=== PATIENT | female | born 1970 | race Caucasian/White ===

== ENCOUNTER 2018-08-18 16:16 | Inpatient (IN) | payer MEDICAID ==
--- NOTE | 2018-08-18 17:10 | ED PDOC ---
HPI: SOB/CHF/COPD Time Seen by Provider: 08/18/18 16:29 Chief Complaint (Nursing): Shortness Of Breath Chief Complaint (Provider): Shortness Of Breath History Per: Patient Additional Complaint(s): Jonathon Vogt is a 48 year old female with a past medical history of anemia and benign breast mass, who presents to the emergency department complaining of shortness of breath, associated with intermittent dry cough, chest pain, and bilateral leg swelling. Patient has been recently diagnosed with stage 4 ovarian cancer and reports that she has been having acute shortness of breath since diagnosis but it was worse today. She [place] [facility] [place] and recently had 2.5 L of fluids removed from her abdomen, which was followed up an infection of the abdomen wall for which she takes antibiotics. Patient states her leg swelling improved since started diuretics. PMD: Yuki Jon Past Medical History Reviewed: Historical Data, Nursing Documentation, Vital Signs Vital Signs: Last Vital Signs Temp 97.7 F 08/18/18 16:21 Pulse 120 H 08/18/18 16:21 Resp 18 08/18/18 16:21 BP 110/63 08/18/18 16:21 Pulse Ox 99 08/18/18 16:21 - Medical History PMH: Anemia Other PMH: breast and pelvic mass - Surgical History Other surgeries: Biopsy of breast and pelvic mass - Family History Family History: States: Unknown Family Hx - Social History Current smoker - smoking cessation education provided: No Alcohol: None - Home Medications Home Medications: Ambulatory Orders Medication Instructions Recorded Acetaminophen [Tylenol 325mg tab] 325 mg PO PRN PRN 08/19/18 Acetaminophen/Codeine 1 tab PO Q4 PRN 08/19/18 [Tylenol/Codeine 300 MG/30 MG] Cephalexin [cephalexin] 250 mg PO Q6H 08/19/18 LORazepam [Ativan] 0.5 mg PO HS 08/19/18 RX: Pantoprazole Sodium [Protonix] 40 mg PO DAILY 08/19/18 Spironolactone [Aldactone] 50 mg PO BID 08/19/18 - Allergies Allergies/Adverse Reactions: Allergies Allergy/AdvReac Type Severity Reaction Status Date / Time No Known Allergies Allergy Verified 08/18/18 16:19 Review of Systems ROS Statement: Except As Marked, All Systems Reviewed And Found Negative (and as per HPI) Cardiovascular: Positive for: Chest Pain Respiratory: Positive for: Cough (dry), Shortness of Breath Musculoskeletal: Positive for: Other (bilateral leg swelling) Physical Exam - Reviewed Nursing Documentation Reviewed: Yes Vital Signs Reviewed: Yes - Physical Exam Appears: Positive for: Uncomfortable (cachectic and tired appearing) Head Exam: Positive for: ATRAUMATIC, NORMOCEPHALIC Skin: Positive for: Pallor Eye Exam: Positive for: EOMI, PERRL, Other (sunken orbit) ENT: Positive for: Pharynx Is (clear), Other (dry mucous membranes) Neck: Positive for: Painless ROM, Supple Cardiovascular/Chest: Positive for: Tachycardia. Negative for: Murmur Respiratory: Positive for: Respiratory Distress (actute respiratory distress), Other (poor air movement). Negative for: Rales, Rhonchi, Wheezing Gastrointestinal/Abdominal: Positive for: Tenderness, Distended, Other (erythema of abdomen wall extending from umbilicus to bilater lower quadrant; induration of abdomen wall and diffuse tenderness) Back: Positive for: Normal Inspection. Negative for: Decreased ROM Extremity: Positive for: Other (poor muscle bulk; 2+ bilateral pitting edema) Lymphatic: Negative for: Adenopathy Neurologic/Psych: Positive for: Alert. Negative for: Motor/Sensory Deficits - Laboratory Results Result Diagrams: 08/19/18 04:25 08/19/18 04:25 - ECG ECG Rhythm: Positive for: Normal QRS, Normal ST Segment, Sinus Tachycardia O2 Sat by Pulse Oximetry: 99 (RA) Pulse Ox Interpretation: Normal - Radiology X-Ray Interpretation: Other (effusion RIGHT side, poor quality) - Critical Care Total Time (In Min): 30 Documented Critical Care: Time excludes all time spent performint seperately billable procedures Medical Decision Making Medical Decision Making: Initial Time: 16:46 Initial Impression: Shortness of breath differential diagnosis includes but not limited to fluid overload, PE, pneumonia, anemia, dehydration, electrolyte abnormality, pleural effusion Initial Plan: --Urinalysis --disk grinder --Saline lock --Blood culture --Urine culture --Chest x-ray --PTT --PT --CBC with differential --EKG --CMP --Lipase --Magnesium --Phosphorous --B-type Natriuretic peptide --Troponin I --VBG --Type and screen Labs demonstrate: leukocytosis, thrombocytosis, deranged electrolytes, elevated lactic acid RAHUL Lobo for ICU admission RAHUL [facility] RAHUL Arreaga Pulmonology RAHUL Lechuga ID [facility] with patient from [place] [facility]. Pt expresses dissatisfaction with her care there and prefers other Oncologist. ARHUL Sanchez for consult. ------- Scribe Attestation: Documented by Ascencion Zheng, acting as a scribe for Juli Robledo MD. Provider Scribe Attestation: All medical record entries made by the Scribe were at my direction and persona lly dictated by me. I have reviewed the chart and agree that the record accurately reflects my personal performance of the history, physical exam, medical decision making, and the department course for this patient. I have also personally directed, reviewed, and agree with the discharge instructions and disposition. Disposition - Clinical Impression Clinical Impression: Pleural effusion, Metastatic cancer, Sepsis, Fluid overload Counseled Patient/Family Regarding: Studies Performed, Diagnosis - Disposition Disposition Time: 18:30 Condition: CRITICAL - Pt Status Changed To: Hospital Disposition Of: Inpatient - Admit Certification Admit to Inpatient:: After my assessment, the patient will require hospitalization for at least two midnights. This is because of the severity of symptoms shown, intensity of services needed, and/or the medical risk in this pa tient being treated as an outpatient. - POA Present On Arrival: Surgical Site Infection (biopsy wound cellulitis)
[2018-08-18 17:30] LABS: LYMPH # 0.8 K/uL (1.0-4.3); LYMPH % 3.5 % (20.0-40.0); MEAN CELL VOLUME 76.6 fl (81.0-99.0); MEAN CORPUSCULAR HEMOGLOBIN 24.1 pg (27.0-31.0); MEAN CORPUSCULAR HGB CONC 31.4 g/dL (33.0-37.0); MEAN PLATELET VOLUME 6.6 fl (7.2-11.7); MONO # 0.5 K/uL (0.0-0.8); MONO % 2.1 % (0.0-10.0); NEUT # 22.4 K/uL (1.8-7.0); NEUT % 94.4 % (50.0-75.0); PLATELET COUNT 596 K/uL (130-400); RBC 4.99 Mil/uL (3.80-5.20); RED CELL DISTRIBUTION WIDTH 18.7 % (11.5-14.5); WHITE BLOOD COUNT 23.7 K/uL (4.8-10.8)
[2018-08-18] MEDS ORDERED: Sodium Chloride 0.9% 1,000 ML IV STA ×2 (17:31→20:54)
[2018-08-18 17:40] LABS: INR 1.3; PROTHROMBIN TIME 14.9 Seconds (9.8-13.1)
[2018-08-18 17:42] LABS: PARTIAL THROMBOPLASTIN TIME 24.2 Seconds (25.6-37.1)
[2018-08-18 17:49] LABS: VENOUS BLOOD GAS BASE EXCESS -2.8 mmol/L (0.0-2.0); VENOUS BLOOD GAS PCO2 44 mmHg (40-60); VENOUS BLOOD GAS PO2 17 mm/Hg (30-55); VENOUS BLOOD PH 7.33 (7.32-7.43)
[2018-08-18 17:55] LABS: ALB/GLOB RATIO 0.9 (1.0-2.1); ALBUMIN 3.7 g/dL (3.5-5.0)
[2018-08-18] MEDS ORDERED: Piperacillin/Tazobact 3.375 GM in Sodium Chloride 0.9% 100 ML IV STA (18:02)
[2018-08-18] MEDS ORDERED: Vancomycin 1 g Inj ONE (18:19)
[2018-08-18 20:15] LABS: BANDS 2 % (0-2); LYMPHOCYTE 7 % (20-50); MONOCYTE 6 % (0-10); NEUTROPHIL 85 % (42-75); TOTAL CELLS COUNTED 100
[2018-08-18 20:16] LABS: ANISOCYTOSIS SLIGHT; HYPOCHROMIC SLIGHT; MICROCYTOSIS SLIGHT; PLATELET ESTIMATE INCREASED (NORMAL); POIKILOCYTOSIS SLIGHT; POLYCHROMIC SLIGHT
[2018-08-18] MEDS ORDERED: Piperacillin/Tazobact 3.375 gm Inj IVPB ONE (21:21)
--- NOTE | 2018-08-18 22:27 | CP.CCUPN ---
CCU Subjective - Physician Review Subjective (Free Text): 48F admitted via ER for progressive abdominal distention, progressive SOB, and increasing leg edema and weakness. SPO2 in 90s with best observed at 97% on RA. Initial ER eval showed lactate 3.2, no associated shock or hypotension, WBC 05296 and CXR showing diffuse metastatic lesions over L lung and complete opacification of R lung. She admits to mild chest discomfort. No fevers or chills, +non-productive cough, + constipation, + N/V over the past 4 weeks since d/c [place] [facility], decreased PO intake, + intermittent vaginal bleeding. PMH significant for anemia, benign breast lesion, and recently dxed metastatic ovarian CA, with spread to lung and peritoneum, deemed poor candidate for surgery and planned to start Chemotx. Has been treated and f/u [place] [facility] [place]acentesis and pelvis bx of mass lesion, resulted in abdominal wall cellulitis, and has been on abx therapy. Last paracentesis was few weeks ago and 2.5 L removed. Allergies: NKDA Home Meds: Oxycontin prn Other vitals and I/O's reviewed. Normotensive, tachycardic 120 in sinus, RR 18 and afebrile. ROS: As above. No other pertinent negs or positives on 10+ system review. PMSFH: All other Nursing and physician documentation reviewed to date; no new pertinent info noted relevant to current medical problems. EXAM- HEENT: no icterus, no gaze preference, Pupils 3 mm and reactive NECK: No JVD visible, supple, carotids equal upstroke bilat/no bruit CHEST: absent BS on R, basilar crackles L, no wheezes audible HEART: regular, distant, tachy S1S2, no rubs ABD: softly and +tender over entire lower abdomen, no guarding, liver nonpalpable, no spleen tip, BS hypoactive. Lower abd wall erythema noted. EXT: +2-3 LE edema, no calf tenderness or palpable cords, distal pulses intact and symmetrical. NEURO: moves all extremities spontaneously. She is A Ox 3. SKIN: no rashes, warm and dry LABS: WBC= 23.7 HGB= 12.0 PLTs= 596K VBG 7.33/44/17, Lactate = 3.2 Na= 122 K= 5.8 CL=90 HCO3= 16 BUN/Cr= 31/1.6 BS= 132 Lipase= 956 CXR: (my interp) as above- whiteout of R lung, left LL streak atelectasis, multiple nodules Left lung. IMPRESSION / MAJOR PROBLEMS NOW: 1. Acute Resp Insuff: 2 massive R effusion, vs R lung atelectatic collapse. r/o occult underlying pneumonia, doubt acute PTE due to progressive nature and obvious effusion causing relative hypoxemia. 2. Abdominal Wall Cellulitis with Severe Sepsis, no shock state, r/o Bacteremia 3. Hyponatremia with Hypovolemia / Azotemia / Dehydration / Hyperkalemia 4. Metastatic Ovarian CA PLAN: 1. Supplemental O2, but does not need assisted breathing support at this time. Need ABG. 2. CT Chest / ABD Pelvis: If significant effusion and not pneumonitis / lobar atelectasis, would undergo thoracentesis. 3. Check urine lytes/osmo, serum osmo. Also, r/o SiADH. Could cautiously hydrate with NSS to raise serum Na to at least 128-130 over 24 hours. 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 Seizure precautions / Neurochecks. Check TSH. 4. Watch K levels, Kayexalate if tolerated PO. Check EKG. 5. Repeat serial Lactates till normalized. 6. Empiric Zosyn / Vanco started in ER, dose adjustments prn for decreased GFR. 7. No Advance Directives, full Code status.
[2018-08-19] MEDS: Meropenem 500 MG in Sodium Chloride 0.9% 100 ML IVPB SCH ×4 (01:40→16:35)
[2018-08-19] MEDS: Sodium Chloride 0.9% 1,000 ML IV SCH ×3 (01:41→20:49)
[2018-08-19 02:05] LABS: SQUAMOUS EPITHIAL 6 /hpf (0-5); URINE BACTERIA OCC (<OCC); URINE BILIRUBIN NEGATIVE (NEGATIVE); URINE BLOOD LARGE (NEGATIVE); URINE CLARITY TURBID (Clear); URINE COLOR AMBER (YELLOW); URINE GLUCOSE (UA) NEG (Normal); URINE LEUKOCYTE ESTERASE SMALL Leu/uL (Negative); URINE PROTEIN 100 mg/dL (NEGATIVE); URINE URIC ACID CRYSTALS MANY /hpf (<OCC); URINE UROBILINOGEN 0.2-1.0 mg/dL (0.2-1.0)
[2018-08-19 05:38] LABS: BASO # 0.1 K/uL (0.0-0.2); BASO % 0.4 % (0.0-2.0); HEMOGLOBIN 10.1 g/dL (12.0-16.0); LYMPH # 1.1 K/uL (1.0-4.3); LYMPH % 5.3 % (20.0-40.0); MEAN CELL VOLUME 77.3 fl (81.0-99.0); MEAN CORPUSCULAR HEMOGLOBIN 24.1 pg (27.0-31.0); MEAN CORPUSCULAR HGB CONC 31.1 g/dL (33.0-37.0); MEAN PLATELET VOLUME 7.3 fl (7.2-11.7); MONO # 0.8 K/uL (0.0-0.8); MONO % 4.1 % (0.0-10.0); NEUT # 17.8 K/uL (1.8-7.0); NEUT % 90.2 % (50.0-75.0); PLATELET COUNT 523 K/uL (130-400); RED CELL DISTRIBUTION WIDTH 18.4 % (11.5-14.5); WHITE BLOOD COUNT 19.8 K/uL (4.8-10.8)
[2018-08-19 05:46] LABS: VENOUS BLOOD GAS BASE EXCESS -4.6 mmol/L (0.0-2.0); VENOUS BLOOD GAS PCO2 46 mmHg (40-60); VENOUS BLOOD GAS PO2 39 mm/Hg (30-55); VENOUS BLOOD PH 7.29 (7.32-7.43)
[2018-08-19 05:49] LABS: INR 1.4; PROTHROMBIN TIME 15.5 Seconds (9.8-13.1)
[2018-08-19 05:51] LABS: PARTIAL THROMBOPLASTIN TIME 27.9 Seconds (25.6-37.1)
[2018-08-19 06:06] LABS: ALB/GLOB RATIO 0.9 (1.0-2.1); ALBUMIN 2.9 g/dL (3.5-5.0); CALCIUM 8.5 mg/dL (8.4-10.2)
[2018-08-19 08:45] LABS: HDL CHOLESTEROL 38 MG/DL (30-70)
[2018-08-19 08:56] LABS: LDL CHOLESTEROL 90 mg/dL (0-129)
--- NOTE | 2018-08-19 09:44 | RAD ---
Date of service: 08/18/2018 HISTORY: sob COMPARISON: 08/22/2014 FINDINGS: LUNGS: No definite infiltrate. Rounded opacity at left lung base, laterally. Several additional rounded opacities seen elsewhere in the left lung suspicious for metastasis. Right lung obscured by pleural effusion PLEURA: Large right pleural effusion obscures the right hemithorax. No definite left pleural effusion. No pneumothorax CARDIOVASCULAR: No aortic atherosclerotic calcification present. Normal cardiac size. No pulmonary vascular congestion. OSSEOUS STRUCTURES: No significant abnormalities. VISUALIZED UPPER ABDOMEN: Normal. OTHER FINDINGS: None. IMPRESSION: Multiple left lung masses suspicious for metastatic disease. Complete opacification of right kalen thorax likely due to pleural effusion.
--- NOTE | 2018-08-19 09:55 | CP.CCUPN ---
<Bipin Wagner - Last Filed: 08/19/18 13:08> CCU Subjective - Physician Review Subjective (Free Text): 08/19/18 13:08 Pt seen and examined at bedside this am. Pt reports generalized discomfort including SOB, and abdominal tenderness. Afebrile and tolerated PO diet this AM. CCU Objective - Vital Signs / Intake & Output Vital Signs (Last 4 hours): Vital Signs Temp Pulse Resp BP Pulse Ox 08/19/18 09:06 99 08/19/18 08:00 97.7 F 118 H 18 128/78 98 08/19/18 06:00 116 H 25 H 113/75 98 Intake and Output (Last 8hrs): Intake & Output 08/18/18 08/19/18 08/19/18 22:59 06:59 14:59 Intake Total 100 100 Output Total 40 Balance 60 100 Weight 145 lb Intake: Intake, Piggyback 100 100 Output: Urine 40 Urine, Voided 40 - Physical Exam Pupils: Positive for: PERRL Mouth: Positive for: Moist Mucous Membranes Respiratory/Chest: Positive for: Decreased Breath Sounds, Rhonchi, Tachypneic Cardiovascular: Positive for: Normal S1, S2, Tachycardic Abdomen: Positive for: Tenderness, Distention Skin: Positive for: Warm Psychiatric: Positive for: Alert, Oriented x 3 - Medications Active Medications: Active Medications Generic Name Dose Route Start Last Admin Trade Name Freq PRN Reason Stop Dose Admin Vancomycin HCl 1 gm/ Sodium 250 mls @ 166.667 mls/hr 08/18/18 20:15 08/19/18 01:01 Chloride IVPB Not Given Q24H TERA Protocol Meropenem 500 mg/ Sodium 100 mls @ 100 mls/hr 08/18/18 20:15 08/19/18 08:48 Chloride IVPB 100 mls/hr Q8 TERA Administration Protocol Sodium Chloride 1,000 mls @ 63 mls/hr 08/18/18 20:54 Sodium Chloride 0.9% IV 08/19/18 12:46 .[id number] STA Sodium Chloride 1,000 mls @ 75 mls/hr 08/19/18 01:30 08/19/18 01:41 Sodium Chloride 0.9% IV 08/20/18 01:24 75 mls/hr .[id number] TERA Administration - Patient Studies Lab Studies: Lab Studies 08/19/18 08/19/18 08/19/18 Range/Units 08:20 05:39 04:25 WBC (4.8-10.8) K/uL RBC (3.80-5.20) Mil/uL Hgb (12.0-16.0) g/dL Hct (34.0-47.0) % MCV (81.0-99.0) fl MCH (27.0-31.0) pg MCHC (33.0-37.0) g/dL RDW (11.5-14.5) % Plt Count (130-400) K/uL MPV (7.2-11.7) fl Neut % (Auto) (50.0-75.0) % Lymph % (Auto) (20.0-40.0) % [place] % (Auto) (0.0-10.0) % Eos % (Auto) (0.0-4.0) % Baso % (Auto) (0.0-2.0) % Neut # (Auto) (1.8-7.0) K/uL Lymph # (Auto) (1.0-4.3) K/uL [place] # (Auto) (0.0-0.8) K/uL Eos # (Auto) (0.0-0.7) K/uL Baso # (Auto) (0.0-0.2) K/uL Neutrophils % (Manual) (42-75) % Band Neutrophils % (0-2) % Lymphocytes % (Manual) (20-50) % Monocytes % (Manual) (0-10) % Platelet Estimate (NORMAL) Polychromasia Hypochromasia (manual) Poikilocytosis (manual Anisocytosis (manual) Microcytosis (manual) PT 15.5 H (9.8-13.1) Seconds INR 1.4 APTT 27.9 (25.6-37.1) Seconds pO2 39 (30-55) mm/Hg VBG pH 7.29 L (7.32-7.43) VBG pCO2 46 (40-60) mmHg VBG HCO3 20.5 mmol/L VBG Total CO2 23.5 (22-28) mmol/L VBG O2 Sat (Calc) 70.6 H (40-65) % VBG Base Excess -4.6 L (0.0-2.0) mmol/L VBG Potassium 5.3 H (3.6-5.2) mmol/L Sodium 119.0 L* (132-148) mmol/L Chloride 89.0 L (98-107) mmol/L Glucose 116 H (65-105) mg/dL Lactate 1.8 (0.7-2.1) mmol/L FiO2 28.0 % Crit Value Called To irma Larkin rn Crit Value Called By Jackelyn Crit Value Read Back Y Blood Gas Notified Time 546 Potassium (3.6-5.0) MMOL/L Carbon Dioxide (22-30) mmol/L Anion Gap (10-20) BUN (7-17) mg/dl Creatinine (0.7-1.2) mg/dl Est GFR ( Amer) Est GFR (Non-Af Amer) Random Glucose (65-105) mg/dL Serum Osmolality (272-300) mosm/kg Lactic Acid (0.7-2.1) MMOL/L Calcium (8.4-10.2) mg/dL Phosphorus (2.5-4.5) mg/dl Magnesium (1.6-2.3) MG/DL Total Bilirubin (0.2-1.3) mg/dl AST (14-36) U/L ALT (9-52) U/L Alkaline Phosphatase (38-126) U/L Troponin I NT-Pro-B Natriuret Pep (0-450) pg/ml Total Protein (6.3-8.2) G/DL Albumin (3.5-5.0) g/dL Globulin (2.2-3.9) gm/dL Albumin/Globulin Ratio (1.0-2.1) Triglycerides 176 H (0-149) mg/DL Cholesterol 147 (0-199) mg/dL LDL Cholesterol Direct 90 (0-129) mg/dL HDL Cholesterol 38 (30-70) MG/DL Lipase (23-300) U/L Venous Blood Potassium 5.3 H (3.6-5.2) mmol/L Urine Color (YELLOW) Urine Clarity (Clear) Urine pH (5.0-8.0) Ur Specific [place] (1.003-1.030) Urine Protein (NEGATIVE) mg/dL Urine Glucose (UA) (Normal) mg/dL Urine Ketones (NEGATIVE) mg/dL Urine Blood (NEGATIVE) Urine Nitrate (NEGATIVE) Urine Bilirubin (NEGATIVE) Urine Urobilinogen (0.2-1.0) mg/dL Ur Leukocyte Esterase (Negative) Ignacio/uL Urine RBC (Auto) (0-3) /hpf Urine Microscopic WBC (0-5) /hpf Ur Squamous Epith Cells (0-5) /hpf Uric Acid Crystals (<OCC) /hpf Urine Bacteria (<OCC) Hyaline Casts (0-2) /hpf Urine Osmolality (300-1000) mosm/kg Ur Random Sodium meq/L Ur Random Potassium mmol/L Blood Type Blood Type Confirm Antibody Screen BBK History Checked 08/19/18 08/19/18 08/19/18 Range/Units 04:25 04:25 04:25 WBC (4.8-10.8) K/uL RBC (3.80-5.20) Mil/uL Hgb (12.0-16.0) g/dL Hct (34.0-47.0) % MCV (81.0-99.0) fl MCH (27.0-31.0) pg MCHC (33.0-37.0) g/dL RDW (11.5-14.5) % Plt Count (130-400) K/uL MPV (7.2-11.7) fl Neut % (Auto) (50.0-75.0) % Lymph % (Auto) (20.0-40.0) % [place] % (Auto) (0.0-10.0) % Eos % (Auto) (0.0-4.0) % Baso % (Auto) (0.0-2.0) % Neut # (Auto) (1.8-7.0) K/uL Lymph # (Auto) (1.0-4.3) K/uL [place] # (Auto) (0.0-0.8) K/uL Eos # (Auto) (0.0-0.7) K/uL Baso # (Auto) (0.0-0.2) K/uL Neutrophils % (Manual) (42-75) % Band Neutrophils % (0-2) % Lymphocytes % (Manual) (20-50) % Monocytes % (Manual) (0-10) % Platelet Estimate (NORMAL) Polychromasia Hypochromasia (manual) Poikilocytosis (manual Anisocytosis (manual) Microcytosis (manual) PT (9.8-13.1) Seconds INR APTT (25.6-37.1) Seconds pO2 (30-55) mm/Hg VBG pH (7.32-7.43) VBG pCO2 (40-60) mmHg VBG HCO3 mmol/L VBG Total CO2 (22-28) mmol/L VBG O2 Sat (Calc) (40-65) % VBG Base Excess (0.0-2.0) mmol/L VBG Potassium (3.6-5.2) mmol/L Sodium 125 L (132-148) mmol/L Chloride 92 L (98-107) mmol/L Glucose (65-105) mg/dL Lactate (0.7-2.1) mmol/L FiO2 % Crit Value Called To Crit Value Called By Crit Value Read Back Blood Gas Notified Time Potassium 5.4 H (3.6-5.0) MMOL/L Carbon Dioxide 22 (22-30) mmol/L Anion Gap 16 (10-20) BUN 33 H (7-17) mg/dl Creatinine 1.8 H (0.7-1.2) mg/dl Est GFR ( Amer) 36 Est GFR (Non-Af Amer) 30 Random Glucose 117 H (65-105) mg/dL Serum Osmolality 276 (272-300) mosm/kg Lactic Acid 1.4 (0.7-2.1) MMOL/L Calcium 8.5 (8.4-10.2) mg/dL Phosphorus (2.5-4.5) mg/dl Magnesium (1.6-2.3) MG/DL Total Bilirubin 0.7 (0.2-1.3) mg/dl AST 74 H D (14-36) U/L ALT 33 (9-52) U/L Alkaline Phosphatase 137 H D (38-126) U/L Troponin I NT-Pro-B Natriuret Pep (0-450) pg/ml Total Protein 6.2 L (6.3-8.2) G/DL Albumin 2.9 L D (3.5-5.0) g/dL Globulin 3.3 (2.2-3.9) gm/dL Albumin/Globulin Ratio 0.9 L (1.0-2.1) Triglycerides (0-149) mg/DL Cholesterol (0-199) mg/dL LDL Cholesterol Direct (0-129) mg/dL HDL Cholesterol (30-70) MG/DL Lipase (23-300) U/L Venous Blood Potassium (3.6-5.2) mmol/L Urine Color (YELLOW) Urine Clarity (Clear) Urine pH (5.0-8.0) Ur Specific [place] (1.003-1.030) Urine Protein (NEGATIVE) mg/dL Urine Glucose (UA) (Normal) mg/dL Urine Ketones (NEGATIVE) mg/dL Urine Blood (NEGATIVE) Urine Nitrate (NEGATIVE) Urine Bilirubin (NEGATIVE) Urine Urobilinogen (0.2-1.0) mg/dL Ur Leukocyte Esterase (Negative) Ignacio/uL Urine RBC (Auto) (0-3) /hpf Urine Microscopic WBC (0-5) /hpf Ur Squamous Epith Cells (0-5) /hpf Uric Acid Crystals (<OCC) /hpf Urine Bacteria (<OCC) Hyaline Casts (0-2) /hpf Urine Osmolality (300-1000) mosm/kg Ur Random Sodium meq/L Ur Random Potassium mmol/L Blood Type Blood Type Confirm Antibody Screen BBK History Checked 08/19/18 08/19/18 08/19/18 Range/Units 04:25 01:15 01:15 WBC 19.8 H (4.8-10.8) K/uL RBC 4.20 (3.80-5.20) Mil/uL Hgb 10.1 L (12.0-16.0) g/dL Hct 32.5 L (34.0-47.0) % MCV 77.3 L (81.0-99.0) fl MCH 24.1 L (27.0-31.0) pg MCHC 31.1 L (33.0-37.0) g/dL RDW 18.4 H (11.5-14.5) % Plt Count 523 H (130-400) K/uL MPV 7.3 (7.2-11.7) fl Neut % (Auto) 90.2 H (50.0-75.0) % Lymph % (Auto) 5.3 L (20.0-40.0) % [place] % (Auto) 4.1 (0.0-10.0) % Eos % (Auto) 0.0 (0.0-4.0) % Baso % (Auto) 0.4 (0.0-2.0) % Neut # (Auto) 17.8 H (1.8-7.0) K/uL Lymph # (Auto) 1.1 (1.0-4.3) K/uL [place] # (Auto) 0.8 (0.0-0.8) K/uL Eos # (Auto) 0.0 (0.0-0.7) K/uL Baso # (Auto) 0.1 (0.0-0.2) K/uL Neutrophils % (Manual) (42-75) % Band Neutrophils % (0-2) % Lymphocytes % (Manual) (20-50) % Monocytes % (Manual) (0-10) % Platelet Estimate (NORMAL) Polychromasia Hypochromasia (manual) Poikilocytosis (manual Anisocytosis (manual) Microcytosis (manual) PT (9.8-13.1) Seconds INR APTT (25.6-37.1) Seconds pO2 (30-55) mm/Hg VBG pH (7.32-7.43) VBG pCO2 (40-60) mmHg VBG HCO3 mmol/L VBG Total CO2 (22-28) mmol/L VBG O2 Sat (Calc) (40-65) % VBG Base Excess (0.0-2.0) mmol/L VBG Potassium (3.6-5.2) mmol/L Sodium (132-148) mmol/L Chloride (98-107) mmol/L Glucose (65-105) mg/dL Lactate (0.7-2.1) mmol/L FiO2 % Crit Value Called To Crit Value Called By Crit Value Read Back Blood Gas Notified Time Potassium (3.6-5.0) MMOL/L Carbon Dioxide (22-30) mmol/L Anion Gap (10-20) BUN (7-17) mg/dl Creatinine (0.7-1.2) mg/dl Est GFR ( Amer) Est GFR (Non-Af Amer) Random Glucose (65-105) mg/dL Serum Osmolality (272-300) mosm/kg Lactic Acid (0.7-2.1) MMOL/L Calcium (8.4-10.2) mg/dL Phosphorus (2.5-4.5) mg/dl Magnesium (1.6-2.3) MG/DL Total Bilirubin (0.2-1.3) mg/dl AST (14-36) U/L ALT (9-52) U/L Alkaline Phosphatase (38-126) U/L Troponin I NT-Pro-B Natriuret Pep (0-450) pg/ml Total Protein (6.3-8.2) G/DL Albumin (3.5-5.0) g/dL Globulin (2.2-3.9) gm/dL Albumin/Globulin Ratio (1.0-2.1) Triglycerides (0-149) mg/DL Cholesterol (0-199) mg/dL LDL Cholesterol Direct (0-129) mg/dL HDL Cholesterol (30-70) MG/DL Lipase (23-300) U/L Venous Blood Potassium (3.6-5.2) mmol/L Urine Color [place] (YELLOW) Urine Clarity Turbid (Clear) Urine pH 5.0 (5.0-8.0) Ur Specific [place] 1.024 (1.003-1.030) Urine Protein 100 (NEGATIVE) mg/dL Urine Glucose (UA) Neg (Normal) mg/dL Urine Ketones Negative (NEGATIVE) mg/dL Urine Blood Large (NEGATIVE) Urine Nitrate Negative (NEGATIVE) Urine Bilirubin Negative (NEGATIVE) Urine Urobilinogen 0.2-1.0 (0.2-1.0) mg/dL Ur Leukocyte Esterase Small (Negative) Ignacio/uL Urine RBC (Auto) 371 H (0-3) /hpf Urine Microscopic WBC 67 H (0-5) /hpf Ur Squamous Epith Cells 6 H (0-5) /hpf Uric Acid Crystals Many H (<OCC) /hpf Urine Bacteria Occ H (<OCC) Hyaline Casts 11-20 H (0-2) /hpf Urine Osmolality (300-1000) mosm/kg Ur Random Sodium 16 meq/L Ur Random Potassium 57.9 mmol/L Blood Type Blood Type Confirm Antibody Screen BBK History Checked 08/19/18 08/18/18 08/18/18 Range/Units 01:15 22:10 22:10 WBC (4.8-10.8) K/uL RBC (3.80-5.20) Mil/uL Hgb (12.0-16.0) g/dL Hct (34.0-47.0) % MCV (81.0-99.0) fl MCH (27.0-31.0) pg MCHC (33.0-37.0) g/dL RDW (11.5-14.5) % Plt Count (130-400) K/uL MPV (7.2-11.7) fl Neut % (Auto) (50.0-75.0) % Lymph % (Auto) (20.0-40.0) % [place] % (Auto) (0.0-10.0) % Eos % (Auto) (0.0-4.0) % Baso % (Auto) (0.0-2.0) % Neut # (Auto) (1.8-7.0) K/uL Lymph # (Auto) (1.0-4.3) K/uL [place] # (Auto) (0.0-0.8) K/uL Eos # (Auto) (0.0-0.7) K/uL Baso # (Auto) (0.0-0.2) K/uL Neutrophils % (Manual) (42-75) % Band Neutrophils % (0-2) % Lymphocytes % (Manual) (20-50) % Monocytes % (Manual) (0-10) % Platelet Estimate (NORMAL) Polychromasia Hypochromasia (manual) Poikilocytosis (manual Anisocytosis (manual) Microcytosis (manual) PT (9.8-13.1) Seconds INR APTT (25.6-37.1) Seconds pO2 (30-55) mm/Hg VBG pH (7.32-7.43) VBG pCO2 (40-60) mmHg VBG HCO3 mmol/L VBG Total CO2 (22-28) mmol/L VBG O2 Sat (Calc) (40-65) % VBG Base Excess (0.0-2.0) mmol/L VBG Potassium (3.6-5.2) mmol/L Sodium (132-148) mmol/L Chloride (98-107) mmol/L Glucose (65-105) mg/dL Lactate (0.7-2.1) mmol/L FiO2 % Crit Value Called To Crit Value Called By Crit Value Read Back Blood Gas Notified Time Potassium (3.6-5.0) MMOL/L Carbon Dioxide (22-30) mmol/L Anion Gap (10-20) BUN (7-17) mg/dl Creatinine (0.7-1.2) mg/dl Est GFR ( Amer) Est GFR (Non-Af Amer) Random Glucose (65-105) mg/dL Serum Osmolality (272-300) mosm/kg Lactic Acid (0.7-2.1) MMOL/L Calcium (8.4-10.2) mg/dL Phosphorus (2.5-4.5) mg/dl Magnesium (1.6-2.3) MG/DL Total Bilirubin (0.2-1.3) mg/dl AST (14-36) U/L ALT (9-52) U/L Alkaline Phosphatase (38-126) U/L Troponin I 0.0140 NT-Pro-B Natriuret Pep (0-450) pg/ml Total Protein (6.3-8.2) G/DL Albumin (3.5-5.0) g/dL Globulin (2.2-3.9) gm/dL Albumin/Globulin Ratio (1.0-2.1) Triglycerides (0-149) mg/DL Cholesterol (0-199) mg/dL LDL Cholesterol Direct (0-129) mg/dL HDL Cholesterol (30-70) MG/DL Lipase (23-300) U/L Venous Blood Potassium (3.6-5.2) mmol/L Urine Color (YELLOW) Urine Clarity (Clear) Urine pH (5.0-8.0) Ur Specific [place] (1.003-1.030) Urine Protein (NEGATIVE) mg/dL Urine Glucose (UA) (Normal) mg/dL Urine Ketones (NEGATIVE) mg/dL Urine Blood (NEGATIVE) Urine Nitrate (NEGATIVE) Urine Bilirubin (NEGATIVE) Urine Urobilinogen (0.2-1.0) mg/dL Ur Leukocyte Esterase (Negative) Ignacio/uL Urine RBC (Auto) (0-3) /hpf Urine Microscopic WBC (0-5) /hpf Ur Squamous Epith Cells (0-5) /hpf Uric Acid Crystals (<OCC) /hpf Urine Bacteria (<OCC) Hyaline Casts (0-2) /hpf Urine Osmolality 470 (300-1000) mosm/kg Ur Random Sodium meq/L Ur Random Potassium mmol/L Blood Type Blood Type Confirm B POSITIVE Antibody Screen BBK History Checked 08/18/18 08/18/18 08/18/18 Range/Units 17:34 17:18 17:18 WBC (4.8-10.8) K/uL RBC (3.80-5.20) Mil/uL Hgb (12.0-16.0) g/dL Hct (34.0-47.0) % MCV (81.0-99.0) fl MCH (27.0-31.0) pg MCHC (33.0-37.0) g/dL RDW (11.5-14.5) % Plt Count (130-400) K/uL MPV (7.2-11.7) fl Neut % (Auto) (50.0-75.0) % Lymph % (Auto) (20.0-40.0) % [place] % (Auto) (0.0-10.0) % Eos % (Auto) (0.0-4.0) % Baso % (Auto) (0.0-2.0) % Neut # (Auto) (1.8-7.0) K/uL Lymph # (Auto) (1.0-4.3) K/uL [place] # (Auto) (0.0-0.8) K/uL Eos # (Auto) (0.0-0.7) K/uL Baso # (Auto) (0.0-0.2) K/uL Neutrophils % (Manual) (42-75) % Band Neutrophils % (0-2) % Lymphocytes % (Manual) (20-50) % Monocytes % (Manual) (0-10) % Platelet Estimate (NORMAL) Polychromasia Hypochromasia (manual) Poikilocytosis (manual Anisocytosis (manual) Microcytosis (manual) PT 14.9 H (9.8-13.1) Seconds INR 1.3 APTT 24.2 L (25.6-37.1) Seconds pO2 (30-55) mm/Hg VBG pH (7.32-7.43) VBG pCO2 (40-60) mmHg VBG HCO3 mmol/L VBG Total CO2 (22-28) mmol/L VBG O2 Sat (Calc) (40-65) % VBG Base Excess (0.0-2.0) mmol/L VBG Potassium (3.6-5.2) mmol/L Sodium 122 L (132-148) mmol/L Chloride 90 L (98-107) mmol/L Glucose (65-105) mg/dL Lactate (0.7-2.1) mmol/L FiO2 % Crit Value Called To Crit Value Called By Crit Value Read Back Blood Gas Notified Time Potassium 5.8 H (3.6-5.0) MMOL/L Carbon Dioxide 16 L (22-30) mmol/L Anion Gap 22 H (10-20) BUN 31 H (7-17) mg/dl Creatinine 1.6 H (0.7-1.2) mg/dl Est GFR ( Amer) 42 Est GFR (Non-Af Amer) 34 Random Glucose 132 H (65-105) mg/dL Serum Osmolality (272-300) mosm/kg Lactic Acid (0.7-2.1) MMOL/L Calcium 9.0 (8.4-10.2) mg/dL Phosphorus 5.6 H (2.5-4.5) mg/dl Magnesium 2.3 (1.6-2.3) MG/DL Total Bilirubin 1.2 (0.2-1.3) mg/dl AST 109 H (14-36) U/L ALT 28 (9-52) U/L Alkaline Phosphatase 176 H (38-126) U/L Troponin I Cancelled NT-Pro-B Natriuret Pep 2270 H (0-450) pg/ml Total Protein 7.8 (6.3-8.2) G/DL Albumin 3.7 (3.5-5.0) g/dL Globulin 4.1 H (2.2-3.9) gm/dL Albumin/Globulin Ratio 0.9 L (1.0-2.1) Triglycerides (0-149) mg/DL Cholesterol (0-199) mg/dL LDL Cholesterol Direct (0-129) mg/dL HDL Cholesterol (30-70) MG/DL Lipase 956 H (23-300) U/L Venous Blood Potassium (3.6-5.2) mmol/L Urine Color (YELLOW) Urine Clarity (Clear) Urine pH (5.0-8.0) Ur Specific [place] (1.003-1.030) Urine Protein (NEGATIVE) mg/dL Urine Glucose (UA) (Normal) mg/dL Urine Ketones (NEGATIVE) mg/dL Urine Blood (NEGATIVE) Urine Nitrate (NEGATIVE) Urine Bilirubin (NEGATIVE) Urine Urobilinogen (0.2-1.0) mg/dL Ur Leukocyte Esterase (Negative) Ignacio/uL Urine RBC (Auto) (0-3) /hpf Urine Microscopic WBC (0-5) /hpf Ur Squamous Epith Cells (0-5) /hpf Uric Acid Crystals (<OCC) /hpf Urine Bacteria (<OCC) Hyaline Casts (0-2) /hpf Urine Osmolality (300-1000) mosm/kg Ur Random Sodium meq/L Ur Random Potassium mmol/L Blood Type B POSITIVE Blood Type Confirm Antibody Screen Negative BBK History Checked No verified bt 08/18/18 08/18/18 Range/Units 17:18 17:00 WBC 23.7 H (4.8-10.8) K/uL RBC 4.99 (3.80-5.20) Mil/uL Hgb 12.0 (12.0-16.0) g/dL Hct 38.2 (34.0-47.0) % MCV 76.6 L (81.0-99.0) fl MCH 24.1 L (27.0-31.0) pg MCHC 31.4 L (33.0-37.0) g/dL RDW 18.7 H (11.5-14.5) % Plt Count 596 H (130-400) K/uL MPV 6.6 L (7.2-11.7) fl Neut % (Auto) 94.4 H (50.0-75.0) % Lymph % (Auto) 3.5 L (20.0-40.0) % [place] % (Auto) 2.1 (0.0-10.0) % Eos % (Auto) 0.0 (0.0-4.0) % Baso % (Auto) 0.0 (0.0-2.0) % Neut # (Auto) 22.4 H (1.8-7.0) K/uL Lymph # (Auto) 0.8 L (1.0-4.3) K/uL [place] # (Auto) 0.5 (0.0-0.8) K/uL Eos # (Auto) 0.0 (0.0-0.7) K/uL Baso # (Auto) 0.0 (0.0-0.2) K/uL Neutrophils % (Manual) 85 H (42-75) % Band Neutrophils % 2 (0-2) % Lymphocytes % (Manual) 7 L (20-50) % Monocytes % (Manual) 6 (0-10) % Platelet Estimate Increased H (NORMAL) Polychromasia Slight Hypochromasia (manual) Slight Poikilocytosis (manual Slight Anisocytosis (manual) Slight Microcytosis (manual) Slight PT (9.8-13.1) Seconds INR APTT (25.6-37.1) Seconds pO2 17 L (30-55) mm/Hg VBG pH 7.33 (7.32-7.43) VBG pCO2 44 (40-60) mmHg VBG HCO3 20.7 mmol/L VBG Total CO2 24.6 (22-28) mmol/L VBG O2 Sat (Calc) 24.4 L (40-65) % VBG Base Excess -2.8 L (0.0-2.0) mmol/L VBG Potassium 5.5 H (3.6-5.2) mmol/L Sodium 121.0 L (132-148) mmol/L Chloride 87.0 L (98-107) mmol/L Glucose 134 H (65-105) mg/dL Lactate 3.2 H (0.7-2.1) mmol/L FiO2 21.0 % Crit Value Called To Crit Value Called By Crit Value Read Back Blood Gas Notified Time Potassium (3.6-5.0) MMOL/L Carbon Dioxide (22-30) mmol/L Anion Gap (10-20) BUN (7-17) mg/dl Creatinine (0.7-1.2) mg/dl Est GFR ( Amer) Est GFR (Non-Af Amer) Random Glucose (65-105) mg/dL Serum Osmolality (272-300) mosm/kg Lactic Acid (0.7-2.1) MMOL/L Calcium (8.4-10.2) mg/dL Phosphorus (2.5-4.5) mg/dl Magnesium (1.6-2.3) MG/DL Total Bilirubin (0.2-1.3) mg/dl AST (14-36) U/L ALT (9-52) U/L Alkaline Phosphatase (38-126) U/L Troponin I NT-Pro-B Natriuret Pep (0-450) pg/ml Total Protein (6.3-8.2) G/DL Albumin (3.5-5.0) g/dL Globulin (2.2-3.9) gm/dL Albumin/Globulin Ratio (1.0-2.1) Triglycerides (0-149) mg/DL Cholesterol (0-199) mg/dL LDL Cholesterol Direct (0-129) mg/dL HDL Cholesterol (30-70) MG/DL Lipase (23-300) U/L Venous Blood Potassium 5.5 H (3.6-5.2) mmol/L Urine Color (YELLOW) Urine Clarity (Clear) Urine pH (5.0-8.0) Ur Specific [place] (1.003-1.030) Urine Protein (NEGATIVE) mg/dL Urine Glucose (UA) (Normal) mg/dL Urine Ketones (NEGATIVE) mg/dL Urine Blood (NEGATIVE) Urine Nitrate (NEGATIVE) Urine Bilirubin (NEGATIVE) Urine Urobilinogen (0.2-1.0) mg/dL Ur Leukocyte Esterase (Negative) Ignacio/uL Urine RBC (Auto) (0-3) /hpf Urine Microscopic WBC (0-5) /hpf Ur Squamous Epith Cells (0-5) /hpf Uric Acid Crystals (<OCC) /hpf Urine Bacteria (<OCC) Hyaline Casts (0-2) /hpf Urine Osmolality (300-1000) mosm/kg Ur Random Sodium meq/L Ur Random Potassium mmol/L Blood Type Blood Type Confirm Antibody Screen BBK History Checked Laboratory Results - last 24 hr 08/18/18 08/18/18 08/18/18 17:00 17:18 17:18 WBC 23.7 H RBC 4.99 Hgb 12.0 Hct 38.2 MCV 76.6 L MCH 24.1 L MCHC 31.4 L RDW 18.7 H Plt Count 596 H MPV 6.6 L Neut % (Auto) 94.4 H Lymph % (Auto) 3.5 L [place] % (Auto) 2.1 Eos % (Auto) 0.0 Baso % (Auto) 0.0 Neut # (Auto) 22.4 H Lymph # (Auto) 0.8 L [place] # (Auto) 0.5 Eos # (Auto) 0.0 Baso # (Auto) 0.0 Neutrophils % (Manual) 85 H Band Neutrophils % 2 Lymphocytes % (Manual) 7 L Monocytes % (Manual) 6 Platelet Estimate Increased H Polychromasia Slight Hypochromasia (manual) Slight Poikilocytosis (manual Slight Anisocytosis (manual) Slight Microcytosis (manual) Slight PT INR APTT pO2 17 L VBG pH 7.33 VBG pCO2 44 VBG HCO3 20.7 VBG Total CO2 24.6 VBG O2 Sat (Calc) 24.4 L VBG Base Excess -2.8 L VBG Potassium 5.5 H Sodium 121.0 L 122 L Chloride 87.0 L 90 L Glucose 134 H Lactate 3.2 H FiO2 21.0 Crit Value Called To Crit Value Called By Crit Value Read Back Blood Gas Notified Time Potassium 5.8 H Carbon Dioxide 16 L Anion Gap 22 H BUN 31 H Creatinine 1.6 H Est GFR ( Amer) 42 Est GFR (Non-Af Amer) 34 Random Glucose 132 H Serum Osmolality Lactic Acid Calcium 9.0 Phosphorus 5.6 H Magnesium 2.3 Total Bilirubin 1.2 AST 109 H ALT 28 Alkaline Phosphatase 176 H Troponin I Cancelled NT-Pro-B Natriuret Pep 2270 H Total Protein 7.8 Albumin 3.7 Globulin 4.1 H Albumin/Globulin Ratio 0.9 L Triglycerides Cholesterol LDL Cholesterol Direct HDL Cholesterol Lipase 956 H Venous Blood Potassium 5.5 H Urine Color Urine Clarity Urine pH Ur Specific [place] Urine Protein Urine Glucose (UA) Urine Ketones Urine Blood Urine Nitrate Urine Bilirubin Urine Urobilinogen Ur Leukocyte Esterase Urine RBC (Auto) Urine Microscopic WBC Ur Squamous Epith Cells Uric Acid Crystals Urine Bacteria Hyaline Casts Urine Osmolality Ur Random Sodium Ur Random Potassium Blood Type Blood Type Confirm Antibody Screen BBK History Checked 08/18/18 08/18/18 08/18/18 17:18 17:34 22:10 WBC RBC Hgb Hct MCV MCH MCHC RDW Plt Count MPV Neut % (Auto) Lymph % (Auto) [place] % (Auto) Eos % (Auto) Baso % (Auto) Neut # (Auto) Lymph # (Auto) [place] # (Auto) Eos # (Auto) Baso # (Auto) Neutrophils % (Manual) Band Neutrophils % Lymphocytes % (Manual) Monocytes % (Manual) Platelet Estimate Polychromasia Hypochromasia (manual) Poikilocytosis (manual Anisocytosis (manual) Microcytosis (manual) PT 14.9 H INR 1.3 APTT 24.2 L pO2 VBG pH VBG pCO2 VBG HCO3 VBG Total CO2 VBG O2 Sat (Calc) VBG Base Excess VBG Potassium Sodium Chloride Glucose Lactate FiO2 Crit Value Called To Crit Value Called By Crit Value Read Back Blood Gas Notified Time Potassium Carbon Dioxide Anion Gap BUN Creatinine Est GFR ( Amer) Est GFR (Non-Af Amer) Random Glucose Serum Osmolality Lactic Acid Calcium Phosphorus Magnesium Total Bilirubin AST ALT Alkaline Phosphatase Troponin I 0.0140 NT-Pro-B Natriuret Pep Total Protein Albumin Globulin Albumin/Globulin Ratio Triglycerides Cholesterol LDL Cholesterol Direct HDL Cholesterol Lipase Venous Blood Potassium Urine Color Urine Clarity Urine pH Ur Specific [place] Urine Protein Urine Glucose (UA) Urine Ketones Urine Blood Urine Nitrate Urine Bilirubin Urine Urobilinogen Ur Leukocyte Esterase Urine RBC (Auto) Urine Microscopic WBC Ur Squamous Epith Cells Uric Acid Crystals Urine Bacteria Hyaline Casts Urine Osmolality Ur Random Sodium Ur Random Potassium Blood Type B POSITIVE Blood Type Confirm Antibody Screen Negative BBK History Checked No verified bt 08/18/18 08/19/18 08/19/18 22:10 01:15 01:15 WBC RBC Hgb Hct MCV MCH MCHC RDW Plt Count MPV Neut % (Auto) Lymph % (Auto) [place] % (Auto) Eos % (Auto) Baso % (Auto) Neut # (Auto) Lymph # (Auto) [place] # (Auto) Eos # (Auto) Baso # (Auto) Neutrophils % (Manual) Band Neutrophils % Lymphocytes % (Manual) Monocytes % (Manual) Platelet Estimate Polychromasia Hypochromasia (manual) Poikilocytosis (manual Anisocytosis (manual) Microcytosis (manual) PT INR APTT pO2 VBG pH VBG pCO2 VBG HCO3 VBG Total CO2 VBG O2 Sat (Calc) VBG Base Excess VBG Potassium Sodium Chloride Glucose Lactate FiO2 Crit Value Called To Crit Value Called By Crit Value Read Back Blood Gas Notified Time Potassium Carbon Dioxide Anion Gap BUN Creatinine Est GFR ( Amer) Est GFR (Non-Af Amer) Random Glucose Serum Osmolality Lactic Acid Calcium Phosphorus Magnesium Total Bilirubin AST ALT Alkaline Phosphatase Troponin I NT-Pro-B Natriuret Pep Total Protein Albumin Globulin Albumin/Globulin Ratio Triglycerides Cholesterol LDL Cholesterol Direct HDL Cholesterol Lipase Venous Blood Potassium Urine Color Urine Clarity Urine pH Ur Specific [place] Urine Protein Urine Glucose (UA) Urine Ketones Urine Blood Urine Nitrate Urine Bilirubin Urine Urobilinogen Ur Leukocyte Esterase Urine RBC (Auto) Urine Microscopic WBC Ur Squamous Epith Cells Uric Acid Crystals Urine Bacteria Hyaline Casts Urine Osmolality 470 Ur Random Sodium 16 Ur Random Potassium 57.9 Blood Type Blood Type Confirm B POSITIVE Antibody Screen BBK History Checked 08/19/18 08/19/18 08/19/18 01:15 04:25 04:25 WBC 19.8 H RBC 4.20 Hgb 10.1 L Hct 32.5 L MCV 77.3 L MCH 24.1 L MCHC 31.1 L RDW 18.4 H Plt Count 523 H MPV 7.3 Neut % (Auto) 90.2 H Lymph % (Auto) 5.3 L [place] % (Auto) 4.1 Eos % (Auto) 0.0 Baso % (Auto) 0.4 Neut # (Auto) 17.8 H Lymph # (Auto) 1.1 [place] # (Auto) 0.8 Eos # (Auto) 0.0 Baso # (Auto) 0.1 Neutrophils % (Manual) Band Neutrophils % Lymphocytes % (Manual) Monocytes % (Manual) Platelet Estimate Polychromasia Hypochromasia (manual) Poikilocytosis (manual Anisocytosis (manual) Microcytosis (manual) PT INR APTT pO2 VBG pH VBG pCO2 VBG HCO3 VBG Total CO2 VBG O2 Sat (Calc) VBG Base Excess VBG Potassium Sodium 125 L Chloride 92 L Glucose Lactate FiO2 Crit Value Called To Crit Value Called By Crit Value Read Back Blood Gas Notified Time Potassium 5.4 H Carbon Dioxide 22 Anion Gap 16 BUN 33 H Creatinine 1.8 H Est GFR ( Amer) 36 Est GFR (Non-Af Amer) 30 Random Glucose 117 H Serum Osmolality Lactic Acid Calcium 8.5 Phosphorus Magnesium Total Bilirubin 0.7 AST 74 H D ALT 33 Alkaline Phosphatase 137 H D Troponin I NT-Pro-B Natriuret Pep Total Protein 6.2 L Albumin 2.9 L D Globulin 3.3 Albumin/Globulin Ratio 0.9 L Triglycerides Cholesterol LDL Cholesterol Direct HDL Cholesterol Lipase Venous Blood Potassium Urine Color Shannan Urine Clarity Turbid Urine pH 5.0 Ur Specific [place] 1.024 Urine Protein 100 Urine Glucose (UA) Neg Urine Ketones Negative Urine Blood Large Urine Nitrate Negative Urine Bilirubin Negative Urine Urobilinogen 0.2-1.0 Ur Leukocyte Esterase Small Urine RBC (Auto) 371 H Urine Microscopic WBC 67 H Ur Squamous Epith Cells 6 H Uric Acid Crystals Many H Urine Bacteria Occ H Hyaline Casts 11-20 H Urine Osmolality Ur Random Sodium Ur Random Potassium Blood Type Blood Type Confirm Antibody Screen BBK History Checked 08/19/18 08/19/18 08/19/18 04:25 04:25 04:25 WBC RBC Hgb Hct MCV MCH MCHC RDW Plt Count MPV Neut % (Auto) Lymph % (Auto) [place] % (Auto) Eos % (Auto) Baso % (Auto) Neut # (Auto) Lymph # (Auto) [place] # (Auto) Eos # (Auto) Baso # (Auto) Neutrophils % (Manual) Band Neutrophils % Lymphocytes % (Manual) Monocytes % (Manual) Platelet Estimate Polychromasia Hypochromasia (manual) Poikilocytosis (manual Anisocytosis (manual) Microcytosis (manual) PT 15.5 H INR 1.4 APTT 27.9 pO2 VBG pH VBG pCO2 VBG HCO3 VBG Total CO2 VBG O2 Sat (Calc) VBG Base Excess VBG Potassium Sodium Chloride Glucose Lactate FiO2 Crit Value Called To Crit Value Called By Crit Value Read Back Blood Gas Notified Time Potassium Carbon Dioxide Anion Gap BUN Creatinine Est GFR ( Amer) Est GFR (Non-Af Amer) Random Glucose Serum Osmolality 276 Lactic Acid 1.4 Calcium Phosphorus Magnesium Total Bilirubin AST ALT Alkaline Phosphatase Troponin I NT-Pro-B Natriuret Pep Total Protein Albumin Globulin Albumin/Globulin Ratio Triglycerides Cholesterol LDL Cholesterol Direct HDL Cholesterol Lipase Venous Blood Potassium Urine Color Urine Clarity Urine pH Ur Specific [place] Urine Protein Urine Glucose (UA) Urine Ketones Urine Blood Urine Nitrate Urine Bilirubin Urine Urobilinogen Ur Leukocyte Esterase Urine RBC (Auto) Urine Microscopic WBC Ur Squamous Epith Cells Uric Acid Crystals Urine Bacteria Hyaline Casts Urine Osmolality Ur Random Sodium Ur Random Potassium Blood Type Blood Type Confirm Antibody Screen BBK History Checked 08/19/18 08/19/18 05:39 08:20 WBC RBC Hgb Hct MCV MCH MCHC RDW Plt Count MPV Neut % (Auto) Lymph % (Auto) [place] % (Auto) Eos % (Auto) Baso % (Auto) Neut # (Auto) Lymph # (Auto) [place] # (Auto) Eos # (Auto) Baso # (Auto) Neutrophils % (Manual) Band Neutrophils % Lymphocytes % (Manual) Monocytes % (Manual) Platelet Estimate Polychromasia Hypochromasia (manual) Poikilocytosis (manual Anisocytosis (manual) Microcytosis (manual) PT INR APTT pO2 39 VBG pH 7.29 L VBG pCO2 46 VBG HCO3 20.5 VBG Total CO2 23.5 VBG O2 Sat (Calc) 70.6 H VBG Base Excess -4.6 L VBG Potassium 5.3 H Sodium 119.0 L* Chloride 89.0 L Glucose 116 H Lactate 1.8 FiO2 28.0 Crit Value Called To irma Larkin rn Crit Value Called By Jackelyn Crit Value Read Back Y Blood Gas Notified Time 546 Potassium Carbon Dioxide Anion Gap BUN Creatinine Est GFR ( Amer) Est GFR (Non-Af Amer) Random Glucose Serum Osmolality Lactic Acid Calcium Phosphorus Magnesium Total Bilirubin AST ALT Alkaline Phosphatase Troponin I NT-Pro-B Natriuret Pep Total Protein Albumin Globulin Albumin/Globulin Ratio Triglycerides 176 H Cholesterol 147 LDL Cholesterol Direct 90 HDL Cholesterol 38 Lipase Venous Blood Potassium 5.3 H Urine Color Urine Clarity Urine pH Ur Specific [place] Urine Protein Urine Glucose (UA) Urine Ketones Urine Blood Urine Nitrate Urine Bilirubin Urine Urobilinogen Ur Leukocyte Esterase Urine RBC (Auto) Urine Microscopic WBC Ur Squamous Epith Cells Uric Acid Crystals Urine Bacteria Hyaline Casts Urine Osmolality Ur Random Sodium Ur Random Potassium Blood Type Blood Type Confirm Antibody Screen BBK History Checked EKG/Cardiology Studies: Cardiology / EKG Studies 08/19/18 09:00 EKG [ELECTROCARDIOGRAM] DAILY Comment: Mode Of Transportation: Reason For Exam: Hyperkalemia Review of Systems - Cardiovascular Cardiovascular: absent: Chest Pain - Respiratory Respiratory: As Per HPI - Gastrointestinal Gastrointestinal: As Per HPI - Psychiatric Psychiatric: Anxiety Critical Care Progress Note - Nutrition Nutrition: Nutrition Category Date Time Status Regular Diet [DIET] Diets 08/19/18 Breakfast Active Assessment/Plan - Assessment and Plan (Free Text) Assessment: 48 yo F with pmhx of stage 4 ovarian cancer, anemia and benign breast mass admitted for progressive abdominal distension, progressive SOB, increasing lower extremity edema, and hyponatremia. Plan: Abdominal wall cellulitis with severe sepsis: -Serum lactate: 3.2 -f/u lactate 1.4 -ID: Dr. Lechuga: meropenem, vancomycin; s/p zosyn -BCX: pending -UCX: pending Pleural effusion -R sided; -Supplemental O2 -Pulm: Dr. Arreaga on board -IR: Dr. Larkin: bedside thoracentesis -ID: Dr. Lechuga: meropenem, vancomycin; s/p zosyn -Pleural fluid culture: pending -BCX: pending -UCX: pending Peritoneal fluid -IR: Dr. Larkin Hyper natremia -Na: 128 -2/2 hypovolemia not SIADH -Correction with IVF: NS -pending serum and urine osmolality Hyperkalemia: -K: 5.4 -IVF -Continue to monitor; may initiate kayexelate -f/u CMP Metabolic acidosis: -correcting FREDY -IVF -f/u bun/cr Metastatic Ovarian Cancer -Stage IV -Dr. 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 Dominguezr: start remeron 7.5 qHS DVT/GI prophylaxis. -SCDs -IV protonix PT/OT -Eval and treat Code Status: Full code [place] [facility] [place] Pt currently refuses to sign release. Case dw Dr. Yamil Wagner MD PGY2 <Grey Lobo - Last Filed: 08/19/18 15:34> CCU Subjective - Physician Review Subjective (Free Text): Attestation: Patient seen and examined at the bedside with Resident Dr. Manny Wagner; and I agree with his outline of plans and management documented above and below, reflecting my review of all applicable clinical data, and participation in the care of the patient throughout the day in ICU; today, August 19, 2018.
--- NOTE | 2018-08-19 11:34 | CARD ---
APPROVED REPORT Date of service: 08/18/2018 EKG Measurement Heart [id number] <Conclusion> Sinus tachycardia Otherwise normal ECG
--- NOTE | 2018-08-19 11:53 | US ---
Date of service: 08/18/2018 PROCEDURE: Bilateral lower extremity venous duplex Doppler. HISTORY: leg swelling COMPARISON: None available. TECHNIQUE: Bilateral common femoral, superficial femoral, popliteal and posterior tibial veins were evaluated. Flow was assessed with color Doppler, compressibility, assessment of phasic flow and augmentation response. FINDINGS: COMMON FEMORAL VEIN: Right CFV: Unremarkable. Left CFV: Unremarkable. SUPERFICIAL FEMORAL VEIN: Right SFV: Unremarkable. Left SFV: Unremarkable. POPLITEAL VEIN: Right Popliteal: Unremarkable. Left Popliteal: Unremarkable. POSTERIOR TIBIAL VEIN: Right PTV: Unremarkable. Left PTV: Unremarkable. OTHER FINDINGS: None. IMPRESSION: No evidence of deep venous thrombosis. Concordant findings (preliminary report) provided by [facility].
[2018-08-19 11:56] LABS: ANISOCYTOSIS SLIGHT; HYPERSEGMENTATION PRESENT; HYPOCHROMIC SLIGHT; LYMPHOCYTE 6 % (20-50); MICROCYTOSIS SLIGHT; MONOCYTE 6 % (0-10); NEUTROPHIL 88 % (42-75); PLATELET ESTIMATE INCREASED (NORMAL); TOTAL CELLS COUNTED 100
[2018-08-19] MEDS ORDERED: Lidocaine 1% Inj (20ml) ONE (12:05)
--- NOTE | 2018-08-19 12:05 | CP.PCM.CON ---
History of Present Illness - History of Present Illness History of Present Illness: pt is 48 ys old female without previous psychiatric hospitalization or treatment. pt has a past medical history of anemia and benign breast mass, presented to the emergency department complaining of shortness of breath, associated with intermittent dry cough, chest pain, and bilateral leg swelling. Patient has been recently diagnosed with stage 4 ovarian cancer and reports that she has been having acute shortness of breath since diagnosis, admitted to ICU for evaluation and management pt on evaluation presenting with anxious mood and affect, reported feeling very sad and worried about her current physical condition,, reported decreased sleep with early insomnia, decreased appetite since the [place] [facility] [place], pt also distressed for lack of social support with all her family in [place] pt denied any current suicidal ideation, denied perceptual disturbances and non elicited Past Patient History - Past Medical History & Family History Past Medical History?: Yes - Past Social History Alcohol: None - CARDIAC Hx Cardiac Disorders: No - PULMONARY Hx Respiratory Disorders: No - NEUROLOGICAL Hx Neurological Disorder: No - HEENT Hx HEENT Problems: Yes - RENAL Hx Chronic Kidney Disease: No - ENDOCRINE/METABOLIC Hx Endocrine Disorders: No - HEMATOLOGICAL/ONCOLOGICAL Hx Anemia: Yes - INTEGUMENTARY Hx Dermatological Problems: No - MUSCULOSKELETAL/RHEUMATOLOGICAL Hx Musculoskeletal Disorders: Yes (unsteady gait) - GASTROINTESTINAL Hx Gastrointestinal Disorders: No - GENITOURINARY/GYNECOLOGICAL Hx Genitourinary Disorders: Yes - PSYCHIATRIC Hx Psychophysiologic Disorder: Yes (anxiety) - SURGICAL HISTORY Hx Surgeries: Yes Hx Breast Biopsy: Yes - ANESTHESIA Hx Anesthesia: Yes Hx Anesthesia Reactions: No Meds Allergies/Adverse Reactions: Allergies Allergy/AdvReac Type Severity Reaction Status Date / Time No Known Allergies Allergy Verified 08/18/18 16:19 - Medications Medications: Current Medications Hydromorphone HCl (Dilaudid) 1 mg IVP Q6 PRN PRN Reason: Agitation Last Admin: 08/19/18 11:33 Dose: 1 mg Vancomycin HCl 1 gm/ Sodium (Chloride) 250 mls @ 166.667 mls/hr IVPB Q24H TERA; Protocol Last Admin: 08/19/18 01:01 Dose: Not Given Meropenem 500 mg/ Sodium (Chloride) 100 mls @ 100 mls/hr IVPB Q8 TERA; Protocol Last Admin: 08/19/18 08:48 Dose: 100 mls/hr Sodium Chloride (Sodium Chloride 0.9%) 1,000 mls @ 63 mls/hr IV .[id number] STA Stop: 08/19/18 12:46 Sodium Chloride (Sodium Chloride 0.9%) 1,000 mls @ 75 mls/hr IV .[id number] TERA Stop: 08/20/18 01:24 Last Admin: 08/19/18 01:41 Dose: 75 mls/hr Ketorolac Tromethamine (Toradol) 15 mg IVP Q6 PRN PRN Reason: Pain, moderate (4-7) Physical Exam - Psychiatric Exam Additional comments: pt seen in bed, anxious mood and affect, speech underproductive, thought form coherent, denied any current suicidal or homicidal idetion, denied perceptual disturbances, non elicited, alert awake oriented to person and place Results - Vital Signs Recent Vital Signs: Last Vital Signs Temp 97.7 F 08/19/18 08:00 Pulse 120 H 08/19/18 10:00 Resp 29 H 08/19/18 10:00 BP 142/95 H 08/19/18 10:00 Pulse Ox 95 08/19/18 10:00 - Labs Result Diagrams: 08/19/18 04:25 08/19/18 04:25 Labs: Laboratory Results - last 24 hr 08/18/18 08/18/18 08/18/18 17:00 17:18 17:18 WBC 23.7 H RBC 4.99 Hgb 12.0 Hct 38.2 MCV 76.6 L MCH 24.1 L MCHC 31.4 L RDW 18.7 H Plt Count 596 H MPV 6.6 L Neut % (Auto) 94.4 H Lymph % (Auto) 3.5 L Russell % (Auto) 2.1 Eos % (Auto) 0.0 Baso % (Auto) 0.0 Neut # (Auto) 22.4 H Lymph # (Auto) 0.8 L Russell # (Auto) 0.5 Eos # (Auto) 0.0 Baso # (Auto) 0.0 Neutrophils % (Manual) 85 H Band Neutrophils % 2 Lymphocytes % (Manual) 7 L Monocytes % (Manual) 6 Hypersegmented Polys Platelet Estimate Increased H Polychromasia Slight Hypochromasia (manual) Slight Poikilocytosis (manual Slight Anisocytosis (manual) Slight Microcytosis (manual) Slight PT INR APTT pO2 17 L VBG pH 7.33 VBG pCO2 44 VBG HCO3 20.7 VBG Total CO2 24.6 VBG O2 Sat (Calc) 24.4 L VBG Base Excess -2.8 L VBG Potassium 5.5 H Sodium 121.0 L 122 L Chloride 87.0 L 90 L Glucose 134 H Lactate 3.2 H FiO2 21.0 Crit Value Called To Crit Value Called By Crit Value Read Back Blood Gas Notified Time Potassium 5.8 H Carbon Dioxide 16 L Anion Gap 22 H BUN 31 H Creatinine 1.6 H Est GFR ( Amer) 42 Est GFR (Non-Af Amer) 34 Random Glucose 132 H Serum Osmolality Lactic Acid Calcium 9.0 Phosphorus 5.6 H Magnesium 2.3 Total Bilirubin 1.2 AST 109 H ALT 28 Alkaline Phosphatase 176 H Troponin I Cancelled NT-Pro-B Natriuret Pep 2270 H Total Protein 7.8 Albumin 3.7 Globulin 4.1 H Albumin/Globulin Ratio 0.9 L Triglycerides Cholesterol LDL Cholesterol Direct HDL Cholesterol Lipase 956 H Venous Blood Potassium 5.5 H Urine Color Urine Clarity Urine pH Ur Specific [place] Urine Protein Urine Glucose (UA) Urine Ketones Urine Blood Urine Nitrate Urine Bilirubin Urine Urobilinogen Ur Leukocyte Esterase Urine RBC (Auto) Urine Microscopic WBC Ur Squamous Epith Cells Uric Acid Crystals Urine Bacteria Hyaline Casts Urine Osmolality Ur Random Sodium Ur Random Potassium Blood Type Blood Type Confirm Antibody Screen BBK History Checked 08/18/18 08/18/18 08/18/18 17:18 17:34 22:10 WBC RBC Hgb Hct MCV MCH MCHC RDW Plt Count MPV Neut % (Auto) Lymph % (Auto) [place] % (Auto) Eos % (Auto) Baso % (Auto) Neut # (Auto) Lymph # (Auto) [place] # (Auto) Eos # (Auto) Baso # (Auto) Neutrophils % (Manual) Band Neutrophils % Lymphocytes % (Manual) Monocytes % (Manual) Hypersegmented Polys Platelet Estimate Polychromasia Hypochromasia (manual) Poikilocytosis (manual Anisocytosis (manual) Microcytosis (manual) PT 14.9 H INR 1.3 APTT 24.2 L pO2 VBG pH VBG pCO2 VBG HCO3 VBG Total CO2 VBG O2 Sat (Calc) VBG Base Excess VBG Potassium Sodium Chloride Glucose Lactate FiO2 Crit Value Called To Crit Value Called By Crit Value Read Back Blood Gas Notified Time Potassium Carbon Dioxide Anion Gap BUN Creatinine Est GFR ( Amer) Est GFR (Non-Af Amer) Random Glucose Serum Osmolality Lactic Acid Calcium Phosphorus Magnesium Total Bilirubin AST ALT Alkaline Phosphatase Troponin I 0.0140 NT-Pro-B Natriuret Pep Total Protein Albumin Globulin Albumin/Globulin Ratio Triglycerides Cholesterol LDL Cholesterol Direct HDL Cholesterol Lipase Venous Blood Potassium Urine Color Urine Clarity Urine pH Ur Specific [place] Urine Protein Urine Glucose (UA) Urine Ketones Urine Blood Urine Nitrate Urine Bilirubin Urine Urobilinogen Ur Leukocyte Esterase Urine RBC (Auto) Urine Microscopic WBC Ur Squamous Epith Cells Uric Acid Crystals Urine Bacteria Hyaline Casts Urine Osmolality Ur Random Sodium Ur Random Potassium Blood Type B POSITIVE Blood Type Confirm Antibody Screen Negative BBK History Checked No verified bt 08/18/18 08/19/18 08/19/18 22:10 01:15 01:15 WBC RBC Hgb Hct MCV MCH MCHC RDW Plt Count MPV Neut % (Auto) Lymph % (Auto) [place] % (Auto) Eos % (Auto) Baso % (Auto) Neut # (Auto) Lymph # (Auto) [place] # (Auto) Eos # (Auto) Baso # (Auto) Neutrophils % (Manual) Band Neutrophils % Lymphocytes % (Manual) Monocytes % (Manual) Hypersegmented Polys Platelet Estimate Polychromasia Hypochromasia (manual) Poikilocytosis (manual Anisocytosis (manual) Microcytosis (manual) PT INR APTT pO2 VBG pH VBG pCO2 VBG HCO3 VBG Total CO2 VBG O2 Sat (Calc) VBG Base Excess VBG Potassium Sodium Chloride Glucose Lactate FiO2 Crit Value Called To Crit Value Called By Crit Value Read Back Blood Gas Notified Time Potassium Carbon Dioxide Anion Gap BUN Creatinine Est GFR ( Amer) Est GFR (Non-Af Amer) Random Glucose Serum Osmolality Lactic Acid Calcium Phosphorus Magnesium Total Bilirubin AST ALT Alkaline Phosphatase Troponin I NT-Pro-B Natriuret Pep Total Protein Albumin Globulin Albumin/Globulin Ratio Triglycerides Cholesterol LDL Cholesterol Direct HDL Cholesterol Lipase Venous Blood Potassium Urine Color Urine Clarity Urine pH Ur Specific [place] Urine Protein Urine Glucose (UA) Urine Ketones Urine Blood Urine Nitrate Urine Bilirubin Urine Urobilinogen Ur Leukocyte Esterase Urine RBC (Auto) Urine Microscopic WBC Ur Squamous Epith Cells Uric Acid Crystals Urine Bacteria Hyaline Casts Urine Osmolality 470 Ur Random Sodium 16 Ur Random Potassium 57.9 Blood Type Blood Type Confirm B POSITIVE Antibody Screen BBK History Checked 08/19/18 08/19/18 08/19/18 01:15 04:25 04:25 WBC 19.8 H RBC 4.20 Hgb 10.1 L Hct 32.5 L MCV 77.3 L MCH 24.1 L MCHC 31.1 L RDW 18.4 H Plt Count 523 H MPV 7.3 Neut % (Auto) 90.2 H Lymph % (Auto) 5.3 L Russell % (Auto) 4.1 Eos % (Auto) 0.0 Baso % (Auto) 0.4 Neut # (Auto) 17.8 H Lymph # (Auto) 1.1 Russell # (Auto) 0.8 Eos # (Auto) 0.0 Baso # (Auto) 0.1 Neutrophils % (Manual) 88 H Band Neutrophils % Lymphocytes % (Manual) 6 L Monocytes % (Manual) 6 Hypersegmented Polys Present Platelet Estimate Increased H Polychromasia Hypochromasia (manual) Slight Poikilocytosis (manual Anisocytosis (manual) Slight Microcytosis (manual) Slight PT INR APTT pO2 VBG pH VBG pCO2 VBG HCO3 VBG Total CO2 VBG O2 Sat (Calc) VBG Base Excess VBG Potassium Sodium 125 L Chloride 92 L Glucose Lactate FiO2 Crit Value Called To Crit Value Called By Crit Value Read Back Blood Gas Notified Time Potassium 5.4 H Carbon Dioxide 22 Anion Gap 16 BUN 33 H Creatinine 1.8 H Est GFR ( Amer) 36 Est GFR (Non-Af Amer) 30 Random Glucose 117 H Serum Osmolality Lactic Acid Calcium 8.5 Phosphorus Magnesium Total Bilirubin 0.7 AST 74 H D ALT 33 Alkaline Phosphatase 137 H D Troponin I NT-Pro-B Natriuret Pep Total Protein 6.2 L Albumin 2.9 L D Globulin 3.3 Albumin/Globulin Ratio 0.9 L Triglycerides Cholesterol LDL Cholesterol Direct HDL Cholesterol Lipase Venous Blood Potassium Urine Color Shannan Urine Clarity Turbid Urine pH 5.0 Ur Specific [place] 1.024 Urine Protein 100 Urine Glucose (UA) Neg Urine Ketones Negative Urine Blood Large Urine Nitrate Negative Urine Bilirubin Negative Urine Urobilinogen 0.2-1.0 Ur Leukocyte Esterase Small Urine RBC (Auto) 371 H Urine Microscopic WBC 67 H Ur Squamous Epith Cells 6 H Uric Acid Crystals Many H Urine Bacteria Occ H Hyaline Casts 11-20 H Urine Osmolality Ur Random Sodium Ur Random Potassium Blood Type Blood Type Confirm Antibody Screen BBK History Checked 08/19/18 08/19/18 08/19/18 04:25 04:25 04:25 WBC RBC Hgb Hct MCV MCH MCHC RDW Plt Count MPV Neut % (Auto) Lymph % (Auto) [place] % (Auto) Eos % (Auto) Baso % (Auto) Neut # (Auto) Lymph # (Auto) Russell # (Auto) Eos # (Auto) Baso # (Auto) Neutrophils % (Manual) Band Neutrophils % Lymphocytes % (Manual) Monocytes % (Manual) Hypersegmented Polys Platelet Estimate Polychromasia Hypochromasia (manual) Poikilocytosis (manual Anisocytosis (manual) Microcytosis (manual) PT 15.5 H INR 1.4 APTT 27.9 pO2 VBG pH VBG pCO2 VBG HCO3 VBG Total CO2 VBG O2 Sat (Calc) VBG Base Excess VBG Potassium Sodium Chloride Glucose Lactate FiO2 Crit Value Called To Crit Value Called By Crit Value Read Back Blood Gas Notified Time Potassium Carbon Dioxide Anion Gap BUN Creatinine Est GFR ( Amer) Est GFR (Non-Af Amer) Random Glucose Serum Osmolality 276 Lactic Acid 1.4 Calcium Phosphorus Magnesium Total Bilirubin AST ALT Alkaline Phosphatase Troponin I NT-Pro-B Natriuret Pep Total Protein Albumin Globulin Albumin/Globulin Ratio Triglycerides Cholesterol LDL Cholesterol Direct HDL Cholesterol Lipase Venous Blood Potassium Urine Color Urine Clarity Urine pH Ur Specific [place] Urine Protein Urine Glucose (UA) Urine Ketones Urine Blood Urine Nitrate Urine Bilirubin Urine Urobilinogen Ur Leukocyte Esterase Urine RBC (Auto) Urine Microscopic WBC Ur Squamous Epith Cells Uric Acid Crystals Urine Bacteria Hyaline Casts Urine Osmolality Ur Random Sodium Ur Random Potassium Blood Type Blood Type Confirm Antibody Screen BBK History Checked 08/19/18 08/19/18 05:39 08:20 WBC RBC Hgb Hct MCV MCH MCHC RDW Plt Count MPV Neut % (Auto) Lymph % (Auto) [place] % (Auto) Eos % (Auto) Baso % (Auto) Neut # (Auto) Lymph # (Auto) Russell # (Auto) Eos # (Auto) Baso # (Auto) Neutrophils % (Manual) Band Neutrophils % Lymphocytes % (Manual) Monocytes % (Manual) Hypersegmented Polys Platelet Estimate Polychromasia Hypochromasia (manual) Poikilocytosis (manual Anisocytosis (manual) Microcytosis (manual) PT INR APTT pO2 39 VBG pH 7.29 L VBG pCO2 46 VBG HCO3 20.5 VBG Total CO2 23.5 VBG O2 Sat (Calc) 70.6 H VBG Base Excess -4.6 L VBG Potassium 5.3 H Sodium 119.0 L* Chloride 89.0 L Glucose 116 H Lactate 1.8 FiO2 28.0 Crit Value Called To irma Larkin rn Crit Value Called By Jackelyn Crit Value Read Back Y Blood Gas Notified Time 546 Potassium Carbon Dioxide Anion Gap BUN Creatinine Est GFR ( Amer) Est GFR (Non-Af Amer) Random Glucose Serum Osmolality Lactic Acid Calcium Phosphorus Magnesium Total Bilirubin AST ALT Alkaline Phosphatase Troponin I NT-Pro-B Natriuret Pep Total Protein Albumin Globulin Albumin/Globulin Ratio Triglycerides 176 H Cholesterol 147 LDL Cholesterol Direct 90 HDL Cholesterol 38 Lipase Venous Blood Potassium 5.3 H Urine Color Urine Clarity Urine pH Ur Specific [place] Urine Protein Urine Glucose (UA) Urine Ketones Urine Blood Urine Nitrate Urine Bilirubin Urine Urobilinogen Ur Leukocyte Esterase Urine RBC (Auto) Urine Microscopic WBC Ur Squamous Epith Cells Uric Acid Crystals Urine Bacteria Hyaline Casts Urine Osmolality Ur Random Sodium Ur Random Potassium Blood Type Blood Type Confirm Antibody Screen BBK History Checked Assessment & Plan - Assessment and Plan (Free Text) Assessment: 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
--- NOTE | 2018-08-19 13:53 | PCM.SURG1 ---
Surgeon's Initial Post Op Note - Surgeon's Notes Surgeon: Trae Imaging Nurse: None Type of Anesthesia: Local Pre-Operative Diagnosis: Ovarian ca with large right pleural effusion Operative Findings: Large right pleural effusion Post-Operative Diagnosis: Ovarian ca with large right pleural effusion Operation Performed: Right chest tube placement Specimen/Specimens Removed: Approx 60cc of clear pale yellow fluid aspirated. Estimated Blood Loss: EBL {In ML}: 1 Date of Surgery/Procedure: 08/19/18 Time of Surgery/Procedure: 13:40
--- NOTE | 2018-08-19 14:06 | CP.PCM.HP ---
<Timo Rosas - Last Filed: 08/19/18 13:58> History of Present Illness - History of Present Illness History of Present Illness: 48 y/o F with a PMHx of stage 4 ovarian cancer, anemia and benign breast mass admitted for progressive abdominal distension, progressive SOB, increasing lower extremity edema, and hyponatremia. Pt was seen and examined by bedside with DR Jerry by bedside. Pt reports feeling weak. Pt has started she wants to be told what it is going to be done on her before any procedure. Pt afebrile overnight. PMD: Yuki Jon Present on Admission - Present on Admission Any Indicators Present on Admission: No Review of Systems - Constitutional Constitutional: absent: Chills, Fever - EENT Eyes: absent: Change in Vision Nose/Mouth/Throat: absent: Epistaxis, Nasal Congestion, Dry Mouth, Neck Pain, Neck Mass - Cardiovascular Cardiovascular: absent: Chest Pain, Dyspnea, Lightheadedness, Palpitations - Respiratory Respiratory: Cough, Dyspnea. absent: Hemoptysis - Gastrointestinal Gastrointestinal: Abdominal Pain, Bloating. absent: Dysphagia - Genitourinary Genitourinary: absent: Dysuria, Hematuria, Nocturia - Musculoskeletal Musculoskeletal: Muscle Weakness Past Patient History - Past Medical History & Family History Past Medical History?: Yes - Past Social History Alcohol: None - CARDIAC Hx Cardiac Disorders: No - PULMONARY Hx Respiratory Disorders: No - NEUROLOGICAL Hx Neurological Disorder: No - HEENT Hx HEENT Problems: Yes - RENAL Hx Chronic Kidney Disease: No - ENDOCRINE/METABOLIC Hx Endocrine Disorders: No - HEMATOLOGICAL/ONCOLOGICAL Hx Anemia: Yes - INTEGUMENTARY Hx Dermatological Problems: No - MUSCULOSKELETAL/RHEUMATOLOGICAL Hx Musculoskeletal Disorders: Yes (unsteady gait) - GASTROINTESTINAL Hx Gastrointestinal Disorders: No - GENITOURINARY/GYNECOLOGICAL Hx Genitourinary Disorders: Yes - PSYCHIATRIC Hx Psychophysiologic Disorder: Yes (anxiety) - SURGICAL HISTORY Hx Surgeries: Yes Hx Breast Biopsy: Yes - ANESTHESIA Hx Anesthesia: Yes Hx Anesthesia Reactions: No Meds Allergies/Adverse Reactions: Allergies Allergy/AdvReac Type Severity Reaction Status Date / Time No Known Allergies Allergy Verified 08/18/18 16:19 Physical Exam - Constitutional Appears: No Acute Distress - Head Exam Head Exam: ATRAUMATIC, NORMAL INSPECTION - Eye Exam Eye Exam: EOMI - ENT Exam ENT Exam: Mucous Membranes Dry - Neck Exam Neck exam: Positive for: Full Rom - Respiratory Exam Respiratory Exam: Decreased Breath Sounds, NORMAL BREATHING PATTERN - Cardiovascular Exam Cardiovascular Exam: +S1, +S2 - GI/Abdominal Exam GI & Abdominal Exam: Distended, Firm, Soft, Tenderness - Extremities Exam Extremities exam: Positive for: pedal edema (mild). Negative for: calf tenderness, tenderness - Neurological Exam Neurological exam: Alert - Psychiatric Exam Psychiatric exam: Anxious Results - Vital Signs Recent Vital Signs: Last Vital Signs Temp 98.9 F 08/19/18 12:00 Pulse 121 H 08/19/18 12:00 Resp 34 H 08/19/18 12:00 BP 115/79 08/19/18 12:00 Pulse Ox 95 08/19/18 12:00 - Labs Result Diagrams: 08/19/18 04:25 08/19/18 04:25 Labs: Laboratory Results - last 24 hr 08/18/18 08/18/18 08/18/18 17:00 17:18 17:18 WBC 23.7 H RBC 4.99 Hgb 12.0 Hct 38.2 MCV 76.6 L MCH 24.1 L MCHC 31.4 L RDW 18.7 H Plt Count 596 H MPV 6.6 L Neut % (Auto) 94.4 H Lymph % (Auto) 3.5 L [place] % (Auto) 2.1 Eos % (Auto) 0.0 Baso % (Auto) 0.0 Neut # (Auto) 22.4 H Lymph # (Auto) 0.8 L [place] # (Auto) 0.5 Eos # (Auto) 0.0 Baso # (Auto) 0.0 Neutrophils % (Manual) 85 H Band Neutrophils % 2 Lymphocytes % (Manual) 7 L Monocytes % (Manual) 6 Hypersegmented Polys Platelet Estimate Increased H Polychromasia Slight Hypochromasia (manual) Slight Poikilocytosis (manual Slight Anisocytosis (manual) Slight Microcytosis (manual) Slight PT INR APTT pO2 17 L VBG pH 7.33 VBG pCO2 44 VBG HCO3 20.7 VBG Total CO2 24.6 VBG O2 Sat (Calc) 24.4 L VBG Base Excess -2.8 L VBG Potassium 5.5 H Sodium 121.0 L 122 L Chloride 87.0 L 90 L Glucose 134 H Lactate 3.2 H FiO2 21.0 Crit Value Called To Crit Value Called By Crit Value Read Back Blood Gas Notified Time Potassium 5.8 H Carbon Dioxide 16 L Anion Gap 22 H BUN 31 H Creatinine 1.6 H Est GFR ( Amer) 42 Est GFR (Non-Af Amer) 34 Random Glucose 132 H Serum Osmolality Lactic Acid Calcium 9.0 Phosphorus 5.6 H Magnesium 2.3 Total Bilirubin 1.2 AST 109 H ALT 28 Alkaline Phosphatase 176 H Troponin I Cancelled NT-Pro-B Natriuret Pep 2270 H Total Protein 7.8 Albumin 3.7 Globulin 4.1 H Albumin/Globulin Ratio 0.9 L Triglycerides Cholesterol LDL Cholesterol Direct HDL Cholesterol Lipase 956 H Venous Blood Potassium 5.5 H Urine Color Urine Clarity Urine pH Ur Specific [place] Urine Protein Urine Glucose (UA) Urine Ketones Urine Blood Urine Nitrate Urine Bilirubin Urine Urobilinogen Ur Leukocyte Esterase Urine RBC (Auto) Urine Microscopic WBC Ur Squamous Epith Cells Uric Acid Crystals Urine Bacteria Hyaline Casts Urine Osmolality Ur Random Sodium Ur Random Potassium Blood Type Blood Type Confirm Antibody Screen BBK History Checked 08/18/18 08/18/18 08/18/18 17:18 17:34 22:10 WBC RBC Hgb Hct MCV MCH MCHC RDW Plt Count MPV Neut % (Auto) Lymph % (Auto) [place] % (Auto) Eos % (Auto) Baso % (Auto) Neut # (Auto) Lymph # (Auto) [place] # (Auto) Eos # (Auto) Baso # (Auto) Neutrophils % (Manual) Band Neutrophils % Lymphocytes % (Manual) Monocytes % (Manual) Hypersegmented Polys Platelet Estimate Polychromasia Hypochromasia (manual) Poikilocytosis (manual Anisocytosis (manual) Microcytosis (manual) PT 14.9 H INR 1.3 APTT 24.2 L pO2 VBG pH VBG pCO2 VBG HCO3 VBG Total CO2 VBG O2 Sat (Calc) VBG Base Excess VBG Potassium Sodium Chloride Glucose Lactate FiO2 Crit Value Called To Crit Value Called By Crit Value Read Back Blood Gas Notified Time Potassium Carbon Dioxide Anion Gap BUN Creatinine Est GFR ( Amer) Est GFR (Non-Af Amer) Random Glucose Serum Osmolality Lactic Acid Calcium Phosphorus Magnesium Total Bilirubin AST ALT Alkaline Phosphatase Troponin I 0.0140 NT-Pro-B Natriuret Pep Total Protein Albumin Globulin Albumin/Globulin Ratio Triglycerides Cholesterol LDL Cholesterol Direct HDL Cholesterol Lipase Venous Blood Potassium Urine Color Urine Clarity Urine pH Ur Specific [place] Urine Protein Urine Glucose (UA) Urine Ketones Urine Blood Urine Nitrate Urine Bilirubin Urine Urobilinogen Ur Leukocyte Esterase Urine RBC (Auto) Urine Microscopic WBC Ur Squamous Epith Cells Uric Acid Crystals Urine Bacteria Hyaline Casts Urine Osmolality Ur Random Sodium Ur Random Potassium Blood Type B POSITIVE Blood Type Confirm Antibody Screen Negative BBK History Checked No verified bt 08/18/18 08/19/18 08/19/18 22:10 01:15 01:15 WBC RBC Hgb Hct MCV MCH MCHC RDW Plt Count MPV Neut % (Auto) Lymph % (Auto) [place] % (Auto) Eos % (Auto) Baso % (Auto) Neut # (Auto) Lymph # (Auto) [place] # (Auto) Eos # (Auto) Baso # (Auto) Neutrophils % (Manual) Band Neutrophils % Lymphocytes % (Manual) Monocytes % (Manual) Hypersegmented Polys Platelet Estimate Polychromasia Hypochromasia (manual) Poikilocytosis (manual Anisocytosis (manual) Microcytosis (manual) PT INR APTT pO2 VBG pH VBG pCO2 VBG HCO3 VBG Total CO2 VBG O2 Sat (Calc) VBG Base Excess VBG Potassium Sodium Chloride Glucose Lactate FiO2 Crit Value Called To Crit Value Called By Crit Value Read Back Blood Gas Notified Time Potassium Carbon Dioxide Anion Gap BUN Creatinine Est GFR ( Amer) Est GFR (Non-Af Amer) Random Glucose Serum Osmolality Lactic Acid Calcium Phosphorus Magnesium Total Bilirubin AST ALT Alkaline Phosphatase Troponin I NT-Pro-B Natriuret Pep Total Protein Albumin Globulin Albumin/Globulin Ratio Triglycerides Cholesterol LDL Cholesterol Direct HDL Cholesterol Lipase Venous Blood Potassium Urine Color Urine Clarity Urine pH Ur Specific [place] Urine Protein Urine Glucose (UA) Urine Ketones Urine Blood Urine Nitrate Urine Bilirubin Urine Urobilinogen Ur Leukocyte Esterase Urine RBC (Auto) Urine Microscopic WBC Ur Squamous Epith Cells Uric Acid Crystals Urine Bacteria Hyaline Casts Urine Osmolality 470 Ur Random Sodium 16 Ur Random Potassium 57.9 Blood Type Blood Type Confirm B POSITIVE Antibody Screen BBK History Checked 08/19/18 08/19/18 08/19/18 01:15 04:25 04:25 WBC 19.8 H RBC 4.20 Hgb 10.1 L Hct 32.5 L MCV 77.3 L MCH 24.1 L MCHC 31.1 L RDW 18.4 H Plt Count 523 H MPV 7.3 Neut % (Auto) 90.2 H Lymph % (Auto) 5.3 L [place] % (Auto) 4.1 Eos % (Auto) 0.0 Baso % (Auto) 0.4 Neut # (Auto) 17.8 H Lymph # (Auto) 1.1 [place] # (Auto) 0.8 Eos # (Auto) 0.0 Baso # (Auto) 0.1 Neutrophils % (Manual) 88 H Band Neutrophils % Lymphocytes % (Manual) 6 L Monocytes % (Manual) 6 Hypersegmented Polys Present Platelet Estimate Increased H Polychromasia Hypochromasia (manual) Slight Poikilocytosis (manual Anisocytosis (manual) Slight Microcytosis (manual) Slight PT INR APTT pO2 VBG pH VBG pCO2 VBG HCO3 VBG Total CO2 VBG O2 Sat (Calc) VBG Base Excess VBG Potassium Sodium 125 L Chloride 92 L Glucose Lactate FiO2 Crit Value Called To Crit Value Called By Crit Value Read Back Blood Gas Notified Time Potassium 5.4 H Carbon Dioxide 22 Anion Gap 16 BUN 33 H Creatinine 1.8 H Est GFR ( Amer) 36 Est GFR (Non-Af Amer) 30 Random Glucose 117 H Serum Osmolality Lactic Acid Calcium 8.5 Phosphorus Magnesium Total Bilirubin 0.7 AST 74 H D ALT 33 Alkaline Phosphatase 137 H D Troponin I NT-Pro-B Natriuret Pep Total Protein 6.2 L Albumin 2.9 L D Globulin 3.3 Albumin/Globulin Ratio 0.9 L Triglycerides Cholesterol LDL Cholesterol Direct HDL Cholesterol Lipase Venous Blood Potassium Urine Color Shannan Urine Clarity Turbid Urine pH 5.0 Ur Specific [place] 1.024 Urine Protein 100 Urine Glucose (UA) Neg Urine Ketones Negative Urine Blood Large Urine Nitrate Negative Urine Bilirubin Negative Urine Urobilinogen 0.2-1.0 Ur Leukocyte Esterase Small Urine RBC (Auto) 371 H Urine Microscopic WBC 67 H Ur Squamous Epith Cells 6 H Uric Acid Crystals Many H Urine Bacteria Occ H Hyaline Casts 11-20 H Urine Osmolality Ur Random Sodium Ur Random Potassium Blood Type Blood Type Confirm Antibody Screen BBK History Checked 08/19/18 08/19/18 08/19/18 04:25 04:25 04:25 WBC RBC Hgb Hct MCV MCH MCHC RDW Plt Count MPV Neut % (Auto) Lymph % (Auto) [place] % (Auto) Eos % (Auto) Baso % (Auto) Neut # (Auto) Lymph # (Auto) [place] # (Auto) Eos # (Auto) Baso # (Auto) Neutrophils % (Manual) Band Neutrophils % Lymphocytes % (Manual) Monocytes % (Manual) Hypersegmented Polys Platelet Estimate Polychromasia Hypochromasia (manual) Poikilocytosis (manual Anisocytosis (manual) Microcytosis (manual) PT 15.5 H INR 1.4 APTT 27.9 pO2 VBG pH VBG pCO2 VBG HCO3 VBG Total CO2 VBG O2 Sat (Calc) VBG Base Excess VBG Potassium Sodium Chloride Glucose Lactate FiO2 Crit Value Called To Crit Value Called By Crit Value Read Back Blood Gas Notified Time Potassium Carbon Dioxide Anion Gap BUN Creatinine Est GFR ( Amer) Est GFR (Non-Af Amer) Random Glucose Serum Osmolality 276 Lactic Acid 1.4 Calcium Phosphorus Magnesium Total Bilirubin AST ALT Alkaline Phosphatase Troponin I NT-Pro-B Natriuret Pep Total Protein Albumin Globulin Albumin/Globulin Ratio Triglycerides Cholesterol LDL Cholesterol Direct HDL Cholesterol Lipase Venous Blood Potassium Urine Color Urine Clarity Urine pH Ur Specific [place] Urine Protein Urine Glucose (UA) Urine Ketones Urine Blood Urine Nitrate Urine Bilirubin Urine Urobilinogen Ur Leukocyte Esterase Urine RBC (Auto) Urine Microscopic WBC Ur Squamous Epith Cells Uric Acid Crystals Urine Bacteria Hyaline Casts Urine Osmolality Ur Random Sodium Ur Random Potassium Blood Type Blood Type Confirm Antibody Screen BBK History Checked 08/19/18 08/19/18 05:39 08:20 WBC RBC Hgb Hct MCV MCH MCHC RDW Plt Count MPV Neut % (Auto) Lymph % (Auto) [place] % (Auto) Eos % (Auto) Baso % (Auto) Neut # (Auto) Lymph # (Auto) [place] # (Auto) Eos # (Auto) Baso # (Auto) Neutrophils % (Manual) Band Neutrophils % Lymphocytes % (Manual) Monocytes % (Manual) Hypersegmented Polys Platelet Estimate Polychromasia Hypochromasia (manual) Poikilocytosis (manual Anisocytosis (manual) Microcytosis (manual) PT INR APTT pO2 39 VBG pH 7.29 L VBG pCO2 46 VBG HCO3 20.5 VBG Total CO2 23.5 VBG O2 Sat (Calc) 70.6 H VBG Base Excess -4.6 L VBG Potassium 5.3 H Sodium 119.0 L* Chloride 89.0 L Glucose 116 H Lactate 1.8 FiO2 28.0 Crit Value Called To irma Larkin rn Crit Value Called By 302 Crit Value Read Back Y Blood Gas Notified Time 546 Potassium Carbon Dioxide Anion Gap BUN Creatinine Est GFR ( Amer) Est GFR (Non-Af Amer) Random Glucose Serum Osmolality Lactic Acid Calcium Phosphorus Magnesium Total Bilirubin AST ALT Alkaline Phosphatase Troponin I NT-Pro-B Natriuret Pep Total Protein Albumin Globulin Albumin/Globulin Ratio Triglycerides 176 H Cholesterol 147 LDL Cholesterol Direct 90 HDL Cholesterol 38 Lipase Venous Blood Potassium 5.3 H Urine Color Urine Clarity Urine pH Ur Specific [place] Urine Protein Urine Glucose (UA) Urine Ketones Urine Blood Urine Nitrate Urine Bilirubin Urine Urobilinogen Ur Leukocyte Esterase Urine RBC (Auto) Urine Microscopic WBC Ur Squamous Epith Cells Uric Acid Crystals Urine Bacteria Hyaline Casts Urine Osmolality Ur Random Sodium Ur Random Potassium Blood Type Blood Type Confirm Antibody Screen BBK History Checked Assessment & Plan - Assessment and Plan (Free Text) Assessment: 48 y/o F with a PMHx of ovarian cancer-stage IV, anemia and benign breast mass admitted for progressive abdominal ascitis, RLL pleural effusion, increasing lower extremity edema, and electrolyte imbalance. --As per complications from advanced stage ovarian cancer, anxious. PLAN: --Critical state --Paracentesis --Chest tube placement --Ascitis/pleural fluid studies --F/U Blood Cx and Urine Cx --ID on board, Dr Lechuga. --IR on board, Dr Larkin. --Pulmonology on board, Dr Arreaga. --Hematology/Oncology on board, Dr Sanchez. --Psychiatry on board, Dr Almeida --Continue management as per critical care team. Case discussed with Dr Jerry who agrees with the above DUNCAN Kelsey PGY-2 - Date & Time Date: 08/19/18 Time: 10:30 <George Jerry - Last Filed: 08/23/18 22:14> Results - Vital Signs Recent Vital Signs: Last Vital Signs Temp 98.0 F 08/23/18 16:00 Pulse 114 H 08/23/18 18:00 Resp 31 H 08/23/18 18:00 BP 106/79 08/23/18 18:00 Pulse Ox 99 08/23/18 18:00 - Labs Result Diagrams: 08/23/18 04:20 08/23/18 04:20 Labs: Laboratory Results - last 24 hr 08/23/18 08/23/18 08/23/18 04:20 04:20 04:20 WBC 15.0 H RBC 3.96 Hgb 9.6 L Hct 30.5 L MCV 77.2 L MCH 24.2 L MCHC 31.4 L RDW 18.4 H Plt Count 468 H MPV 7.2 Neut % (Auto) 82.9 H Lymph % (Auto) 9.9 L [place] % (Auto) 4.4 Eos % (Auto) 2.5 Baso % (Auto) 0.3 Neut # (Auto) 12.4 H Lymph # (Auto) 1.5 [place] # (Auto) 0.7 Eos # (Auto) 0.4 Baso # (Auto) 0.0 Sodium 128 L Potassium 4.8 Chloride 100 Carbon Dioxide 23 Anion Gap 10 BUN 24 H Creatinine 1.1 Est GFR ( Amer) > 60 Est GFR (Non-Af Amer) 53 Random Glucose 110 H Serum Osmolality 272 Calcium 8.0 L Phosphorus 3.1 Magnesium 1.8 Total Bilirubin 0.2 AST 72 H ALT 32 Alkaline Phosphatase 148 H Total Protein 4.7 L Albumin 2.0 L Globulin 2.7 Albumin/Globulin Ratio 0.8 L Assessment & Plan - Assessment and Plan (Free Text) Plan: I was present during evaluation and discussed with Dr Rosas re plans of care and tx. George Jerry M.D.
[2018-08-19 14:25] LABS: BODY FLUID TYPE PLEURAL
--- NOTE | 2018-08-19 14:27 | CT ---
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 TECHNIQUE: Radiation dose: Total exam DLP = 615.98 mGy-cm. This CT exam was performed using one or more of the following dose reduction techniques: Automated exposure control, adjustment of the mA and/or kV according to patient size, and/or use of iterative reconstruction technique. FINDINGS: CT CHEST WITHOUT CONTRAST: LUNGS: Innumerable pulmonary masses identified in the left lung varying from 5 mm to the largest mass in the lingula measuring 2.2 x 3 cm. MEDIASTINUM: Unremarkable. Normal caliber aorta and pulmonary arterial trunk. Normal size heart. LYMPH NODES: Unremarkable. PLEURA: Large right pleural effusion and complete collapse of the right lung, compressive atelectasis. Beyond the right mainstem bronchus the lobar and segmental bronchi are almost completely collapsed. The large right pleural effusion has resulted in shift of mediastinal structures to the contralateral side. Small left pleural effusion. BONES: Unremarkable. OTHER FINDINGS: None. CT ABDOMEN AND PELVIS: LIVER: Unremarkable. No gross lesion or ductal dilatation. GALLBLADDER AND BILE DUCTS: Distended gallbladder without focal abnormality. No gallstones are identified. PANCREAS: Unremarkable. No gross lesion or ductal dilatation. SPLEEN: Unremarkable. ADRENALS: Unremarkable. No mass. KIDNEYS AND URETERS: Unremarkable. No hydronephrosis. No solid mass. VASCULATURE: No aortic atherosclerotic calcification or mural plaque present. Unremarkable. No aortic aneurysm. BOWEL: Unremarkable. No obstruction. No gross mural thickening. APPENDIX: Normal appendix. PERITONEUM: Complex solid and cystic mass completely filling the pelvis and large portions of the abdomen with maximal orthogonal measurements of 17 x 25.5 cm. The mass is inseparable from pelvic reproductive structures. Large volume abdominal ascites presumed to be malignant ascites. No omental caking/disease inseparable from tumor mass and ascites. LYMPH NODES: Periaortic and pericaval lymphadenopathy identified. Smaller, more numerous lymph nodes identified in the lower abdomen, retroperitoneum and pelvis. No visible inguinal adenopathy. BLADDER: Unremarkable. REPRODUCTIVE: A normal uterus and adnexa are not visible related to the abdominal pelvic mass nor are normal adnexal structures visible. BONES: No acute fracture. OTHER FINDINGS: Moderate subcutaneous edema and anasarca. IMPRESSION: Massive tumor burden above and below the diaphragms described above. This likely represents primary ovarian neoplasm and metastatic disease as described. Concordant results (preliminary interpretation) provided by ALEX SHEA. Procedure Completed: 21:33. Preliminary Report: Dictated and Authenticated: 23:14. Final Interpretation: 14:23. August 19, 2018
[2018-08-19 14:33] LABS: GLUCOSE,BODY FLUID 119 mg/dL (NONE ESTABLISHED)
[2018-08-19 14:38] LABS: SQUAMOUS EPITHIAL 1 /hpf (0-5); URINE BACTERIA RARE (<OCC); URINE BILIRUBIN NEGATIVE (NEGATIVE); URINE BLOOD LARGE (NEGATIVE); URINE CALCIUM OXALATE CRYSTALS FEW /hpf (<OCC); URINE CLARITY CLOUDY (Clear); URINE COLOR YELLOW (YELLOW); URINE GLUCOSE (UA) 50 mg/dL (Normal); URINE LEUKOCYTE ESTERASE TRACE Leu/uL (Negative); URINE PROTEIN 100 mg/dL (NEGATIVE); URINE UROBILINOGEN 0.2-1.0 mg/dL (0.2-1.0)
[2018-08-19 14:40] LABS: TOTAL PROTEIN,BODY FLUID 3.8 g/dL (NONE ESTABLISHED)
[2018-08-19 15:27] LABS: BF GROSS APPEARANCE CLEAR (CLEAR)
[2018-08-19 15:38] LABS: BODY FLUID MONO/MACROPHAGE 10 % (0-0); BODY FLUID TOTAL COUNT 100 (0-0)
--- NOTE | 2018-08-19 16:41 | US ---
Ultrasound guided right-sided chest tube placement Procedure: After discussing relative risks and benefits of the procedure and obtaining informed consent, the patient was placed in upright sitting position, leaning slightly forward. Right posterior thorax prepped and draped. Suitable puncture site chosen by ultrasound. The region was generously anesthetized using one percent lidocaine. A small incision was made. Sequentially, an 18-gauge needle advanced into effusion. A stiff guide wire was then inserted through the needle into the effusion. The tract was dilated with serial fascial dilators. An 8 Italian all-purpose drainage catheter was then inserted and the locking loop formed within the pleural space. Approximately 60 cc of clear pale yellow fluid aspirated. Subsequently, the drainage catheter was connected to a pleural vac. The patient tolerated intervention well. The wound was cleansed and a dry Sterile dressing applied. The patient left special procedures department in satisfactory condition. Instructions were given for the patient to undergo low continuous suction through the right-sided chest tube. IMPRESSION: Ultrasound-guided right-sided chest tube placement as described above.
--- NOTE | 2018-08-19 17:06 | CP.PCM.CON ---
History of Present Illness - History of Present Illness History of Present Illness: This is a 48 yrs old female who was admitted to [facility] because of electrolyte balance,ascitis,shortness of breath from pleural effusion .She had been discharged from [facility] 2 weeks ago.She has had abnormal vaginal bleeding for the past 6 months and had several ultrasounds at [facility] but nothing was seen.Now she started having abdominal distension and pain and was admitted to the hospital . Now a mass showed in the pelvic area. There were some nodules in the lung and a massive ascitis and pleural effusion. The abdomen was tapped 1.7 liters of fluid removed but she got an infection from the tap with a cellulitis of the abdominal wall. 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 She was told that it was a Stage 4 DIRECTOR OF COUNSELING malignancy, and no surgery could be done. She was offered chemotherapy but she left,and did not call back. Now she is in [facility] and extremely short of breath.She did not even discuss the chemo because of the extent of the disease. She howevr said that she was very uncomfortable and would discuss the chemotherapy with me once she had a paracentesis and could breath better. [place], and she lives here by herself. past h/o benign breast mass Past Patient History - Past Medical History & Family History Past Medical History?: Yes - Past Social History Alcohol: None - CARDIAC Hx Cardiac Disorders: No - PULMONARY Hx Respiratory Disorders: No - NEUROLOGICAL Hx Neurological Disorder: No - HEENT Hx HEENT Problems: Yes - RENAL Hx Chronic Kidney Disease: No - ENDOCRINE/METABOLIC Hx Endocrine Disorders: No - HEMATOLOGICAL/ONCOLOGICAL Hx Anemia: Yes - INTEGUMENTARY Hx Dermatological Problems: No - MUSCULOSKELETAL/RHEUMATOLOGICAL Hx Musculoskeletal Disorders: Yes (unsteady gait) - GASTROINTESTINAL Hx Gastrointestinal Disorders: No - GENITOURINARY/GYNECOLOGICAL Hx Genitourinary Disorders: Yes - PSYCHIATRIC Hx Psychophysiologic Disorder: Yes (anxiety) - SURGICAL HISTORY Hx Surgeries: Yes Hx Breast Biopsy: Yes - ANESTHESIA Hx Anesthesia: Yes Hx Anesthesia Reactions: No Meds Allergies/Adverse Reactions: Allergies Allergy/AdvReac Type Severity Reaction Status Date / Time No Known Allergies Allergy Verified 08/18/18 16:19 - Medications Medications: Current Medications Alprazolam (Xanax) 0.25 mg PO Q12 PRN PRN Reason: Anxiety Stop: 08/26/18 12:37 Hydromorphone HCl (Dilaudid) 1 mg IVP Q6 PRN PRN Reason: Agitation Last Admin: 08/19/18 11:33 Dose: 1 mg Vancomycin HCl 1 gm/ Sodium (Chloride) 250 mls @ 166.667 mls/hr IVPB Q24H TERA; Protocol Last Admin: 08/19/18 01:01 Dose: Not Given Meropenem 500 mg/ Sodium (Chloride) 100 mls @ 100 mls/hr IVPB Q8 TERA; Protocol Last Admin: 08/19/18 16:35 Dose: 100 mls/hr Sodium Chloride (Sodium Chloride 0.9%) 1,000 mls @ 75 mls/hr IV .[id number] TERA Stop: 08/20/18 01:24 Last Admin: 08/19/18 16:36 Dose: 75 mls/hr Ketorolac Tromethamine (Toradol) 15 mg IVP Q6 PRN PRN Reason: Pain, moderate (4-7) Lorazepam (Ativan) 0.5 mg PO HS TERA Pantoprazole Sodium (Protonix Ec Tab) 40 mg PO DAILY [facility] Physical Exam - Additional Findings Additional findings: Physical exam; Pt awake but very short of breath Neck; supple, no adenopathy Chest; markedly diminised breath sounds bilaterally Results - Vital Signs Recent Vital Signs: Last Vital Signs Temp 97.1 F L 08/19/18 16:00 Pulse 107 H 08/19/18 16:00 Resp 16 08/19/18 16:00 BP 97/73 L 08/19/18 16:00 Pulse Ox 96 08/19/18 16:00 - Labs Result Diagrams: 08/19/18 04:25 08/19/18 04:25 Labs: Laboratory Results - last 24 hr 08/18/18 08/18/18 08/18/18 17:00 17:18 17:18 WBC 23.7 H RBC 4.99 Hgb 12.0 Hct 38.2 MCV 76.6 L MCH 24.1 L MCHC 31.4 L RDW 18.7 H Plt Count 596 H MPV 6.6 L Neut % (Auto) 94.4 H Lymph % (Auto) 3.5 L Evangeline % (Auto) 2.1 Eos % (Auto) 0.0 Baso % (Auto) 0.0 Neut # (Auto) 22.4 H Lymph # (Auto) 0.8 L Evangeline # (Auto) 0.5 Eos # (Auto) 0.0 Baso # (Auto) 0.0 Neutrophils % (Manual) 85 H Band Neutrophils % 2 Lymphocytes % (Manual) 7 L Monocytes % (Manual) 6 Hypersegmented Polys Platelet Estimate Increased H Polychromasia Slight Hypochromasia (manual) Slight Poikilocytosis (manual Slight Anisocytosis (manual) Slight Microcytosis (manual) Slight PT INR APTT pO2 17 L VBG pH 7.33 VBG pCO2 44 VBG HCO3 20.7 VBG Total CO2 24.6 VBG O2 Sat (Calc) 24.4 L VBG Base Excess -2.8 L VBG Potassium 5.5 H Sodium 121.0 L 122 L Chloride 87.0 L 90 L Glucose 134 H Lactate 3.2 H FiO2 21.0 Crit Value Called To Crit Value Called By Crit Value Read Back Blood Gas Notified Time Potassium 5.8 H Carbon Dioxide 16 L Anion Gap 22 H BUN 31 H Creatinine 1.6 H Est GFR ( Amer) 42 Est GFR (Non-Af Amer) 34 Random Glucose 132 H Serum Osmolality Lactic Acid Calcium 9.0 Phosphorus 5.6 H Magnesium 2.3 Total Bilirubin 1.2 AST 109 H ALT 28 Alkaline Phosphatase 176 H Troponin I Cancelled NT-Pro-B Natriuret Pep 2270 H Total Protein 7.8 Albumin 3.7 Globulin 4.1 H Albumin/Globulin Ratio 0.9 L Triglycerides Cholesterol LDL Cholesterol Direct HDL Cholesterol Lipase 956 H Venous Blood Potassium 5.5 H Urine Color Urine Clarity Urine pH Ur Specific Honor Urine Protein Urine Glucose (UA) Urine Ketones Urine Blood Urine Nitrate Urine Bilirubin Urine Urobilinogen Ur Leukocyte Esterase Urine RBC (Auto) Urine Microscopic WBC Ur Squamous Epith Cells Calcium Oxalate Crystal Uric Acid Crystals Urine Bacteria Hyaline Casts Urine Yeast (Budding) Urine Osmolality Ur Random Sodium Ur Random Potassium Fluid Source Fluid Appearance Fluid WBC Fluid RBC Fluid Tot Cell Count Fluid Neutrophils Fluid Lymphocytes Fld Monocyte/Macrophag Fluid Glucose Fluid Total Protein Fluid LDH Fluid Comment Blood Type Blood Type Confirm Antibody Screen BBK History Checked 08/18/18 08/18/18 08/18/18 17:18 17:34 22:10 WBC RBC Hgb Hct MCV MCH MCHC RDW Plt Count MPV Neut % (Auto) Lymph % (Auto) Evangeline % (Auto) Eos % (Auto) Baso % (Auto) Neut # (Auto) Lymph # (Auto) Evangeline # (Auto) Eos # (Auto) Baso # (Auto) Neutrophils % (Manual) Band Neutrophils % Lymphocytes % (Manual) Monocytes % (Manual) Hypersegmented Polys Platelet Estimate Polychromasia Hypochromasia (manual) Poikilocytosis (manual Anisocytosis (manual) Microcytosis (manual) PT 14.9 H INR 1.3 APTT 24.2 L pO2 VBG pH VBG pCO2 VBG HCO3 VBG Total CO2 VBG O2 Sat (Calc) VBG Base Excess VBG Potassium Sodium Chloride Glucose Lactate FiO2 Crit Value Called To Crit Value Called By Crit Value Read Back Blood Gas Notified Time Potassium Carbon Dioxide Anion Gap BUN Creatinine Est GFR ( Amer) Est GFR (Non-Af Amer) Random Glucose Serum Osmolality Lactic Acid Calcium Phosphorus Magnesium Total Bilirubin AST ALT Alkaline Phosphatase Troponin I 0.0140 NT-Pro-B Natriuret Pep Total Protein Albumin Globulin Albumin/Globulin Ratio Triglycerides Cholesterol LDL Cholesterol Direct HDL Cholesterol Lipase Venous Blood Potassium Urine Color Urine Clarity Urine pH Ur Specific Honor Urine Protein Urine Glucose (UA) Urine Ketones Urine Blood Urine Nitrate Urine Bilirubin Urine Urobilinogen Ur Leukocyte Esterase Urine RBC (Auto) Urine Microscopic WBC Ur Squamous Epith Cells Calcium Oxalate Crystal Uric Acid Crystals Urine Bacteria Hyaline Casts Urine Yeast (Budding) Urine Osmolality Ur Random Sodium Ur Random Potassium Fluid Source Fluid Appearance Fluid WBC Fluid RBC Fluid Tot Cell Count Fluid Neutrophils Fluid Lymphocytes Fld Monocyte/Macrophag Fluid Glucose Fluid Total Protein Fluid LDH Fluid Comment Blood Type B POSITIVE Blood Type Confirm Antibody Screen Negative BBK History Checked No verified bt 08/18/18 08/19/18 08/19/18 22:10 01:15 01:15 WBC RBC Hgb Hct MCV MCH MCHC RDW Plt Count MPV Neut % (Auto) Lymph % (Auto) Evangeline % (Auto) Eos % (Auto) Baso % (Auto) Neut # (Auto) Lymph # (Auto) Evangeline # (Auto) Eos # (Auto) Baso # (Auto) Neutrophils % (Manual) Band Neutrophils % Lymphocytes % (Manual) Monocytes % (Manual) Hypersegmented Polys Platelet Estimate Polychromasia Hypochromasia (manual) Poikilocytosis (manual Anisocytosis (manual) Microcytosis (manual) PT INR APTT pO2 VBG pH VBG pCO2 VBG HCO3 VBG Total CO2 VBG O2 Sat (Calc) VBG Base Excess VBG Potassium Sodium Chloride Glucose Lactate FiO2 Crit Value Called To Crit Value Called By Crit Value Read Back Blood Gas Notified Time Potassium Carbon Dioxide Anion Gap BUN Creatinine Est GFR ( Amer) Est GFR (Non-Af Amer) Random Glucose Serum Osmolality Lactic Acid Calcium Phosphorus Magnesium Total Bilirubin AST ALT Alkaline Phosphatase Troponin I NT-Pro-B Natriuret Pep Total Protein Albumin Globulin Albumin/Globulin Ratio Triglycerides Cholesterol LDL Cholesterol Direct HDL Cholesterol Lipase Venous Blood Potassium Urine Color Urine Clarity Urine pH Ur Specific Honor Urine Protein Urine Glucose (UA) Urine Ketones Urine Blood Urine Nitrate Urine Bilirubin Urine Urobilinogen Ur Leukocyte Esterase Urine RBC (Auto) Urine Microscopic WBC Ur Squamous Epith Cells Calcium Oxalate Crystal Uric Acid Crystals Urine Bacteria Hyaline Casts Urine Yeast (Budding) Urine Osmolality 470 Ur Random Sodium 16 Ur Random Potassium 57.9 Fluid Source Fluid Appearance Fluid WBC Fluid RBC Fluid Tot Cell Count Fluid Neutrophils Fluid Lymphocytes Fld Monocyte/Macrophag Fluid Glucose Fluid Total Protein Fluid LDH Fluid Comment Blood Type Blood Type Confirm B POSITIVE Antibody Screen BBK History Checked 08/19/18 08/19/18 08/19/18 01:15 04:25 04:25 WBC 19.8 H RBC 4.20 Hgb 10.1 L Hct 32.5 L MCV 77.3 L MCH 24.1 L MCHC 31.1 L RDW 18.4 H Plt Count 523 H MPV 7.3 Neut % (Auto) 90.2 H Lymph % (Auto) 5.3 L Evangeline % (Auto) 4.1 Eos % (Auto) 0.0 Baso % (Auto) 0.4 Neut # (Auto) 17.8 H Lymph # (Auto) 1.1 Evangeline # (Auto) 0.8 Eos # (Auto) 0.0 Baso # (Auto) 0.1 Neutrophils % (Manual) 88 H Band Neutrophils % Lymphocytes % (Manual) 6 L Monocytes % (Manual) 6 Hypersegmented Polys Present Platelet Estimate Increased H Polychromasia Hypochromasia (manual) Slight Poikilocytosis (manual Anisocytosis (manual) Slight Microcytosis (manual) Slight PT INR APTT pO2 VBG pH VBG pCO2 VBG HCO3 VBG Total CO2 VBG O2 Sat (Calc) VBG Base Excess VBG Potassium Sodium 125 L Chloride 92 L Glucose Lactate FiO2 Crit Value Called To Crit Value Called By Crit Value Read Back Blood Gas Notified Time Potassium 5.4 H Carbon Dioxide 22 Anion Gap 16 BUN 33 H Creatinine 1.8 H Est GFR ( Amer) 36 Est GFR (Non-Af Amer) 30 Random Glucose 117 H Serum Osmolality Lactic Acid Calcium 8.5 Phosphorus Magnesium Total Bilirubin 0.7 AST 74 H D ALT 33 Alkaline Phosphatase 137 H D Troponin I NT-Pro-B Natriuret Pep Total Protein 6.2 L Albumin 2.9 L D Globulin 3.3 Albumin/Globulin Ratio 0.9 L Triglycerides Cholesterol LDL Cholesterol Direct HDL Cholesterol Lipase Venous Blood Potassium Urine Color Shannan Urine Clarity Turbid Urine pH 5.0 Ur Specific Honor 1.024 Urine Protein 100 Urine Glucose (UA) Neg Urine Ketones Negative Urine Blood Large Urine Nitrate Negative Urine Bilirubin Negative Urine Urobilinogen 0.2-1.0 Ur Leukocyte Esterase Small Urine RBC (Auto) 371 H Urine Microscopic WBC 67 H Ur Squamous Epith Cells 6 H Calcium Oxalate Crystal Uric Acid Crystals Many H Urine Bacteria Occ H Hyaline Casts 11-20 H Urine Yeast (Budding) Urine Osmolality Ur Random Sodium Ur Random Potassium Fluid Source Fluid Appearance Fluid WBC Fluid RBC Fluid Tot Cell Count Fluid Neutrophils Fluid Lymphocytes Fld Monocyte/Macrophag Fluid Glucose Fluid Total Protein Fluid LDH Fluid Comment Blood Type Blood Type Confirm Antibody Screen BBK History Checked 08/19/18 08/19/18 08/19/18 04:25 04:25 04:25 WBC RBC Hgb Hct MCV MCH MCHC RDW Plt Count MPV Neut % (Auto) Lymph % (Auto) Evangeline % (Auto) Eos % (Auto) Baso % (Auto) Neut # (Auto) Lymph # (Auto) Evangeline # (Auto) Eos # (Auto) Baso # (Auto) Neutrophils % (Manual) Band Neutrophils % Lymphocytes % (Manual) Monocytes % (Manual) Hypersegmented Polys Platelet Estimate Polychromasia Hypochromasia (manual) Poikilocytosis (manual Anisocytosis (manual) Microcytosis (manual) PT 15.5 H INR 1.4 APTT 27.9 pO2 VBG pH VBG pCO2 VBG HCO3 VBG Total CO2 VBG O2 Sat (Calc) VBG Base Excess VBG Potassium Sodium Chloride Glucose Lactate FiO2 Crit Value Called To Crit Value Called By Crit Value Read Back Blood Gas Notified Time Potassium Carbon Dioxide Anion Gap BUN Creatinine Est GFR ( Amer) Est GFR (Non-Af Amer) Random Glucose Serum Osmolality 276 Lactic Acid 1.4 Calcium Phosphorus Magnesium Total Bilirubin AST ALT Alkaline Phosphatase Troponin I NT-Pro-B Natriuret Pep Total Protein Albumin Globulin Albumin/Globulin Ratio Triglycerides Cholesterol LDL Cholesterol Direct HDL Cholesterol Lipase Venous Blood Potassium Urine Color Urine Clarity Urine pH Ur Specific Honor Urine Protein Urine Glucose (UA) Urine Ketones Urine Blood Urine Nitrate Urine Bilirubin Urine Urobilinogen Ur Leukocyte Esterase Urine RBC (Auto) Urine Microscopic WBC Ur Squamous Epith Cells Calcium Oxalate Crystal Uric Acid Crystals Urine Bacteria Hyaline Casts Urine Yeast (Budding) Urine Osmolality Ur Random Sodium Ur Random Potassium Fluid Source Fluid Appearance Fluid WBC Fluid RBC Fluid Tot Cell Count Fluid Neutrophils Fluid Lymphocytes Fld Monocyte/Macrophag Fluid Glucose Fluid Total Protein Fluid LDH Fluid Comment Blood Type Blood Type Confirm Antibody Screen BBK History Checked 08/19/18 08/19/18 08/19/18 05:39 08:20 14:20 WBC RBC Hgb Hct MCV MCH MCHC RDW Plt Count MPV Neut % (Auto) Lymph % (Auto) Evangeline % (Auto) Eos % (Auto) Baso % (Auto) Neut # (Auto) Lymph # (Auto) Evangeline # (Auto) Eos # (Auto) Baso # (Auto) Neutrophils % (Manual) Band Neutrophils % Lymphocytes % (Manual) Monocytes % (Manual) Hypersegmented Polys Platelet Estimate Polychromasia Hypochromasia (manual) Poikilocytosis (manual Anisocytosis (manual) Microcytosis (manual) PT INR APTT pO2 39 VBG pH 7.29 L VBG pCO2 46 VBG HCO3 20.5 VBG Total CO2 23.5 VBG O2 Sat (Calc) 70.6 H VBG Base Excess -4.6 L VBG Potassium 5.3 H Sodium 119.0 L* Chloride 89.0 L Glucose 116 H Lactate 1.8 FiO2 28.0 Crit Value Called To irma Larkin rn Crit Value Called By 302 Crit Value Read Back Y Blood Gas Notified Time 546 Potassium Carbon Dioxide Anion Gap BUN Creatinine Est GFR ( Amer) Est GFR (Non-Af Amer) Random Glucose Serum Osmolality Lactic Acid Calcium Phosphorus Magnesium Total Bilirubin AST ALT Alkaline Phosphatase Troponin I NT-Pro-B Natriuret Pep Total Protein Albumin Globulin Albumin/Globulin Ratio Triglycerides 176 H Cholesterol 147 LDL Cholesterol Direct 90 HDL Cholesterol 38 Lipase Venous Blood Potassium 5.3 H Urine Color Urine Clarity Urine pH Ur Specific Honor Urine Protein Urine Glucose (UA) Urine Ketones Urine Blood Urine Nitrate Urine Bilirubin Urine Urobilinogen Ur Leukocyte Esterase Urine RBC (Auto) Urine Microscopic WBC Ur Squamous Epith Cells Calcium Oxalate Crystal Uric Acid Crystals Urine Bacteria Hyaline Casts Urine Yeast (Budding) Urine Osmolality Ur Random Sodium Ur Random Potassium Fluid Source Pleural Fluid Appearance Clear Fluid WBC 178.0 Fluid RBC 970.0 H Fluid Tot Cell Count 100 H Fluid Neutrophils 44.0 H Fluid Lymphocytes 46.0 H Fld Monocyte/Macrophag 10 H Fluid Glucose 119 Fluid Total Protein Fluid LDH Fluid Comment Yellow Blood Type Blood Type Confirm Antibody Screen BBK History Checked 08/19/18 08/19/18 14:20 14:20 WBC RBC Hgb Hct MCV MCH MCHC RDW Plt Count MPV Neut % (Auto) Lymph % (Auto) Evangeline % (Auto) Eos % (Auto) Baso % (Auto) Neut # (Auto) Lymph # (Auto) Evangeline # (Auto) Eos # (Auto) Baso # (Auto) Neutrophils % (Manual) Band Neutrophils % Lymphocytes % (Manual) Monocytes % (Manual) Hypersegmented Polys Platelet Estimate Polychromasia Hypochromasia (manual) Poikilocytosis (manual Anisocytosis (manual) Microcytosis (manual) PT INR APTT pO2 VBG pH VBG pCO2 VBG HCO3 VBG Total CO2 VBG O2 Sat (Calc) VBG Base Excess VBG Potassium Sodium Chloride Glucose Lactate FiO2 Crit Value Called To Crit Value Called By Crit Value Read Back Blood Gas Notified Time Potassium Carbon Dioxide Anion Gap BUN Creatinine Est GFR ( Amer) Est GFR (Non-Af Amer) Random Glucose Serum Osmolality Lactic Acid Calcium Phosphorus Magnesium Total Bilirubin AST ALT Alkaline Phosphatase Troponin I NT-Pro-B Natriuret Pep Total Protein Albumin Globulin Albumin/Globulin Ratio Triglycerides Cholesterol LDL Cholesterol Direct HDL Cholesterol Lipase Venous Blood Potassium Urine Color Yellow Urine Clarity Cloudy Urine pH 5.0 Ur Specific Honor 1.021 Urine Protein 100 Urine Glucose (UA) 50 Urine Ketones Trace Urine Blood Large Urine Nitrate Negative Urine Bilirubin Negative Urine Urobilinogen 0.2-1.0 Ur Leukocyte Esterase Trace Urine RBC (Auto) 170 H Urine Microscopic WBC 38 H Ur Squamous Epith Cells 1 Calcium Oxalate Crystal Few H Uric Acid Crystals Urine Bacteria Rare Hyaline Casts Urine Yeast (Budding) Few H Urine Osmolality Ur Random Sodium Ur Random Potassium Fluid Source Fluid Appearance Fluid WBC Fluid RBC Fluid Tot Cell Count Fluid Neutrophils Fluid Lymphocytes Fld Monocyte/Macrophag Fluid Glucose Fluid Total Protein 3.8 Fluid LDH 2832 Fluid Comment Blood Type Blood Type Confirm Antibody Screen BBK History Checked Assessment & Plan - Assessment and Plan (Free Text) 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 Plan: Plan; Will have a paracentesis today. If her breathing is better,will discuss the chemotherapy tomorrow. - Date & Time Date: 08/19/18 Time: 17:14
--- NOTE | 2018-08-19 17:56 | RAD ---
Date of service: 08/19/2018 HISTORY: s/p Thoracentesis, +pigtail catheter Relevant interventional procedure(s): August 19, 2018 pigtail catheter placed in the right pleural space. COMPARISON: August 18, 2018. FINDINGS: LUNGS: Improved aeration of the right lung. Multiple pulmonary masses identified primarily left lung. PLEURA: Decrease in right pleural effusion. Satisfactory position pigtail catheter in the right pleural space. CARDIOVASCULAR: No atherosclerotic calcification present Normal. OSSEOUS STRUCTURES: No significant abnormalities. VISUALIZED UPPER ABDOMEN: Normal. OTHER FINDINGS: None. IMPRESSION: Interval decrease in right pleural effusion following pigtail catheter placement. Improved aeration right lung. Otherwise no interval change.
--- NOTE | 2018-08-19 19:00 | CP.PCM.CON ---
History of Present Illness - History of Present Illness History of Present Illness: 48 year old female with a past medical history of anemia and benign breast mass, who presents to the emergency department complaining of shortness of breath, associated with intermittent dry cough, chest pain, and bilateral leg swelling. Patient has been recently diagnosed with stage 4 ovarian cancer and reports that she has been having acute shortness of breath since diagnosis but it was worse today. She follows up at [facility] for her cancer and recently had 2.5 L of fluids removed from her abdomen, which was followed up an infection of the abdomen wall for which she takes antibiotics. cultures sent empiric IV rx ordered Review of Systems - Review of Systems All systems: reviewed and no additional remarkable complaints except Past Patient History - Past Medical History & Family History Past Medical History?: Yes - Past Social History Alcohol: None - CARDIAC Hx Cardiac Disorders: No - PULMONARY Hx Respiratory Disorders: No - NEUROLOGICAL Hx Neurological Disorder: No - HEENT Hx HEENT Problems: Yes - RENAL Hx Chronic Kidney Disease: No - ENDOCRINE/METABOLIC Hx Endocrine Disorders: No - HEMATOLOGICAL/ONCOLOGICAL Hx Anemia: Yes - INTEGUMENTARY Hx Dermatological Problems: No - MUSCULOSKELETAL/RHEUMATOLOGICAL Hx Musculoskeletal Disorders: Yes (unsteady gait) - GASTROINTESTINAL Hx Gastrointestinal Disorders: No - GENITOURINARY/GYNECOLOGICAL Hx Genitourinary Disorders: Yes - PSYCHIATRIC Hx Psychophysiologic Disorder: Yes (anxiety) - SURGICAL HISTORY Hx Surgeries: Yes Hx Breast Biopsy: Yes - ANESTHESIA Hx Anesthesia: Yes Hx Anesthesia Reactions: No Meds Allergies/Adverse Reactions: Allergies Allergy/AdvReac Type Severity Reaction Status Date / Time No Known Allergies Allergy Verified 08/18/18 16:19 - Medications Medications: Current Medications Alprazolam (Xanax) 0.25 mg PO Q12 PRN PRN Reason: Anxiety Stop: 08/26/18 12:37 Hydromorphone HCl (Dilaudid) 1 mg IVP Q6 PRN PRN Reason: Agitation Last Admin: 08/19/18 18:29 Dose: 1 mg Vancomycin HCl 1 gm/ Sodium (Chloride) 250 mls @ 166.667 mls/hr IVPB Q24H [facility]; Protocol Last Admin: 08/19/18 01:01 Dose: Not Given Meropenem 500 mg/ Sodium (Chloride) 100 mls @ 100 mls/hr IVPB Q8 [facility]; Protocol Last Admin: 11/08/18 16:35 Dose: 100 mls/hr Sodium Chloride (Sodium Chloride 0.9%) 1,000 mls @ 75 mls/hr IV .[id number] [facility] Stop: 08/20/18 01:24 Last Admin: 08/19/18 16:36 Dose: 75 mls/hr Ketorolac Tromethamine (Toradol) 15 mg IVP Q6 PRN PRN Reason: Pain, moderate (4-7) Lorazepam (Ativan) 0.5 mg PO HS [facility] Pantoprazole Sodium (Protonix Ec Tab) 40 mg PO DAILY [facility] Physical Exam - Constitutional Appears: Cachectic, Chronically Ill - Head Exam Head Exam: NORMOCEPHALIC - Eye Exam Eye Exam: absent: Scleral icterus - ENT Exam ENT Exam: Mucous Membranes Dry - Neck Exam Neck exam: Negative for: Lymphadenopathy - Respiratory Exam Respiratory Exam: Decreased Breath Sounds - Cardiovascular Exam Cardiovascular Exam: REGULAR RHYTHM - GI/Abdominal Exam GI & Abdominal Exam: Diminished Bowel Sounds - Rectal Exam Rectal Exam: Deferred - Exam Exam: NORMAL INSPECTION - Extremities Exam Extremities exam: Positive for: pedal edema - Back Exam Back exam: absent: CVA tenderness (L), CVA tenderness (R) - Neurological Exam Neurological exam: Alert, CN II-XII Intact - Psychiatric Exam Psychiatric exam: Depressed - Skin Skin Exam: Dry Results - Vital Signs Recent Vital Signs: Last Vital Signs Temp 97.1 F L 08/19/18 16:00 Pulse 110 H 08/19/18 18:00 Resp 18 08/19/18 18:00 BP 125/89 08/19/18 18:00 Pulse Ox 94 L 08/19/18 18:00 - Labs Result Diagrams: 08/20/18 04:20 08/20/18 04:20 Labs: Laboratory Results - last 24 hr 08/18/18 08/18/18 08/18/18 17:18 17:18 17:34 WBC RBC Hgb Hct MCV MCH MCHC RDW Plt Count MPV Neut % (Auto) Lymph % (Auto) [place] % (Auto) Eos % (Auto) Baso % (Auto) Neut # (Auto) Lymph # (Auto) [place] # (Auto) Eos # (Auto) Baso # (Auto) Neutrophils % (Manual) 85 H Band Neutrophils % 2 Lymphocytes % (Manual) 7 L Monocytes % (Manual) 6 Hypersegmented Polys Platelet Estimate Increased H Polychromasia Slight Hypochromasia (manual) Slight Poikilocytosis (manual Slight Anisocytosis (manual) Slight Microcytosis (manual) Slight PT INR APTT pO2 VBG pH VBG pCO2 VBG HCO3 VBG Total CO2 VBG O2 Sat (Calc) VBG Base Excess VBG Potassium Glucose Lactate FiO2 Crit Value Called To Crit Value Called By Crit Value Read Back Blood Gas Notified Time Sodium Potassium Chloride Carbon Dioxide Anion Gap BUN Creatinine Est GFR ( Amer) Est GFR (Non-Af Amer) Random Glucose Serum Osmolality Lactic Acid Calcium Total Bilirubin AST ALT Alkaline Phosphatase Troponin I Cancelled Total Protein Albumin Globulin Albumin/Globulin Ratio Triglycerides Cholesterol LDL Cholesterol Direct HDL Cholesterol Venous Blood Potassium Urine Color Urine Clarity Urine pH Ur Specific [place] Urine Protein Urine Glucose (UA) Urine Ketones Urine Blood Urine Nitrate Urine Bilirubin Urine Urobilinogen Ur Leukocyte Esterase Urine RBC (Auto) Urine Microscopic WBC Ur Squamous Epith Cells Calcium Oxalate Crystal Uric Acid Crystals Urine Bacteria Hyaline Casts Urine Yeast (Budding) Urine Osmolality Ur Random Sodium Ur Random Potassium Urine HCG, Qual Fluid Source Fluid Appearance Fluid WBC Fluid RBC Fluid Tot Cell Count Fluid Neutrophils Fluid Lymphocytes Fld Monocyte/Macrophag Fluid Glucose Fluid Total Protein Fluid LDH Fluid Comment Blood Type B POSITIVE Blood Type Confirm Antibody Screen Negative BBK History Checked No verified bt 08/18/18 08/18/18 08/19/18 22:10 22:10 01:15 WBC RBC Hgb Hct MCV MCH MCHC RDW Plt Count MPV Neut % (Auto) Lymph % (Auto) [place] % (Auto) Eos % (Auto) Baso % (Auto) Neut # (Auto) Lymph # (Auto) [place] # (Auto) Eos # (Auto) Baso # (Auto) Neutrophils % (Manual) Band Neutrophils % Lymphocytes % (Manual) Monocytes % (Manual) Hypersegmented Polys Platelet Estimate Polychromasia Hypochromasia (manual) Poikilocytosis (manual Anisocytosis (manual) Microcytosis (manual) PT INR APTT pO2 VBG pH VBG pCO2 VBG HCO3 VBG Total CO2 VBG O2 Sat (Calc) VBG Base Excess VBG Potassium Glucose Lactate FiO2 Crit Value Called To Crit Value Called By Crit Value Read Back Blood Gas Notified Time Sodium Potassium Chloride Carbon Dioxide Anion Gap BUN Creatinine Est GFR ( Amer) Est GFR (Non-Af Amer) Random Glucose Serum Osmolality Lactic Acid Calcium Total Bilirubin AST ALT Alkaline Phosphatase Troponin I 0.0140 Total Protein Albumin Globulin Albumin/Globulin Ratio Triglycerides Cholesterol LDL Cholesterol Direct HDL Cholesterol Venous Blood Potassium Urine Color Urine Clarity Urine pH Ur Specific [place] Urine Protein Urine Glucose (UA) Urine Ketones Urine Blood Urine Nitrate Urine Bilirubin Urine Urobilinogen Ur Leukocyte Esterase Urine RBC (Auto) Urine Microscopic WBC Ur Squamous Epith Cells Calcium Oxalate Crystal Uric Acid Crystals Urine Bacteria Hyaline Casts Urine Yeast (Budding) Urine Osmolality 470 Ur Random Sodium Ur Random Potassium Urine HCG, Qual Fluid Source Fluid Appearance Fluid WBC Fluid RBC Fluid Tot Cell Count Fluid Neutrophils Fluid Lymphocytes Fld Monocyte/Macrophag Fluid Glucose Fluid Total Protein Fluid LDH Fluid Comment Blood Type Blood Type Confirm B POSITIVE Antibody Screen BBK History Checked 08/19/18 08/19/18 08/19/18 01:15 01:15 04:25 WBC 19.8 H RBC 4.20 Hgb 10.1 L Hct 32.5 L MCV 77.3 L MCH 24.1 L MCHC 31.1 L RDW 18.4 H Plt Count 523 H MPV 7.3 Neut % (Auto) 90.2 H Lymph % (Auto) 5.3 L [place] % (Auto) 4.1 Eos % (Auto) 0.0 Baso % (Auto) 0.4 Neut # (Auto) 17.8 H Lymph # (Auto) 1.1 [place] # (Auto) 0.8 Eos # (Auto) 0.0 Baso # (Auto) 0.1 Neutrophils % (Manual) 88 H Band Neutrophils % Lymphocytes % (Manual) 6 L Monocytes % (Manual) 6 Hypersegmented Polys Present Platelet Estimate Increased H Polychromasia Hypochromasia (manual) Slight Poikilocytosis (manual Anisocytosis (manual) Slight Microcytosis (manual) Slight PT INR APTT pO2 VBG pH VBG pCO2 VBG HCO3 VBG Total CO2 VBG O2 Sat (Calc) VBG Base Excess VBG Potassium Glucose Lactate FiO2 Crit Value Called To Crit Value Called By Crit Value Read Back Blood Gas Notified Time Sodium Potassium Chloride Carbon Dioxide Anion Gap BUN Creatinine Est GFR ( Amer) Est GFR (Non-Af Amer) Random Glucose Serum Osmolality Lactic Acid Calcium Total Bilirubin AST ALT Alkaline Phosphatase Troponin I Total Protein Albumin Globulin Albumin/Globulin Ratio Triglycerides Cholesterol LDL Cholesterol Direct HDL Cholesterol Venous Blood Potassium Urine Color [place] Urine Clarity Turbid Urine pH 5.0 Ur Specific [place] 1.024 Urine Protein 100 Urine Glucose (UA) Neg Urine Ketones Negative Urine Blood Large Urine Nitrate Negative Urine Bilirubin Negative Urine Urobilinogen 0.2-1.0 Ur Leukocyte Esterase Small Urine RBC (Auto) 371 H Urine Microscopic WBC 67 H Ur Squamous Epith Cells 6 H Calcium Oxalate Crystal Uric Acid Crystals Many H Urine Bacteria Occ H Hyaline Casts 11-20 H Urine Yeast (Budding) Urine Osmolality Ur Random Sodium 16 Ur Random Potassium 57.9 Urine HCG, Qual Fluid Source Fluid Appearance Fluid WBC Fluid RBC Fluid Tot Cell Count Fluid Neutrophils Fluid Lymphocytes Fld Monocyte/Macrophag Fluid Glucose Fluid Total Protein Fluid LDH Fluid Comment Blood Type Blood Type Confirm Antibody Screen BBK History Checked 08/19/18 08/19/18 08/19/18 04:25 04:25 04:25 WBC RBC Hgb Hct MCV MCH MCHC RDW Plt Count MPV Neut % (Auto) Lymph % (Auto) [place] % (Auto) Eos % (Auto) Baso % (Auto) Neut # (Auto) Lymph # (Auto) [place] # (Auto) Eos # (Auto) Baso # (Auto) Neutrophils % (Manual) Band Neutrophils % Lymphocytes % (Manual) Monocytes % (Manual) Hypersegmented Polys Platelet Estimate Polychromasia Hypochromasia (manual) Poikilocytosis (manual Anisocytosis (manual) Microcytosis (manual) PT INR APTT pO2 VBG pH VBG pCO2 VBG HCO3 VBG Total CO2 VBG O2 Sat (Calc) VBG Base Excess VBG Potassium Glucose Lactate FiO2 Crit Value Called To Crit Value Called By Crit Value Read Back Blood Gas Notified Time Sodium 125 L Potassium 5.4 H Chloride 92 L Carbon Dioxide 22 Anion Gap 16 BUN 33 H Creatinine 1.8 H Est GFR ( Amer) 36 Est GFR (Non-Af Amer) 30 Random Glucose 117 H Serum Osmolality 276 Lactic Acid 1.4 Calcium 8.5 Total Bilirubin 0.7 AST 74 H D ALT 33 Alkaline Phosphatase 137 H D Troponin I Total Protein 6.2 L Albumin 2.9 L D Globulin 3.3 Albumin/Globulin Ratio 0.9 L Triglycerides Cholesterol LDL Cholesterol Direct HDL Cholesterol Venous Blood Potassium Urine Color Urine Clarity Urine pH Ur Specific [place] Urine Protein Urine Glucose (UA) Urine Ketones Urine Blood Urine Nitrate Urine Bilirubin Urine Urobilinogen Ur Leukocyte Esterase Urine RBC (Auto) Urine Microscopic WBC Ur Squamous Epith Cells Calcium Oxalate Crystal Uric Acid Crystals Urine Bacteria Hyaline Casts Urine Yeast (Budding) Urine Osmolality Ur Random Sodium Ur Random Potassium Urine HCG, Qual Fluid Source Fluid Appearance Fluid WBC Fluid RBC Fluid Tot Cell Count Fluid Neutrophils Fluid Lymphocytes Fld Monocyte/Macrophag Fluid Glucose Fluid Total Protein Fluid LDH Fluid Comment Blood Type Blood Type Confirm Antibody Screen BBK History Checked 08/19/18 08/19/18 08/19/18 04:25 05:39 08:20 WBC RBC Hgb Hct MCV MCH MCHC RDW Plt Count MPV Neut % (Auto) Lymph % (Auto) [place] % (Auto) Eos % (Auto) Baso % (Auto) Neut # (Auto) Lymph # (Auto) [place] # (Auto) Eos # (Auto) Baso # (Auto) Neutrophils % (Manual) Band Neutrophils % Lymphocytes % (Manual) Monocytes % (Manual) Hypersegmented Polys Platelet Estimate Polychromasia Hypochromasia (manual) Poikilocytosis (manual Anisocytosis (manual) Microcytosis (manual) PT 15.5 H INR 1.4 APTT 27.9 pO2 39 VBG pH 7.29 L VBG pCO2 46 VBG HCO3 20.5 VBG Total CO2 23.5 VBG O2 Sat (Calc) 70.6 H VBG Base Excess -4.6 L VBG Potassium 5.3 H Glucose 116 H Lactate 1.8 FiO2 28.0 Crit Value Called To irma Larkin rn Crit Value Called By 302 Crit Value Read Back Y Blood Gas Notified Time 546 Sodium 119.0 L* Potassium Chloride 89.0 L Carbon Dioxide Anion Gap BUN Creatinine Est GFR ( Amer) Est GFR (Non-Af Amer) Random Glucose Serum Osmolality Lactic Acid Calcium Total Bilirubin AST ALT Alkaline Phosphatase Troponin I Total Protein Albumin Globulin Albumin/Globulin Ratio Triglycerides 176 H Cholesterol 147 LDL Cholesterol Direct 90 HDL Cholesterol 38 Venous Blood Potassium 5.3 H Urine Color Urine Clarity Urine pH Ur Specific [place] Urine Protein Urine Glucose (UA) Urine Ketones Urine Blood Urine Nitrate Urine Bilirubin Urine Urobilinogen Ur Leukocyte Esterase Urine RBC (Auto) Urine Microscopic WBC Ur Squamous Epith Cells Calcium Oxalate Crystal Uric Acid Crystals Urine Bacteria Hyaline Casts Urine Yeast (Budding) Urine Osmolality Ur Random Sodium Ur Random Potassium Urine HCG, Qual Fluid Source Fluid Appearance Fluid WBC Fluid RBC Fluid Tot Cell Count Fluid Neutrophils Fluid Lymphocytes Fld Monocyte/Macrophag Fluid Glucose Fluid Total Protein Fluid LDH Fluid Comment Blood Type Blood Type Confirm Antibody Screen BBK History Checked 08/19/18 08/19/18 08/19/18 14:20 14:20 14:20 WBC RBC Hgb Hct MCV MCH MCHC RDW Plt Count MPV Neut % (Auto) Lymph % (Auto) [place] % (Auto) Eos % (Auto) Baso % (Auto) Neut # (Auto) Lymph # (Auto) [place] # (Auto) Eos # (Auto) Baso # (Auto) Neutrophils % (Manual) Band Neutrophils % Lymphocytes % (Manual) Monocytes % (Manual) Hypersegmented Polys Platelet Estimate Polychromasia Hypochromasia (manual) Poikilocytosis (manual Anisocytosis (manual) Microcytosis (manual) PT INR APTT pO2 VBG pH VBG pCO2 VBG HCO3 VBG Total CO2 VBG O2 Sat (Calc) VBG Base Excess VBG Potassium Glucose Lactate FiO2 Crit Value Called To Crit Value Called By Crit Value Read Back Blood Gas Notified Time Sodium Potassium Chloride Carbon Dioxide Anion Gap BUN Creatinine Est GFR ( Amer) Est GFR (Non-Af Amer) Random Glucose Serum Osmolality Lactic Acid Calcium Total Bilirubin AST ALT Alkaline Phosphatase Troponin I Total Protein Albumin Globulin Albumin/Globulin Ratio Triglycerides Cholesterol LDL Cholesterol Direct HDL Cholesterol Venous Blood Potassium Urine Color Yellow Urine Clarity Cloudy Urine pH 5.0 Ur Specific [place] 1.021 Urine Protein 100 Urine Glucose (UA) 50 Urine Ketones Trace Urine Blood Large Urine Nitrate Negative Urine Bilirubin Negative Urine Urobilinogen 0.2-1.0 Ur Leukocyte Esterase Trace Urine RBC (Auto) 170 H Urine Microscopic WBC 38 H Ur Squamous Epith Cells 1 Calcium Oxalate Crystal Few H Uric Acid Crystals Urine Bacteria Rare Hyaline Casts Urine Yeast (Budding) Few H Urine Osmolality Ur Random Sodium Ur Random Potassium Urine HCG, Qual Fluid Source Pleural Fluid Appearance Clear Fluid WBC 178.0 Fluid RBC 970.0 H Fluid Tot Cell Count 100 H Fluid Neutrophils 44.0 H Fluid Lymphocytes 46.0 H Fld Monocyte/Macrophag 10 H Fluid Glucose 119 Fluid Total Protein 3.8 Fluid LDH 2832 Fluid Comment Yellow Blood Type Blood Type Confirm Antibody Screen BBK History Checked 08/19/18 14:20 WBC RBC Hgb Hct MCV MCH MCHC RDW Plt Count MPV Neut % (Auto) Lymph % (Auto) [place] % (Auto) Eos % (Auto) Baso % (Auto) Neut # (Auto) Lymph # (Auto) [place] # (Auto) Eos # (Auto) Baso # (Auto) Neutrophils % (Manual) Band Neutrophils % Lymphocytes % (Manual) Monocytes % (Manual) Hypersegmented Polys Platelet Estimate Polychromasia Hypochromasia (manual) Poikilocytosis (manual Anisocytosis (manual) Microcytosis (manual) PT INR APTT pO2 VBG pH VBG pCO2 VBG HCO3 VBG Total CO2 VBG O2 Sat (Calc) VBG Base Excess VBG Potassium Glucose Lactate FiO2 Crit Value Called To Crit Value Called By Crit Value Read Back Blood Gas Notified Time Sodium Potassium Chloride Carbon Dioxide Anion Gap BUN Creatinine Est GFR ( Amer) Est GFR (Non-Af Amer) Random Glucose Serum Osmolality Lactic Acid Calcium Total Bilirubin AST ALT Alkaline Phosphatase Troponin I Total Protein Albumin Globulin Albumin/Globulin Ratio Triglycerides Cholesterol LDL Cholesterol Direct HDL Cholesterol Venous Blood Potassium Urine Color Urine Clarity Urine pH Ur Specific [place] Urine Protein Urine Glucose (UA) Urine Ketones Urine Blood Urine Nitrate Urine Bilirubin Urine Urobilinogen Ur Leukocyte Esterase Urine RBC (Auto) Urine Microscopic WBC Ur Squamous Epith Cells Calcium Oxalate Crystal Uric Acid Crystals Urine Bacteria Hyaline Casts Urine Yeast (Budding) Urine Osmolality Ur Random Sodium Ur Random Potassium Urine HCG, Qual Negative Fluid Source Fluid Appearance Fluid WBC Fluid RBC Fluid Tot Cell Count Fluid Neutrophils Fluid Lymphocytes Fld Monocyte/Macrophag Fluid Glucose Fluid Total Protein Fluid LDH Fluid Comment Blood Type Blood Type Confirm Antibody Screen BBK History Checked Assessment & Plan (1) Fluid overload Status: Acute (2) Hyponatremia Status: Acute (3) Metastatic cancer Status: Acute (4) Pleural effusion Status: Acute (5) Sepsis Status: Acute - Assessment and Plan (Free Text) Assessment: septic work up pending IV rx in progress
--- NOTE | 2018-08-19 20:53 | CON ---
DATE: 08/19/2018 HISTORY OF PRESENT ILLNESS: Ms. Vogt is a 48-year-old female who was referred for pulmonary evaluation by Dr. Jerry. She was admitted with progressive abdominal distention, shortness of breath, exercise intolerance, leg edema, and hypoxemia for the past several days. She offers a mixed history and is somewhat resistant to therapeutic intervention. She indicates that she was recently at [facility] where she was diagnosed with ovarian cancer with metastasis and pleural effusion with abdominal ascites, had abdominal paracentesis a few weeks ago with drainage of about 2.5 L of fluid but it seems to have reaccumulated. She was told she was not a surgical candidate and from my understanding was offered chemotherapy but she is reluctant to have much done because she indicates that the abdominal wall can be infected post paracentesis. She also refuses to have family involved with her care and it is indicated that she does not want paracentesis for now, but will think about it. No other family history was obtained, no other medical history was obtained. PHYSICAL EXAMINATION: GENERAL: The patient is awake, alert, and oriented but very anxious. VITAL SIGNS: Remarkable for blood pressure of 128/78, with a pulse of 118, respiratory rate is 18 to 20 per minute, O2 saturation 98% on nasal cannula oxygen, but the patient keeps removing the oxygen and it would drop to 90%. SKIN: Shows poor turgor. HEENT: Mouth is dry. Eyes are sunken. LUNGS: Show poor aeration bilaterally. Complete dullness of the entire right lung field and fair left apical aeration, but dullness at left lower lung zones. HEART: Tachycardic. ABDOMEN: Distended with ascitic fluid. EXTREMITIES: Shows 2+ pitting pedal edema. CENTRAL NERVOUS SYSTEM: The patient is alert and oriented, but very anxious. No gross deficits appreciated. LABORATORY DATA: Remarkable for a chest x-ray that shows multiple left lung masses, suspicious for metastatic disease, complete opacification of the right hemithorax due to pleural effusion, left lower lobe area pleural effusion. PT 15.5, INR 1.4. Venous blood gas, pH 7.29, pCO2 of 46, pO2 of 39, lactate 3.2 down to 1.8. WBC 19.8, hemoglobin 10.1, platelet count 523,000. Sodium 125, potassium 5.4, BUN 33, creatinine 1.8, and glucose of 117. IMPRESSION: Respiratory failure secondary to massive pleural effusion due to metastatic ovarian cancer with a sympathetic effusion due to ascites, hyponatremia secondary to dilutional effect due to ascites, hypoxemia secondary to pleural effusion. PLAN: Abdominal paracentesis, which would in turn relieve pleural effusion and ascites, and probably improve respiration. The patient is somewhat resistant to having a procedure done right now but is willing to consider it if it is done by interventional radiologist. The case was discussed with candy spreader helper and also Dr. Sanchez, the oncologist. They will discuss some more with the patient and advise appropriate therapy. We will continue to follow with you. If the respiratory situation worsens, she may need endotracheal intubation and ventilation. If abdominal paracentesis is performed, then she may need to have PEG tube left in place for continuous drainage for at least the next 48 hours. The prognosis is extremely poor. Franklyn Arreaga MD
[2018-08-19] MEDS: Benzocaine/Menthol (Cepacol) Lozenge PO PRN (22:18)
[2018-08-20] MEDS: Benzocaine/Menthol (Cepacol) Lozenge PO PRN ×3 (00:38→19:08)
[2018-08-20] MEDS: Meropenem 500 MG in Sodium Chloride 0.9% 100 ML IVPB SCH ×3 (03:50→16:36)
[2018-08-20 05:25] LABS: HEMOGLOBIN 9.1 g/dL (12.0-16.0); MEAN CELL VOLUME 77.7 fl (81.0-99.0); MEAN CORPUSCULAR HEMOGLOBIN 23.9 pg (27.0-31.0); MEAN CORPUSCULAR HGB CONC 30.7 g/dL (33.0-37.0); RBC 3.83 Mil/uL (3.80-5.20); RED CELL DISTRIBUTION WIDTH 18.5 % (11.5-14.5); WHITE BLOOD COUNT 20.1 K/uL (4.8-10.8)
[2018-08-20 05:41] LABS: CALCIUM 8.1 mg/dL (8.4-10.2)
--- NOTE | 2018-08-20 08:24 | CP.CCUPN ---
<Bipin Wagner - Last Filed: 08/20/18 15:33> CCU Subjective - Physician Review Subjective (Free Text): 08/20/18 12:20 Pt seen and examined at bedside this AM. chest tube draining pleural fluid. No acute events overnight. Pt tolerating PO diet. Pt reports improvement in respiratory function. CCU Objective - Vital Signs / Intake & Output Vital Signs (Last 4 hours): Vital Signs Pulse Resp BP Pulse Ox 08/20/18 05:00 122 H 26 H 108/51 L 99 Intake and Output (Last 8hrs): Intake & Output 08/19/18 08/20/18 08/20/18 22:59 06:59 14:59 Intake Total 1100 1610 Output Total 2400 2100 Balance -1300 -490 Intake: IV 900 900 Intake, Piggyback 100 350 Oral 100 360 Output: Chest Tube Drainage 2100 2100 Right Posterior Chest 2100 2100 Urine 300 Urine, Voided 300 Other: # Voids Urine, Voided 4 - Physical Exam Pupils: Positive for: PERRL Mouth: Positive for: Moist Mucous Membranes Respiratory/Chest: Positive for: Decreased Breath Sounds, Rhonchi, Tachypneic Cardiovascular: Positive for: Normal S1, S2, Tachycardic Abdomen: Positive for: Tenderness, Distention Skin: Positive for: Warm Psychiatric: Positive for: Alert, Oriented x 3 - Medications Active Medications: Active Medications Generic Name Dose Route Start Last Admin Trade Name Freq PRN Reason Stop Dose Admin Alprazolam 0.25 mg 08/19/18 12:36 Xanax PO 08/26/18 12:37 Q12 PRN Anxiety Benzocaine/Menthol 1 tere 08/19/18 21:02 08/20/18 06:54 Cepacol Sore Throat PO 1 tere Q2 PRN Administration Sore Throat Hydromorphone HCl 1 mg 08/19/18 11:15 08/20/18 06:53 Dilaudid IVP 1 mg Q6 PRN Administration Agitation Vancomycin HCl 1 gm/ Sodium 250 mls @ 166.667 mls/hr 08/18/18 20:15 08/19/18 20:43 Chloride IVPB 166.667 mls/hr Q24H TERA Administration Protocol Meropenem 500 mg/ Sodium 100 mls @ 100 mls/hr 08/18/18 20:15 08/20/18 03:50 Chloride IVPB 100 mls/hr Q8 TERA Administration Protocol Ketorolac Tromethamine 15 mg 08/19/18 10:54 Toradol IVP Q6 PRN Pain, moderate (4-7) Lorazepam 0.5 mg 08/19/18 22:00 08/19/18 21:00 Ativan PO 0.5 mg HS TERA Administration Pantoprazole Sodium 40 mg 08/20/18 09:00 Protonix Ec Tab PO DAILY TERA - Patient Studies Lab Studies: Microbiology Studies 08/19/18 14:20 Gram Stain - Final Pleural Fluid 08/19/18 01:05 MRSA Culture (Admit) - Preliminary Naris 08/18/18 17:18 Blood Culture - Preliminary Blood-Venous NO GROWTH AFTER 24 HOURS Lab Studies 08/20/18 08/20/18 08/20/18 Range/Units 04:20 04:20 04:20 WBC 20.1 H (4.8-10.8) K/uL RBC 3.83 (3.80-5.20) Mil/uL Hgb 9.1 L (12.0-16.0) g/dL Hct 29.8 L (34.0-47.0) % MCV 77.7 L (81.0-99.0) fl MCH 23.9 L (27.0-31.0) pg MCHC 30.7 L (33.0-37.0) g/dL RDW 18.5 H (11.5-14.5) % Plt Count 494 H (130-400) K/uL Neutrophils % (Manual) (42-75) % Lymphocytes % (Manual) (20-50) % Monocytes % (Manual) (0-10) % Hypersegmented Polys Platelet Estimate (NORMAL) Hypochromasia (manual) Anisocytosis (manual) Microcytosis (manual) Sodium 126 L (132-148) mmol/l Potassium 5.3 H (3.6-5.0) MMOL/L Chloride 94 L (98-107) mmol/L Carbon Dioxide 25 (22-30) mmol/L Anion Gap 12 (10-20) BUN 34 H (7-17) mg/dl Creatinine 1.8 H (0.7-1.2) mg/dl Est GFR ( Amer) 36 Est GFR (Non-Af Amer) 30 Random Glucose 114 H (65-105) mg/dL Calcium 8.1 L (8.4-10.2) mg/dL Triglycerides (0-149) mg/DL Cholesterol (0-199) mg/dL LDL Cholesterol Direct (0-129) mg/dL HDL Cholesterol (30-70) MG/DL Urine Color (YELLOW) Urine Clarity (Clear) Urine pH (5.0-8.0) Ur Specific [place] (1.003-1.030) Urine Protein (NEGATIVE) mg/dL Urine Glucose (UA) (Normal) mg/dL Urine Ketones (NEGATIVE) mg/dL Urine Blood (NEGATIVE) Urine Nitrate (NEGATIVE) Urine Bilirubin (NEGATIVE) Urine Urobilinogen (0.2-1.0) mg/dL Ur Leukocyte Esterase (Negative) Ignacio/uL Urine RBC (Auto) (0-3) /hpf Urine Microscopic WBC (0-5) /hpf Ur Squamous Epith Cells (0-5) /hpf Calcium Oxalate Crystal (<OCC) /hpf Urine Bacteria (<OCC) Urine Yeast (Budding) (NEGATIVE) /hpf Urine HCG, Qual (NEGATIVE) Fluid Source Fluid Appearance (CLEAR) Fluid WBC (0.0-300.0) /mm3 Fluid RBC (0.0-0.0) /mm3 Fluid Tot Cell Count (0-0) Fluid Neutrophils (0-0) % Fluid Lymphocytes (0-0) % Fld Monocyte/Macrophag (0-0) % Fluid Glucose (NONE ESTABLISHED) mg/dL Fluid Total Protein (NONE ESTABLISHED) g/dL Fluid LDH (NONE ESTABLISHED) IU Fluid Comment Random Vancomycin 25.9 ug/mL 08/19/18 08/19/18 08/19/18 Range/Units 14:20 14:20 14:20 WBC (4.8-10.8) K/uL RBC (3.80-5.20) Mil/uL Hgb (12.0-16.0) g/dL Hct (34.0-47.0) % MCV (81.0-99.0) fl MCH (27.0-31.0) pg MCHC (33.0-37.0) g/dL RDW (11.5-14.5) % Plt Count (130-400) K/uL Neutrophils % (Manual) (42-75) % Lymphocytes % (Manual) (20-50) % Monocytes % (Manual) (0-10) % Hypersegmented Polys Platelet Estimate (NORMAL) Hypochromasia (manual) Anisocytosis (manual) Microcytosis (manual) Sodium (132-148) mmol/l Potassium (3.6-5.0) MMOL/L Chloride (98-107) mmol/L Carbon Dioxide (22-30) mmol/L Anion Gap (10-20) BUN (7-17) mg/dl Creatinine (0.7-1.2) mg/dl Est GFR ( Amer) Est GFR (Non-Af Amer) Random Glucose (65-105) mg/dL Calcium (8.4-10.2) mg/dL Triglycerides (0-149) mg/DL Cholesterol (0-199) mg/dL LDL Cholesterol Direct (0-129) mg/dL HDL Cholesterol (30-70) MG/DL Urine Color Yellow (YELLOW) Urine Clarity Cloudy (Clear) Urine pH 5.0 (5.0-8.0) Ur Specific [place] 1.021 (1.003-1.030) Urine Protein 100 (NEGATIVE) mg/dL Urine Glucose (UA) 50 (Normal) mg/dL Urine Ketones Trace (NEGATIVE) mg/dL Urine Blood Large (NEGATIVE) Urine Nitrate Negative (NEGATIVE) Urine Bilirubin Negative (NEGATIVE) Urine Urobilinogen 0.2-1.0 (0.2-1.0) mg/dL Ur Leukocyte Esterase Trace (Negative) Ignacio/uL Urine RBC (Auto) 170 H (0-3) /hpf Urine Microscopic WBC 38 H (0-5) /hpf Ur Squamous Epith Cells 1 (0-5) /hpf Calcium Oxalate Crystal Few H (<OCC) /hpf Urine Bacteria Rare (<OCC) Urine Yeast (Budding) Few H (NEGATIVE) /hpf Urine HCG, Qual Negative (NEGATIVE) Fluid Source Fluid Appearance (CLEAR) Fluid WBC (0.0-300.0) /mm3 Fluid RBC (0.0-0.0) /mm3 Fluid Tot Cell Count (0-0) Fluid Neutrophils (0-0) % Fluid Lymphocytes (0-0) % Fld Monocyte/Macrophag (0-0) % Fluid Glucose (NONE ESTABLISHED) mg/dL Fluid Total Protein 3.8 (NONE ESTABLISHED) g/dL Fluid LDH 2832 (NONE ESTABLISHED) IU Fluid Comment Random Vancomycin ug/mL 08/19/18 08/19/18 08/19/18 Range/Units 14:20 08:20 04:25 WBC (4.8-10.8) K/uL RBC (3.80-5.20) Mil/uL Hgb (12.0-16.0) g/dL Hct (34.0-47.0) % MCV (81.0-99.0) fl MCH (27.0-31.0) pg MCHC (33.0-37.0) g/dL RDW (11.5-14.5) % Plt Count (130-400) K/uL Neutrophils % (Manual) 88 H (42-75) % Lymphocytes % (Manual) 6 L (20-50) % Monocytes % (Manual) 6 (0-10) % Hypersegmented Polys Present Platelet Estimate Increased H (NORMAL) Hypochromasia (manual) Slight Anisocytosis (manual) Slight Microcytosis (manual) Slight Sodium (132-148) mmol/l Potassium (3.6-5.0) MMOL/L Chloride (98-107) mmol/L Carbon Dioxide (22-30) mmol/L Anion Gap (10-20) BUN (7-17) mg/dl Creatinine (0.7-1.2) mg/dl Est GFR ( Amer) Est GFR (Non-Af Amer) Random Glucose (65-105) mg/dL Calcium (8.4-10.2) mg/dL Triglycerides 176 H (0-149) mg/DL Cholesterol 147 (0-199) mg/dL LDL Cholesterol Direct 90 (0-129) mg/dL HDL Cholesterol 38 (30-70) MG/DL Urine Color (YELLOW) Urine Clarity (Clear) Urine pH (5.0-8.0) Ur Specific [place] (1.003-1.030) Urine Protein (NEGATIVE) mg/dL Urine Glucose (UA) (Normal) mg/dL Urine Ketones (NEGATIVE) mg/dL Urine Blood (NEGATIVE) Urine Nitrate (NEGATIVE) Urine Bilirubin (NEGATIVE) Urine Urobilinogen (0.2-1.0) mg/dL Ur Leukocyte Esterase (Negative) Ignacio/uL Urine RBC (Auto) (0-3) /hpf Urine Microscopic WBC (0-5) /hpf Ur Squamous Epith Cells (0-5) /hpf Calcium Oxalate Crystal (<OCC) /hpf Urine Bacteria (<OCC) Urine Yeast (Budding) (NEGATIVE) /hpf Urine HCG, Qual (NEGATIVE) Fluid Source Pleural Fluid Appearance Clear (CLEAR) Fluid WBC 178.0 (0.0-300.0) /mm3 Fluid RBC 970.0 H (0.0-0.0) /mm3 Fluid Tot Cell Count 100 H (0-0) Fluid Neutrophils 44.0 H (0-0) % Fluid Lymphocytes 46.0 H (0-0) % Fld Monocyte/Macrophag 10 H (0-0) % Fluid Glucose 119 (NONE ESTABLISHED) mg/dL Fluid Total Protein (NONE ESTABLISHED) g/dL Fluid LDH (NONE ESTABLISHED) IU Fluid Comment Yellow Random Vancomycin ug/mL Laboratory Results - last 24 hr 08/19/18 08/19/18 08/19/18 04:25 08:20 14:20 WBC RBC Hgb Hct MCV MCH MCHC RDW Plt Count Neutrophils % (Manual) 88 H Lymphocytes % (Manual) 6 L Monocytes % (Manual) 6 Hypersegmented Polys Present Platelet Estimate Increased H Hypochromasia (manual) Slight Anisocytosis (manual) Slight Microcytosis (manual) Slight Sodium Potassium Chloride Carbon Dioxide Anion Gap BUN Creatinine Est GFR ( Amer) Est GFR (Non-Af Amer) Random Glucose Calcium Triglycerides 176 H Cholesterol 147 LDL Cholesterol Direct 90 HDL Cholesterol 38 Urine Color Urine Clarity Urine pH Ur Specific [place] Urine Protein Urine Glucose (UA) Urine Ketones Urine Blood Urine Nitrate Urine Bilirubin Urine Urobilinogen Ur Leukocyte Esterase Urine RBC (Auto) Urine Microscopic WBC Ur Squamous Epith Cells Calcium Oxalate Crystal Urine Bacteria Urine Yeast (Budding) Urine HCG, Qual Fluid Source Pleural Fluid Appearance Clear Fluid WBC 178.0 Fluid RBC 970.0 H Fluid Tot Cell Count 100 H Fluid Neutrophils 44.0 H Fluid Lymphocytes 46.0 H Fld Monocyte/Macrophag 10 H Fluid Glucose 119 Fluid Total Protein Fluid LDH Fluid Comment Yellow Random Vancomycin 08/19/18 08/19/18 08/19/18 14:20 14:20 14:20 WBC RBC Hgb Hct MCV MCH MCHC RDW Plt Count Neutrophils % (Manual) Lymphocytes % (Manual) Monocytes % (Manual) Hypersegmented Polys Platelet Estimate Hypochromasia (manual) Anisocytosis (manual) Microcytosis (manual) Sodium Potassium Chloride Carbon Dioxide Anion Gap BUN Creatinine Est GFR ( Amer) Est GFR (Non-Af Amer) Random Glucose Calcium Triglycerides Cholesterol LDL Cholesterol Direct HDL Cholesterol Urine Color Yellow Urine Clarity Cloudy Urine pH 5.0 Ur Specific [place] 1.021 Urine Protein 100 Urine Glucose (UA) 50 Urine Ketones Trace Urine Blood Large Urine Nitrate Negative Urine Bilirubin Negative Urine Urobilinogen 0.2-1.0 Ur Leukocyte Esterase Trace Urine RBC (Auto) 170 H Urine Microscopic WBC 38 H Ur Squamous Epith Cells 1 Calcium Oxalate Crystal Few H Urine Bacteria Rare Urine Yeast (Budding) Few H Urine HCG, Qual Negative Fluid Source Fluid Appearance Fluid WBC Fluid RBC Fluid Tot Cell Count Fluid Neutrophils Fluid Lymphocytes Fld Monocyte/Macrophag Fluid Glucose Fluid Total Protein 3.8 Fluid LDH 2832 Fluid Comment Random Vancomycin 08/20/18 08/20/18 08/20/18 04:20 04:20 04:20 WBC 20.1 H RBC 3.83 Hgb 9.1 L Hct 29.8 L MCV 77.7 L MCH 23.9 L MCHC 30.7 L RDW 18.5 H Plt Count 494 H Neutrophils % (Manual) Lymphocytes % (Manual) Monocytes % (Manual) Hypersegmented Polys Platelet Estimate Hypochromasia (manual) Anisocytosis (manual) Microcytosis (manual) Sodium 126 L Potassium 5.3 H Chloride 94 L Carbon Dioxide 25 Anion Gap 12 BUN 34 H Creatinine 1.8 H Est GFR ( Amer) 36 Est GFR (Non-Af Amer) 30 Random Glucose 114 H Calcium 8.1 L Triglycerides Cholesterol LDL Cholesterol Direct HDL Cholesterol Urine Color Urine Clarity Urine pH Ur Specific [place] Urine Protein Urine Glucose (UA) Urine Ketones Urine Blood Urine Nitrate Urine Bilirubin Urine Urobilinogen Ur Leukocyte Esterase Urine RBC (Auto) Urine Microscopic WBC Ur Squamous Epith Cells Calcium Oxalate Crystal Urine Bacteria Urine Yeast (Budding) Urine HCG, Qual Fluid Source Fluid Appearance Fluid WBC Fluid RBC Fluid Tot Cell Count Fluid Neutrophils Fluid Lymphocytes Fld Monocyte/Macrophag Fluid Glucose Fluid Total Protein Fluid LDH Fluid Comment Random Vancomycin 25.9 EKG/Cardiology Studies: Cardiology / EKG Studies 08/19/18 09:00 EKG [ELECTROCARDIOGRAM] DAILY Comment: Mode Of Transportation: Reason For Exam: Hyperkalemia Critical Care Progress Note - Nutrition Nutrition: Nutrition Category Date Time Status Regular Diet [DIET] Diets 08/19/18 Breakfast Active Assessment/Plan - Assessment and Plan (Free Text) Assessment: 48 yo F with pmhx of stage 4 ovarian cancer, anemia and benign breast mass admitted for progressive abdominal distension, progressive SOB, increasing lower extremity edema, and hyponatremia. Plan: Abdominal wall cellulitis with severe sepsis: -Serum lactate: 3.2 > 1.4 -ID: Dr. Lechuga: meropenem, linezolid; s/p vancomycin and zosyn -BCX: no growth 24 hrs -UCX: negative Metastatic Ovarian Cancer -Stage IV -Dr. Sanchez on board: considering immunotherapy -Surgery: Dr. Valle Pleural effusion -R sided; -Supplemental O2 -Pulm: Dr. Arreaga -IR: Dr. Larkin: bedside thoracentesis -ID: Dr. Lechuga: meropenem, linezolid; s/p vancomycin and zosyn -Pleural fluid culture: no growth 24 hrs -BCX: no growth 24 hrs -UCX: negative Peritoneal fluid -IR: Dr. Larkin -US: abdomen ordered -Consider tap Hyponatremia -Na: 128 > 126 -2/2 hypovolemia not SIADH -serum and urine osmolality: 276/470 -Nephro: Dr. Resendez: 25% Albumin q 6 hrs; 25 mls for next 24 hrs; spot urine; fluid restriction 800-900; considering Samsca -f/u BUN/Cr Hyperkalemia: -K: 5.4 -IVF -Kayexalate; pt requested CA -Nephrology: Dr. 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 Almeida: recommend start remeron 7.5 qHS; however, can't due to contraindication with Linezolid started on 08/20/2018 DVT/GI prophylaxis. -SCDs -IV protonix PT/OT -Eval and treat Code Status: Full code Case dw Dr. Yamil Wagner MD PGY2 <Grey Lobo - Last Filed: 08/20/18 16:48> CCU Subjective - Physician Review Subjective (Free Text): Attestation: Patient seen and examined at the bedside with Resident Dr. Manny Wagner; and I agree with his outline of plans and management documented above and below, reflecting my review of all applicable clinical data, and participation in the care of the patient throughout the day in ICU; today, August 20, 2018. CCU Objective - Vital Signs / Intake & Output Vital Signs (Last 4 hours): Attestation: Patient seen and examined at the bedside with Resident Dr. Manny Wagner; and I agree with his outline of plans and management documented above and below, reflecting my review of all applicable clinical data, and participation in the care of the patient throughout the day in ICU; today, August 20, 2018. Intake and Output (Last 8hrs): Intake & Output 08/20/18 08/20/18 08/20/18 06:59 14:59 22:59 Intake Total 1610 Output Total 2100 Balance -490 Intake: IV 900 Intake, Piggyback 350 Oral 360 Output: Chest Tube Drainage 2100 Right Posterior Chest 2100 Other: # Voids Urine, Voided 4
[2018-08-20] MEDS: Pantoprazole 40 mg EC Tab PO SCH (08:43)
--- NOTE | 2018-08-20 09:51 | CP.PCM.PN ---
Subjective - Date & Time of Evaluation Date of Evaluation: 08/20/18 Time of Evaluation: 09:45 - Subjective Subjective: Since the patient had a abdominal paracentesis and has a catheter in place 4500 ml of fluid has been drained. Her Po2 is .95%, she is able to eat and sleep better. I spoke to her about chemotherapy.but she still feels it is too much for her but wants to get immunotherapy instead, According to her the tests to see if she is a candidate for immunotherapy were done at [facility] [place] she would like those result first. Objective - Vital Signs/Intake and Output Vital Signs (last 24 hours): Temp Pulse Resp BP Pulse Ox 98.7 F 122 H 26 H 108/51 L 99 08/19/18 23:55 08/20/18 05:00 08/20/18 05:00 08/20/18 05:00 08/20/18 05:00 Intake and Output: 08/20/18 08/20/18 06:59 18:59 Intake Total 1710 Output Total 2500 Balance -790 - Medications Medications: Current Medications Alprazolam (Xanax) 0.25 mg PO Q12 PRN PRN Reason: Anxiety Stop: 08/26/18 12:37 Benzocaine/Menthol (Cepacol Sore Throat) 1 tere PO Q2 PRN PRN Reason: Sore Throat Last Admin: 08/20/18 06:54 Dose: 1 tere Hydromorphone HCl (Dilaudid) 1 mg IVP Q6 PRN PRN Reason: Agitation Last Admin: 08/20/18 06:53 Dose: 1 mg Vancomycin HCl 1 gm/ Sodium (Chloride) 250 mls @ 166.667 mls/hr IVPB Q24H TERA; Protocol Last Admin: 08/19/18 20:43 Dose: 166.667 mls/hr Meropenem 500 mg/ Sodium (Chloride) 100 mls @ 100 mls/hr IVPB Q8 TERA; Protocol Last Admin: 08/20/18 08:43 Dose: 100 mls/hr Ketorolac Tromethamine (Toradol) 15 mg IVP Q6 PRN PRN Reason: Pain, moderate (4-7) Lorazepam (Ativan) 0.5 mg PO HS TERA Last Admin: 08/19/18 21:00 Dose: 0.5 mg Pantoprazole Sodium (Protonix Ec Tab) 40 mg PO DAILY TERA Last Admin: 08/20/18 08:43 Dose: 40 mg - Labs Labs: 08/20/18 04:20 08/20/18 04:20 PT 15.5 Seconds (9.8-13.1) H 08/19/18 04:25 INR 1.4 08/19/18 04:25 APTT 27.9 Seconds (25.6-37.1) 08/19/18 04:25
--- NOTE | 2018-08-20 11:16 | RAD ---
Date of service: 08/20/2018 HISTORY: re-evluation of pleural efffusions COMPARISON: 08/19/2018 FINDINGS: LUNGS: multiple rounded opacities in left kalen thorax are again noted suspicious for metastatic disease. Extensive ill-defined right-sided pulmonary opacity. New right pleural pigtail catheter with markedly decreased right pleural effusion. No pneumothorax appreciated. Possible small left pleural effusion. PLEURA: As above CARDIOVASCULAR: No aortic atherosclerotic calcification present. Normal cardiac size. No pulmonary vascular congestion. OSSEOUS STRUCTURES: No significant abnormalities. VISUALIZED UPPER ABDOMEN: Normal. OTHER FINDINGS: None. IMPRESSION: New right pleural pigtail catheter with markedly decreased right pleural effusion. Probable small left pleural effusion. No pneumothorax. Extensive right-sided pulmonary opacity. Multiple left-sided rounded opacities suspicious for metastasis.
--- NOTE | 2018-08-20 11:20 | CP.PCM.PN ---
Subjective - Date & Time of Evaluation Date of Evaluation: 08/20/18 Time of Evaluation: 11:20 - Subjective Subjective: more awake and alert today sob improved p[ost r thoracostomy chest tube placement Objective - Vital Signs/Intake and Output Vital Signs (last 24 hours): Temp Pulse Resp BP Pulse Ox 98.7 F 123 H 18 98/71 L 95 08/20/18 07:00 08/20/18 09:00 08/20/18 09:00 08/20/18 09:00 08/20/18 09:00 Intake and Output: 08/20/18 08/20/18 06:59 18:59 Intake Total 1710 Output Total 2500 Balance -790 - Medications Medications: Current Medications Alprazolam (Xanax) 0.25 mg PO Q12 PRN PRN Reason: Anxiety Stop: 08/26/18 12:37 Benzocaine/Menthol (Cepacol Sore Throat) 1 tere PO Q2 PRN PRN Reason: Sore Throat Last Admin: 08/20/18 06:54 Dose: 1 tere Hydromorphone HCl (Dilaudid) 1 mg IVP Q6 PRN PRN Reason: Agitation Last Admin: 08/20/18 06:53 Dose: 1 mg Vancomycin HCl 1 gm/ Sodium (Chloride) 250 mls @ 166.667 mls/hr IVPB Q24H TERA; Protocol Last Admin: 08/19/18 20:43 Dose: 166.667 mls/hr Meropenem 500 mg/ Sodium (Chloride) 100 mls @ 100 mls/hr IVPB Q8 TERA; Protocol Last Admin: 08/20/18 08:43 Dose: 100 mls/hr Ketorolac Tromethamine (Toradol) 15 mg IVP Q6 PRN PRN Reason: Pain, moderate (4-7) Lorazepam (Ativan) 0.5 mg PO HS TERA Last Admin: 08/19/18 21:00 Dose: 0.5 mg Pantoprazole Sodium (Protonix Ec Tab) 40 mg PO DAILY TERA Last Admin: 08/20/18 08:43 Dose: 40 mg - Labs Labs: 08/20/18 04:20 08/20/18 04:20 PT 15.5 Seconds (9.8-13.1) H 08/19/18 04:25 INR 1.4 08/19/18 04:25 APTT 27.9 Seconds (25.6-37.1) 08/19/18 04:25 - Constitutional Appears: Chronically Ill - Head Exam Head Exam: ATRAUMATIC, NORMAL INSPECTION, NORMOCEPHALIC - Eye Exam Eye Exam: EOMI, Normal appearance, PERRL Pupil Exam: NORMAL ACCOMODATION, PERRL - ENT Exam ENT Exam: Mucous Membranes Moist, Normal Exam - Neck Exam Neck Exam: Full ROM, Normal Inspection. absent: Lymphadenopathy - Respiratory Exam Respiratory Exam: Decreased Breath Sounds, Prolonged Expiratory Phase, Rales, NORMAL BREATHING PATTERN - Cardiovascular Exam Cardiovascular Exam: Tachycardia, REGULAR RHYTHM, +S1, +S2. absent: Murmur - GI/Abdominal Exam GI & Abdominal Exam: Soft, Normal Bowel Sounds. absent: Tenderness - Rectal Exam Rectal Exam: NORMAL INSPECTION - Extremities Exam Extremities Exam: Full ROM, Normal Capillary Refill, Normal Inspection. absent: Joint Swelling, Pedal Edema - Back Exam Back Exam: NORMAL INSPECTION - Neurological Exam Neurological Exam: Alert, Awake, CN II-XII Intact, Oriented x3 - Psychiatric Exam Psychiatric exam: Normal Affect, Normal Mood - Skin Skin Exam: Dry, Intact, Normal Color, Warm Assessment and Plan - Assessment and Plan (Free Text) Assessment: r pleural effusion improved with chest tube placement pulmonary mets ovarian cancer with mets Plan: continue current rx prognosis is extremely poor
[2018-08-20] MEDS ORDERED: Sod Polystyrene Sulf 15 gm/60 ml Susp PO ONE ×2 (11:58→15:29)
--- NOTE | 2018-08-20 12:33 | CP.PCM.CON ---
History of Present Illness - History of Present Illness History of Present Illness: This patient whole is 48 years of age female I was called to see her for consultation because of hyponatremia and abnormal kidney function. This patient apparently was diagnosed with ovarian cancer just recently no chemotherapy was given and apparently she was admitted with increasing and progressive swollen of the abdomen and lower extremity and patient requiring Pain medication in addition she is receiving antibiotics as noted in the medical record. Mando stated that she has been taken ibuprofen 800 mg for more than a year and s he just stopped it recently and she was in another hospital and she was taken some antibiotics among other medications she stated.. Patient also presented with severe large pleural effusion and require to have catheter. Past medical history Recently diagnosed with ovarian cancer no chemotherapy was given Social history not contributory Review of Systems - Constitutional Constitutional: absent: Chills - EENT Eyes: absent: Exophthalmos Nose/Mouth/Throat: absent: Nasal Discharge, Sore Throat - Breasts Breasts: As Per HPI - Cardiovascular Cardiovascular: Dyspnea, Edema. absent: Acrocyanosis, Chest Pain - Respiratory Respiratory: Dyspnea on Exertion. absent: Hemoptysis - Gastrointestinal Gastrointestinal: Abdominal Pain. absent: Coffee Ground Emesis Additional comments: Distention of the abdomen - Genitourinary Genitourinary: Nocturia - Menstruation Menstruation: As Per HPI - Neurological Neurological: Tingling. absent: Confusion - Psychiatric Psychiatric: As Per HPI - Endocrine Endocrine: Fatigue - Hematologic/Lymphatic Hematologic: absent: Easy Bleeding Past Patient History - Past Medical History & Family History Past Medical History?: Yes - Past Social History Alcohol: None - CARDIAC Hx Cardiac Disorders: No - PULMONARY Hx Respiratory Disorders: No - NEUROLOGICAL Hx Neurological Disorder: No - HEENT Hx HEENT Problems: Yes - RENAL Hx Chronic Kidney Disease: No - ENDOCRINE/METABOLIC Hx Endocrine Disorders: No - HEMATOLOGICAL/ONCOLOGICAL Hx Anemia: Yes - INTEGUMENTARY Hx Dermatological Problems: No - MUSCULOSKELETAL/RHEUMATOLOGICAL Hx Musculoskeletal Disorders: Yes (unsteady gait) - GASTROINTESTINAL Hx Gastrointestinal Disorders: No - GENITOURINARY/GYNECOLOGICAL Hx Genitourinary Disorders: Yes - PSYCHIATRIC Hx Psychophysiologic Disorder: Yes (anxiety) - SURGICAL HISTORY Hx Surgeries: Yes Hx Breast Biopsy: Yes - ANESTHESIA Hx Anesthesia: Yes Hx Anesthesia Reactions: No Meds Allergies/Adverse Reactions: Allergies Allergy/AdvReac Type Severity Reaction Status Date / Time No Known Allergies Allergy Verified 08/18/18 16:19 - Medications Medications: Current Medications Alprazolam (Xanax) 0.25 mg PO Q12 PRN PRN Reason: Anxiety Stop: 08/26/18 12:37 Benzocaine/Menthol (Cepacol Sore Throat) 1 tere PO Q2 PRN PRN Reason: Sore Throat Last Admin: 08/20/18 06:54 Dose: 1 tere Hydromorphone HCl (Dilaudid) 1 mg IVP Q6 PRN PRN Reason: Agitation Last Admin: 08/20/18 06:53 Dose: 1 mg Vancomycin HCl 1 gm/ Sodium (Chloride) 250 mls @ 166.667 mls/hr IVPB Q24H [facility]; Protocol Last Admin: 08/19/18 20:43 Dose: 166.667 mls/hr Meropenem 500 mg/ Sodium (Chloride) 100 mls @ 100 mls/hr IVPB Q8 [facility]; Protocol Last Admin: 08/20/18 08:43 Dose: 100 mls/hr Ketorolac Tromethamine (Toradol) 15 mg IVP Q6 PRN PRN Reason: Pain, moderate (4-7) Lorazepam (Ativan) 0.5 mg PO HS [facility] Last Admin: 08/19/18 21:00 Dose: 0.5 mg Pantoprazole Sodium (Protonix Ec Tab) 40 mg PO DAILY [facility] Last Admin: 08/20/18 08:43 Dose: 40 mg Physical Exam - Constitutional Appears: No Acute Distress, Older Than Stated Age, Cachectic, Chronically Ill - Eye Exam Eye Exam: Conjunctival injection - ENT Exam ENT Exam: Mucous Membranes Moist - Respiratory Exam Respiratory Exam: Rhonchi, NORMAL BREATHING PATTERN. absent: Chest Wall Tenderness - Cardiovascular Exam Cardiovascular Exam: absent: Gallop, JVD, Rubs - GI/Abdominal Exam GI & Abdominal Exam: Distended, Guarding, Normal Bowel Sounds Additional comments: massive ascites - Extremities Exam Extremities exam: Negative for: calf tenderness - Back Exam Back exam: absent: CVA tenderness (L), CVA tenderness (R) - Neurological Exam Neurological exam: Alert - Psychiatric Exam Psychiatric exam: Normal Affect Results - Vital Signs Recent Vital Signs: Last Vital Signs Temp 98.7 F 08/20/18 07:00 Pulse 123 H 08/20/18 09:00 Resp 18 08/20/18 09:00 BP 98/71 L 08/20/18 09:00 Pulse Ox 95 08/20/18 09:00 - Labs Result Diagrams: 08/20/18 04:20 08/20/18 04:20 Labs: Laboratory Results - last 24 hr 08/19/18 08/19/18 08/19/18 14:20 14:20 14:20 WBC RBC Hgb Hct MCV MCH MCHC RDW Plt Count Sodium Potassium Chloride Carbon Dioxide Anion Gap BUN Creatinine Est GFR ( Amer) Est GFR (Non-Af Amer) Random Glucose Calcium Urine Color Yellow Urine Clarity Cloudy Urine pH 5.0 Ur Specific [place] 1.021 Urine Protein 100 Urine Glucose (UA) 50 Urine Ketones Trace Urine Blood Large Urine Nitrate Negative Urine Bilirubin Negative Urine Urobilinogen 0.2-1.0 Ur Leukocyte Esterase Trace Urine RBC (Auto) 170 H Urine Microscopic WBC 38 H Ur Squamous Epith Cells 1 Calcium Oxalate Crystal Few H Urine Bacteria Rare Urine Yeast (Budding) Few H Urine HCG, Qual Fluid Source Pleural Fluid Appearance Clear Fluid WBC 178.0 Fluid RBC 970.0 H Fluid Tot Cell Count 100 H Fluid Neutrophils 44.0 H Fluid Lymphocytes 46.0 H Fld Monocyte/Macrophag 10 H Fluid Glucose 119 Fluid Total Protein 3.8 Fluid LDH 2832 Fluid Comment Yellow Random Vancomycin 08/19/18 08/20/18 08/20/18 14:20 04:20 04:20 WBC 20.1 H RBC 3.83 Hgb 9.1 L Hct 29.8 L MCV 77.7 L MCH 23.9 L MCHC 30.7 L RDW 18.5 H Plt Count 494 H Sodium Potassium Chloride Carbon Dioxide Anion Gap BUN Creatinine Est GFR ( Amer) Est GFR (Non-Af Amer) Random Glucose Calcium Urine Color Urine Clarity Urine pH Ur Specific [place] Urine Protein Urine Glucose (UA) Urine Ketones Urine Blood Urine Nitrate Urine Bilirubin Urine Urobilinogen Ur Leukocyte Esterase Urine RBC (Auto) Urine Microscopic WBC Ur Squamous Epith Cells Calcium Oxalate Crystal Urine Bacteria Urine Yeast (Budding) Urine HCG, Qual Negative Fluid Source Fluid Appearance Fluid WBC Fluid RBC Fluid Tot Cell Count Fluid Neutrophils Fluid Lymphocytes Fld Monocyte/Macrophag Fluid Glucose Fluid Total Protein Fluid LDH Fluid Comment Random Vancomycin 25.9 08/20/18 04:20 WBC RBC Hgb Hct MCV MCH MCHC RDW Plt Count Sodium 126 L Potassium 5.3 H Chloride 94 L Carbon Dioxide 25 Anion Gap 12 BUN 34 H Creatinine 1.8 H Est GFR ( Amer) 36 Est GFR (Non-Af Amer) 30 Random Glucose 114 H Calcium 8.1 L Urine Color Urine Clarity Urine pH Ur Specific [place] Urine Protein Urine Glucose (UA) Urine Ketones Urine Blood Urine Nitrate Urine Bilirubin Urine Urobilinogen Ur Leukocyte Esterase Urine RBC (Auto) Urine Microscopic WBC Ur Squamous Epith Cells Calcium Oxalate Crystal Urine Bacteria Urine Yeast (Budding) Urine HCG, Qual Fluid Source Fluid Appearance Fluid WBC Fluid RBC Fluid Tot Cell Count Fluid Neutrophils Fluid Lymphocytes Fld Monocyte/Macrophag Fluid Glucose Fluid Total Protein Fluid LDH Fluid Comment Random Vancomycin Assessment & Plan (1) Hyponatremia Assessment and Plan: Hyponatremia most likely related to massive ascites with the fluid overloaded dilutional however I cannot rule out SIADH as well Ovarian cancer diagnosed recently Hypoalbuminemia Debility Masses ascites Acute kidney injury perhaps related to multifactorial including but not limited to the previous use of ibuprofen and perhaps antibiotics Recommendation #1 adjust antibiotics patient receiving vancomycin as per renal doses to do serum vancomycin level the last vancomycin level was elevated over 25 please call infectious disease for adjustment #2 25% albumin to be given every 6 hours 25 mL for the next 24 hours #3 spot urine for sodium osmolality and creatinine #4 fluid restriction about 800-900 mL per 24 hours #5 we will consider Samsca if the urine finding compatible with SIADH Status: Acute (2) Fluid overload Status: Acute (3) Metastatic cancer Status: Acute (4) Pleural effusion Status: Acute (5) Sepsis Status: Acute
--- NOTE | 2018-08-20 13:38 | CP.PCM.CON ---
History of Present Illness - History of Present Illness History of Present Illness: General Surgery consult note for Dr. Raines Consulted for stage 4 ovarian cancer Patient is a 48 yr old female with PMH anemia, benign breast mass, stage 4 ovarian cancer with abdominal ascites and 6 months of abnormal uterine bleeding who presented to [facility] for SOB and fatigue after being discharged from [facility] approximately 2 weeks ago. She states that she had been receiving regular pelvic US for some time which had no abnormal findings until recently. While she states that she received the cancer diagnosis and was informed of her prognosis. She has currently not yet decided on whether to pursue chemotherapy and is considering immunotherapy as an alternative. She states that her SOB has improved. She is still unable to fully sit up due to the ascites and the large tumor burden. She otherwise denies abdominal pain, nausea, vomiting, stool changes, difficulty urinating, GOMEZ, chest pain and extremity pain. She is to lerating her diet well. She is passing flatus and having regular BM. PMH: anemia, benign breast mass, stage IV ovarian cancer with left lung mets, abnormal uterine bleeding [employer]ST Hx: denies any previous sexual partners PSH: denies All: nkda social: denies, family lives in [place] Review of Systems - Review of Systems All systems: reviewed and no additional remarkable complaints except (as per HPI) Past Patient History - Past Medical History & Family History Past Medical History?: Yes - Past Social History Alcohol: None - CARDIAC Hx Cardiac Disorders: No - PULMONARY Hx Respiratory Disorders: No - NEUROLOGICAL Hx Neurological Disorder: No - HEENT Hx HEENT Problems: Yes - RENAL Hx Chronic Kidney Disease: No - ENDOCRINE/METABOLIC Hx Endocrine Disorders: No - HEMATOLOGICAL/ONCOLOGICAL Hx Anemia: Yes - INTEGUMENTARY Hx Dermatological Problems: No - MUSCULOSKELETAL/RHEUMATOLOGICAL Hx Musculoskeletal Disorders: Yes (unsteady gait) - GASTROINTESTINAL Hx Gastrointestinal Disorders: No - GENITOURINARY/GYNECOLOGICAL Hx Genitourinary Disorders: Yes - PSYCHIATRIC Hx Psychophysiologic Disorder: Yes (anxiety) - SURGICAL HISTORY Hx Surgeries: Yes Hx Breast Biopsy: Yes - ANESTHESIA Hx Anesthesia: Yes Hx Anesthesia Reactions: No Meds Allergies/Adverse Reactions: Allergies Allergy/AdvReac Type Severity Reaction Status Date / Time No Known Allergies Allergy Verified 08/18/18 16:19 - Medications Medications: Current Medications Alprazolam (Xanax) 0.25 mg PO Q12 PRN PRN Reason: Anxiety Stop: 08/26/18 12:37 Benzocaine/Menthol (Cepacol Sore Throat) 1 tere PO Q2 PRN PRN Reason: Sore Throat Last Admin: 08/20/18 06:54 Dose: 1 tere Hydromorphone HCl (Dilaudid) 1 mg IVP Q6 PRN PRN Reason: Agitation Last Admin: 08/20/18 06:53 Dose: 1 mg Vancomycin HCl 1 gm/ Sodium (Chloride) 250 mls @ 166.667 mls/hr IVPB Q24H [facility]; Protocol Last Admin: 08/19/18 20:43 Dose: 166.667 mls/hr Meropenem 500 mg/ Sodium (Chloride) 100 mls @ 100 mls/hr IVPB Q8 [facility]; Protocol Last Admin: 08/20/18 08:43 Dose: 100 mls/hr Ketorolac Tromethamine (Toradol) 15 mg IVP Q6 PRN PRN Reason: Pain, moderate (4-7) Lorazepam (Ativan) 0.5 mg PO HS [facility] Last Admin: 08/19/18 21:00 Dose: 0.5 mg Pantoprazole Sodium (Protonix Ec Tab) 40 mg PO DAILY [facility] Last Admin: 08/20/18 08:43 Dose: 40 mg Physical Exam - Constitutional Appears: Well, Non-toxic, No Acute Distress - Head Exam Head Exam: ATRAUMATIC, NORMOCEPHALIC - Eye Exam Eye Exam: EOMI - ENT Exam ENT Exam: Mucous Membranes Moist - Respiratory Exam Respiratory Exam: NORMAL BREATHING PATTERN Additional comments: pigtail catheter in place draining clear yellow fluid - Cardiovascular Exam Cardiovascular Exam: REGULAR RHYTHM - GI/Abdominal Exam GI & Abdominal Exam: Distended, Mass, Soft. absent: Guarding, Tenderness Additional comments: large palpable mass in the left lower quadrant - Neurological Exam Neurological exam: Alert, Oriented x3 - Psychiatric Exam Psychiatric exam: Anxious, Normal Mood - Skin Skin Exam: Dry, Erythema (over the left lower quadrant on the abdomen, consistent with previous infection status), Intact, Warm Results - Vital Signs Recent Vital Signs: Last Vital Signs Temp 98.7 F 08/20/18 07:00 Pulse 123 H 08/20/18 09:00 Resp 18 08/20/18 09:00 BP 98/71 L 08/20/18 09:00 Pulse Ox 95 08/20/18 09:00 - Labs Result Diagrams: 08/20/18 04:20 08/20/18 04:20 Labs: Laboratory Results - last 24 hr 08/19/18 08/19/18 08/19/18 14:20 14:20 14:20 WBC RBC Hgb Hct MCV MCH MCHC RDW Plt Count Sodium Potassium Chloride Carbon Dioxide Anion Gap BUN Creatinine Est GFR ( Amer) Est GFR (Non-Af Amer) Random Glucose Calcium Urine Color Yellow Urine Clarity Cloudy Urine pH 5.[address] [place] 1.021 Urine Protein 100 Urine Glucose (UA) 50 Urine Ketones Trace Urine Blood Large Urine Nitrate Negative Urine Bilirubin Negative Urine Urobilinogen 0.2-1.0 Ur Leukocyte Esterase Trace Urine RBC (Auto) 170 H Urine Microscopic WBC 38 H Ur Squamous Epith Cells 1 Calcium Oxalate Crystal Few H Urine Bacteria Rare Urine Yeast (Budding) Few H Urine HCG, Qual Fluid Source Pleural Fluid Appearance Clear Fluid WBC 178.0 Fluid RBC 970.0 H Fluid Tot Cell Count 100 H Fluid Neutrophils 44.0 H Fluid Lymphocytes 46.0 H Fld Monocyte/Macrophag 10 H Fluid Glucose 119 Fluid Total Protein 3.8 Fluid LDH 2832 Fluid Comment Yellow Random Vancomycin 08/19/18 08/20/18 08/20/18 14:20 04:20 04:20 WBC 20.1 H RBC 3.83 Hgb 9.1 L Hct 29.8 L MCV 77.7 L MCH 23.9 L MCHC 30.7 L RDW 18.5 H Plt Count 494 H Sodium Potassium Chloride Carbon Dioxide Anion Gap BUN Creatinine Est GFR ( Amer) Est GFR (Non-Af Amer) Random Glucose Calcium Urine Color Urine Clarity Urine pH Ur Specific [place] Urine Protein Urine Glucose (UA) Urine Ketones Urine Blood Urine Nitrate Urine Bilirubin Urine Urobilinogen Ur Leukocyte Esterase Urine RBC (Auto) Urine Microscopic WBC Ur Squamous Epith Cells Calcium Oxalate Crystal Urine Bacteria Urine Yeast (Budding) Urine HCG, Qual Negative Fluid Source Fluid Appearance Fluid WBC Fluid RBC Fluid Tot Cell Count Fluid Neutrophils Fluid Lymphocytes Fld Monocyte/Macrophag Fluid Glucose Fluid Total Protein Fluid LDH Fluid Comment Random Vancomycin 25.9 08/20/18 04:20 WBC RBC Hgb Hct MCV MCH MCHC RDW Plt Count Sodium 126 L Potassium 5.3 H Chloride 94 L Carbon Dioxide 25 Anion Gap 12 BUN 34 H Creatinine 1.8 H Est GFR ( Amer) 36 Est GFR (Non-Af Amer) 30 Random Glucose 114 H Calcium 8.1 L Urine Color Urine Clarity Urine pH Ur Specific [place] Urine Protein Urine Glucose (UA) Urine Ketones Urine Blood Urine Nitrate Urine Bilirubin Urine Urobilinogen Ur Leukocyte Esterase Urine RBC (Auto) Urine Microscopic WBC Ur Squamous Epith Cells Calcium Oxalate Crystal Urine Bacteria Urine Yeast (Budding) Urine HCG, Qual Fluid Source Fluid Appearance Fluid WBC Fluid RBC Fluid Tot Cell Count Fluid Neutrophils Fluid Lymphocytes Fld Monocyte/Macrophag Fluid Glucose Fluid Total Protein Fluid LDH Fluid Comment Random Vancomycin Assessment & Plan - Assessment and Plan (Free Text) Assessment: 48 yr old female with Stage IV Ovarian cancer with metastatic lesions to the left lung Plan: due to the metastatic nature of the patient's disease it is unlikely she would be a candidate/ benefit from any type of surgical intervention No further surgical intervention at this time, please reconsult as necessary d/w Dr. Yanna Santos, PGY 1 - Date & Time Date: 08/20/18 Time: 12:00
--- NOTE | 2018-08-20 13:56 | CP.PCM.PN ---
Subjective - Date & Time of Evaluation Date of Evaluation: 08/20/18 Time of Evaluation: 08:00 - Subjective Subjective: Vanco d/c'd zyvox added Objective - Vital Signs/Intake and Output Vital Signs (last 24 hours): Temp Pulse Resp BP Pulse Ox 98.7 F 123 H 18 98/71 L 95 08/20/18 07:00 08/20/18 09:00 08/20/18 09:00 08/20/18 09:00 08/20/18 09:00 Intake and Output: 08/20/18 08/20/18 06:59 18:59 Intake Total 1710 Output Total 2500 Balance -790 - Medications Medications: Current Medications Alprazolam (Xanax) 0.25 mg PO Q12 PRN PRN Reason: Anxiety Stop: 08/26/18 12:37 Benzocaine/Menthol (Cepacol Sore Throat) 1 tere PO Q2 PRN PRN Reason: Sore Throat Last Admin: 08/20/18 06:54 Dose: 1 tere Hydromorphone HCl (Dilaudid) 1 mg IVP Q6 PRN PRN Reason: Agitation Last Admin: 08/20/18 06:53 Dose: 1 mg Meropenem 500 mg/ Sodium (Chloride) 100 mls @ 100 mls/hr IVPB Q8 [facility]; Protocol Last Admin: 08/20/18 08:43 Dose: 100 mls/hr Ketorolac Tromethamine (Toradol) 15 mg IVP Q6 PRN PRN Reason: Pain, moderate (4-7) Lorazepam (Ativan) 0.5 mg PO HS [facility] Last Admin: 08/19/18 21:00 Dose: 0.5 mg Pantoprazole Sodium (Protonix Ec Tab) 40 mg PO DAILY [facility] Last Admin: 08/20/18 08:43 Dose: 40 mg - Labs Labs: 08/20/18 04:20 08/20/18 04:20 PT 15.5 Seconds (9.8-13.1) H 08/19/18 04:25 INR 1.4 08/19/18 04:25 APTT 27.9 Seconds (25.6-37.1) 08/19/18 04:25 - Constitutional Appears: Non-toxic, No Acute Distress, Chronically Ill - Head Exam Head Exam: NORMOCEPHALIC - Eye Exam Eye Exam: absent: Scleral icterus - ENT Exam ENT Exam: Normal Oropharynx - Neck Exam Neck Exam: absent: Lymphadenopathy - Respiratory Exam Respiratory Exam: Decreased Breath Sounds, Rhonchi Additional comments: Chest tube in place - Cardiovascular Exam Cardiovascular Exam: REGULAR RHYTHM - GI/Abdominal Exam GI & Abdominal Exam: Distended, Firm, Tenderness Additional comments: abd wall cellulitis + - Rectal Exam Rectal Exam: Deferred - Exam Exam: NORMAL INSPECTION - Extremities Exam Extremities Exam: Pedal Edema - Back Exam Back Exam: absent: CVA tenderness (L), CVA tenderness (R) Assessment and Plan (1) Fluid overload Status: Acute (2) Hyponatremia Status: Acute (3) Metastatic cancer Status: Acute (4) Pleural effusion Status: Acute (5) Sepsis Status: Acute - Assessment and Plan (Free Text) Assessment: cont iv rx await cultures
--- NOTE | 2018-08-20 15:20 | CP.PCM.PN ---
<Timo Rosas - Last Filed: 08/20/18 15:14> Subjective - Date & Time of Evaluation Date of Evaluation: 08/20/18 Time of Evaluation: 11:00 - Subjective Subjective: 48 y/o F seen and examined by bedside with Dr Jerry. Pt reported feeling much better, pt was thankful as she described she felt like she was drowning, her SOB has improved. Chest tube was placed yesterday and draining. Pt afebrile with No acute events overnight. Objective - Vital Signs/Intake and Output Vital Signs (last 24 hours): Temp Pulse Resp BP Pulse Ox 97.9 F 126 H 20 91/53 L 91 L 08/20/18 12:00 08/20/18 14:00 08/20/18 14:00 08/20/18 14:00 08/20/18 14:00 Intake and Output: 08/20/18 08/20/18 06:59 18:59 Intake Total 1710 Output Total 2500 Balance -790 - Medications Medications: Current Medications Alprazolam (Xanax) 0.25 mg PO Q12 PRN PRN Reason: Anxiety Stop: 08/26/18 12:37 Benzocaine/Menthol (Cepacol Sore Throat) 1 tere PO Q2 PRN PRN Reason: Sore Throat Last Admin: 08/20/18 06:54 Dose: 1 tere Hydromorphone HCl (Dilaudid) 1 mg IVP Q6 PRN PRN Reason: Agitation Last Admin: 08/20/18 06:53 Dose: 1 mg Meropenem 500 mg/ Sodium (Chloride) 100 mls @ 100 mls/hr IVPB Q8 [facility]; Protocol Last Admin: 08/20/18 08:43 Dose: 100 mls/hr Linezolid (Zyvox 600mg/300ml D5w) 600 mg in 300 mls @ 300 mls/hr IVPB Q12 [facility]; Protocol Ketorolac Tromethamine (Toradol) 15 mg IVP Q6 PRN PRN Reason: Pain, moderate (4-7) Lorazepam (Ativan) 0.5 mg PO HS [facility] Last Admin: 08/19/18 21:00 Dose: 0.5 mg Pantoprazole Sodium (Protonix Ec Tab) 40 mg PO DAILY [facility] Last Admin: 08/20/18 08:43 Dose: 40 mg - Labs Labs: 08/20/18 04:20 08/20/18 04:20 PT 15.5 Seconds (9.8-13.1) H 08/19/18 04:25 INR 1.4 08/19/18 04:25 APTT 27.9 Seconds (25.6-37.1) 08/19/18 04:25 - Additional Findings Additional findings: - Constitutional Appears: No Acute Distress - Head Exam Head Exam: ATRAUMATIC, NORMAL INSPECTION - Eye Exam Eye Exam: EOMI - ENT Exam ENT Exam: Mucous Membranes Dry - Neck Exam Neck exam: Positive for: Full Rom - Respiratory Exam Respiratory Exam: NORMAL BREATHING PATTERN, chest tube in place - Cardiovascular Exam Cardiovascular Exam: +S1, +S2 - GI/Abdominal Exam GI & Abdominal Exam: Distended, Firm, Soft, Tenderness diffuse and mild - Extremities Exam Extremities exam: Positive for: pedal edema (mild). Negative for: calf tenderness, tenderness - Neurological Exam Neurological exam: Alert - Psychiatric Exam Psychiatric exam: normal Assessment and Plan - Assessment and Plan (Free Text) Assessment: 48 y/o F with a PMHx of ovarian cancer-stage IV, anemia and benign breast mass admitted for progressive abdominal ascitis, RLL pleural effusion, increasing lower extremity edema, and electrolyte imbalance. --As per complications from advanced stage ovarian cancer, anxious. PLAN: --S/P thoracocentesis and chest tube placement --pleural fluid studies results appreciated --Blood Cx with NO growth in 24 hrs and Urine Cx shows NO growth. --Will call Gen Surgery-oncology consult, Dr Raines or Dr Valle F/U recommendations. --Will call Nephrology consult, Dr Resendez, due to abnormal kidney function and electrolyte imbalance. --ID on board, Dr Lechuga. --IR on board, Dr Larkin. --Pulmonology on board, Dr Arreaga. --Hematology/Oncology on board, Dr Sanchez. --Psychiatry on board, Dr Almeida --Continue management as per critical care team. Case discussed with Dr Jerry who agrees with the above DUNCAN Kelsey PGY-2 <George Jerry - Last Filed: 08/23/18 22:15> Objective - Vital Signs/Intake and Output Vital Signs (last 24 hours): Temp Pulse Resp BP Pulse Ox 98.0 F 114 H 31 H 106/79 99 08/23/18 16:00 08/23/18 18:00 08/23/18 18:00 08/23/18 18:00 08/23/18 18:00 - Medications Medications: Current Medications Guaifenesin (Mucinex La) 600 mg PO Q12 [facility] Last Admin: 08/23/18 20:59 Dose: 600 mg Heparin Sodium (Porcine) (Heparin) 5,000 units SC Q8 [facility]; Protocol Last Admin: 08/23/18 17:35 Dose: 5,000 units Meropenem 500 mg/ Sodium (Chloride) 100 mls @ 100 mls/hr IVPB Q8 [facility]; Protocol Last Admin: 08/23/18 17:35 Dose: 100 mls/hr Linezolid (Zyvox 600mg/300ml D5w) 600 mg in 300 mls @ 300 mls/hr IVPB Q12 [facility]; Protocol Last Admin: 08/23/18 20:59 Dose: 300 mls/hr Ketorolac Tromethamine (Toradol) 15 mg IVP Q6 PRN PRN Reason: Pain, moderate (4-7) Last Admin: 08/23/18 17:36 Dose: 15 mg Lorazepam (Ativan) 0.5 mg PO HS [facility] Last Admin: 08/22/18 21:02 Dose: 0.5 mg Lorazepam (Ativan) 1 mg PO HS [facility] Last Admin: 08/22/18 21:02 Dose: 1 mg Pantoprazole Sodium (Protonix Ec Tab) 40 mg PO DAILY [facility] Last Admin: 08/23/18 09:55 Dose: 40 mg - Labs Labs: 08/23/18 04:20 08/23/18 04:20 PT 15.5 Seconds (9.8-13.1) H 08/19/18 04:25 INR 1.4 08/19/18 04:25 APTT 27.9 Seconds (25.6-37.1) 08/19/18 04:25 Assessment and Plan - Assessment and Plan (Free Text) Plan: I was present during evaluation and discussed with Dr Rosas re plans of care and mgt. George Jerry M.D.
[2018-08-20] MEDS ORDERED: Sod Polystyrene Sulf 15 gm/60 ml Susp PR ONE (15:29)
[2018-08-20] MEDS ORDERED: Chlorhexidine Gluconate 1 APPL/PKT TP ONE (15:48)
[2018-08-20] MEDS: Linezolid 600 mg in D5W 300 ml 600 MG/300 ML BAG IVPB SCH (21:30)
[2018-08-21] MEDS: Meropenem 500 MG in Sodium Chloride 0.9% 100 ML IVPB SCH ×3 (01:31→18:36)
[2018-08-21 06:44] LABS: HEMOGLOBIN 9.4 g/dL (12.0-16.0); MEAN CELL VOLUME 77.5 fl (81.0-99.0); MEAN CORPUSCULAR HEMOGLOBIN 24.2 pg (27.0-31.0); MEAN CORPUSCULAR HGB CONC 31.2 g/dL (33.0-37.0); RBC 3.89 Mil/uL (3.80-5.20); RED CELL DISTRIBUTION WIDTH 18.3 % (11.5-14.5)
[2018-08-21 07:01] LABS: ALB/GLOB RATIO 0.8 (1.0-2.1); ALBUMIN 2.2 g/dL (3.5-5.0); ALT/SGPT 29 U/L (9-52); AST/SGOT 74 U/L (14-36); BLOOD UREA NITROGEN 25 mg/dl (7-17); CALCIUM 7.8 mg/dL (8.4-10.2); GFR NON-AFRICAN AMERICAN 59
[2018-08-21] MEDS: Pantoprazole 40 mg EC Tab PO SCH (10:39)
[2018-08-21] MEDS: Linezolid 600 mg in D5W 300 ml 600 MG/300 ML BAG IVPB SCH ×2 (10:40→21:03)
--- NOTE | 2018-08-21 11:39 | CP.PCM.PN ---
Subjective - Date & Time of Evaluation Date of Evaluation: 08/21/18 Time of Evaluation: 11:43 - Subjective Subjective: LESS DYSPNEIC R CHEST TUBE STILL DRAING CLEAR FLUID TALKATIVE AND CONTINUES TO DISCUSS DIFFERENT TOPICS INCLUDING NOT WANTING CHEMOTHERAPY,PREFERENCE FOR CBD OILS AND REFUSING TO CALL FAMILY TO HELP WITH CARE SHE UNDERSTANDS THAT SHE HAS STAGE 4 CANCER BUT INSISTS THAT SHE HAS ENOUGH TIME TO GO HOME AND RETURN WITH HER DECISION FOR FURTHER THERAPY Objective - Vital Signs/Intake and Output Vital Signs (last 24 hours): Temp Pulse Resp BP Pulse Ox 97.7 F 122 H 24 111/63 98 08/21/18 08:00 08/21/18 08:00 08/21/18 08:00 08/21/18 08:00 08/21/18 08:00 Intake and Output: 08/21/18 08/21/18 06:59 18:59 Intake Total 100 Output Total 900 Balance -800 - Medications Medications: Current Medications Alprazolam (Xanax) 0.25 mg PO Q12 PRN PRN Reason: Anxiety Stop: 08/26/18 12:37 Hydromorphone HCl (Dilaudid) 1 mg IVP Q6 PRN PRN Reason: Agitation Last Admin: 08/21/18 03:30 Dose: 1 mg Meropenem 500 mg/ Sodium (Chloride) 100 mls @ 100 mls/hr IVPB Q8 TERA; Protocol Last Admin: 08/21/18 10:39 Dose: 100 mls/hr Linezolid (Zyvox 600mg/300ml D5w) 600 mg in 300 mls @ 300 mls/hr IVPB Q12 TERA; Protocol Last Admin: 08/21/18 10:40 Dose: 300 mls/hr Ketorolac Tromethamine (Toradol) 15 mg IVP Q6 PRN PRN Reason: Pain, moderate (4-7) Lorazepam (Ativan) 0.5 mg PO HS TERA Last Admin: 08/20/18 21:30 Dose: 0.5 mg Pantoprazole Sodium (Protonix Ec Tab) 40 mg PO DAILY TERA Last Admin: 08/21/18 10:39 Dose: 40 mg - Labs Labs: 08/21/18 05:15 08/21/18 05:15 PT 15.5 Seconds (9.8-13.1) H 08/19/18 04:25 INR 1.4 08/19/18 04:25 APTT 27.9 Seconds (25.6-37.1) 08/19/18 04:25 - Constitutional Appears: Chronically Ill - Head Exam Head Exam: ATRAUMATIC, NORMAL INSPECTION, NORMOCEPHALIC - Eye Exam Eye Exam: EOMI, Normal appearance, PERRL Pupil Exam: NORMAL ACCOMODATION, PERRL - ENT Exam ENT Exam: Mucous Membranes Moist, Normal Exam - Neck Exam Neck Exam: Full ROM, Normal Inspection. absent: Lymphadenopathy - Respiratory Exam Respiratory Exam: Decreased Breath Sounds, Prolonged Expiratory Phase, Rales, NORMAL BREATHING PATTERN - Cardiovascular Exam Cardiovascular Exam: Tachycardia, REGULAR RHYTHM, +S1, +S2. absent: Murmur - GI/Abdominal Exam GI & Abdominal Exam: Distended, Soft, Normal Bowel Sounds. absent: Tenderness Additional comments: ASCITES - Rectal Exam Rectal Exam: NORMAL INSPECTION - Extremities Exam Extremities Exam: Full ROM, Pedal Edema. absent: Joint Swelling - Back Exam Back Exam: NORMAL INSPECTION - Neurological Exam Neurological Exam: Alert, Awake, CN II-XII Intact, Oriented x3 - Psychiatric Exam Psychiatric exam: Normal Affect, Normal Mood - Skin Skin Exam: Dry, Intact, Normal Color, Warm Assessment and Plan - Assessment and Plan (Free Text) Assessment: METASTATIC OVARIAN CANCER WITH PLEURAL EFFUSION AND ASCITES Plan: CONTINUE CURRENT RX ADVISED TO NOTIFY FAMILY ABOUT ILLNESS 45 MINS SPENT WITH PT DISCUSSING HER ILLNESS PROGNOSIS IS POOR
--- NOTE | 2018-08-21 14:33 | US ---
Date of service: 08/21/2018 HISTORY: abdominal distension COMPARISON: None. TECHNIQUE: Sonographic evaluation of the abdomen. FINDINGS: LIVER: Measures 13.7 cm. Mild coarse echogenicity of the liver parenchyma. No mass. No intrahepatic bile duct dilatation. GALLBLADDER: Unremarkable. No gallstones. COMMON BILE DUCT: Measures 2.4 mm. No stones. No dilatation. PANCREAS: Not well appreciated due to bowel gas. RIGHT KIDNEY: Measures 10.5cm. Are a few mild shadowing areas of echogenicity in the lower pole of the right kidney. These are not well appreciated on the prior CT scan. These probably small calculi. LEFT KIDNEY: Measures 9.9cm. There is mild left hydronephrosis identified. SPLEEN: 7.2 centimeters in length. Otherwise unremarkable. AORTA: Limited by bowel gas. IVC: Limited by bowel gas. OTHER FINDINGS: Moderate ascites seen on recent CT scan. Large left pelvic mass seen on prior CT scan. IMPRESSION: Large left pelvic mass with associated moderate ascites. Mild left hydronephrosis.
--- NOTE | 2018-08-21 16:20 | CP.PCM.PN ---
Subjective - Date & Time of Evaluation Date of Evaluation: 08/21/18 Time of Evaluation: 16:16 - Subjective Subjective: Nephrology Consultation Note Assessment: critical Acute Kidney Injury (N17.9) improved hyponatremia improving, hyperkalemia stage 4 ovarian CA anemia pleural effusion Plan No acute need for renal replacement therapy at this time. Hypertension control with meds as ordered. Maintain hemodynamics stable. Avoid hypotension. Patient not on ACEI/ARB due to recent FREDY Monitor Input/Output, daily weights and renal function with basic metabolic panel check Urine Na and Osmol avoid rapid correction in serum Na, target not more than 6-8 meq/24 hrs. low K diet Dose meds/antibiotics for improved GFR. Glycemic control Further work up for as per primary team Thanks for allowing me to participate in care of your patient. Will follow patient with you. Please call if any Qs Dr Tee Rm Office: [phone] Subjective: Noted events overnight. Patients feels sick Denies chest pain, palpitation, shortness of breath, leg swelling. All other negative except abdomen distension and decreased appetite Physical Examination: General Appearance: Comfortable, in no acute respiratory distress, co-operative . ill appearing Vitals reviewed and noted as below Head; Atraumatic, normocephalic ENT: no ulcers no thrush. Tongue is midline. Oropharynx: no rash or ulcers. EYES: Pupils are equal, round and reactive to light accommodation. Eye muscles and extraocular movement intact. Sclera is anicteric. Neck; supple no lymphadenopathy, no thyromegaly or bruit Lungs: Increased respiratory rate/effort. Breath sounds bilateral decreased rt base Heart: increased rate. s1s2 normal. No rub or gallop. Extremities: trace pedal edema. No varicose veins Neurological: Patient is alert, awake and oriented to person, place and time. No focal deficit. Strength bilateral appropriate and equal Skin: Warm and dry. Normal turgor. No rash. Palpitation: Normal elasticity for age Abdomen: Abdomen is soft. Bowel sounds +. There is no abdominal tenderness, no guarding/rigidity no organomegaly. distended and lower abdomen mass + Psych: normal insight and flat affect/mood MSK: no joint tenderness or swelling. Digits and nails normal, no deformity : kidney or bladder not palpable Labs/imaging reviewed. Past medical history, past surgical history, family history, social history, allergy reviewed and noted as below Family hx: no hx of CKD. Rest non-contributory Objective - Vital Signs/Intake and Output Vital Signs (last 24 hours): Temp Pulse Resp BP Pulse Ox 98.5 F 112 H 18 92/60 L 100 08/21/18 12:00 08/21/18 12:00 08/21/18 12:00 08/21/18 12:00 08/21/18 12:00 Intake and Output: 08/21/18 08/21/18 06:59 18:59 Intake Total 100 Output Total 900 Balance -800 - Medications Medications: Current Medications Alprazolam (Xanax) 0.25 mg PO Q12 PRN PRN Reason: Anxiety Stop: 08/26/18 12:37 Hydromorphone HCl (Dilaudid) 1 mg IVP Q6 PRN PRN Reason: Agitation Last Admin: 08/21/18 03:30 Dose: 1 mg Meropenem 500 mg/ Sodium (Chloride) 100 mls @ 100 mls/hr IVPB Q8 TERA; Protocol Last Admin: 08/21/18 10:39 Dose: 100 mls/hr Linezolid (Zyvox 600mg/300ml D5w) 600 mg in 300 mls @ 300 mls/hr IVPB Q12 TERA; Protocol Last Admin: 08/21/18 10:40 Dose: 300 mls/hr Ketorolac Tromethamine (Toradol) 15 mg IVP Q6 PRN PRN Reason: Pain, moderate (4-7) Lorazepam (Ativan) 0.5 mg PO HS TERA Last Admin: 08/20/18 21:30 Dose: 0.5 mg Pantoprazole Sodium (Protonix Ec Tab) 40 mg PO DAILY TERA Last Admin: 08/21/18 10:39 Dose: 40 mg - Labs Labs: 08/21/18 05:15 08/21/18 05:15 PT 15.5 Seconds (9.8-13.1) H 08/19/18 04:25 INR 1.4 08/19/18 04:25 APTT 27.9 Seconds (25.6-37.1) 08/19/18 04:25
--- NOTE | 2018-08-21 18:07 | CP.PCM.PN ---
Subjective - Date & Time of Evaluation Date of Evaluation: 08/21/18 Time of Evaluation: 10:00 - Subjective Subjective: events noted cultures so far negative IV rx in porogress poor prognosis Objective - Vital Signs/Intake and Output Vital Signs (last 24 hours): Temp Pulse Resp BP Pulse Ox 97.2 F L 114 H 28 H 108/50 L 100 08/21/18 16:00 08/21/18 16:00 08/21/18 16:00 08/21/18 16:00 08/21/18 16:00 Intake and Output: 08/21/18 08/21/18 06:59 18:59 Intake Total 100 Output Total 900 Balance -800 - Medications Medications: Current Medications Alprazolam (Xanax) 0.25 mg PO Q12 PRN PRN Reason: Anxiety Stop: 08/26/18 12:37 Hydromorphone HCl (Dilaudid) 1 mg IVP Q6 PRN PRN Reason: Agitation Last Admin: 08/21/18 03:30 Dose: 1 mg Meropenem 500 mg/ Sodium (Chloride) 100 mls @ 100 mls/hr IVPB Q8 TERA; Protocol Last Admin: 08/21/18 10:39 Dose: 100 mls/hr Linezolid (Zyvox 600mg/300ml D5w) 600 mg in 300 mls @ 300 mls/hr IVPB Q12 TERA; Protocol Last Admin: 08/21/18 10:40 Dose: 300 mls/hr Ketorolac Tromethamine (Toradol) 15 mg IVP Q6 PRN PRN Reason: Pain, moderate (4-7) Lorazepam (Ativan) 0.5 mg PO HS TERA Last Admin: 08/20/18 21:30 Dose: 0.5 mg Pantoprazole Sodium (Protonix Ec Tab) 40 mg PO DAILY TERA Last Admin: 08/21/18 10:39 Dose: 40 mg - Labs Labs: 08/21/18 05:15 08/21/18 05:15 PT 15.5 Seconds (9.8-13.1) H 08/19/18 04:25 INR 1.4 08/19/18 04:25 APTT 27.9 Seconds (25.6-37.1) 08/19/18 04:25 Assessment and Plan (1) Fluid overload Status: Acute (2) Hyponatremia Status: Acute (3) Metastatic cancer Status: Acute (4) Pleural effusion Status: Acute (5) Sepsis Status: Acute
--- NOTE | 2018-08-21 18:27 | CP.PCM.PN ---
Subjective - Date & Time of Evaluation Date of Evaluation: 08/21/18 Time of Evaluation: 18:20 - Subjective Subjective: Patient is definitely improving. She is breathing better and eating.She complains that when she takes the pain medicine she gets dryness of mouth,,nausea and loss of appetite. I have asked her to try something like tylenol or ibuprofen occasionally. the topic of chemotherapy was introduced again by Dr eJrry and me, She is very stubborn about the fact that she has been told by a non physician friend that chemo is dangerous and will not help her. I have done my best to try to convince her that it is worth a try, but she claims that she wiants to be feeling well before she will start the chemo.Both Dr Jerry and I explained to her that the fluid is bound tore accumulate after drainage if she does not get chemo within the next few days,. Objective - Vital Signs/Intake and Output Vital Signs (last 24 hours): Temp Pulse Resp BP Pulse Ox 97.2 F L 114 H 28 H 108/50 L 100 08/21/18 16:00 08/21/18 16:00 08/21/18 16:00 08/21/18 16:00 08/21/18 16:00 Intake and Output: 08/21/18 08/21/18 06:59 18:59 Intake Total 100 Output Total 900 Balance -800 - Medications Medications: Current Medications Alprazolam (Xanax) 0.25 mg PO Q12 PRN PRN Reason: Anxiety Stop: 08/26/18 12:37 Hydromorphone HCl (Dilaudid) 1 mg IVP Q6 PRN PRN Reason: Agitation Last Admin: 08/21/18 03:30 Dose: 1 mg Meropenem 500 mg/ Sodium (Chloride) 100 mls @ 100 mls/hr IVPB Q8 TERA; Protocol Last Admin: 08/21/18 10:39 Dose: 100 mls/hr Linezolid (Zyvox 600mg/300ml D5w) 600 mg in 300 mls @ 300 mls/hr IVPB Q12 TERA; Protocol Last Admin: 08/21/18 10:40 Dose: 300 mls/hr Ketorolac Tromethamine (Toradol) 15 mg IVP Q6 PRN PRN Reason: Pain, moderate (4-7) Lorazepam (Ativan) 0.5 mg PO HS [facility] Last Admin: 08/20/18 21:30 Dose: 0.5 mg Pantoprazole Sodium (Protonix Ec Tab) 40 mg PO DAILY [facility] Last Admin: 08/21/18 10:39 Dose: 40 mg - Labs Labs: 08/21/18 05:15 08/21/18 05:15 PT 15.5 Seconds (9.8-13.1) H 08/19/18 04:25 INR 1.4 08/19/18 04:25 APTT 27.9 Seconds (25.6-37.1) 08/19/18 04:25
[2018-08-22] MEDS: Meropenem 500 MG in Sodium Chloride 0.9% 100 ML IVPB SCH ×3 (00:36→17:55)
--- NOTE | 2018-08-22 02:45 | PN ---
DATE: 08/21/2018 CRITICAL CARE PROGRESS NOTE LOCATION: The patient in ICU, bed 421. TIME SPENT: 35 minutes. The patient is seen and evaluated at the bedside. Past medical, surgical, social, and family history reviewed. SUBJECTIVE: A 48-year-old female, admitted on 08/18/2018 with shortness of breath, noted to have large right pleural effusion, massive ascites, multiple lung nodules with large left pelvic mass, seen by Oncology, Dr. Korey Sanchez. Status post paracentesis and pigtail catheter insertion and drainage of right pleural effusion. Repeat chest x-ray shows marked reduction in right pleural effusion. The patient feels better with reduced effort of breathing, still complaining of discomfort in the abdomen. She has no further hematuria or melena but feels weak and tired. Appetite is poor. Denies fever, chills, cough. OBJECTIVE: VITAL SIGNS: Temperature 98.5, heart rate 112, respiratory rate 18 to 23 thoracoabdominal, blood pressure of 92/60, mean arterial pressure 70, oxygen saturation 100% on oxygen supplement 3 liters nasal cannula. Intake 2810, output 4500, negative balance 1690. HEAD, EYES, EARS, NOSE AND THROAT: Pupils reactive. Conjunctivae pale. Sclerae anicteric. Trachea is central. CHEST: Bilateral breath sounds. Diminished on the right than left. Right pigtail catheter in place, draining clear pleural fluid. HEART: Rhythm regular. S1, S2 rapid. No S3, S4 gallop. ABDOMEN: Bowel sounds present, distended. No tenderness. EXTREMITIES: Dependent edema. Dorsalis pedis palpable. NEUROLOGIC: No cranial nerve deficit. No motor deficit. No sensory impairment. Deep tendon reflex 2+, plantar flexor. CURRENT MEDICATIONS: Xanax 0.25 mg every 12, hydromorphone 1 mg IV every 6 hours p.r.n., Toradol 50 mg IV every 6 hours p.r.n., Zyvox 600 mg IV every 12 hours, lorazepam 0.5 mg p.o. at bedtime, meropenem 500 mg every 8 hours, Protonix 40 p.o. daily. LABORATORY DATA: WBC 20,000, hemoglobin 9.4, hematocrit 30.2, MCV 77.5, platelet count of 475. PT 15.5, INR 1.4, PTT 27.9. SMA-7: Sodium 127, potassium 5, chloride 97, CO2 of 24, blood urea nitrogen 25, creatinine 1, random glucose 149, calcium 7.8, total bilirubin 0.2, AST 74, ALT 29, alkaline phosphatase 161, total protein 4.9, albumin 2.2. Urinalysis, rbc 170, wbc 38. Urine hCG qualitative negative. Pleural fluid, wbc 178, total cell count 100, neutrophils 44, lymphocytes 46, glucose 119, total protein 3.8, LDH 2832, random vancomycin level 25.9. Microbiology, urine culture no growth, body fluid no growth. MRSA negative. Blood culture, no growth reported. Chest and abdominal ultrasound done this morning shows large left pelvic mass with associated moderate ascites, mild left hydronephrosis, moderate ascites on the recent CT chest, large left pelvic mass also noted in the CAT scan. IMPRESSION: A 48-year-old female with a large left pelvic mass; recent admission to [facility], and was told she had stage 4 cancer with involvement of the right and left lung. The patient is seen by Surgery and not a surgical candidate, advised chemo by Oncology. The patient has not made up a decision to undergo the same, requesting for immunotherapy as noted in the consultation note from oncologist. The patient is status post right pigtail catheter insertion with drainage of the pleural effusion for fluid consistent with exudative, cytology pending. CT chest and x-ray showed multiple meds involving left lung. Ultrasound of the abdomen does not show any mass involving the liver. Continue supportive care given the stage of the tumor. We will continue with paracentesis needed to reduce the ascites, and we will discuss with Oncology and Thoracic Surgery for any role for pleurodesis to prevent reaccumulation of fluid and to reduce the respiratory compromise. Prognosis remains guarded. She is also known to have anemia from associated oncological disease. Reportedly also had menorrhagia for couple of months. Her hemoglobin remains currently stable at 9.4, hematocrit 30.2, normal platelet count. Her renal function remains stable. However, hyponatremia noted. Seen by renal consult. Hyponatremia is secondary to secondary dilutional and/or possible syndrome of inappropriate antidiuretic hormone secretion related. Keep the head of bed 30 degrees up, oxygen supplement. Continue pigtail drainage for the right pleural effusion and analgesics as needed for comfort care. Continue antibiotic as recommended by ID consult, on meropenem and Zyvox for the associated infarction. Her leukocytosis is probably reactive and/or due to the infection in the urine. Hima Thompson MD
[2018-08-22 07:09] LABS: BASO # 0.1 K/uL (0.0-0.2); BASO % 0.4 % (0.0-2.0); EOS # 0.1 K/uL (0.0-0.7); EOS % 0.7 % (0.0-4.0); HEMOGLOBIN 9.5 g/dL (12.0-16.0); LYMPH # 1.3 K/uL (1.0-4.3); LYMPH % 6.8 % (20.0-40.0); MEAN CELL VOLUME 77.8 fl (81.0-99.0); MEAN CORPUSCULAR HGB CONC 30.8 g/dL (33.0-37.0); MONO # 0.8 K/uL (0.0-0.8); MONO % 4.4 % (0.0-10.0); NEUT # 16.3 K/uL (1.8-7.0); NEUT % 87.7 % (50.0-75.0); PLATELET COUNT 481 K/uL (130-400); RBC 3.96 Mil/uL (3.80-5.20); WHITE BLOOD COUNT 18.6 K/uL (4.8-10.8)
[2018-08-22 07:11] LABS: BLOOD UREA NITROGEN 26 mg/dl (7-17); GFR NON-AFRICAN AMERICAN > 60
--- NOTE | 2018-08-22 07:38 | CP.PCM.PN ---
Subjective - Date & Time of Evaluation Date of Evaluation: 08/22/18 Time of Evaluation: 07:35 - Subjective Subjective: (+)pain left lower quadrant Objective - Vital Signs/Intake and Output Vital Signs (last 24 hours): Temp Pulse Resp BP Pulse Ox 98.1 F 111 H 23 107/72 96 08/22/18 04:00 08/22/18 06:00 08/22/18 06:00 08/22/18 06:00 08/22/18 06:00 - Medications Medications: Current Medications Alprazolam (Xanax) 0.25 mg PO Q12 PRN PRN Reason: Anxiety Stop: 08/26/18 12:37 Last Admin: 08/21/18 19:05 Dose: 0.25 mg Hydromorphone HCl (Dilaudid) 1 mg IVP Q6 PRN PRN Reason: Agitation Last Admin: 08/21/18 03:30 Dose: 1 mg Meropenem 500 mg/ Sodium (Chloride) 100 mls @ 100 mls/hr IVPB Q8 TERA; Protocol Last Admin: 08/22/18 00:36 Dose: 100 mls/hr Linezolid (Zyvox 600mg/300ml D5w) 600 mg in 300 mls @ 300 mls/hr IVPB Q12 TERA; Protocol Last Admin: 08/21/18 21:03 Dose: 300 mls/hr Ketorolac Tromethamine (Toradol) 15 mg IVP Q6 PRN PRN Reason: Pain, moderate (4-7) Last Admin: 08/22/18 06:33 Dose: 15 mg Lorazepam (Ativan) 0.5 mg PO HS [facility] Last Admin: 08/21/18 21:03 Dose: 0.5 mg Pantoprazole Sodium (Protonix Ec Tab) 40 mg PO DAILY TERA Last Admin: 08/21/18 10:39 Dose: 40 mg - Labs Labs: 08/21/18 05:15 08/22/18 05:30 PT 15.5 Seconds (9.8-13.1) H 08/19/18 04:25 INR 1.4 08/19/18 04:25 APTT 27.9 Seconds (25.6-37.1) 08/19/18 04:25 - Constitutional Appears: Well, Non-toxic - Head Exam Head Exam: ATRAUMATIC, NORMAL INSPECTION - Eye Exam Eye Exam: EOMI - Respiratory Exam Respiratory Exam: Rales, Rhonchi - Cardiovascular Exam Cardiovascular Exam: REGULAR RHYTHM, +S1, +S2 - GI/Abdominal Exam GI & Abdominal Exam: Rigid, Tenderness Additional comments: large mass left lower quadrant - Extremities Exam Extremities Exam: Pedal Edema - Skin Skin Exam: Normal Color Assessment and Plan - Assessment and Plan (Free Text) Assessment: Metastatic cancer (ovarian), mas palpable on clincial left lower quadrant -obtain heme/onc input regarding hospice/palliative versus chemo -pleural effusion: continue pig tail drainage -hyponatremia: obtain renal eval possible SIADH, check urine osmoal serum osmol -anemia:suspect anemia of chronic disease, continue to monitor -continue abx as per ID -continue dvt/pud ppx -Poor prognosis -Goals of care to be determined
[2018-08-22] MEDS: Pantoprazole 40 mg EC Tab PO SCH (09:55)
[2018-08-22] MEDS: Linezolid 600 mg in D5W 300 ml 600 MG/300 ML BAG IVPB SCH ×2 (09:56→21:03)
--- NOTE | 2018-08-22 10:40 | CP.PCM.PN ---
Subjective - Date & Time of Evaluation Date of Evaluation: 08/22/18 Time of Evaluation: 10:40 - Subjective Subjective: NO NEW CLICAL FINDINGS CHEST TUBE WAS TEMPORARILY CLAMPED BY NURSE BECAUSE OF COPIOUS DRAINAGE NO NEW CLINICAL FINDINGS ENCOURAGED TO GET CHEMOTHERAPY BUT REFUSES WILL REPEAT CXR IN AM TO RE-EVAL P[LEURAL EFFUSION PROGNOSIS IS EXTREMELY POOR CONSIDER PALLIATIVE/HOSPICE CARE Objective - Vital Signs/Intake and Output Vital Signs (last 24 hours): Temp Pulse Resp BP Pulse Ox 97.6 F 110 H 23 107/72 96 08/22/18 08:00 08/22/18 08:00 08/22/18 08:00 08/22/18 06:00 08/22/18 08:00 - Medications Medications: Current Medications Alprazolam (Xanax) 0.25 mg PO Q12 PRN PRN Reason: Anxiety Stop: 08/26/18 12:37 Last Admin: 08/21/18 19:05 Dose: 0.25 mg Heparin Sodium (Porcine) (Heparin) 5,000 units SC Q8 TERA; Protocol Last Admin: 08/22/18 09:54 Dose: 5,000 units Hydromorphone HCl (Dilaudid) 1 mg IVP Q6 PRN PRN Reason: Agitation Last Admin: 08/21/18 03:30 Dose: 1 mg Meropenem 500 mg/ Sodium (Chloride) 100 mls @ 100 mls/hr IVPB Q8 TERA; Protocol Last Admin: 08/22/18 09:54 Dose: 100 mls/hr Linezolid (Zyvox 600mg/300ml D5w) 600 mg in 300 mls @ 300 mls/hr IVPB Q12 TERA; Protocol Last Admin: 08/22/18 09:56 Dose: 300 mls/hr Ketorolac Tromethamine (Toradol) 15 mg IVP Q6 PRN PRN Reason: Pain, moderate (4-7) Last Admin: 08/22/18 06:33 Dose: 15 mg Lorazepam (Ativan) 0.5 mg PO HS TERA Last Admin: 08/21/18 21:03 Dose: 0.5 mg Pantoprazole Sodium (Protonix Ec Tab) 40 mg PO DAILY TERA Last Admin: 08/22/18 09:55 Dose: 40 mg - Labs Labs: 08/22/18 05:30 08/22/18 05:30 PT 15.5 Seconds (9.8-13.1) H 08/19/18 04:25 INR 1.4 08/19/18 04:25 APTT 27.9 Seconds (25.6-37.1) 08/19/18 04:25
[2018-08-22] MEDS ORDERED: Tolvaptan 15 MG TAB PO ONE (11:05)
--- NOTE | 2018-08-22 12:56 | CP.PCM.PN ---
Subjective - Date & Time of Evaluation Date of Evaluation: 08/22/18 Time of Evaluation: 12:55 - Subjective Subjective: Nephrology Consultation Note Assessment: critical Acute Kidney Injury (N17.9) improved hyponatremia improving, hyperkalemia ? SIADH stage 4 ovarian CA anemia pleural effusion Plan No acute need for renal replacement therapy at this time. Hypertension control with meds as ordered. Maintain hemodynamics stable. Avoid hypotension. Patient not on ACEI/ARB due to recent FREDY Monitor Input/Output, daily weights and renal function with basic metabolic panel check Urine Na and Osmol avoid rapid correction in serum Na, target not more than 6-8 meq/24 hrs. will dose with samsca 15 mg today once. monitor Na level q6. please call if Na correction more than 6-8 meq/24 hrs low K diet Dose meds/antibiotics for improved GFR. Glycemic control Further work up for as per primary team Thanks for allowing me to participate in care of your patient. Dr Joselyn Resendez will follow patient with you from tomorrow. Please call if any Qs. had d/w team Dr Tee Rm Office: [phone] Subjective: Noted events overnight. Patients feels sick Denies chest pain, palpitation, shortness of breath, leg swelling. All other negative except abdomen distension and decreased appetite Physical Examination: General Appearance: Comfortable, in no acute respiratory distress, co-operative . ill appearing Vitals reviewed and noted as below Head; Atraumatic, normocephalic ENT: no ulcers no thrush. Tongue is midline. Oropharynx: no rash or ulcers. EYES: Pupils are equal, round and reactive to light accommodation. Eye muscles and extraocular movement intact. Sclera is anicteric. Neck; supple no lymphadenopathy, no thyromegaly or bruit Lungs: Increased respiratory rate/effort. Breath sounds bilateral decreased rt base Heart: increased rate. s1s2 normal. No rub or gallop. Extremities: trace pedal edema. No varicose veins Neurological: Patient is alert, awake and oriented to person, place and time. No focal deficit. Strength bilateral appropriate and equal Skin: Warm and dry. Normal turgor. No rash. Palpitation: Normal elasticity for age Abdomen: Abdomen is soft. Bowel sounds +. There is no abdominal tenderness, no guarding/rigidity no organomegaly. distended and lower abdomen mass + Psych: normal insight and flat affect/mood MSK: no joint tenderness or swelling. Digits and nails normal, no deformity : kidney or bladder not palpable Labs/imaging reviewed. Past medical history, past surgical history, family history, social history, allergy reviewed and noted as below Family hx: no hx of CKD. Rest non-contributory Objective - Vital Signs/Intake and Output Vital Signs (last 24 hours): Temp Pulse Resp BP Pulse Ox 97.6 F 110 H 23 107/72 96 08/22/18 08:00 08/22/18 08:00 08/22/18 08:00 08/22/18 06:00 08/22/18 08:00 - Medications Medications: Current Medications Heparin Sodium (Porcine) (Heparin) 5,000 units SC Q8 TERA; Protocol Last Admin: 08/22/18 09:54 Dose: 5,000 units Meropenem 500 mg/ Sodium (Chloride) 100 mls @ 100 mls/hr IVPB Q8 TERA; Protocol Last Admin: 08/22/18 09:54 Dose: 100 mls/hr Linezolid (Zyvox 600mg/300ml D5w) 600 mg in 300 mls @ 300 mls/hr IVPB Q12 TERA; Protocol Last Admin: 08/22/18 09:56 Dose: 300 mls/hr Ketorolac Tromethamine (Toradol) 15 mg IVP Q6 PRN PRN Reason: Pain, moderate (4-7) Last Admin: 08/22/18 12:40 Dose: 15 mg Lorazepam (Ativan) 0.5 mg PO HS [facility] Last Admin: 08/21/18 21:03 Dose: 0.5 mg Pantoprazole Sodium (Protonix Ec Tab) 40 mg PO DAILY [facility] Last Admin: 08/22/18 09:55 Dose: 40 mg - Labs Labs: 08/22/18 05:30 08/22/18 05:30 PT 15.5 Seconds (9.8-13.1) H 08/19/18 04:25 INR 1.4 08/19/18 04:25 APTT 27.9 Seconds (25.6-37.1) 08/19/18 04:25
--- NOTE | 2018-08-22 13:31 | CP.PCM.PN ---
Subjective - Date & Time of Evaluation Date of Evaluation: 08/22/18 Time of Evaluation: 08:00 - Subjective Subjective: EVENTS NOTEED CHEST TUBE IN PLACE REMAINS TALKATIVE REFUSES CHEMO IV RX REORDERED Objective - Vital Signs/Intake and Output Vital Signs (last 24 hours): Temp Pulse Resp BP Pulse Ox 97.6 F 110 H 23 107/72 96 08/22/18 08:00 08/22/18 08:00 08/22/18 08:00 08/22/18 06:00 08/22/18 08:00 - Medications Medications: Current Medications Heparin Sodium (Porcine) (Heparin) 5,000 units SC Q8 TERA; Protocol Last Admin: 08/22/18 09:54 Dose: 5,000 units Meropenem 500 mg/ Sodium (Chloride) 100 mls @ 100 mls/hr IVPB Q8 TERA; Protocol Last Admin: 08/22/18 09:54 Dose: 100 mls/hr Linezolid (Zyvox 600mg/300ml D5w) 600 mg in 300 mls @ 300 mls/hr IVPB Q12 TERA; Protocol Last Admin: 08/22/18 09:56 Dose: 300 mls/hr Ketorolac Tromethamine (Toradol) 15 mg IVP Q6 PRN PRN Reason: Pain, moderate (4-7) Last Admin: 08/22/18 12:40 Dose: 15 mg Lorazepam (Ativan) 0.5 mg PO HS [facility] Last Admin: 08/21/18 21:03 Dose: 0.5 mg Pantoprazole Sodium (Protonix Ec Tab) 40 mg PO DAILY [facility] Last Admin: 08/22/18 09:55 Dose: 40 mg - Labs Labs: 08/22/18 05:30 08/22/18 05:30 PT 15.5 Seconds (9.8-13.1) H 08/19/18 04:25 INR 1.4 08/19/18 04:25 APTT 27.9 Seconds (25.6-37.1) 08/19/18 04:25 - Constitutional Appears: Non-toxic, Cachectic, Chronically Ill - Head Exam Head Exam: NORMOCEPHALIC - Eye Exam Eye Exam: absent: Scleral icterus - ENT Exam ENT Exam: Mucous Membranes Dry - Neck Exam Neck Exam: absent: Lymphadenopathy - Respiratory Exam Respiratory Exam: Decreased Breath Sounds, Rhonchi Additional comments: CHEST TUBE IN PLACE - Cardiovascular Exam Cardiovascular Exam: REGULAR RHYTHM - GI/Abdominal Exam GI & Abdominal Exam: Distended Additional comments: MASSIVE ASCITES - Rectal Exam Rectal Exam: Deferred Assessment and Plan (1) Fluid overload Status: Acute (2) Hyponatremia Status: Acute (3) Metastatic cancer Status: Acute (4) Pleural effusion Status: Acute (5) Sepsis Status: Acute - Assessment and Plan (Free Text) Assessment: STAGE IV OVARIAN CA PROBABLE MALIGNANT EFFUSION MALIIGNANT ASCITES IV RX IN PROGRESS ( EMPIRIC ) POOR PROGNOSIS
[2018-08-22 14:54] LABS: ANISOCYTOSIS SLIGHT; EOSINOPHIL 1 % (0-7); LYMPHOCYTE 7 % (20-50); MONOCYTE 3 % (0-10); NEUTROPHIL 89 % (42-75); PLATELET ESTIMATE INCREASED (NORMAL); TOTAL CELLS COUNTED 100
[2018-08-22 14:55] LABS: HYPOCHROMIC SLIGHT; MICROCYTOSIS SLIGHT
[2018-08-23] MEDS: Meropenem 500 MG in Sodium Chloride 0.9% 100 ML IVPB SCH ×3 (00:21→17:35)
[2018-08-23] MEDS ORDERED: guaiFENesin 200 mg/10 ml Syrup UD PO PRN (04:45)
[2018-08-23 05:39] LABS: BASO % 0.3 % (0.0-2.0); EOS # 0.4 K/uL (0.0-0.7); EOS % 2.5 % (0.0-4.0); HEMOGLOBIN 9.6 g/dL (12.0-16.0); LYMPH # 1.5 K/uL (1.0-4.3); LYMPH % 9.9 % (20.0-40.0); MEAN CELL VOLUME 77.2 fl (81.0-99.0); MEAN CORPUSCULAR HEMOGLOBIN 24.2 pg (27.0-31.0); MEAN CORPUSCULAR HGB CONC 31.4 g/dL (33.0-37.0); MEAN PLATELET VOLUME 7.2 fl (7.2-11.7); MONO # 0.7 K/uL (0.0-0.8); MONO % 4.4 % (0.0-10.0); NEUT # 12.4 K/uL (1.8-7.0); NEUT % 82.9 % (50.0-75.0); RBC 3.96 Mil/uL (3.80-5.20); RED CELL DISTRIBUTION WIDTH 18.4 % (11.5-14.5)
[2018-08-23 05:53] LABS: ALB/GLOB RATIO 0.8 (1.0-2.1); ALT/SGPT 32 U/L (9-52); AST/SGOT 72 U/L (14-36); BLOOD UREA NITROGEN 24 mg/dl (7-17); GFR NON-AFRICAN AMERICAN 53
--- NOTE | 2018-08-23 08:13 | CP.PCM.PN ---
Objective - Vital Signs/Intake and Output Vital Signs (last 24 hours): Temp Pulse Resp BP Pulse Ox 97.9 F 104 H 19 105/63 97 08/23/18 04:00 08/23/18 06:00 08/23/18 06:00 08/23/18 06:00 08/23/18 06:00 Intake and Output: 08/23/18 08/23/18 06:59 18:59 Intake Total 400 Balance 400 - Medications Medications: Current Medications Guaifenesin (Mucinex La) 600 mg PO Q12 TERA Heparin Sodium (Porcine) (Heparin) 5,000 units SC Q8 TERA; Protocol Last Admin: 08/23/18 00:20 Dose: Not Given Meropenem 500 mg/ Sodium (Chloride) 100 mls @ 100 mls/hr IVPB Q8 TERA; Protocol Last Admin: 08/23/18 00:21 Dose: 100 mls/hr Linezolid (Zyvox 600mg/300ml D5w) 600 mg in 300 mls @ 300 mls/hr IVPB Q12 TERA; Protocol Last Admin: 08/22/18 21:03 Dose: 300 mls/hr Ketorolac Tromethamine (Toradol) 15 mg IVP Q6 PRN PRN Reason: Pain, moderate (4-7) Last Admin: 08/23/18 05:11 Dose: 15 mg Lorazepam (Ativan) 0.5 mg PO HS [facility] Last Admin: 08/22/18 21:02 Dose: 0.5 mg Lorazepam (Ativan) 1 mg PO HS [facility] Last Admin: 08/22/18 21:02 Dose: 1 mg Pantoprazole Sodium (Protonix Ec Tab) 40 mg PO DAILY [facility] Last Admin: 08/22/18 09:55 Dose: 40 mg Tolvaptan (Samsca) 30 mg PO ONCE ONE Stop: 08/23/18 08:13 - Labs Labs: 08/23/18 04:20 08/23/18 04:20 PT 15.5 Seconds (9.8-13.1) H 08/19/18 04:25 INR 1.4 08/19/18 04:25 APTT 27.9 Seconds (25.6-37.1) 08/19/18 04:25 Assessment and Plan (1) Hyponatremia Status: Acute (2) Fluid overload Status: Acute (3) Metastatic cancer Status: Acute (4) Pleural effusion Status: Acute (5) Sepsis Status: Acute
--- NOTE | 2018-08-23 08:17 | CP.PCM.PN ---
Subjective - Date & Time of Evaluation Date of Evaluation: 08/23/18 Time of Evaluation: 08:17 - Subjective Subjective: patient is awake and conscious not in acute distress Vital sign noted Gilmore complaining of abdominal pain intermittently Objective - Vital Signs/Intake and Output Vital Signs (last 24 hours): Temp Pulse Resp BP Pulse Ox 97.9 F 104 H 19 105/63 97 08/23/18 04:00 08/23/18 06:00 08/23/18 06:00 08/23/18 06:00 08/23/18 06:00 Intake and Output: 08/23/18 08/23/18 06:59 18:59 Intake Total 400 Balance 400 - Medications Medications: Current Medications Guaifenesin (Mucinex La) 600 mg PO Q12 TERA Heparin Sodium (Porcine) (Heparin) 5,000 units SC Q8 TERA; Protocol Last Admin: 08/23/18 00:20 Dose: Not Given Meropenem 500 mg/ Sodium (Chloride) 100 mls @ 100 mls/hr IVPB Q8 TERA; Protocol Last Admin: 08/23/18 00:21 Dose: 100 mls/hr Linezolid (Zyvox 600mg/300ml D5w) 600 mg in 300 mls @ 300 mls/hr IVPB Q12 TERA; Protocol Last Admin: 08/22/18 21:03 Dose: 300 mls/hr Ketorolac Tromethamine (Toradol) 15 mg IVP Q6 PRN PRN Reason: Pain, moderate (4-7) Last Admin: 08/23/18 05:11 Dose: 15 mg Lorazepam (Ativan) 0.5 mg PO HS [facility] Last Admin: 08/22/18 21:02 Dose: 0.5 mg Lorazepam (Ativan) 1 mg PO HS [facility] Last Admin: 08/22/18 21:02 Dose: 1 mg Pantoprazole Sodium (Protonix Ec Tab) 40 mg PO DAILY [facility] Last Admin: 08/22/18 09:55 Dose: 40 mg Tolvaptan (Samsca) 30 mg PO ONCE ONE Stop: 08/23/18 08:13 - Labs Labs: 08/23/18 04:20 08/23/18 04:20 PT 15.5 Seconds (9.8-13.1) H 08/19/18 04:25 INR 1.4 08/19/18 04:25 APTT 27.9 Seconds (25.6-37.1) 08/19/18 04:25 - Constitutional Appears: No Acute Distress - Eye Exam Eye Exam: Conjunctival injection - ENT Exam ENT Exam: absent: Mucous Membranes Moist - Respiratory Exam Respiratory Exam: NORMAL BREATHING PATTERN. absent: Rhonchi - Cardiovascular Exam Cardiovascular Exam: absent: Gallop, JVD, Rubs - GI/Abdominal Exam GI & Abdominal Exam: Soft, Normal Bowel Sounds Additional comments: masses in the abdomen noted in the left lower abdomen also ascites - Extremities Exam Extremities Exam: absent: Calf Tenderness - Back Exam Back Exam: absent: CVA tenderness (L), CVA tenderness (R) - Neurological Exam Neurological Exam: Alert - Psychiatric Exam Psychiatric exam: Agitated - Skin Skin Exam: absent: Cyanosis Assessment and Plan (1) Hyponatremia Assessment & Plan: Assessment and Plan: Hyponatremia most likely related to massive ascites with the fluid overloaded dilutional however I cannot rule out SIADH as well Ovarian cancer diagnosed recently Hypoalbuminemia Debility Massive ascites Acute kidney injury improving and serum creatinine coming down Recommendation hyponatremia most likely secondary to SIADH and dilutional and ascites Samsca 30 mg today Monitor serum sodium not to rise more than 9 mEq in the next 24 hours 25% albumin for hypotension Consider midodrine for hypotension Antibiotics as per primary team and monitor the dose off antibiotics with the kidney function. Status: Acute (2) Fluid overload Status: Acute (3) Metastatic cancer Status: Acute (4) Pleural effusion Status: Acute (5) Sepsis Status: Acute
--- NOTE | 2018-08-23 09:17 | PQF ---
PROVIDER RESPONSE TEXT: ACUTE RESPIRATORY FAILURE REVIEWER QUERY TEXT: Acuity Specificity Respiratory Failure is documented in the Medical Record. Please specify the acuity of this condition with terms such as: -- Acute -- Chronic -- Acute and chronic -- Acute on chronic -- Other (please specify in the medical record) Pulmonary consult includes: Venous blood gas, pH 7.29, pCO2 of 46, pO2 of 39 : Respiratory failure secondary to massive pleural effusion due to metastatic ovarian cancer with a s ympathetic effusion due to ascites, hyponatremia secondary to dilutional effect due to ascites, hypox emia secondary to pleural effusion The patient's Clinical Indicators include: -- Query created by: Avis Aragon on 08/20/2018 12:23 PM Electronically signed by: Franklyn Arreaga MD 08/23/2018 9:15 AM
[2018-08-23] MEDS: Linezolid 600 mg in D5W 300 ml 600 MG/300 ML BAG IVPB SCH ×2 (09:54→20:59)
[2018-08-23] MEDS: guaiFENesin 600 mg ER Tab PO SCH ×2 (09:54→20:59)
[2018-08-23] MEDS: Pantoprazole 40 mg EC Tab PO SCH (09:55)
--- NOTE | 2018-08-23 12:13 | CP.PCM.PN ---
Subjective - Date & Time of Evaluation Date of Evaluation: 08/23/18 Time of Evaluation: 12:11 - Subjective Subjective: Pt hjas agreed tro chemotherapy. Will have a PICC line and start on thursday. Objective - Vital Signs/Intake and Output Vital Signs (last 24 hours): Temp Pulse Resp BP Pulse Ox 97.9 F 104 H 19 105/63 97 08/23/18 04:00 08/23/18 06:00 08/23/18 06:00 08/23/18 06:00 08/23/18 06:00 Intake and Output: 08/23/18 08/23/18 06:59 18:59 Intake Total 400 Output Total 810 Balance -410 - Medications Medications: Current Medications Guaifenesin (Mucinex La) 600 mg PO Q12 TERA Last Admin: 08/23/18 09:54 Dose: 600 mg Heparin Sodium (Porcine) (Heparin) 5,000 units SC Q8 TERA; Protocol Last Admin: 08/23/18 09:52 Dose: 5,000 units Meropenem 500 mg/ Sodium (Chloride) 100 mls @ 100 mls/hr IVPB Q8 TERA; Protocol Last Admin: 08/23/18 09:53 Dose: 100 mls/hr Linezolid (Zyvox 600mg/300ml D5w) 600 mg in 300 mls @ 300 mls/hr IVPB Q12 [facility]A; Protocol Last Admin: 08/23/18 09:54 Dose: 300 mls/hr Ketorolac Tromethamine (Toradol) 15 mg IVP Q6 PRN PRN Reason: Pain, moderate (4-7) Last Admin: 08/23/18 12:04 Dose: 15 mg Lorazepam (Ativan) 0.5 mg PO HS [facility] Last Admin: 08/22/18 21:02 Dose: 0.5 mg Lorazepam (Ativan) 1 mg PO HS [facility] Last Admin: 08/22/18 21:02 Dose: 1 mg Pantoprazole Sodium (Protonix Ec Tab) 40 mg PO DAILY [facility] Last Admin: 08/23/18 09:55 Dose: 40 mg - Labs Labs: 08/23/18 04:20 08/23/18 04:20 PT 15.5 Seconds (9.8-13.1) H 08/19/18 04:25 INR 1.4 08/19/18 04:25 APTT 27.9 Seconds (25.6-37.1) 08/19/18 04:25
--- NOTE | 2018-08-23 13:05 | PQF ---
PROVIDER RESPONSE TEXT: Confirmed and current REVIEWER QUERY TEXT: Conflicting Documentation Clarification Sepsis is documented in the ER record and the Critical Care note of 08/18 dxs. include Severe Sepsis and then the dx. is dropped: Please document if the condition is: -- Confirmed and current -- Confirmed, treated and resolved -- Ruled out -- Other, please specify WBC: 23.7->19.8 with tachycardia lactate 3.2 ER: recent dx. of stage 4 ovarian CA cachectic Labs: leukocytosis, deranged electolytes, elevated lactic acid Clin Imp.: Pleural Effusion, Metastatic CA, Sepsis POA: Surgical Site Infection (bx, wound cellulitus) Admission order; Admittingdx.: Pleural Effusion, Severe Sepsis, Abdominal Wall Cellulitus, Ascites, F luid Overload Crit Care: lactate 3.2, no associated shock or hypotension, WBC 52462 and CXR showing diffuse metasta tic lesions over L lung and complete opacification of R lung--PMH significant for anemia, benign loc st lesion, and recently dx?ed metastatic ovarian CA, with spread to lung and peritoneum Has been oscar marisol and f/[place] [facility] [place] and pelvis bx of mass lesion, resulted in abdominal wall celluli tis, and has been on abx therapy. Impression : 1. Acute Resp Insuff: 2? massive R effusion, vs R lung atelectatic collapse. r/o occult underlying pneumonia, doubt acute PTE due to progressive nature and obvious effusion causing relative hypoxemia. 2. Abdominal Wall Cellulitis with Severe Sepsis, no shock state, r/o Bacteremia 3. Hyponatremia with Hypovolemia / Azotemia / Dehydration / Hyperkalemia 4. Metastatic Ovarian CA -CT Chest / ABD Pelvis: If sig effusion and not pneumonitis / lobar atelectasis, would undergo thorac entesis. - r/o SiADH. The patient's Clinical Indicators include: -- Query created by: Avis Argaon on 08/20/2018 12:11 PM Electronically signed by: George Jerry MD 08/23/2018 1:02 PM
--- NOTE | 2018-08-23 14:06 | PN ---
DATE: 08/23/2018 CRITICAL CARE PROGRESS NOTE LOCATION: The patient in ICU, bed 421. TIME SPENT: 35 minutes. SUBJECTIVE: The patient is seen and evaluated at the bedside. Case discussed in multidisciplinary ICU rounds this morning. Past medical, surgical, family, and social history reviewed. A 48-year-old female admitted on 08/18/2018 with shortness of breath secondary to large right pleural effusion, massive ascites, multiple lung nodules with a large pelvic mass. Seen by Oncology, Dr. Guanakito Sanchez. Status post paracentesis and pigtail catheter insertion on the right with drainage of right pleural effusion. Repeat chest x-ray shows marked reduction in pleural effusion, pigtail catheter still in place. Overnight afebrile, normotensive, less short of breath. Telemetry, sinus rhythm. This morning, alert and awake, still complaining of discomfort in the abdomen. She has not made a decision yet regarding the treatment plan as discussed with her by oncologist. PHYSICAL EXAMINATION: VITAL SIGNS: Temperature 97.9, heart rate 104, blood pressure 105/63, mean arterial pressure 77, respiratory rate 19, thoracoabdominal, oxygen saturation 97% on room air. Intake 1100, output 2420, negative balance 1320, chest tube drainage 20 mL, urine 300 mL. Weight 145 pounds. HEAD, EYES, EARS, NOSE, AND THROAT: Pupils are reactive. Conjunctivae pale. Sclerae anicteric. Trachea is central. CHEST: Bilateral breath sounds diminished on the right than left. No subcutaneous emphysema. Pigtail catheter in place, draining clear pleural fluid connected to the Pleur-evac. HEART: Rhythm regular. S1, S2, normal with mild tachycardia. No S3, S4 gallop. No audible murmur. ABDOMEN: Bowel sounds present, distended, fluid thrill positive. EXTREMITIES: Dependent edema. Dorsalis pedis palpable. NEUROLOGIC: No cranial nerve deficit. No motor deficit. No sensory impairment. Deep tendon reflex 2+ plantar flexor. CURRENT MEDICATIONS: Include Mucinex 600 mg p.o. every 12 hours, heparin 5000 units subcu every 8 hours, Toradol 15 mg IV every 6 hours p.r.n. for moderate pain, Zyvox 600 mg IV every 12 hours, Ativan 0.5 mg p.o. at bedtime, Ativan 1 mg p.o. at bedtime p.r.n., meropenem 500 mg IV every 8 hours, Protonix 40 mg daily. LABORATORY DATA: WBC 15, hemoglobin 9.6, hematocrit 30.5, platelet count 468, neutrophils 82.9, lymphocytes 9.9, monocytes 4.4, eosinophils 2.5. PT 15.5, INR 1.4, PTT 27.9. SMA-7: Sodium 128, potassium 4.8, chloride 100, CO2 of 23, blood urea nitrogen 24, creatinine 1.1, random glucose 110, serum osmolality 272, calcium 8, phosphorus 3.1, magnesium 1.8, total bilirubin 0.2. AST 72, ALT 32, alkaline phosphatase 148, total protein 4.7, albumin 2, AG ratio 0.8. Urinalysis: Yellow, rbc 170, microscopic wbc 38, urine chloride 20. Urine hCG negative. Urine random sodium 16. Pleural fluid rbc 970, neutrophils 44, lymphocytes 46, monocytes 10. Random vancomycin 25.9. IMPRESSION: A 48-year-old female with a large pelvic mass with stage IV cancer involving right and left lung with large right pleural effusion and ascites, status post pigtail catheter drainage, being evaluated by Oncology for further chemo. The patient has not made a decision whether to initiate chemo. Once decision is made, may need Port-A-Cath placement. Ultrasound of the abdomen does not show any mass involving liver. Continue supportive care, given stage of the tumor. We will continue with paracentesis as needed to reduce ascites. Discussed with Oncology. She is also known to have anemia from associated oncological disease. She reportedly also had menorrhagia for a couple of months prior to the admission. Hemoglobin remains stable, normal platelet count. Renal function remains stable. Hyponatremia is improving. Hyponatremia is secondary to dilutional and/or syndrome of inappropriate antidiuretic hormone secretion. Keep the head of bed 30 degrees up. Oxygen supplement. Continue pigtail drainage for the right pleural effusion. Analgesics as needed for comfort care. Antibiotic as recommended by Infectious Diseases consult, currently on meropenem and Zyvox for the associated infarction either in the pleural cavity and/or the abdomen. Leukocytosis, probably reactive and/or due to infection in the urine. Hima Thompson MD
--- NOTE | 2018-08-23 22:20 | CP.PCM.PN ---
Subjective - Date & Time of Evaluation Date of Evaluation: 08/21/18 Time of Evaluation: 17:00 - Subjective Subjective: Patient claims that she feels better as soon as thoracostomy tube was placed. She was advised about chemotherapy but refused due to fear of side effects. Noted elevated WBC. Objective - Vital Signs/Intake and Output Vital Signs (last 24 hours): Temp Pulse Resp BP Pulse Ox 98.0 F 114 H 31 H 106/79 99 08/23/18 16:00 08/23/18 18:00 08/23/18 18:00 08/23/18 18:00 08/23/18 18:00 - Medications Medications: Current Medications Guaifenesin (Mucinex La) 600 mg PO Q12 TERA Last Admin: 08/23/18 20:59 Dose: 600 mg Heparin Sodium (Porcine) (Heparin) 5,000 units SC Q8 TERA; Protocol Last Admin: 08/23/18 17:35 Dose: 5,000 units Meropenem 500 mg/ Sodium (Chloride) 100 mls @ 100 mls/hr IVPB Q8 TERA; Protocol Last Admin: 08/23/18 17:35 Dose: 100 mls/hr Linezolid (Zyvox 600mg/300ml D5w) 600 mg in 300 mls @ 300 mls/hr IVPB Q12 TERA; Protocol Last Admin: 08/23/18 20:59 Dose: 300 mls/hr Ketorolac Tromethamine (Toradol) 15 mg IVP Q6 PRN PRN Reason: Pain, moderate (4-7) Last Admin: 08/23/18 17:36 Dose: 15 mg Lorazepam (Ativan) 0.5 mg PO HS TERA Last Admin: 08/22/18 21:02 Dose: 0.5 mg Lorazepam (Ativan) 1 mg PO HS TERA Last Admin: 08/22/18 21:02 Dose: 1 mg Pantoprazole Sodium (Protonix Ec Tab) 40 mg PO DAILY [facility] Last Admin: 08/23/18 09:55 Dose: 40 mg - Labs Labs: 08/23/18 04:20 08/23/18 04:20 PT 15.5 Seconds (9.8-13.1) H 08/19/18 04:25 INR 1.4 08/19/18 04:25 APTT 27.9 Seconds (25.6-37.1) 08/19/18 04:25 - Head Exam Head Exam: NORMAL INSPECTION - ENT Exam Additional comments: pale conjunctivae - Respiratory Exam Respiratory Exam: Decreased Breath Sounds - Cardiovascular Exam Cardiovascular Exam: REGULAR RHYTHM - GI/Abdominal Exam GI & Abdominal Exam: Normal Bowel Sounds - Neurological Exam Neurological Exam: Alert, Awake, Oriented x3 Assessment and Plan (1) Hyponatremia Status: Acute (2) Metastatic cancer Status: Acute (3) Pleural effusion Status: Acute (4) Anasarca Status: Acute - Assessment and Plan (Free Text) Plan: Cont meds Cont tx monitor cmp discussed chemotherapy Cont meds
--- NOTE | 2018-08-23 22:29 | CP.PCM.PN ---
Subjective - Date & Time of Evaluation Date of Evaluation: 08/22/18 Time of Evaluation: 11:00 - Subjective Subjective: Patient continues to do well Has no SOB Has better appetite Still refusing chemotherapy. WBC 18 Objective - Vital Signs/Intake and Output Vital Signs (last 24 hours): Temp Pulse Resp BP Pulse Ox 98.0 F 114 H 31 H 106/79 99 08/23/18 16:00 08/23/18 18:00 08/23/18 18:00 08/23/18 18:00 08/23/18 18:00 - Medications Medications: Current Medications Guaifenesin (Mucinex La) 600 mg PO Q12 TERA Last Admin: 08/23/18 20:59 Dose: 600 mg Heparin Sodium (Porcine) (Heparin) 5,000 units SC Q8 TERA; Protocol Last Admin: 08/23/18 17:35 Dose: 5,000 units Meropenem 500 mg/ Sodium (Chloride) 100 mls @ 100 mls/hr IVPB Q8 TERA; Protocol Last Admin: 08/23/18 17:35 Dose: 100 mls/hr Linezolid (Zyvox 600mg/300ml D5w) 600 mg in 300 mls @ 300 mls/hr IVPB Q12 TERA; Protocol Last Admin: 08/23/18 20:59 Dose: 300 mls/hr Ketorolac Tromethamine (Toradol) 15 mg IVP Q6 PRN PRN Reason: Pain, moderate (4-7) Last Admin: 08/23/18 17:36 Dose: 15 mg Lorazepam (Ativan) 0.5 mg PO HS TERA Last Admin: 08/22/18 21:02 Dose: 0.5 mg Lorazepam (Ativan) 1 mg PO HS TERA Last Admin: 08/22/18 21:02 Dose: 1 mg Pantoprazole Sodium (Protonix Ec Tab) 40 mg PO DAILY [facility] Last Admin: 08/23/18 09:55 Dose: 40 mg - Labs Labs: 08/23/18 04:20 08/23/18 04:20 PT 15.5 Seconds (9.8-13.1) H 08/19/18 04:25 INR 1.4 08/19/18 04:25 APTT 27.9 Seconds (25.6-37.1) 08/19/18 04:25 - Head Exam Head Exam: NORMAL INSPECTION - Respiratory Exam Respiratory Exam: Decreased Breath Sounds - Cardiovascular Exam Cardiovascular Exam: REGULAR RHYTHM - GI/Abdominal Exam GI & Abdominal Exam: Normal Bowel Sounds - Neurological Exam Neurological Exam: Awake, Oriented x3 Assessment and Plan (1) Hyponatremia Status: Acute (2) Metastatic cancer Status: Acute (3) Pleural effusion Status: Acute (4) Anasarca Status: Acute - Assessment and Plan (Free Text) Plan: Cont meds Cont antibiotics discussed again the need for chemo Will call Hospice if no plan to do chemotx.
--- NOTE | 2018-08-23 22:31 | CP.PCM.PN ---
Subjective - Date & Time of Evaluation Date of Evaluation: 08/23/18 Time of Evaluation: 12:00 - Subjective Subjective: Patient has no SOB Noted decrease in WBC, She is now considering doing chemotx. Objective - Vital Signs/Intake and Output Vital Signs (last 24 hours): Temp Pulse Resp BP Pulse Ox 98.0 F 114 H 31 H 106/79 99 08/23/18 16:00 08/23/18 18:00 08/23/18 18:00 08/23/18 18:00 08/23/18 18:00 - Medications Medications: Current Medications Guaifenesin (Mucinex La) 600 mg PO Q12 TERA Last Admin: 08/23/18 20:59 Dose: 600 mg Heparin Sodium (Porcine) (Heparin) 5,000 units SC Q8 TERA; Protocol Last Admin: 08/23/18 17:35 Dose: 5,000 units Meropenem 500 mg/ Sodium (Chloride) 100 mls @ 100 mls/hr IVPB Q8 TERA; Protocol Last Admin: 08/23/18 17:35 Dose: 100 mls/hr Linezolid (Zyvox 600mg/300ml D5w) 600 mg in 300 mls @ 300 mls/hr IVPB Q12 TERA; Protocol Last Admin: 08/23/18 20:59 Dose: 300 mls/hr Ketorolac Tromethamine (Toradol) 15 mg IVP Q6 PRN PRN Reason: Pain, moderate (4-7) Last Admin: 08/23/18 17:36 Dose: 15 mg Lorazepam (Ativan) 0.5 mg PO HS TERA Last Admin: 08/22/18 21:02 Dose: 0.5 mg Lorazepam (Ativan) 1 mg PO HS TERA Last Admin: 08/22/18 21:02 Dose: 1 mg Pantoprazole Sodium (Protonix Ec Tab) 40 mg PO DAILY TERA Last Admin: 08/23/18 09:55 Dose: 40 mg - Labs Labs: 08/23/18 04:20 08/23/18 04:20 PT 15.5 Seconds (9.8-13.1) H 08/19/18 04:25 INR 1.4 08/19/18 04:25 APTT 27.9 Seconds (25.6-37.1) 08/19/18 04:25 - Head Exam Head Exam: NORMAL INSPECTION - ENT Exam ENT Exam: Mucous Membranes Moist - Respiratory Exam Respiratory Exam: Decreased Breath Sounds - Cardiovascular Exam Cardiovascular Exam: REGULAR RHYTHM - GI/Abdominal Exam GI & Abdominal Exam: Normal Bowel Sounds - Neurological Exam Neurological Exam: Alert, Awake, Oriented x3 - Psychiatric Exam Psychiatric exam: Anxious Assessment and Plan (1) Hyponatremia Status: Acute (2) Metastatic cancer Status: Acute (3) Pleural effusion Status: Acute (4) Anasarca Status: Acute - Assessment and Plan (Free Text) Plan: Cont meds Con ttx Cont meds will follow up with Dr Sanchez.
[2018-08-24] MEDS: Meropenem 500 MG in Sodium Chloride 0.9% 100 ML IVPB SCH ×3 (00:04→16:13)
[2018-08-24 06:52] LABS: HEMOGLOBIN 10.9 g/dL (12.0-16.0); MEAN CELL VOLUME 76.9 fl (81.0-99.0); MEAN CORPUSCULAR HEMOGLOBIN 23.9 pg (27.0-31.0); MEAN CORPUSCULAR HGB CONC 31.1 g/dL (33.0-37.0); RBC 4.56 Mil/uL (3.80-5.20); RED CELL DISTRIBUTION WIDTH 19.3 % (11.5-14.5); WHITE BLOOD COUNT 15.3 K/uL (4.8-10.8)
[2018-08-24 07:18] LABS: ALB/GLOB RATIO 0.8 (1.0-2.1); ALBUMIN 2.2 g/dL (3.5-5.0); ALT/SGPT 27 U/L (9-52); AST/SGOT 80 U/L (14-36); BLOOD UREA NITROGEN 24 mg/dl (7-17); CALCIUM 8.2 mg/dL (8.4-10.2); GFR NON-AFRICAN AMERICAN 59
--- NOTE | 2018-08-24 07:23 | CP.CCUPN ---
<Bipin Wagner - Last Filed: 08/24/18 12:11> CCU Subjective - Physician Review Subjective (Free Text): 08/24/18 11:18 Pt seen and examined at bedside this AM. Pt seated upright. Tolerating PO diet. R pig tail, draining. Afebrile. Intermittent tachycardia. Saturating well on RA. CCU Objective - Vital Signs / Intake & Output Vital Signs (Last 4 hours): Vital Signs Pulse Resp BP Pulse Ox 08/24/18 06:00 97 H 30 H 107/76 97 08/24/18 04:00 99 H 18 97/65 L 99 Intake and Output (Last 8hrs): Intake & Output 08/23/18 08/24/18 08/24/18 22:59 06:59 14:59 Intake Total 900 Output Total 620 Balance 280 Weight 147 lb 2 oz Intake: Intake, Piggyback 400 Oral 500 Output: Chest Tube Drainage 620 Right Posterior Chest 620 Other: # Voids Urine, Voided 5 # Bowel Movements 1 - Physical Exam Pupils: Positive for: PERRL Mouth: Positive for: Moist Mucous Membranes Respiratory/Chest: Positive for: Decreased Breath Sounds, Rales, Tachypneic Cardiovascular: Positive for: Normal S1, S2, Tachycardic Abdomen: Positive for: Tenderness, Distention Neurological: Positive for: CN II-XII Intact, Speech Normal Skin: Positive for: Warm Psychiatric: Positive for: Alert, Oriented x 3, Normal Insight, Normal Concentration, Anxious - Medications Active Medications: Active Medications Generic Name Dose Route Start Last Admin Trade Name Freq PRN Reason Stop Dose Admin Guaifenesin 600 mg 08/23/18 09:00 08/23/18 20:59 Mucinex La PO 600 mg Q12 TERA Administration Heparin Sodium (Porcine) 5,000 units 08/22/18 09:00 08/24/18 00:43 Heparin SC Not Given Q8 TERA Protocol Meropenem 500 mg/ Sodium 100 mls @ 100 mls/hr 08/18/18 20:15 08/24/18 00:04 Chloride IVPB 100 mls/hr Q8 TERA Administration Protocol Linezolid 600 mg in 300 mls @ 300 mls/hr 08/20/18 21:00 08/23/18 20:59 Zyvox 600mg/300ml D5w IVPB 300 mls/hr Q12 TERA Administration Protocol Ketorolac Tromethamine 15 mg 08/19/18 10:54 08/24/18 06:26 Toradol IVP 15 mg Q6 PRN Administration Pain, moderate (4-7) Lorazepam 0.5 mg 08/19/18 22:00 08/23/18 23:34 Ativan PO 0.5 mg HS TERA Administration Lorazepam 1 mg 08/22/18 22:00 08/23/18 23:34 Ativan PO 1 mg HS TERA Administration Pantoprazole Sodium 40 mg 08/20/18 09:00 08/23/18 09:55 Protonix Ec Tab PO 40 mg DAILY TERA Administration - Patient Studies Lab Studies: Microbiology Studies 08/18/18 17:18 Blood Culture - Final Blood-Venous NO GROWTH AFTER 5 DAYS Gram Stain - Final TEST NOT PERFORMED 08/19/18 14:20 Gram Stain - Final Pleural Fluid Body Fluid Culture - Final No growth. Lab Studies 08/24/18 08/24/18 Range/Units 06:48 06:48 WBC 15.3 H (4.8-10.8) K/uL RBC 4.56 (3.80-5.20) Mil/uL Hgb 10.9 L (12.0-16.0) g/dL Hct 35.1 (34.0-47.0) % MCV 76.9 L (81.0-99.0) fl MCH 23.9 L (27.0-31.0) pg MCHC 31.1 L (33.0-37.0) g/dL RDW 19.3 H (11.5-14.5) % Plt Count 499 H (130-400) K/uL Sodium 129 L (132-148) mmol/l Potassium 5.4 H (3.6-5.0) MMOL/L Chloride 103 (98-107) mmol/L Carbon Dioxide 21 L (22-30) mmol/L Anion Gap 10 (10-20) BUN 24 H (7-17) mg/dl Creatinine 1.0 (0.7-1.2) mg/dl Est GFR ( Amer) > 60 Est GFR (Non-Af Amer) 59 Random Glucose 114 H (65-105) mg/dL Calcium 8.2 L (8.4-10.2) mg/dL Total Bilirubin 0.4 (0.2-1.3) mg/dl AST 80 H (14-36) U/L ALT 27 (9-52) U/L Alkaline Phosphatase 154 H (38-126) U/L Total Protein 5.0 L (6.3-8.2) G/DL Albumin 2.2 L (3.5-5.0) g/dL Globulin 2.8 (2.2-3.9) gm/dL Albumin/Globulin Ratio 0.8 L (1.0-2.1) Laboratory Results - last 24 hr 08/24/18 08/24/18 06:48 06:48 WBC 15.3 H RBC 4.56 Hgb 10.9 L Hct 35.1 MCV 76.9 L MCH 23.9 L MCHC 31.1 L RDW 19.3 H Plt Count 499 H Sodium 129 L Potassium 5.4 H Chloride 103 Carbon Dioxide 21 L Anion Gap 10 BUN 24 H Creatinine 1.0 Est GFR ( Amer) > 60 Est GFR (Non-Af Amer) 59 Random Glucose 114 H Calcium 8.2 L Total Bilirubin 0.4 AST 80 H ALT 27 Alkaline Phosphatase 154 H Total Protein 5.0 L Albumin 2.2 L Globulin 2.8 Albumin/Globulin Ratio 0.8 L Review of Systems - Cardiovascular Cardiovascular: As Per HPI - Respiratory Respiratory: As Per HPI - Gastrointestinal Gastrointestinal: As Per HPI Critical Care Progress Note - Nutrition Nutrition: Nutrition Category Date Time Status Regular Diet [DIET] Diets 08/21/18 Breakfast Active Assessment/Plan - Assessment and Plan (Free Text) Assessment: 48 yo F with pmhx of stage 4 ovarian cancer, anemia and benign breast mass admitted for progressive abdominal distension, progressive SOB, increasing lower extremity edema, and hyponatremia. Plan: Abdominal wall cellulitis with severe sepsis: -Serum lactate: 3.2 > 1.4 -ID: Dr. Lechuga: meropenem, linezolid; s/p vancomycin and zosyn -BCX: negative -UCX: negative Metastatic Ovarian Cancer -Stage IV -Dr. Sanchez on board -PICC line insertion today -Chemo to start Thursday Pleural effusion -Pulm: Dr. Arreaga -IR: Dr. Larkin: bedside thoracentesis -ID: Dr. Lechuga: meropenem, linezolid; s/p vancomycin and zosyn -Pleural fluid culture: negative -BCX: negative -UCX: negative Ascites -IR: Dr. Larkin -US: Large L pelvic mass with associated moderate ascites; Mild L hydronephrosis Hyponatremia -Improving -Na: 129 -2/2 hypovolemia or SIADH -serum and urine osmolality: 276/470 -Nephro: Dr. Resendez: Gopal Hyperkalemia: -K: 5.4 up from 4.8 -IVF -Kayexalate; pt [facility] -Nephrology: Dr. 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 Almeida: recommend start remeron 7.5 qHS; however, contraindication with Linezolid started on 08/20/2018 DVT/GI prophylaxis. -SCDs -IV protonix PT/OT -Eval and treat Code Status: Full code Case dw Dr. Jay Wagner MD PGY2 <Hima Thompson V - Last Filed: 08/24/18 16:21> CCU Subjective - Physician Review Events Since Last Encounter (Free Text): 08/24/18 16:20 patient is seen and examined at bedside. Agree with plan of care as detailed in resident's note CCU Objective - Vital Signs / Intake & Output Vital Signs (Last 4 hours): Vital Signs Pulse Resp BP Pulse Ox 08/24/18 15:35 109 H 124/82 95 08/24/18 14:00 114 H 20 118/72 100 Intake and Output (Last 8hrs): Intake & Output 08/24/18 08/24/18 08/24/18 06:59 14:59 22:59 Intake Total 900 Output Total 620 Balance 280 Weight 147 lb 2 oz Intake: Intake, Piggyback 400 Oral 500 Output: Chest Tube Drainage 620 Right Posterior Chest 620 Other: # Voids Urine, Voided 5 # Bowel Movements 1 - Medications Active Medications: Active Medications Generic Name Dose Route Start Last Admin Trade Name Freq PRN Reason Stop Dose Admin Benzocaine/Menthol 1 tere 08/24/18 09:18 08/24/18 12:58 Cepacol Sore Throat PO 1 tere Q3 PRN Administration Sore Throat Heparin Sodium (Porcine) 5,000 units 08/22/18 09:00 08/24/18 16:12 Heparin SC 5,000 units Q8 TERA Administration Protocol Meropenem 500 mg/ Sodium 100 mls @ 100 mls/hr 08/18/18 20:15 08/24/18 16:13 Chloride IVPB 100 mls/hr Q8 TERA Administration Protocol Linezolid 600 mg in 300 mls @ 300 mls/hr 08/20/18 21:00 08/24/18 10:08 Zyvox 600mg/300ml D5w IVPB 300 mls/hr Q12 TERA Administration Protocol Ketorolac Tromethamine 15 mg 08/24/18 12:45 08/24/18 12:57 Toradol IVP 15 mg Q6 PRN Administration Pain, moderate (4-7) Lorazepam 0.5 mg 08/19/18 22:00 08/23/18 23:34 Ativan PO 0.5 mg HS TERA Administration Lorazepam 1 mg 08/22/18 22:00 08/23/18 23:34 Ativan PO 1 mg HS TERA Administration Pantoprazole Sodium 40 mg 08/20/18 09:00 08/24/18 08:51 Protonix Ec Tab PO 40 mg DAILY TERA Administration - Patient Studies Lab Studies: Microbiology Studies 08/18/18 17:18 Blood Culture - Final Blood-Venous NO GROWTH AFTER 5 DAYS Gram Stain - Final TEST NOT PERFORMED 08/19/18 14:20 Gram Stain - Final Pleural Fluid Body Fluid Culture - Final No growth. Lab Studies 08/24/18 08/24/18 Range/Units 06:48 06:48 WBC 15.3 H (4.8-10.8) K/uL RBC 4.56 (3.80-5.20) Mil/uL Hgb 10.9 L (12.0-16.0) g/dL Hct 35.1 (34.0-47.0) % MCV 76.9 L (81.0-99.0) fl MCH 23.9 L (27.0-31.0) pg MCHC 31.1 L (33.0-37.0) g/dL RDW 19.3 H (11.5-14.5) % Plt Count 499 H (130-400) K/uL Sodium 129 L (132-148) mmol/l Potassium 5.4 H (3.6-5.0) MMOL/L Chloride 103 (98-107) mmol/L Carbon Dioxide 21 L (22-30) mmol/L Anion Gap 10 (10-20) BUN 24 H (7-17) mg/dl Creatinine 1.0 (0.7-1.2) mg/dl Est GFR ( Amer) > 60 Est GFR (Non-Af Amer) 59 Random Glucose 114 H (65-105) mg/dL Calcium 8.2 L (8.4-10.2) mg/dL Total Bilirubin 0.4 (0.2-1.3) mg/dl AST 80 H (14-36) U/L ALT 27 (9-52) U/L Alkaline Phosphatase 154 H (38-126) U/L Total Protein 5.0 L (6.3-8.2) G/DL Albumin 2.2 L (3.5-5.0) g/dL Globulin 2.8 (2.2-3.9) gm/dL Albumin/Globulin Ratio 0.8 L (1.0-2.1) Laboratory Results - last 24 hr 08/24/18 08/24/18 06:48 06:48 WBC 15.3 H RBC 4.56 Hgb 10.9 L Hct 35.1 MCV 76.9 L MCH 23.9 L MCHC 31.1 L RDW 19.3 H Plt Count 499 H Sodium 129 L Potassium 5.4 H Chloride 103 Carbon Dioxide 21 L Anion Gap 10 BUN 24 H Creatinine 1.0 Est GFR ( Amer) > 60 Est GFR (Non-Af Amer) 59 Random Glucose 114 H Calcium 8.2 L Total Bilirubin 0.4 AST 80 H ALT 27 Alkaline Phosphatase 154 H Total Protein 5.0 L Albumin 2.2 L Globulin 2.8 Albumin/Globulin Ratio 0.8 L Critical Care Progress Note - Nutrition Nutrition: Nutrition Category Date Time Status Regular Diet [DIET] Diets 08/21/18 Breakfast Active
[2018-08-24] MEDS: guaiFENesin 600 mg ER Tab PO SCH (08:50)
[2018-08-24] MEDS: Pantoprazole 40 mg EC Tab PO SCH (08:51)
--- NOTE | 2018-08-24 09:16 | CP.PCM.PN ---
Subjective - Date & Time of Evaluation Date of Evaluation: 08/24/18 Time of Evaluation: 09:17 - Subjective Subjective: SOB IMPROVED TALKATIVE NOW AGREES TO HAVE CHEMOTHERAPY CHEST TUBE IN PLACE WITH CONTINEOUS DRAINAGE OF STRAW COLORED FLUID Objective - Vital Signs/Intake and Output Vital Signs (last 24 hours): Temp Pulse Resp BP Pulse Ox 98.1 F 97 H 30 H 107/76 97 08/24/18 00:00 08/24/18 06:00 08/24/18 06:00 08/24/18 06:00 08/24/18 06:00 Intake and Output: 08/24/18 08/24/18 06:59 18:59 Intake Total 900 Output Total 620 Balance 280 - Medications Medications: Current Medications Guaifenesin (Mucinex La) 600 mg PO Q12 TERA Last Admin: 08/24/18 08:50 Dose: Not Given Heparin Sodium (Porcine) (Heparin) 5,000 units SC Q8 TERA; Protocol Last Admin: 08/24/18 08:49 Dose: Not Given Meropenem 500 mg/ Sodium (Chloride) 100 mls @ 100 mls/hr IVPB Q8 TERA; Protocol Last Admin: 08/24/18 08:50 Dose: 100 mls/hr Linezolid (Zyvox 600mg/300ml D5w) 600 mg in 300 mls @ 300 mls/hr IVPB Q12 TERA; Protocol Last Admin: 08/23/18 20:59 Dose: 300 mls/hr Ketorolac Tromethamine (Toradol) 15 mg IVP Q6 PRN PRN Reason: Pain, moderate (4-7) Last Admin: 08/24/18 06:26 Dose: 15 mg Lorazepam (Ativan) 0.5 mg PO HS TERA Last Admin: 08/23/18 23:34 Dose: 0.5 mg Lorazepam (Ativan) 1 mg PO HS TERA Last Admin: 08/23/18 23:34 Dose: 1 mg Pantoprazole Sodium (Protonix Ec Tab) 40 mg PO DAILY TERA Last Admin: 08/24/18 08:51 Dose: 40 mg - Labs Labs: 08/24/18 06:48 08/24/18 06:48 PT 15.5 Seconds (9.8-13.1) H 08/19/18 04:25 INR 1.4 08/19/18 04:25 APTT 27.9 Seconds (25.6-37.1) 08/19/18 04:25 - Constitutional Appears: Chronically Ill - Head Exam Head Exam: ATRAUMATIC, NORMAL INSPECTION, NORMOCEPHALIC - Eye Exam Eye Exam: EOMI, Normal appearance, PERRL Pupil Exam: NORMAL ACCOMODATION, PERRL - ENT Exam ENT Exam: Mucous Membranes Moist, Normal Exam - Neck Exam Neck Exam: Full ROM, Normal Inspection. absent: Lymphadenopathy - Respiratory Exam Respiratory Exam: Decreased Breath Sounds, Rales, NORMAL BREATHING PATTERN - Cardiovascular Exam Cardiovascular Exam: REGULAR RHYTHM, +S1, +S2. absent: Murmur - GI/Abdominal Exam GI & Abdominal Exam: Soft, Normal Bowel Sounds. absent: Tenderness - Rectal Exam Rectal Exam: NORMAL INSPECTION - Extremities Exam Extremities Exam: Full ROM, Normal Capillary Refill, Normal Inspection. absent: Joint Swelling, Pedal Edema - Back Exam Back Exam: NORMAL INSPECTION - Neurological Exam Neurological Exam: Alert, Awake, CN II-XII Intact, Normal Gait, Oriented x3 - Psychiatric Exam Psychiatric exam: Normal Affect, Normal Mood - Skin Skin Exam: Dry, Intact, Normal Color, Warm Assessment and Plan - Assessment and Plan (Free Text) Assessment: OVARIAN CANCER WITH METS PLEURAL EFFUSION Plan: FOR PICC LINE TODAY CHEMOTHERAPY IN AM CXR ORDERED
--- NOTE | 2018-08-24 09:27 | CP.PCM.PN ---
Subjective - Date & Time of Evaluation Date of Evaluation: 08/24/18 Time of Evaluation: 09:27 - Subjective Subjective: patient in bed Complaining of abdominal pain intermittently patient is asking so many questions Kidney function improving serum creatinine down to 1.0 Objective - Vital Signs/Intake and Output Vital Signs (last 24 hours): Temp Pulse Resp BP Pulse Ox 98.1 F 97 H 30 H 107/76 97 08/24/18 00:00 08/24/18 06:00 08/24/18 06:00 08/24/18 06:00 08/24/18 06:00 Intake and Output: 08/24/18 08/24/18 06:59 18:59 Intake Total 900 Output Total 620 Balance 280 - Medications Medications: Current Medications Benzocaine/Menthol (Cepacol Sore Throat) 1 tere PO Q3 PRN PRN Reason: Sore Throat Heparin Sodium (Porcine) (Heparin) 5,000 units SC Q8 TERA; Protocol Last Admin: 08/24/18 08:49 Dose: Not Given Meropenem 500 mg/ Sodium (Chloride) 100 mls @ 100 mls/hr IVPB Q8 TERA; Protocol Last Admin: 08/24/18 08:50 Dose: 100 mls/hr Linezolid (Zyvox 600mg/300ml D5w) 600 mg in 300 mls @ 300 mls/hr IVPB Q12 TERA; Protocol Last Admin: 08/23/18 20:59 Dose: 300 mls/hr Ketorolac Tromethamine (Toradol) 15 mg IVP Q6 PRN PRN Reason: Pain, moderate (4-7) Last Admin: 08/24/18 06:26 Dose: 15 mg Lorazepam (Ativan) 0.5 mg PO HS TERA Last Admin: 08/23/18 23:34 Dose: 0.5 mg Lorazepam (Ativan) 1 mg PO HS TERA Last Admin: 08/23/18 23:34 Dose: 1 mg Pantoprazole Sodium (Protonix Ec Tab) 40 mg PO DAILY TERA Last Admin: 08/24/18 08:51 Dose: 40 mg Tolvaptan (Samsca) 30 mg PO ONCE ONE Stop: 08/24/18 09:22 - Labs Labs: 08/24/18 06:48 08/24/18 06:48 PT 15.5 Seconds (9.8-13.1) H 08/19/18 04:25 INR 1.4 08/19/18 04:25 APTT 27.9 Seconds (25.6-37.1) 08/19/18 04:25 - Constitutional Appears: No Acute Distress - Eye Exam Eye Exam: Conjunctival injection - ENT Exam ENT Exam: Mucous Membranes Moist - Respiratory Exam Respiratory Exam: Rhonchi, NORMAL BREATHING PATTERN - Cardiovascular Exam Cardiovascular Exam: absent: Gallop, JVD, Rubs - GI/Abdominal Exam GI & Abdominal Exam: Guarding, Mass Additional comments: palpable large mass in the left lower quadrant of the abdomen . - Extremities Exam Extremities Exam: absent: Calf Tenderness - Back Exam Back Exam: absent: CVA tenderness (L), CVA tenderness (R) - Neurological Exam Neurological Exam: Alert - Psychiatric Exam Psychiatric exam: Normal Affect - Skin Skin Exam: absent: Cyanosis Assessment and Plan (1) Hyponatremia Assessment & Plan: yponatremia most likely related to massive ascites with the fluid overloaded dilutional SIADH hyperkalemia Ovarian cancer diagnosed recently Hypoalbuminemia Debility Massive ascites right chest tube with drainage for massive pleural effusion initially. Acute kidney injury improving and serum creatinine coming down Recommendation hyponatremia most likely secondary to SIADH and dilutional and ascites,last serum sodium 129 Samsca 30 mg today Monitor serum sodium not to rise more than 9 mEq in the next 24 hours 25% albumin for hypotension Consider midodrine for hypotension Antibiotics as per primary team and monitor the dose off antibiotics with the kidney function. Kayexalate 30 g a stat by mouth for hyperkalemia Status: Acute (2) Fluid overload Status: Acute (3) Metastatic cancer Status: Acute (4) Pleural effusion Status: Acute (5) Sepsis Status: Acute
[2018-08-24] MEDS: Linezolid 600 mg in D5W 300 ml 600 MG/300 ML BAG IVPB SCH ×2 (10:08→22:25)
--- NOTE | 2018-08-24 12:43 | RAD ---
Date of service: 08/24/2018 PROCEDURE: CHEST RADIOGRAPH, 1 VIEW HISTORY: PLEURAL EFFUSION COMPARISON: 08/20/2018 FINDINGS: LUNGS: Better visualization of innumerable pulmonary masses. Improved aeration of the right lung. PLEURA: Satisfactory and stable position of the pigtail catheter in the right pleural space. Stable left pleural effusion. CARDIOVASCULAR: No aortic atherosclerotic calcification present. Normal. OSSEOUS STRUCTURES: No significant abnormalities. VISUALIZED UPPER ABDOMEN: Normal. OTHER FINDINGS: None. IMPRESSION: Stable pleural findings described above. Innumerable pulmonary masses unchanged.
[2018-08-24] MEDS: Benzocaine/Menthol (Cepacol) Lozenge PO PRN (12:58)
--- NOTE | 2018-08-24 17:47 | CP.PCM.PN ---
Subjective - Date & Time of Evaluation Date of Evaluation: 08/24/18 Time of Evaluation: 11:00 - Subjective Subjective: 48 y/o F seen and examined by bedside with Dr Beach. Pt reported feeling much better, pt is concerned about upcoming chemotherapy and has requested not to perform any surgical procedure without her consent. Pt denies chest pain, SOB , nausea or vomiting. Chest tube in placed and draining. Pt afebrile, tolerating PO with No acute events overnight. Objective - Vital Signs/Intake and Output Vital Signs (last 24 hours): Temp Pulse Resp BP Pulse Ox 98.4 F 109 H 20 124/82 95 08/24/18 12:00 08/24/18 15:35 08/24/18 14:00 08/24/18 15:35 08/24/18 15:35 Intake and Output: 08/24/18 08/24/18 06:59 18:59 Intake Total 900 Output Total 620 Balance 280 - Medications Medications: Current Medications Benzocaine/Menthol (Cepacol Sore Throat) 1 tere PO Q3 PRN PRN Reason: Sore Throat Last Admin: 08/24/18 12:58 Dose: 1 tere Heparin Sodium (Porcine) (Heparin) 5,000 units SC Q8 TERA; Protocol Last Admin: 08/24/18 16:12 Dose: 5,000 units Meropenem 500 mg/ Sodium (Chloride) 100 mls @ 100 mls/hr IVPB Q8 TERA; Protocol Last Admin: 08/24/18 16:13 Dose: 100 mls/hr Linezolid (Zyvox 600mg/300ml D5w) 600 mg in 300 mls @ 300 mls/hr IVPB Q12 TERA; Protocol Last Admin: 08/24/18 10:08 Dose: 300 mls/hr Ketorolac Tromethamine (Toradol) 15 mg IVP Q6 PRN PRN Reason: Pain, moderate (4-7) Last Admin: 08/24/18 12:57 Dose: 15 mg Lorazepam (Ativan) 0.5 mg PO HS TERA Last Admin: 08/23/18 23:34 Dose: 0.5 mg Lorazepam (Ativan) 1 mg PO HS TERA Last Admin: 08/23/18 23:34 Dose: 1 mg Pantoprazole Sodium (Protonix Ec Tab) 40 mg PO DAILY TERA Last Admin: 08/24/18 08:51 Dose: 40 mg - Labs Labs: 08/24/18 06:48 08/24/18 16:25 PT 15.5 Seconds (9.8-13.1) H 08/19/18 04:25 INR 1.4 08/19/18 04:25 APTT 27.9 Seconds (25.6-37.1) 08/19/18 04:25 - Additional Findings Additional findings: - Constitutional Appears: No Acute Distress - Head Exam Head Exam: ATRAUMATIC, NORMAL INSPECTION - Eye Exam Eye Exam: EOMI - ENT Exam ENT Exam: Mucous Membranes Dry - Neck Exam Neck exam: Positive for: Full Rom - Respiratory Exam Respiratory Exam: NORMAL BREATHING PATTERN, chest tube in place - Cardiovascular Exam Cardiovascular Exam: +S1, +S2 - GI/Abdominal Exam GI & Abdominal Exam: Distended, Firm, Soft, Tenderness diffuse and mild - Extremities Exam Extremities exam: Negative for: calf tenderness, tenderness - Neurological Exam Neurological exam: Alert and oriented x3. - Psychiatric Exam Psychiatric exam: normal Assessment and Plan - Assessment and Plan (Free Text) Assessment: 48 y/o F with a PMHx of ovarian cancer-stage IV, anemia and benign breast mass admitted for progressive abdominal ascitis, RLL pleural effusion, increasing lower extremity edema, and electrolyte imbalance. --As per complications from advanced stage ovarian cancer, anxious. PLAN: --S/P thoracocentesis and chest tube placement --PICC line access today. --Chemotherapy will be initiated either today or tomorrow. --Nephrology on board, Dr Resendez. --ID on board, Dr Lechuga. --IR on board, Dr Larkin. --Pulmonology on board, Dr Arreaga. --Hematology/Oncology on board, Dr Sanchez. --Psychiatry on board, Dr Almeida --Continue management as per critical care team. Case discussed with Dr Beach who agrees with the above Laure PGY-2
[2018-08-25] MEDS: Meropenem 500 MG in Sodium Chloride 0.9% 100 ML IVPB SCH ×3 (01:01→17:48)
[2018-08-25 05:47] LABS: HEMOGLOBIN 10.6 g/dL (12.0-16.0); MEAN CELL VOLUME 78.4 fl (81.0-99.0); MEAN CORPUSCULAR HGB CONC 30.6 g/dL (33.0-37.0); RBC 4.4 Mil/uL (3.80-5.20); RED CELL DISTRIBUTION WIDTH 19.1 % (11.5-14.5)
[2018-08-25 05:57] LABS: INR 1.1; PROTHROMBIN TIME 12.8 Seconds (9.8-13.1)
[2018-08-25 05:59] LABS: ALB/GLOB RATIO 0.8 (1.0-2.1); ALBUMIN 2.1 g/dL (3.5-5.0)
[2018-08-25] MEDS ORDERED: Sod Polystyrene Sulf 15 gm/60 ml Susp PO ONE (06:53)
--- NOTE | 2018-08-25 07:37 | CP.CCUPN ---
<Bipin Wagner - Last Filed: 08/25/18 12:27> CCU Subjective - Physician Review Subjective (Free Text): 08/25/18 12:12 Pt seen and examined at bedside this AM, sitting upright. No acute events overnight. Intermittent SOB. Occasional abdominal pain. R pigtail draining fluid. Afebrile. Pt to have PICC line inserted today and start chemo. CCU Objective - Vital Signs / Intake & Output Vital Signs (Last 4 hours): Vital Signs Temp Pulse Resp BP Pulse Ox 08/25/18 06:00 108 H 17 93/61 L 98 08/25/18 04:00 97.9 F 108 H 22 109/75 97 Intake and Output (Last 8hrs): Intake & Output 08/24/18 08/25/18 08/25/18 22:59 06:59 14:59 Intake Total 840 200 Output Total 738 Balance 102 200 Intake: Intake, Piggyback 500 100 Oral 340 100 Output: Chest Tube Drainage 738 Right Posterior Chest 738 Other: # Voids Urine, Voided 3 # Bowel Movements 1 1 - Physical Exam Pupils: Positive for: PERRL Mouth: Positive for: Moist Mucous Membranes Respiratory/Chest: Positive for: Decreased Breath Sounds, Rales Cardiovascular: Positive for: Normal S1, S2, Tachycardic Abdomen: Positive for: Tenderness, Distention Neurological: Positive for: CN II-XII Intact, Speech Normal Skin: Positive for: Warm Psychiatric: Positive for: Alert, Oriented x 3, Normal Insight, Normal Concentration - Medications Active Medications: Active Medications Generic Name Dose Route Start Last Admin Trade Name Freq PRN Reason Stop Dose Admin Benzocaine/Menthol 1 tere 08/24/18 09:18 08/24/18 12:58 Cepacol Sore Throat PO 1 tere Q3 PRN Administration Sore Throat Heparin Sodium (Porcine) 5,000 units 08/22/18 09:00 08/25/18 01:00 Heparin SC Not Given Q8 [facility] Protocol Meropenem 500 mg/ Sodium 100 mls @ 100 mls/hr 08/18/18 20:15 08/25/18 01:01 Chloride IVPB 100 mls/hr Q8 TERA Administration Protocol Linezolid 600 mg in 300 mls @ 300 mls/hr 08/20/18 21:00 08/24/18 22:25 Zyvox 600mg/300ml D5w IVPB 300 mls/hr Q12 TERA Administration Protocol Ketorolac Tromethamine 15 mg 08/24/18 12:45 08/24/18 22:26 Toradol IVP 15 mg Q6 PRN Administration Pain, moderate (4-7) Lorazepam 1 mg 08/22/18 22:00 08/24/18 23:45 Ativan PO 1 mg HS TERA Administration Ondansetron HCl 4 mg 08/24/18 21:25 08/24/18 22:26 Zofran Inj IVP 4 mg Q4 PRN Administration Nausea/Vomiting Pantoprazole Sodium 40 mg 08/20/18 09:00 08/24/18 08:51 Protonix Ec Tab PO 40 mg DAILY TERA Administration - Patient Studies Lab Studies: Lab Studies 08/25/18 08/25/18 08/25/18 Range/Units 04:40 04:40 04:40 WBC 16.0 H (4.8-10.8) K/uL RBC 4.40 (3.80-5.20) Mil/uL Hgb 10.6 L (12.0-16.0) g/dL Hct 34.5 (34.0-47.0) % MCV 78.4 L (81.0-99.0) fl MCH 24.0 L (27.0-31.0) pg MCHC 30.6 L (33.0-37.0) g/dL RDW 19.1 H (11.5-14.5) % Plt Count 468 H (130-400) K/uL PT 12.8 (9.8-13.1) Seconds INR 1.1 APTT 27.0 (25.6-37.1) Seconds Sodium 129 L (132-148) mmol/l Potassium 5.3 H (3.6-5.0) MMOL/L Chloride 101 (98-107) mmol/L Carbon Dioxide 23 (22-30) mmol/L Anion Gap 10 (10-20) BUN 25 H (7-17) mg/dl Creatinine 1.2 (0.7-1.2) mg/dl Est GFR ( Amer) 58 Est GFR (Non-Af Amer) 48 Random Glucose 108 H (65-105) mg/dL Calcium 8.0 L (8.4-10.2) mg/dL Total Bilirubin 0.3 (0.2-1.3) mg/dl AST 77 H (14-36) U/L ALT 29 (9-52) U/L Alkaline Phosphatase 143 H (38-126) U/L Total Protein 4.8 L (6.3-8.2) G/DL Albumin 2.1 L (3.5-5.0) g/dL Globulin 2.7 (2.2-3.9) gm/dL Albumin/Globulin Ratio 0.8 L (1.0-2.1) 08/24/18 Range/Units 16:25 WBC (4.8-10.8) K/uL RBC (3.80-5.20) Mil/uL Hgb (12.0-16.0) g/dL Hct (34.0-47.0) % MCV (81.0-99.0) fl MCH (27.0-31.0) pg MCHC (33.0-37.0) g/dL RDW (11.5-14.5) % Plt Count (130-400) K/uL PT (9.8-13.1) Seconds INR APTT (25.6-37.1) Seconds Sodium 129 L (132-148) mmol/l Potassium (3.6-5.0) MMOL/L Chloride (98-107) mmol/L Carbon Dioxide (22-30) mmol/L Anion Gap (10-20) BUN (7-17) mg/dl Creatinine (0.7-1.2) mg/dl Est GFR ( Amer) Est GFR (Non-Af Amer) Random Glucose (65-105) mg/dL Calcium (8.4-10.2) mg/dL Total Bilirubin (0.2-1.3) mg/dl AST (14-36) U/L ALT (9-52) U/L Alkaline Phosphatase (38-126) U/L Total Protein (6.3-8.2) G/DL Albumin (3.5-5.0) g/dL Globulin (2.2-3.9) gm/dL Albumin/Globulin Ratio (1.0-2.1) Laboratory Results - last 24 hr 08/24/18 08/25/18 08/25/18 16:25 04:40 04:40 WBC 16.0 H RBC 4.40 Hgb 10.6 L Hct 34.5 MCV 78.4 L MCH 24.0 L MCHC 30.6 L RDW 19.1 H Plt Count 468 H PT INR APTT Sodium 129 L 129 L Potassium 5.3 H Chloride 101 Carbon Dioxide 23 Anion Gap 10 BUN 25 H Creatinine 1.2 Est GFR ( Amer) 58 Est GFR (Non-Af Amer) 48 Random Glucose 108 H Calcium 8.0 L Total Bilirubin 0.3 AST 77 H ALT 29 Alkaline Phosphatase 143 H Total Protein 4.8 L Albumin 2.1 L Globulin 2.7 Albumin/Globulin Ratio 0.8 L 08/25/18 04:40 WBC RBC Hgb Hct MCV MCH MCHC RDW Plt Count PT 12.8 INR 1.1 APTT 27.0 Sodium Potassium Chloride Carbon Dioxide Anion Gap BUN Creatinine Est GFR ( Amer) Est GFR (Non-Af Amer) Random Glucose Calcium Total Bilirubin AST ALT Alkaline Phosphatase Total Protein Albumin Globulin Albumin/Globulin Ratio Review of Systems - Cardiovascular Cardiovascular: absent: Chest Pain, Chest Pain at Rest - Respiratory Respiratory: As Per HPI - Gastrointestinal Gastrointestinal: As Per HPI - Neurological Neurological: As Per HPI Critical Care Progress Note - Nutrition Nutrition: Nutrition Category Date Time Status Regular Diet [DIET] Diets 08/21/18 Breakfast Active Assessment/Plan - Assessment and Plan (Free Text) Assessment: 48 yo F with pmhx of stage 4 ovarian cancer, anemia and benign breast mass admitted for progressive abdominal distension, SOB, increasing lower extremity edema, and hyponatremia. Plan: Metastatic Ovarian Cancer -Stage IV -Dr. Sanchez on board -PICC line insertion today -Chemo started today; Carboplatin, Fosaprepitan, Paclitaxel Abdominal wall cellulitis with severe sepsis: -Serum lactate: 3.2 > 1.4 -ID: Dr. Lechuga: meropenem, linezolid; s/p vancomycin and zosyn -BCX: negative -UCX: negative Pleural effusion -Pulm: Dr. Arreaga -IR: Dr. Larkin: R sided drain -ID: Dr. Lechuga: meropenem, linezolid; s/p vancomycin and zosyn -Pleural fluid culture: negative3 -UCX: negative Ascites -IR: Dr. Larkin -US: Large L pelvic mass with associated moderate ascites; Mild L hydronephrosis Hyponatremia -Improving -Na: 129 -2/2 hypovolemia or SIADH -serum and urine osmolality: 276/470 -Nephro: Dr. Resendez: Gopal Hyperkalemia: -K: 5.3 -IVF -Kayexalate -Nephrology: Dr. 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 Almeida: recommend start remeron 7.5 qHS; however, contraindication with Linezolid started on 08/20/2018 DVT/GI prophylaxis. -SCDs -IV protonix PT/OT -Eval and treat Code Status: -Full code Case dw Dr. Yamil Wagner MD PGY2 <Grey Lobo - Last Filed: 08/25/18 15:07> CCU Subjective - Physician Review Subjective (Free Text): Attestation: Patient seen and examined at the bedside with Resident Dr. Manny Wagner; and I agree with his outline of plans and management documented above and below, reflecting my review of all applicable clinical data, and participation in the care of the patient throughout the day in ICU; today, August 25, 2018.
[2018-08-25] MEDS ORDERED: Dexamethasone 10 MG in Sodium Chloride 0.9% 50 ML IVPB ONE (09:37)
[2018-08-25] MEDS: Pantoprazole 40 mg EC Tab PO SCH (10:18)
--- NOTE | 2018-08-25 10:45 | RAD ---
Date of service: 08/25/2018 HISTORY: PICC line insertion verification COMPARISON: 08/24/2018 FINDINGS: LUNGS: Interval right PICC line insertion tip at cavoatrial junction. The prior multiple bilateral pulmonary masses of variable size compatible with multiple pulmonary mid metastatic lesions are hree noted. These appear grossly similar. PLEURA: Left pleural effusion present smaller right pleural effusion. Right pigtail drainage catheter over right costophrenic angle-similar appearance CARDIOVASCULAR: No aortic atherosclerotic calcification present. Top-normal heart size. No pulmonary vascular congestion. OSSEOUS STRUCTURES: No significant abnormalities. VISUALIZED UPPER ABDOMEN: Normal. OTHER FINDINGS: None. IMPRESSION: Interval right PICC line insertion-tip cavoatrial junction. No pneumothorax. Innumerable bilateral pulmonary masses-possible blending right low paratracheal lymphadenopathy. Overall appearance unchanged-compatible with pulmonary metastases Bilateral pleural effusions left larger than right both appear similar. Right costophrenic angle drainage fluid catheter in place-similar.
[2018-08-25] MEDS: Linezolid 600 mg in D5W 300 ml 600 MG/300 ML BAG IVPB SCH ×2 (10:54→21:23)
--- NOTE | 2018-08-25 11:26 | CP.PCM.PN ---
Subjective - Date & Time of Evaluation Date of Evaluation: 08/25/18 Time of Evaluation: 11:25 - Subjective Subjective: patient awake and consciousness no new changes Patient to start on chemotherapy Objective - Vital Signs/Intake and Output Vital Signs (last 24 hours): Temp Pulse Resp BP Pulse Ox 97.7 F 111 H 20 110/76 100 08/25/18 08:00 08/25/18 08:00 08/25/18 08:00 08/25/18 08:00 08/25/18 08:00 Intake and Output: 08/25/18 08/25/18 06:59 18:59 Intake Total 600 Balance 600 - Medications Medications: Current Medications Benzocaine/Menthol (Cepacol Sore Throat) 1 tere PO Q3 PRN PRN Reason: Sore Throat Last Admin: 08/24/18 12:58 Dose: 1 tere Famotidine (Pepcid) 20 mg IVP STAT STA Stop: 08/25/18 09:40 Heparin Sodium (Porcine) (Heparin) 5,000 units SC Q8 TERA; Protocol Last Admin: 08/25/18 08:45 Dose: Not Given Meropenem 500 mg/ Sodium (Chloride) 100 mls @ 100 mls/hr IVPB Q8 TERA; Protocol Last Admin: 08/25/18 10:18 Dose: 100 mls/hr Linezolid (Zyvox 600mg/300ml D5w) 600 mg in 300 mls @ 300 mls/hr IVPB Q12 TERA; Protocol Last Admin: 08/25/18 10:54 Dose: 300 mls/hr Diphenhydramine HCl 25 mg/ (Sodium Chloride) 50.5 mls @ 101 mls/hr IVPB ONCE ONE Stop: 08/25/18 10:06 Carboplatin 155 mg/ Sodium (Chloride) 265.5 mls @ 0 mls/hr IV ONCE ONE Stop: 08/25/18 09:41 Dexamethasone 10 mg/ Sodium (Chloride) 51 mls @ 102 mls/hr IVPB ONCE ONE Stop: 08/25/18 10:06 Fosaprepitant 150 mg/ Sodium (Chloride) 250 mls @ 500 mls/hr IVPB ONCE ONE Stop: 08/25/18 10:08 Sodium Chloride (Sodium Chloride 0.9%) 500 mls @ 80 mls/hr IV .Q6H15M TERA Paclitaxel 95 mg/ Sodium (Chloride) 265.8333 mls @ 0 mls/hr IV ONCE ONE Stop: 08/25/18 09:42 Ondansetron HCl 16 mg/ Sodium (Chloride) 58 mls @ 116 mls/hr IVPB ONCE ONE Stop: 08/25/18 10:06 Ketorolac Tromethamine (Toradol) 15 mg IVP Q6 PRN PRN Reason: Pain, moderate (4-7) Last Admin: 08/25/18 10:12 Dose: 15 mg Lorazepam (Ativan) 1 mg PO HS [facility] Last Admin: 08/24/18 23:45 Dose: 1 mg Ondansetron HCl (Zofran Inj) 4 mg IVP Q4 PRN PRN Reason: Nausea/Vomiting Last Admin: 08/25/18 10:18 Dose: 4 mg Pantoprazole Sodium (Protonix Ec Tab) 40 mg PO DAILY [facility] Last Admin: 08/25/18 10:18 Dose: 40 mg Tolvaptan (Samsca) 30 mg PO ONCE ONE Stop: 08/25/18 11:23 - Labs Labs: 08/25/18 04:40 08/25/18 04:40 PT 12.8 Seconds (9.8-13.1) 08/25/18 04:40 INR 1.1 08/25/18 04:40 APTT 27.0 Seconds (25.6-37.1) 08/25/18 04:40 - Constitutional Appears: No Acute Distress - Eye Exam Eye Exam: Conjunctival injection - ENT Exam ENT Exam: Mucous Membranes Moist - Neck Exam Neck Exam: absent: Lymphadenopathy - Respiratory Exam Respiratory Exam: NORMAL BREATHING PATTERN - Cardiovascular Exam Cardiovascular Exam: absent: Gallop, JVD, Rubs - GI/Abdominal Exam GI & Abdominal Exam: Guarding, Normal Bowel Sounds - Extremities Exam Extremities Exam: absent: Calf Tenderness - Back Exam Back Exam: absent: CVA tenderness (L), CVA tenderness (R) - Neurological Exam Neurological Exam: Alert - Psychiatric Exam Psychiatric exam: Agitated - Skin Skin Exam: absent: Cyanosis Assessment and Plan (1) Hyponatremia Assessment & Plan: yponatremia most likely related to massive ascites with the fluid overloaded dilutional SIADH hyperkalemia Ovarian cancer diagnosed recently Hypoalbuminemia Debility Massive ascites right chest tube with drainage for massive pleural effusion initially. Acute kidney injury improving and serum creatinine coming down Recommendation hyponatremia most likely secondary to SIADH and dilutional and ascites,last serum sodium 129 Samsca 30 mg today Monitor serum sodium not to rise more than 9 mEq in the next 24 hours 25% albumin for hypotension Consider midodrine for hypotension Antibiotics as per primary team and monitor the dose of antibiotics with the kidney function. Kayexalate 30 g a stat by mouth for hyperkalemia Status: Acute (2) Fluid overload Status: Acute (3) Metastatic cancer Status: Acute (4) Pleural effusion Status: Acute (5) Sepsis Status: Acute
[2018-08-25] MEDS ORDERED: Tolvaptan 15 MG TAB PO ONE (11:45)
[2018-08-25] MEDS ORDERED: DiphenhydrAMINE 50 mg/ml Inj IVP ONE (11:45)
[2018-08-25] MEDS ORDERED: Fosaprepitant 150 MG in Sodium Chloride 0.9% 250 ML IVPB ONE (11:45)
--- NOTE | 2018-08-25 12:26 | CP.PCM.PN ---
Subjective - Date & Time of Evaluation Date of Evaluation: 08/25/18 Time of Evaluation: 12:19 - Subjective Subjective: Pt seems much more alert and in good spirits. She had a PICC line placed. W today.This will be repeated every week x3 then 1 week off.ill give her chemotherapy with carboplatin and paclitaxel. Objective - Vital Signs/Intake and Output Vital Signs (last 24 hours): Temp Pulse Resp BP Pulse Ox 97.7 F 110 H 24 108/78 97 08/25/18 08:00 08/25/18 10:00 08/25/18 10:00 08/25/18 10:00 08/25/18 10:00 Intake and Output: 08/25/18 08/25/18 06:59 18:59 Intake Total 600 Balance 600 - Medications Medications: Current Medications Benzocaine/Menthol (Cepacol Sore Throat) 1 tere PO Q3 PRN PRN Reason: Sore Throat Last Admin: 08/24/18 12:58 Dose: 1 tere Heparin Sodium (Porcine) (Heparin) 5,000 units SC Q8 TERA; Protocol Last Admin: 08/25/18 08:45 Dose: Not Given Meropenem 500 mg/ Sodium (Chloride) 100 mls @ 100 mls/hr IVPB Q8 TERA; Protocol Last Admin: 08/25/18 10:18 Dose: 100 mls/hr Linezolid (Zyvox 600mg/300ml D5w) 600 mg in 300 mls @ 300 mls/hr IVPB Q12 TERA; Protocol Last Admin: 08/25/18 10:54 Dose: 300 mls/hr Carboplatin 155 mg/ Sodium (Chloride) 265.5 mls @ 0 mls/hr IV ONCE ONE Stop: 08/25/18 09:41 Sodium Chloride (Sodium Chloride 0.9%) 500 mls @ 80 mls/hr IV .Q6H15M TERA Paclitaxel 95 mg/ Sodium (Chloride) 265.8333 mls @ 0 mls/hr IV ONCE ONE Stop: 08/25/18 09:42 Ketorolac Tromethamine (Toradol) 15 mg IVP Q6 PRN PRN Reason: Pain, moderate (4-7) Last Admin: 08/25/18 10:12 Dose: 15 mg Lorazepam (Ativan) 1 mg PO HS TERA Last Admin: 08/24/18 23:45 Dose: 1 mg Ondansetron HCl (Zofran Inj) 4 mg IVP Q4 PRN PRN Reason: Nausea/Vomiting Last Admin: 08/25/18 10:18 Dose: 4 mg Pantoprazole Sodium (Protonix Ec Tab) 40 mg PO DAILY TERA Last Admin: 08/25/18 10:18 Dose: 40 mg - Labs Labs: 08/25/18 04:40 08/25/18 04:40 PT 12.8 Seconds (9.8-13.1) 08/25/18 04:40 INR 1.1 08/25/18 04:40 APTT 27.0 Seconds (25.6-37.1) 08/25/18 04:40
[2018-08-25] MEDS ORDERED: SODIUM CHLORIDE 0.9% IV ONE ×2 (14:00→15:00)
[2018-08-25] MEDS ORDERED: CARBOPLATIN IV ONE (14:00)
--- NOTE | 2018-08-25 14:03 | CP.PCM.PN ---
Subjective - Date & Time of Evaluation Date of Evaluation: 08/25/18 Time of Evaluation: 09:00 - Subjective Subjective: awake alert NAD abd less tender no fever chemo in progress all cultures negative Objective - Vital Signs/Intake and Output Vital Signs (last 24 hours): Temp Pulse Resp BP Pulse Ox 97.7 F 103 H 17 108/77 99 08/25/18 12:00 08/25/18 12:00 08/25/18 12:00 08/25/18 12:00 08/25/18 12:00 Intake and Output: 08/25/18 08/25/18 06:59 18:59 Intake Total 600 Balance 600 - Medications Medications: Current Medications Benzocaine/Menthol (Cepacol Sore Throat) 1 tere PO Q3 PRN PRN Reason: Sore Throat Last Admin: 08/24/18 12:58 Dose: 1 tere Heparin Sodium (Porcine) (Heparin) 5,000 units SC Q8 TERA; Protocol Last Admin: 08/25/18 08:45 Dose: Not Given Meropenem 500 mg/ Sodium (Chloride) 100 mls @ 100 mls/hr IVPB Q8 TERA; Protocol Last Admin: 08/25/18 10:18 Dose: 100 mls/hr Linezolid (Zyvox 600mg/300ml D5w) 600 mg in 300 mls @ 300 mls/hr IVPB Q12 TERA; Protocol Last Admin: 08/25/18 10:54 Dose: 300 mls/hr Carboplatin 155 mg/ Sodium (Chloride) 265.5 mls @ 177 mls/hr IV ONCE ONE Stop: 08/25/18 15:29 Sodium Chloride (Sodium Chloride 0.9%) 500 mls @ 80 mls/hr IV .Q6H15M TERA Paclitaxel 95 mg/ Sodium (Chloride) 265.8333 mls @ 265.833 mls/hr IV ONCE ONE Stop: 08/25/18 15:59 Ketorolac Tromethamine (Toradol) 15 mg IVP Q6 PRN PRN Reason: Pain, moderate (4-7) Last Admin: 08/25/18 10:12 Dose: 15 mg Lorazepam (Ativan) 1 mg PO HS TERA Last Admin: 08/24/18 23:45 Dose: 1 mg Ondansetron HCl (Zofran Inj) 4 mg IVP Q4 PRN PRN Reason: Nausea/Vomiting Last Admin: 08/25/18 10:18 Dose: 4 mg Pantoprazole Sodium (Protonix Ec Tab) 40 mg PO DAILY [facility]A Last Admin: 08/25/18 10:18 Dose: 40 mg - Labs Labs: 08/25/18 04:40 08/25/18 04:40 PT 12.8 Seconds (9.8-13.1) 08/25/18 04:40 INR 1.1 08/25/18 04:40 APTT 27.0 Seconds (25.6-37.1) 08/25/18 04:40 - Constitutional Appears: Non-toxic - Head Exam Head Exam: NORMOCEPHALIC - Eye Exam Eye Exam: absent: Scleral icterus - ENT Exam ENT Exam: Mucous Membranes Dry - Neck Exam Neck Exam: absent: Lymphadenopathy - Respiratory Exam Respiratory Exam: Decreased Breath Sounds Additional comments: chest tube in place - Cardiovascular Exam Cardiovascular Exam: REGULAR RHYTHM - GI/Abdominal Exam GI & Abdominal Exam: Distended, Soft - Rectal Exam Rectal Exam: Deferred - Exam Exam: NORMAL INSPECTION - Extremities Exam Extremities Exam: absent: Pedal Edema - Back Exam Back Exam: absent: CVA tenderness (L), CVA tenderness (R) - Neurological Exam Neurological Exam: Alert, Awake - Psychiatric Exam Psychiatric exam: Anxious, Depressed - Skin Skin Exam: Dry Assessment and Plan (1) Fluid overload Status: Acute (2) Hyponatremia Status: Acute (3) Metastatic cancer Status: Acute (4) Pleural effusion Status: Acute (5) Sepsis Status: Acute - Assessment and Plan (Free Text) Assessment: will repeat procalcitonin if neg will d/c antibiotics as all cultures negative
[2018-08-25] MEDS: Sodium Chloride 0.9% 500 ML IV SCH (15:00)
[2018-08-25] MEDS ORDERED: PACLITAXEL IV ONE (15:00)
[2018-08-25] MEDS: Benzocaine/Menthol (Cepacol) Lozenge PO PRN (16:23)
--- NOTE | 2018-08-25 17:35 | CP.PCM.PN ---
Subjective - Date & Time of Evaluation Date of Evaluation: 08/25/18 Time of Evaluation: 10:45 - Subjective Subjective: 48 y/o F seen and examined by bedside with Dr Beach. Pt reported feeling well, little appetite, aware of that chemotherapy will be initiated soon. Pt denies chest pain, SOB, nausea or vomiting. Pt afebrile, tolerating PO with NO acute events overnight. Objective - Vital Signs/Intake and Output Vital Signs (last 24 hours): Temp Pulse Resp BP Pulse Ox 97.4 F L 108 H 24 100/71 97 08/25/18 16:00 08/25/18 16:00 08/25/18 16:00 08/25/18 16:00 08/25/18 14:00 Intake and Output: 08/25/18 08/25/18 06:59 18:59 Intake Total 600 Balance 600 - Medications Medications: Current Medications Benzocaine/Menthol (Cepacol Sore Throat) 1 tere PO Q3 PRN PRN Reason: Sore Throat Last Admin: 08/25/18 16:23 Dose: 1 tere Heparin Sodium (Porcine) (Heparin) 5,000 units SC Q8 TERA; Protocol Last Admin: 08/25/18 08:45 Dose: Not Given Meropenem 500 mg/ Sodium (Chloride) 100 mls @ 100 mls/hr IVPB Q8 TERA; Protocol Last Admin: 08/25/18 10:18 Dose: 100 mls/hr Linezolid (Zyvox 600mg/300ml D5w) 600 mg in 300 mls @ 300 mls/hr IVPB Q12 TERA; Protocol Last Admin: 08/25/18 10:54 Dose: 300 mls/hr Sodium Chloride (Sodium Chloride 0.9%) 500 mls @ 80 mls/hr IV .Q6H15M TERA Ketorolac Tromethamine (Toradol) 15 mg IVP Q6 PRN PRN Reason: Pain, moderate (4-7) Last Admin: 08/25/18 10:12 Dose: 15 mg Lorazepam (Ativan) 1 mg PO HS TERA Last Admin: 08/24/18 23:45 Dose: 1 mg Ondansetron HCl (Zofran Inj) 4 mg IVP Q4 PRN PRN Reason: Nausea/Vomiting Last Admin: 08/25/18 10:18 Dose: 4 mg Pantoprazole Sodium (Protonix Ec Tab) 40 mg PO DAILY [facility]A Last Admin: 08/25/18 10:18 Dose: 40 mg - Labs Labs: 08/25/18 04:40 08/25/18 04:40 PT 12.8 Seconds (9.8-13.1) 08/25/18 04:40 INR 1.1 08/25/18 04:40 APTT 27.0 Seconds (25.6-37.1) 08/25/18 04:40 - Additional Findings Additional findings: - Constitutional Appears: No Acute Distress - Head Exam Head Exam: ATRAUMATIC, NORMAL INSPECTION - Eye Exam Eye Exam: EOMI - ENT Exam ENT Exam: Mucous Membranes Dry - Neck Exam Neck exam: Positive for: Full Rom - Respiratory Exam Respiratory Exam: NORMAL BREATHING PATTERN, chest tube in place - Cardiovascular Exam Cardiovascular Exam: +S1, +S2 - GI/Abdominal Exam GI & Abdominal Exam: Distended, Firm, Soft, Tenderness diffuse and mild - Extremities Exam Extremities exam: Negative for: calf tenderness, tenderness - Neurological Exam Neurological exam: Alert and oriented x3. - Psychiatric Exam Psychiatric exam: normal Assessment and Plan - Assessment and Plan (Free Text) Assessment: 48 y/o F with a PMHx of ovarian cancer-stage IV, anemia and benign breast mass admitted for progressive abdominal ascitis, RLL pleural effusion, increasing lower extremity edema, and electrolyte imbalance. --As per complications from advanced stage ovarian cancer, anxious. PLAN: --S/P thoracocentesis and chest tube placement --PICC line access today. (NOT perfromed yesterday) --Chemotherapy to be initiated today: Carboplatin, Fosaprepitan, Paclitaxel. --On IV meropenem and linezolid --Nephrology on board, Dr Resendez. --ID on board, Dr Lechuga. --IR on board, Dr Larkin. --Pulmonology on board, Dr Arreaga. --Hematology/Oncology on board, Dr Sanchez. --Psychiatry on board, Dr Almeida --Continue management as ordered. Case discussed with Dr Beach who agrees with the above Laure PGY-2
[2018-08-26] MEDS: Meropenem 500 MG in Sodium Chloride 0.9% 100 ML IVPB SCH ×3 (01:52→17:56)
[2018-08-26 06:05] LABS: HEMOGLOBIN 9.7 g/dL (12.0-16.0); MEAN CELL VOLUME 76.9 fl (81.0-99.0); MEAN CORPUSCULAR HEMOGLOBIN 23.8 pg (27.0-31.0); RBC 4.05 Mil/uL (3.80-5.20); RED CELL DISTRIBUTION WIDTH 18.8 % (11.5-14.5)
[2018-08-26 06:38] LABS: ALB/GLOB RATIO 0.7 (1.0-2.1); ALT/SGPT 35 U/L (9-52); AST/SGOT 83 U/L (14-36); BLOOD UREA NITROGEN 24 mg/dl (7-17); CALCIUM 7.6 mg/dL (8.4-10.2); GFR NON-AFRICAN AMERICAN 53
--- NOTE | 2018-08-26 07:26 | CP.CCUPN ---
<Bipin Wagner - Last Filed: 08/26/18 16:15> CCU Subjective - Physician Review Subjective (Free Text): Pt seen and examined at bedside. Pt denied significant overnight events. Afebrile. Sitting upright in bed. Improved respiratory function. Pt increasing PO intake. s/p chemotherapy yesterday. CCU Objective - Vital Signs / Intake & Output Vital Signs (Last 4 hours): Vital Signs Temp Pulse Resp BP Pulse Ox 08/26/18 06:00 90 21 92/59 L 97 08/26/18 04:00 97.3 F L 85 15 92/59 L 94 L Intake and Output (Last 8hrs): Intake & Output 08/25/18 08/26/18 08/26/18 22:59 06:59 14:59 Intake Total 700 Output Total 580 Balance 120 Intake: Intake, Piggyback 400 Oral 300 Output: Chest Tube Drainage 580 Right Posterior Chest 580 Other: # Voids Urine, Voided 4 # Bowel Movements 1 - Physical Exam Pupils: Positive for: PERRL Mouth: Positive for: Moist Mucous Membranes Respiratory/Chest: Positive for: Decreased Breath Sounds, Rales, Other (Chest draining pleural fluid) Cardiovascular: Positive for: Normal S1, S2, Tachycardic Abdomen: Positive for: Tenderness, Distention Neurological: Positive for: CN II-XII Intact, Speech Normal Skin: Positive for: Warm Psychiatric: Positive for: Alert, Oriented x 3, Normal Insight, Normal Concentration - Medications Active Medications: Active Medications Generic Name Dose Route Start Last Admin Trade Name Freq PRN Reason Stop Dose Admin Benzocaine/Menthol 1 tere 08/24/18 09:18 08/25/18 16:23 Cepacol Sore Throat PO 1 tere Q3 PRN Administration Sore Throat Heparin Sodium (Porcine) 5,000 units 08/22/18 09:00 08/26/18 01:51 Heparin SC 5,000 units Q8 TERA Administration Protocol Meropenem 500 mg/ Sodium 100 mls @ 100 mls/hr 08/18/18 20:15 08/26/18 01:52 Chloride IVPB 100 mls/hr Q8 TERA Administration Protocol Linezolid 600 mg in 300 mls @ 300 mls/hr 08/20/18 21:00 08/25/18 21:23 Zyvox 600mg/300ml D5w IVPB 300 mls/hr Q12 TERA Administration Protocol Sodium Chloride 500 mls @ 80 mls/hr 08/25/18 09:45 08/25/18 15:00 Sodium Chloride 0.9% IV 80 mls/hr .Q6H15M TERA Administration Ketorolac Tromethamine 15 mg 08/24/18 12:45 08/25/18 10:12 Toradol IVP 15 mg Q6 PRN Administration Pain, moderate (4-7) Lorazepam 1 mg 08/22/18 22:00 08/25/18 21:23 Ativan PO 1 mg HS TERA Administration Ondansetron HCl 4 mg 08/24/18 21:25 08/25/18 10:18 Zofran Inj IVP 4 mg Q4 PRN Administration Nausea/Vomiting Pantoprazole Sodium 40 mg 08/20/18 09:00 08/25/18 10:18 Protonix Ec Tab PO 40 mg DAILY TERA Administration - Patient Studies Lab Studies: Lab Studies 08/26/18 08/26/18 08/25/18 Range/Units 04:50 04:50 15:25 WBC 13.0 H (4.8-10.8) K/uL RBC 4.05 (3.80-5.20) Mil/uL Hgb 9.7 L (12.0-16.0) g/dL Hct 31.2 L (34.0-47.0) % MCV 76.9 L (81.0-99.0) fl MCH 23.8 L (27.0-31.0) pg MCHC 31.0 L (33.0-37.0) g/dL RDW 18.8 H (11.5-14.5) % Plt Count 334 D (130-400) K/uL Sodium 132 (132-148) mmol/l Potassium 5.3 H (3.6-5.0) MMOL/L Chloride 105 (98-107) mmol/L Carbon Dioxide 23 (22-30) mmol/L Anion Gap 9 L (10-20) BUN 24 H (7-17) mg/dl Creatinine 1.1 (0.7-1.2) mg/dl Est GFR ( Amer) > 60 Est GFR (Non-Af Amer) 53 Random Glucose 133 H (65-105) mg/dL Lactic Acid 1.4 (0.7-2.1) MMOL/L Calcium 7.6 L (8.4-10.2) mg/dL Total Bilirubin 0.3 (0.2-1.3) mg/dl AST 83 H (14-36) U/L ALT 35 (9-52) U/L Alkaline Phosphatase 156 H (38-126) U/L Total Protein 4.7 L (6.3-8.2) G/DL Albumin 2.0 L (3.5-5.0) g/dL Globulin 2.7 (2.2-3.9) gm/dL Albumin/Globulin Ratio 0.7 L (1.0-2.1) Procalcitonin (0.19-0.49) NG/ML 08/25/ Range/Units 15:25 WBC (4.8-10.8) K/uL RBC (3.80-5.20) Mil/uL Hgb (12.0-16.0) g/dL Hct (34.0-47.0) % MCV (81.0-99.0) fl MCH (27.0-31.0) pg MCHC (33.0-37.0) g/dL RDW (11.5-14.5) % Plt Count (130-400) K/uL Sodium (132-148) mmol/l Potassium (3.6-5.0) MMOL/L Chloride (98-107) mmol/L Carbon Dioxide (22-30) mmol/L Anion Gap (10-20) BUN (7-17) mg/dl Creatinine (0.7-1.2) mg/dl Est GFR ( Amer) Est GFR (Non-Af Amer) Random Glucose (65-105) mg/dL Lactic Acid (0.7-2.1) MMOL/L Calcium (8.4-10.2) mg/dL Total Bilirubin (0.2-1.3) mg/dl AST (14-36) U/L ALT (9-52) U/L Alkaline Phosphatase (38-126) U/L Total Protein (6.3-8.2) G/DL Albumin (3.5-5.0) g/dL Globulin (2.2-3.9) gm/dL Albumin/Globulin Ratio (1.0-2.1) Procalcitonin 0.27 (0.19-0.49) NG/ML Laboratory Results - last 24 hr 08/25/18 08/25/18 08/26/18 15:25 15:25 04:50 WBC 13.0 H RBC 4.05 Hgb 9.7 L Hct 31.2 L MCV 76.9 L MCH 23.8 L MCHC 31.0 L RDW 18.8 H Plt Count 334 D Sodium Potassium Chloride Carbon Dioxide Anion Gap BUN Creatinine Est GFR ( Amer) Est GFR (Non-Af Amer) Random Glucose Lactic Acid 1.4 Calcium Total Bilirubin AST ALT Alkaline Phosphatase Total Protein Albumin Globulin Albumin/Globulin Ratio Procalcitonin 0.27 08/26/18 04:50 WBC RBC Hgb Hct MCV MCH MCHC RDW Plt Count Sodium 132 Potassium 5.3 H Chloride 105 Carbon Dioxide 23 Anion Gap 9 L BUN 24 H Creatinine 1.1 Est GFR ( Amer) > 60 Est GFR (Non-Af Amer) 53 Random Glucose 133 H Lactic Acid Calcium 7.6 L Total Bilirubin 0.3 AST 83 H ALT 35 Alkaline Phosphatase 156 H Total Protein 4.7 L Albumin 2.0 L Globulin 2.7 Albumin/Globulin Ratio 0.7 L Procalcitonin Review of Systems - Respiratory Respiratory: As Per HPI - Gastrointestinal Gastrointestinal: As Per HPI, Abdominal Pain - Reproductive: Female Reproductive:Female: Pelvic Pain - Neurological Neurological: As Per HPI Critical Care Progress Note - Nutrition Nutrition: Nutrition Category Date Time Status Regular Diet [DIET] Diets 08/21/18 Breakfast Active Assessment/Plan - Assessment and Plan (Free Text) Assessment: 48 yo F with pmhx of stage 4 ovarian cancer, anemia and benign breast mass admitted for progressive abdominal distension, SOB, increasing lower extremity edema, and hyponatremia. Pt is currently receiving chemotherapy. Plan: Metastatic Ovarian Cancer -Stage IV -Dr. Sanchez on board -PICC line -Chemo started yesterday: Carboplatin, Fosaprepitan, Paclitaxel (weekly) Abdominal wall cellulitis with severe sepsis: -Serum lactate: 3.2 > 1.4 -ID: Dr. Lechuga: meropenem, linezolid; s/p vancomycin and zosyn -BCX: negative -UCX: negative Pleural effusion -Pleurovac: draining 665 cc over 12 hrs -Pulm: Dr. Arreaga -IR: Dr. Trae: R sided drain -ID: Dr. Lechuga: meropenem, linezolid; s/p vancomycin and zosyn -Pleural fluid culture: negative -UCX: negative Ascites -IR: Dr. 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 Resendez: Samsca 30 mg Hyperkalemia -K: 5.3 -IVF -Kayexalate PO -Nephrology: Dr. 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 Almeida: recommend start remeron 7.5 qHS; however, contraindication with Linezolid started on 08/20/2018 -Will start remeron after completion of ABX. DVT/GI prophylaxis. -SCDs -IV heparin -IV protonix PT/OT -Eval and treat Code Status: -Full code Case dw Dr. Yamil Wagner MD PGY2 <Grey Lobo - Last Filed: 08/26/18 18:15> CCU Subjective - Physician Review Subjective (Free Text): Attestation: Patient seen and examined at the bedside with Resident Dr. Manny Wagner; and I agree with his outline of plans and management documented above and below, reflecting my review of all applicable clinical data, and participation in the care of the patient throughout the day in ICU; today, August 26, 2018.
[2018-08-26] MEDS ORDERED: Phenol 1.4% Throat Spray MT PRN (08:57)
--- NOTE | 2018-08-26 08:57 | CP.PCM.PN ---
Subjective - Date & Time of Evaluation Date of Evaluation: 08/26/18 Time of Evaluation: 08:57 - Subjective Subjective: SOB IMPROVED R CHEST TUBE STILL IN PLACE C/O SORETHROAT Objective - Vital Signs/Intake and Output Vital Signs (last 24 hours): Temp Pulse Resp BP Pulse Ox 97.6 F 102 H 29 H 92/59 L 95 08/26/18 08:00 08/26/18 08:00 08/26/18 08:00 08/26/18 06:00 08/26/18 08:00 - Medications Medications: Current Medications Benzocaine/Menthol (Cepacol Sore Throat) 1 tere PO Q3 PRN PRN Reason: Sore Throat Last Admin: 08/25/18 16:23 Dose: 1 tere Heparin Sodium (Porcine) (Heparin) 5,000 units SC Q8 TERA; Protocol Last Admin: 08/26/18 01:51 Dose: 5,000 units Meropenem 500 mg/ Sodium (Chloride) 100 mls @ 100 mls/hr IVPB Q8 TERA; Protocol Last Admin: 08/26/18 01:52 Dose: 100 mls/hr Linezolid (Zyvox 600mg/300ml D5w) 600 mg in 300 mls @ 300 mls/hr IVPB Q12 TERA; Protocol Last Admin: 08/25/18 21:23 Dose: 300 mls/hr Sodium Chloride (Sodium Chloride 0.9%) 500 mls @ 80 mls/hr IV .Q6H15M TERA Last Admin: 08/25/18 15:00 Dose: 80 mls/hr Ketorolac Tromethamine (Toradol) 15 mg IVP Q6 PRN PRN Reason: Pain, moderate (4-7) Last Admin: 08/25/18 10:12 Dose: 15 mg Lorazepam (Ativan) 1 mg PO HS TERA Last Admin: 08/25/18 21:23 Dose: 1 mg Ondansetron HCl (Zofran Inj) 4 mg IVP Q4 PRN PRN Reason: Nausea/Vomiting Last Admin: 08/25/18 10:18 Dose: 4 mg Pantoprazole Sodium (Protonix Ec Tab) 40 mg PO DAILY TERA Last Admin: 08/25/18 10:18 Dose: 40 mg - Labs Labs: 08/26/18 04:50 08/26/18 04:50 PT 12.8 Seconds (9.8-13.1) 08/25/18 04:40 INR 1.1 08/25/18 04:40 APTT 27.0 Seconds (25.6-37.1) 08/25/18 04:40 - Constitutional Appears: No Acute Distress, Chronically Ill - Head Exam Head Exam: ATRAUMATIC, NORMAL INSPECTION, NORMOCEPHALIC - Eye Exam Eye Exam: EOMI, Normal appearance, PERRL Pupil Exam: NORMAL ACCOMODATION, PERRL - ENT Exam ENT Exam: Mucous Membranes Moist, Normal Exam - Neck Exam Neck Exam: Full ROM, Normal Inspection. absent: Lymphadenopathy - Respiratory Exam Respiratory Exam: Prolonged Expiratory Phase, Rales, NORMAL BREATHING PATTERN - Cardiovascular Exam Cardiovascular Exam: REGULAR RHYTHM, +S1, +S2. absent: Murmur - GI/Abdominal Exam GI & Abdominal Exam: Soft, Normal Bowel Sounds. absent: Tenderness - Rectal Exam Rectal Exam: NORMAL INSPECTION - Extremities Exam Extremities Exam: Full ROM, Normal Capillary Refill, Normal Inspection. absent: Joint Swelling, Pedal Edema - Back Exam Back Exam: NORMAL INSPECTION - Neurological Exam Neurological Exam: Alert, Awake, CN II-XII Intact, Oriented x3 - Psychiatric Exam Psychiatric exam: Normal Affect, Normal Mood - Skin Skin Exam: Dry, Intact, Normal Color, Warm Assessment and Plan - Assessment and Plan (Free Text) Assessment: R PLEURAL EFFUSION--MALIGNANT Plan: AGREE WITH PRESENT RX SEE ORDERS
[2018-08-26] MEDS: Pantoprazole 40 mg EC Tab PO SCH (09:32)
[2018-08-26] MEDS: Linezolid 600 mg in D5W 300 ml 600 MG/300 ML BAG IVPB SCH ×2 (09:34→21:21)
[2018-08-26] MEDS: Benzocaine/Menthol (Cepacol) Lozenge PO PRN ×2 (09:34→17:56)
--- NOTE | 2018-08-26 09:48 | CP.PCM.PN ---
Subjective - Date & Time of Evaluation Date of Evaluation: 08/26/18 Time of Evaluation: 09:49 - Subjective Subjective: Pt is feeling better. She received her first dose of chemotherapy yesterday. she tolerated it well. Will got the next dose on thursday next week. The chest tube drainage is gradually decreasing. Have asked the patient to sit in a chair for at least 4-6 hrs Objective - Vital Signs/Intake and Output Vital Signs (last 24 hours): Temp Pulse Resp BP Pulse Ox 97.6 F 102 H 29 H 92/59 L 95 08/26/18 08:00 08/26/18 08:00 08/26/18 08:00 08/26/18 06:00 08/26/18 08:00 - Medications Medications: Current Medications Benzocaine/Menthol (Cepacol Sore Throat) 1 tere PO Q3 PRN PRN Reason: Sore Throat Last Admin: 08/26/18 09:34 Dose: 1 tere Heparin Sodium (Porcine) (Heparin) 5,000 units SC Q8 TERA; Protocol Last Admin: 08/26/18 09:32 Dose: Not Given Meropenem 500 mg/ Sodium (Chloride) 100 mls @ 100 mls/hr IVPB Q8 TERA; Protocol Last Admin: 08/26/18 09:33 Dose: 100 mls/hr Linezolid (Zyvox 600mg/300ml D5w) 600 mg in 300 mls @ 300 mls/hr IVPB Q12 TERA; Protocol Last Admin: 08/26/18 09:34 Dose: 300 mls/hr Sodium Chloride (Sodium Chloride 0.9%) 500 mls @ 80 mls/hr IV .Q6H15M TERA Last Admin: 08/25/18 15:00 Dose: 80 mls/hr Ketorolac Tromethamine (Toradol) 15 mg IVP Q6 PRN PRN Reason: Pain, moderate (4-7) Last Admin: 08/25/18 10:12 Dose: 15 mg Lorazepam (Ativan) 1 mg PO HS TERA Last Admin: 08/25/18 21:23 Dose: 1 mg Ondansetron HCl (Zofran Inj) 4 mg IVP Q4 PRN PRN Reason: Nausea/Vomiting Last Admin: 08/25/18 10:18 Dose: 4 mg Pantoprazole Sodium (Protonix Ec Tab) 40 mg PO DAILY TERA Last Admin: 08/26/18 09:32 Dose: 40 mg Phenol/Menthol (Phenaseptic 1.4% Throat [place]) 1 spry MT Q2 PRN PRN Reason: Sore Throat - Labs Labs: 08/26/18 04:50 08/26/18 04:50 PT 12.8 Seconds (9.8-13.1) 08/25/18 04:40 INR 1.1 08/25/18 04:40 APTT 27.0 Seconds (25.6-37.1) 08/25/18 04:40
--- NOTE | 2018-08-26 10:09 | CP.PCM.PN ---
Subjective - Date & Time of Evaluation Date of Evaluation: 08/26/18 Time of Evaluation: 10:08 - Subjective Subjective: patient sitting up in bed not in acute distress received chemotherapy Objective - Vital Signs/Intake and Output Vital Signs (last 24 hours): Temp Pulse Resp BP Pulse Ox 97.6 F 102 H 29 H 92/59 L 95 08/26/18 08:00 08/26/18 08:00 08/26/18 08:00 08/26/18 06:00 08/26/18 08:00 - Medications Medications: Current Medications Benzocaine/Menthol (Cepacol Sore Throat) 1 tere PO Q3 PRN PRN Reason: Sore Throat Last Admin: 08/26/18 09:34 Dose: 1 tere Heparin Sodium (Porcine) (Heparin) 5,000 units SC Q8 TERA; Protocol Last Admin: 08/26/18 09:32 Dose: Not Given Meropenem 500 mg/ Sodium (Chloride) 100 mls @ 100 mls/hr IVPB Q8 TERA; Protocol Last Admin: 08/26/18 09:33 Dose: 100 mls/hr Linezolid (Zyvox 600mg/300ml D5w) 600 mg in 300 mls @ 300 mls/hr IVPB Q12 TERA; Protocol Last Admin: 08/26/18 09:34 Dose: 300 mls/hr Sodium Chloride (Sodium Chloride 0.9%) 500 mls @ 80 mls/hr IV .Q6H15M TERA Last Admin: 08/25/18 15:00 Dose: 80 mls/hr Ketorolac Tromethamine (Toradol) 15 mg IVP Q6 PRN PRN Reason: Pain, moderate (4-7) Last Admin: 08/25/18 10:12 Dose: 15 mg Lorazepam (Ativan) 1 mg PO HS TERA Last Admin: 08/25/18 21:23 Dose: 1 mg Ondansetron HCl (Zofran Inj) 4 mg IVP Q4 PRN PRN Reason: Nausea/Vomiting Last Admin: 08/25/18 10:18 Dose: 4 mg Pantoprazole Sodium (Protonix Ec Tab) 40 mg PO DAILY TERA Last Admin: 08/26/18 09:32 Dose: 40 mg Phenol/Menthol (Phenaseptic 1.4% Throat [place]) 1 spry MT Q2 PRN PRN Reason: Sore Throat - Labs Labs: 08/26/18 04:50 08/26/18 04:50 PT 12.8 Seconds (9.8-13.1) 08/25/18 04:40 INR 1.1 08/25/18 04:40 APTT 27.0 Seconds (25.6-37.1) 08/25/18 04:40 - Constitutional Appears: No Acute Distress - Eye Exam Eye Exam: absent: Conjunctival injection - ENT Exam ENT Exam: Mucous Membranes Moist - Extremities Exam Extremities Exam: absent: Calf Tenderness - Back Exam Back Exam: absent: CVA tenderness (L), CVA tenderness (R) - Neurological Exam Neurological Exam: Alert - Skin Skin Exam: absent: Cyanosis Assessment and Plan (1) Hyponatremia Assessment & Plan: yponatremia most likely related to massive ascites with the fluid overloaded dilutional SIADH hyperkalemia Ovarian cancer diagnosed recently Hypoalbuminemia Debility Massive ascites right chest tube with drainage for massive pleural effusion initially. Acute kidney injury improving and serum creatinine coming down Recommendation hyponatremia most likely secondary to SIADH and dilutional and ascites,serum sodium going up last serum sodium 132 Samsca 30 mg today Monitor serum sodium not to rise more than 9 mEq in the next 24 hours 25% albumin for hypotension Consider midodrine for hypotension Antibiotics as per primary team and monitor the dose of antibiotics with the kidney function. Kayexalate 30 g a stat by mouth for hyperkalemia Status: Acute (2) Fluid overload Status: Acute (3) Metastatic cancer Status: Acute (4) Pleural effusion Status: Acute (5) Sepsis Status: Acute
--- NOTE | 2018-08-26 13:40 | RAD ---
Date of service: 08/26/2018 PROCEDURE: CHEST RADIOGRAPH, 1 VIEW HISTORY: PLEURAL EFFUSION COMPARISON: August 25, 2018. FINDINGS: LUNGS: Stable pulmonary nodules/masses. PLEURA: Stable left pleural effusion. CARDIOVASCULAR: No aortic atherosclerotic calcification present. PICC line in satisfactory position OSSEOUS STRUCTURES: No significant abnormalities. VISUALIZED UPPER ABDOMEN: Normal. OTHER FINDINGS: None. IMPRESSION: No significant interval change compared to the prior examination(s).
--- NOTE | 2018-08-26 15:46 | CP.PCM.PN ---
Subjective - Date & Time of Evaluation Date of Evaluation: 08/26/18 Time of Evaluation: 10:20 - Subjective Subjective: 48 y/o F seen and examined by bedside with Dr Beach. Pt reported feeling well, very talkative. Pt denies chest pain, SOB, nausea or vomiting. Pt afebrile, tolerating PO with NO acute events overnight. Objective - Vital Signs/Intake and Output Vital Signs (last 24 hours): Temp Pulse Resp BP Pulse Ox 97.7 F 107 H 19 111/80 95 08/26/18 12:00 08/26/18 12:00 08/26/18 12:00 08/26/18 12:00 08/26/18 12:00 - Medications Medications: Current Medications Benzocaine/Menthol (Cepacol Sore Throat) 1 tere PO Q3 PRN PRN Reason: Sore Throat Last Admin: 08/26/18 09:34 Dose: 1 tere Heparin Sodium (Porcine) (Heparin) 5,000 units SC Q8 TERA; Protocol Last Admin: 08/26/18 09:32 Dose: Not Given Meropenem 500 mg/ Sodium (Chloride) 100 mls @ 100 mls/hr IVPB Q8 TERA; Protocol Last Admin: 08/26/18 09:33 Dose: 100 mls/hr Linezolid (Zyvox 600mg/300ml D5w) 600 mg in 300 mls @ 300 mls/hr IVPB Q12 TERA; Protocol Last Admin: 08/26/18 09:34 Dose: 300 mls/hr Sodium Chloride (Sodium Chloride 0.9%) 500 mls @ 80 mls/hr IV .Q6H15M TERA Last Admin: 08/25/18 15:00 Dose: 80 mls/hr Ketorolac Tromethamine (Toradol) 15 mg IVP Q6 PRN PRN Reason: Pain, moderate (4-7) Last Admin: 08/26/18 12:46 Dose: 15 mg Lorazepam (Ativan) 1 mg PO HS TERA Last Admin: 08/25/18 21:23 Dose: 1 mg Ondansetron HCl (Zofran Inj) 4 mg IVP Q4 PRN PRN Reason: Nausea/Vomiting Last Admin: 08/25/18 10:18 Dose: 4 mg Pantoprazole Sodium (Protonix Ec Tab) 40 mg PO DAILY [facility] Last Admin: 08/26/18 09:32 Dose: 40 mg Phenol/Menthol (Phenaseptic 1.4% Throat [place]) 1 spry MT Q2 PRN PRN Reason: Sore Throat - Labs Labs: 08/26/18 04:50 08/26/18 04:50 PT 12.8 Seconds (9.8-13.1) 08/25/18 04:40 INR 1.1 08/25/18 04:40 APTT 27.0 Seconds (25.6-37.1) 08/25/18 04:40 - Additional Findings Additional findings: - Constitutional Appears: No Acute Distress - Head Exam Head Exam: ATRAUMATIC, NORMAL INSPECTION - Eye Exam Eye Exam: EOMI - ENT Exam ENT Exam: Mucous Membranes Dry - Neck Exam Neck exam: Positive for: Full Rom - Respiratory Exam Respiratory Exam: NORMAL BREATHING PATTERN, chest tube in place - Cardiovascular Exam Cardiovascular Exam: +S1, +S2 - GI/Abdominal Exam GI & Abdominal Exam: Distended, Firm, Soft, Tenderness diffuse and mild - Extremities Exam Extremities exam: Negative for: calf tenderness, tenderness - Neurological Exam Neurological exam: Alert and oriented x3. - Psychiatric Exam Psychiatric exam: normal Assessment and Plan - Assessment and Plan (Free Text) Assessment: 48 y/o F with a PMHx of ovarian cancer-stage IV, anemia and benign breast mass admitted for progressive abdominal ascitis, RLL pleural effusion, increasing lower extremity edema, and electrolyte imbalance. --On chemotherapy PLAN: --Afebrile, tolerating PO. --PICC line access available. --Chemotherapy: Carboplatin, Fosaprepitan, Paclitaxel. (Weekly) --On IV meropenem and linezolid --Nephrology on board, Dr Resendez. --ID on board, Dr Lechuga. --IR on board, Dr Larkin. --Pulmonology on board, Dr Arreaga. --Hematology/Oncology on board, Dr Sanchez. --Psychiatry on board, Dr Almeida --Continue management as ordered. Case discussed with Dr Beach who agrees with the above Laure PGY-2
[2018-08-26] MEDS ORDERED: Sod Polystyrene Sulf 15 gm/60 ml Susp PO ONE (16:28)
[2018-08-27] MEDS: Meropenem 500 MG in Sodium Chloride 0.9% 100 ML IVPB SCH ×2 (00:13→09:00)
[2018-08-27 06:41] LABS: HEMOGLOBIN 9.9 g/dL (12.0-16.0); MEAN CELL VOLUME 76.9 fl (81.0-99.0); MEAN CORPUSCULAR HEMOGLOBIN 24.1 pg (27.0-31.0); MEAN CORPUSCULAR HGB CONC 31.3 g/dL (33.0-37.0); RBC 4.12 Mil/uL (3.80-5.20); RED CELL DISTRIBUTION WIDTH 19.2 % (11.5-14.5)
[2018-08-27 06:59] LABS: ALB/GLOB RATIO 0.7 (1.0-2.1); ALBUMIN 1.9 g/dL (3.5-5.0); CALCIUM 7.7 mg/dL (8.4-10.2)
[2018-08-27] MEDS: Pantoprazole 40 mg EC Tab PO SCH (09:02)
[2018-08-27] MEDS: Linezolid 600 mg in D5W 300 ml 600 MG/300 ML BAG IVPB SCH (09:02)
--- NOTE | 2018-08-27 10:40 | CP.PCM.PN ---
Subjective - Date & Time of Evaluation Date of Evaluation: 08/27/18 Time of Evaluation: 10:32 - Subjective Subjective: Pt c/o weakness, but her CBC is stable after the chemotherapy. She did not sleep last night and feels she wants to rest today. This afternoon I would like her to get out of bed into a chair for at east 3 hrs. Objective - Vital Signs/Intake and Output Vital Signs (last 24 hours): Temp Pulse Resp BP Pulse Ox 97.6 F 116 H 19 100/69 97 08/27/18 08:07 08/27/18 08:07 08/27/18 08:07 08/27/18 08:07 08/27/18 08:07 - Medications Medications: Current Medications Benzocaine/Menthol (Cepacol Sore Throat) 1 tere PO Q3 PRN PRN Reason: Sore Throat Last Admin: 08/26/18 17:56 Dose: 1 tere Famotidine (Pepcid) 20 mg PO BID TERA Heparin Sodium (Porcine) (Heparin) 5,000 units SC Q8 TERA; Protocol Last Admin: 08/27/18 09:01 Dose: 5,000 units Meropenem 500 mg/ Sodium (Chloride) 100 mls @ 100 mls/hr IVPB Q8 TERA; Protocol Last Admin: 08/27/18 09:00 Dose: 100 mls/hr Linezolid (Zyvox 600mg/300ml D5w) 600 mg in 300 mls @ 300 mls/hr IVPB Q12 TERA; Protocol Last Admin: 08/27/18 09:02 Dose: 300 mls/hr Sodium Chloride (Sodium Chloride 0.9%) 500 mls @ 80 mls/hr IV .Q6H15M TERA Last Admin: 08/25/18 15:00 Dose: 80 mls/hr Ketorolac Tromethamine (Toradol) 15 mg IVP Q6 PRN PRN Reason: Pain, moderate (4-7) Last Admin: 08/27/18 06:47 Dose: 15 mg Lorazepam (Ativan) 1 mg PO HS TERA Last Admin: 08/26/18 22:50 Dose: 1 mg Ondansetron HCl (Zofran Inj) 4 mg IVP Q4 PRN PRN Reason: Nausea/Vomiting Last Admin: 08/25/18 10:18 Dose: 4 mg Pantoprazole Sodium (Protonix Ec Tab) 40 mg PO DAILY TERA Last Admin: 08/27/18 09:02 Dose: 40 mg Phenol/Menthol (Phenaseptic 1.4% Throat [place]) 1 spry MT Q2 PRN PRN Reason: Sore Throat - Labs Labs: 08/27/18 05:50 08/27/18 05:50 PT 12.8 Seconds (9.8-13.1) 08/25/18 04:40 INR 1.1 08/25/18 04:40 APTT 27.0 Seconds (25.6-37.1) 08/25/18 04:40
[2018-08-27] MEDS: Benzocaine/Menthol (Cepacol) Lozenge PO PRN (14:04)
--- NOTE | 2018-08-27 14:21 | CP.PCM.PN ---
Subjective - Date & Time of Evaluation Date of Evaluation: 08/27/18 Time of Evaluation: 09:00 - Subjective Subjective: WEAK S/P CHEMO ALL CULTURES NEG THUS FAR Objective - Vital Signs/Intake and Output Vital Signs (last 24 hours): Temp Pulse Resp BP Pulse Ox 97.6 F 116 H 19 100/69 97 08/27/18 08:07 08/27/18 08:07 08/27/18 08:07 08/27/18 08:07 08/27/18 08:07 - Medications Medications: Current Medications Benzocaine/Menthol (Cepacol Sore Throat) 1 tere PO Q3 PRN PRN Reason: Sore Throat Last Admin: 08/27/18 14:04 Dose: 1 tere Famotidine (Pepcid) 20 mg PO BID [facility] Heparin Sodium (Porcine) (Heparin) 5,000 units SC Q8 TERA; Protocol Last Admin: 08/27/18 09:01 Dose: 5,000 units Meropenem 500 mg/ Sodium (Chloride) 100 mls @ 100 mls/hr IVPB Q8 TERA; Protocol Last Admin: 08/27/18 09:00 Dose: 100 mls/hr Linezolid (Zyvox 600mg/300ml D5w) 600 mg in 300 mls @ 300 mls/hr IVPB Q12 TERA; Protocol Last Admin: 08/27/18 09:02 Dose: 300 mls/hr Sodium Chloride (Sodium Chloride 0.9%) 500 mls @ 80 mls/hr IV .Q6H15M TERA Last Admin: 08/25/18 15:00 Dose: 80 mls/hr Ketorolac Tromethamine (Toradol) 15 mg IVP Q6 PRN PRN Reason: Pain, moderate (4-7) Last Admin: 08/27/18 13:57 Dose: 15 mg Lorazepam (Ativan) 1 mg PO HS TERA Last Admin: 08/26/18 22:50 Dose: 1 mg Ondansetron HCl (Zofran Inj) 4 mg IVP Q4 PRN PRN Reason: Nausea/Vomiting Last Admin: 08/25/18 10:18 Dose: 4 mg Pantoprazole Sodium (Protonix Ec Tab) 40 mg PO DAILY TERA Last Admin: 08/27/18 09:02 Dose: 40 mg Phenol/Menthol (Phenaseptic 1.4% Throat [place]) 1 spry MT Q2 PRN PRN Reason: Sore Throat - Labs Labs: 08/27/18 05:50 08/27/18 05:50 PT 12.8 Seconds (9.8-13.1) 08/25/18 04:40 INR 1.1 08/25/18 04:40 APTT 27.0 Seconds (25.6-37.1) 08/25/18 04:40 - Constitutional Appears: Non-toxic, Chronically Ill - Head Exam Head Exam: NORMOCEPHALIC - Eye Exam Eye Exam: absent: Scleral icterus - ENT Exam ENT Exam: Mucous Membranes Dry - Neck Exam Neck Exam: absent: Lymphadenopathy - Respiratory Exam Respiratory Exam: Decreased Breath Sounds, Prolonged Expiratory Phase, Rales - Cardiovascular Exam Cardiovascular Exam: REGULAR RHYTHM - GI/Abdominal Exam GI & Abdominal Exam: Distended, Soft. absent: Tenderness Additional comments: + ASCITES - Rectal Exam Rectal Exam: Deferred - Exam Exam: NORMAL INSPECTION - Extremities Exam Extremities Exam: absent: Pedal Edema - Back Exam Back Exam: absent: CVA tenderness (L), CVA tenderness (R) Assessment and Plan (1) Fluid overload Status: Acute (2) Hyponatremia Status: Acute (3) Metastatic cancer Status: Acute (4) Pleural effusion Status: Acute (5) Sepsis Status: Acute - Assessment and Plan (Free Text) Assessment: WILL D/C ANTIBIOTICS IF OK WITH DR VALLES
--- NOTE | 2018-08-27 14:22 | CP.PCM.PN ---
Subjective - Date & Time of Evaluation Date of Evaluation: 08/27/18 Time of Evaluation: 14:24 - Subjective Subjective: Patient appears to be chronically ill and debilitated Patient in bed no vomiting although complaining of nausea at the time Objective - Vital Signs/Intake and Output Vital Signs (last 24 hours): Temp Pulse Resp BP Pulse Ox 97.6 F 116 H 19 100/69 97 08/27/18 08:07 08/27/18 08:07 08/27/18 08:07 08/27/18 08:07 08/27/18 08:07 - Medications Medications: Current Medications Benzocaine/Menthol (Cepacol Sore Throat) 1 tere PO Q3 PRN PRN Reason: Sore Throat Last Admin: 08/27/18 14:04 Dose: 1 tere Famotidine (Pepcid) 20 mg PO BID [facility] Heparin Sodium (Porcine) (Heparin) 5,000 units SC Q8 [facility]; Protocol Last Admin: 08/27/18 09:01 Dose: 5,000 units Meropenem 500 mg/ Sodium (Chloride) 100 mls @ 100 mls/hr IVPB Q8 [facility]; Protocol Last Admin: 08/27/18 09:00 Dose: 100 mls/hr Linezolid (Zyvox 600mg/300ml D5w) 600 mg in 300 mls @ 300 mls/hr IVPB Q12 [facility]; Protocol Last Admin: 08/27/18 09:02 Dose: 300 mls/hr Sodium Chloride (Sodium Chloride 0.9%) 500 mls @ 80 mls/hr IV .[id number] [facility] Last Admin: 08/25/18 15:00 Dose: 80 mls/hr Ketorolac Tromethamine (Toradol) 15 mg IVP Q6 PRN PRN Reason: Pain, moderate (4-7) Last Admin: 08/27/18 13:57 Dose: 15 mg Lorazepam (Ativan) 1 mg PO HS [facility] Last Admin: 08/26/18 22:50 Dose: 1 mg Ondansetron HCl (Zofran Inj) 4 mg IVP Q4 PRN PRN Reason: Nausea/Vomiting Last Admin: 08/25/18 10:18 Dose: 4 mg Pantoprazole Sodium (Protonix Ec Tab) 40 mg PO DAILY [facility] Last Admin: 08/27/18 09:02 Dose: 40 mg Phenol/Menthol (Phenaseptic 1.4% Throat [place]) 1 spry MT Q2 PRN PRN Reason: Sore Throat - Labs Labs: 08/27/18 05:50 08/27/18 05:50 PT 12.8 Seconds (9.8-13.1) 08/25/18 04:40 INR 1.1 08/25/18 04:40 APTT 27.0 Seconds (25.6-37.1) 08/25/18 04:40 - Constitutional Appears: No Acute Distress - Eye Exam Eye Exam: Conjunctival injection - ENT Exam ENT Exam: Mucous Membranes Moist - Respiratory Exam Respiratory Exam: NORMAL BREATHING PATTERN. absent: Chest Wall Tenderness - Cardiovascular Exam Cardiovascular Exam: absent: Gallop, JVD, Rubs - GI/Abdominal Exam GI & Abdominal Exam: Firm, Mass - Extremities Exam Extremities Exam: absent: Calf Tenderness - Back Exam Back Exam: absent: CVA tenderness (L), CVA tenderness (R) - Neurological Exam Neurological Exam: Alert - Psychiatric Exam Psychiatric exam: Depressed - Skin Skin Exam: absent: Cyanosis Assessment and Plan (1) Hyponatremia Assessment & Plan: Acute kidney injury serum creatinine started to rise again hyponatremia most likely related to massive ascites with the fluid overloaded dilutional serum sodium coming down 130 despite Samsca I noted so much fluid surrounding the patient and drinking too much. To do fluid restriction to control the hyponatremia SIADH hyperkalemia Ovarian cancer diagnosed recently Hypoalbuminemia Debility Massive ascites right chest tube with drainage for massive pleural effusion initially. Acute kidney injury improving and serum creatinine coming down Recommendation hyponatremia most likely secondary to SIADH and dilutional and ascites,serum sodium going up last serum sodium 132 Samsca 30 mg today Monitor serum sodium not to rise more than 9 mEq in the next 24 hours 25% albumin for hypotension Consider midodrine for hypotension Antibiotics as per primary team and monitor the dose of antibiotics with the kid albino function. Fluid restriction about 1100 mL per 24 hours Status: Acute (2) Fluid overload Status: Acute (3) Metastatic cancer Status: Acute (4) Pleural effusion Status: Acute (5) Sepsis Status: Acute
[2018-08-27] MEDS: Sodium Chloride 0.9% 500 ML IV SCH ×2 (15:25→18:19)
[2018-08-27] MEDS: Famotidine 40 MG/5 ML PO SCH (16:07)
--- NOTE | 2018-08-28 08:11 | CP.PCM.PN ---
Subjective - Date & Time of Evaluation Date of Evaluation: 08/28/18 Time of Evaluation: 08:14 - Subjective Subjective: Pt is afeberile , in no distress. Drainage from the chest tube is down to 58 cc. Vital signs are normal.CbC was stable,\ ill repeat CBC and CMP tomorrow She should be encouraged to eat more adnd get put of bed, Objective - Vital Signs/Intake and Output Vital Signs (last 24 hours): Temp Pulse Resp BP Pulse Ox 97.3 F L 117 H 20 100/66 100 08/28/18 00:06 08/28/18 00:06 08/28/18 00:06 08/28/18 00:06 08/28/18 00:06 Intake and Output: 08/28/18 08/28/18 06:59 18:59 Output Total 80 Balance -80 - Medications Medications: Current Medications Benzocaine/Menthol (Cepacol Sore Throat) 1 tere PO Q3 PRN PRN Reason: Sore Throat Last Admin: 08/27/18 14:04 Dose: 1 tere Famotidine (Pepcid) 20 mg PO BID [facility] Last Admin: 08/27/18 16:07 Dose: 20 mg Heparin Sodium (Porcine) (Heparin) 5,000 units SC Q8 [facility]; Protocol Last Admin: 08/28/18 01:50 Dose: 5,000 units Sodium Chloride (Sodium Chloride 0.9%) 500 mls @ 40 mls/hr IV .[id number] [facility] Last Admin: 08/27/18 18:19 Dose: 40 mls/hr Ketorolac Tromethamine (Toradol) 15 mg IVP Q6 PRN PRN Reason: Pain, moderate (4-7) Last Admin: 08/27/18 13:57 Dose: 15 mg Lorazepam (Ativan) 1 mg PO HS [facility] Last Admin: 08/27/18 22:08 Dose: 1 mg Ondansetron HCl (Zofran Inj) 4 mg IVP Q4 PRN PRN Reason: Nausea/Vomiting Last Admin: 08/25/18 10:18 Dose: 4 mg Pantoprazole Sodium (Protonix Ec Tab) 40 mg PO DAILY [facility] Last Admin: 08/27/18 09:02 Dose: 40 mg Phenol/Menthol (Phenaseptic 1.4% Throat [place]) 1 spry MT Q2 PRN PRN Reason: Sore Throat - Labs Labs: 08/27/18 05:50 08/27/18 05:50 PT 12.8 Seconds (9.8-13.1) 08/25/18 04:40 INR 1.1 08/25/18 04:40 APTT 27.0 Seconds (25.6-37.1) 08/25/18 04:40
[2018-08-28] MEDS: Benzocaine/Menthol (Cepacol) Lozenge PO PRN ×2 (08:51→16:33)
[2018-08-28] MEDS: Famotidine 40 MG/5 ML PO SCH ×2 (08:59→16:29)
[2018-08-28] MEDS: Pantoprazole 40 mg EC Tab PO SCH (09:01)
[2018-08-28 09:07] LABS: BASO % 0.3 % (0.0-2.0); EOS % 0.3 % (0.0-4.0); HEMOGLOBIN 9.7 g/dL (12.0-16.0); LYMPH # 0.9 K/uL (1.0-4.3); MEAN CELL VOLUME 76.8 fl (81.0-99.0); MEAN CORPUSCULAR HEMOGLOBIN 24.3 pg (27.0-31.0); MEAN CORPUSCULAR HGB CONC 31.6 g/dL (33.0-37.0); MEAN PLATELET VOLUME 7.2 fl (7.2-11.7); MONO # 0.2 K/uL (0.0-0.8); MONO % 1.2 % (0.0-10.0); NEUT # 12.3 K/uL (1.8-7.0); NEUT % 91.2 % (50.0-75.0); PLATELET COUNT 219 K/uL (130-400); RBC 3.99 Mil/uL (3.80-5.20); RED CELL DISTRIBUTION WIDTH 18.9 % (11.5-14.5); WHITE BLOOD COUNT 13.4 K/uL (4.8-10.8)
[2018-08-28 09:24] LABS: ALB/GLOB RATIO 0.8 (1.0-2.1); ALT/SGPT 43 U/L (9-52); AST/SGOT 97 U/L (14-36); BLOOD UREA NITROGEN 27 mg/dl (7-17); CALCIUM 7.9 mg/dL (8.4-10.2); GFR NON-AFRICAN AMERICAN 59
[2018-08-28 10:13] LABS: ANISOCYTOSIS SLIGHT; LYMPHOCYTE 9 % (20-50); MICROCYTOSIS SLIGHT; MONOCYTE 1 % (0-10); NEUTROPHIL 90 % (42-75); PLATELET ESTIMATE NORMAL (NORMAL); TOTAL CELLS COUNTED 100
[2018-08-28 10:14] LABS: HYPOCHROMIC SLIGHT; LARGE PLATELETS PRESENT; OVALOCYTES SLIGHT; TEARDROP CELLS SLIGHT
--- NOTE | 2018-08-28 11:16 | CP.PCM.PN ---
Subjective - Date & Time of Evaluation Date of Evaluation: 08/28/18 Time of Evaluation: :18 - Subjective Subjective: C/O SORE THROAT HAS FLIGHT OF IDEAS AND MULTIPLE OTHER COMPLAINTS OF UNRELATED SUBJECTS NO SOB Objective - Vital Signs/Intake and Output Vital Signs (last 24 hours): Temp Pulse Resp BP Pulse Ox 97.1 F L 117 H 20 104/74 99 08/28/18 08:36 08/28/18 00:06 08/28/18 08:36 08/28/18 08:36 08/28/18 08:36 Intake and Output: 08/28/18 08/28/18 06:59 18:59 Output Total 80 Balance -80 - Medications Medications: Current Medications Benzocaine/Menthol (Cepacol Sore Throat) 1 tere PO Q3 PRN PRN Reason: Sore Throat Last Admin: 08/28/18 08:51 Dose: 1 tere Famotidine (Pepcid) 20 mg PO BID [facility] Last Admin: 08/28/18 08:59 Dose: 20 mg Heparin Sodium (Porcine) (Heparin) 5,000 units SC Q8 [facility]; Protocol Last Admin: 08/28/18 08:56 Dose: 5,000 units Sodium Chloride (Sodium Chloride 0.9%) 500 mls @ 40 mls/hr IV .[id number] [facility] Last Admin: 08/27/18 18:19 Dose: 40 mls/hr Ketorolac Tromethamine (Toradol) 15 mg IVP Q6 PRN PRN Reason: Pain, moderate (4-7) Last Admin: 08/28/18 08:51 Dose: 15 mg Lorazepam (Ativan) 1 mg PO HS [facility] Last Admin: 08/27/18 22:08 Dose: 1 mg Ondansetron HCl (Zofran Inj) 4 mg IVP Q4 PRN PRN Reason: Nausea/Vomiting Last Admin: 08/25/18 10:18 Dose: 4 mg Pantoprazole Sodium (Protonix Ec Tab) 40 mg PO DAILY [facility] Last Admin: 08/28/18 09:01 Dose: 40 mg Phenol/Menthol (Phenaseptic 1.4% Throat [place]) 1 spry MT Q2 PRN PRN Reason: Sore Throat - Labs Labs: 08/28/18 09:00 08/28/18 09:00 PT 12.8 Seconds (9.8-13.1) 08/25/18 04:40 INR 1.1 08/25/18 04:40 APTT 27.0 Seconds (25.6-37.1) 08/25/18 04:40 - Constitutional Appears: Chronically Ill - Head Exam Head Exam: ATRAUMATIC, NORMAL INSPECTION, NORMOCEPHALIC - Eye Exam Eye Exam: EOMI, Normal appearance, PERRL Pupil Exam: NORMAL ACCOMODATION, PERRL - ENT Exam ENT Exam: Mucous Membranes Moist, Normal Exam - Neck Exam Neck Exam: Full ROM, Normal Inspection. absent: Lymphadenopathy - Respiratory Exam Respiratory Exam: Decreased Breath Sounds, Prolonged Expiratory Phase, NORMAL BREATHING PATTERN - Cardiovascular Exam Cardiovascular Exam: REGULAR RHYTHM, +S1, +S2. absent: Murmur - GI/Abdominal Exam GI & Abdominal Exam: Soft, Normal Bowel Sounds. absent: Tenderness - Rectal Exam Rectal Exam: NORMAL INSPECTION - Extremities Exam Extremities Exam: Full ROM, Normal Capillary Refill, Normal Inspection. absent: Joint Swelling, Pedal Edema - Back Exam Back Exam: NORMAL INSPECTION - Neurological Exam Neurological Exam: Alert, Awake, CN II-XII Intact, Normal Gait, Oriented x3 - Psychiatric Exam Psychiatric exam: Flat Affect - Skin Skin Exam: Dry, Intact, Normal Color, Warm Assessment and Plan - Assessment and Plan (Free Text) Assessment: PLEURAL EFFUSION OVARIAN CANCER WITH METS Plan: CONTINUE CURRENT RX MAY NEED PARACENTESES PRIOR TO CHEST TUBE REMOVAL
[2018-08-28] MEDS: Sodium Chloride 0.9% 500 ML IV SCH ×2 (13:08→19:31)
--- NOTE | 2018-08-28 15:26 | CP.PCM.PN ---
Subjective - Date & Time of Evaluation Date of Evaluation: 08/28/18 Time of Evaluation: 08:45 - Subjective Subjective: RENAL s: seen and examined o: vs as below gen: nad sclera:anicteric op: clear neck: supple no thyromegaly cv: +s1+s2 no rub lungs: cta - anteriorlly abd: distended inferiorly + bs ext: trace edema neuro: follows commands psych: nml affect skin: no rash imp; ARF/ hyponatremia/ ascites/ ovarian ca plan: karli resolved na is improved will hold off on samsca fluid restrict Objective - Vital Signs/Intake and Output Vital Signs (last 24 hours): Temp Pulse Resp BP Pulse Ox 97.1 F L 117 H 20 104/74 99 08/28/18 08:36 08/28/18 00:06 08/28/18 08:36 08/28/18 08:36 08/28/18 08:36 Intake and Output: 08/28/18 08/28/18 06:59 18:59 Output Total 80 Balance -80 - Medications Medications: Current Medications Benzocaine/Menthol (Cepacol Sore Throat) 1 tere PO Q3 PRN PRN Reason: Sore Throat Last Admin: 08/28/18 08:51 Dose: 1 tere Famotidine (Pepcid) 20 mg PO BID [facility] Last Admin: 08/28/18 08:59 Dose: 20 mg Heparin Sodium (Porcine) (Heparin) 5,000 units SC Q8 [facility]; Protocol Last Admin: 08/28/18 08:56 Dose: 5,000 units Sodium Chloride (Sodium Chloride 0.9%) 500 mls @ 40 mls/hr IV .[id number] [facility] Last Admin: 08/28/18 13:08 Dose: Not Given Ketorolac Tromethamine (Toradol) 15 mg IVP Q6 PRN PRN Reason: Pain, moderate (4-7) Last Admin: 08/28/18 08:51 Dose: 15 mg Lorazepam (Ativan) 1 mg PO HS [facility] Last Admin: 08/27/18 22:08 Dose: 1 mg Ondansetron HCl (Zofran Inj) 4 mg IVP Q4 PRN PRN Reason: Nausea/Vomiting Last Admin: 08/25/18 10:18 Dose: 4 mg Pantoprazole Sodium (Protonix Ec Tab) 40 mg PO DAILY [facility] Last Admin: 08/28/18 09:01 Dose: 40 mg Phenol/Menthol (Phenaseptic 1.4% Throat [place]) 1 spry MT BID [facility] - Labs Labs: 08/28/18 09:00 08/28/18 09:00 PT 12.8 Seconds (9.8-13.1) 08/25/18 04:40 INR 1.1 08/25/18 04:40 APTT 27.0 Seconds (25.6-37.1) 08/25/18 04:40
[2018-08-28] MEDS: Phenol 1.4% Throat Spray MT SCH (16:31)
[2018-08-29] MEDS: Phenol 1.4% Throat Spray MT SCH ×2 (09:24→18:59)
[2018-08-29] MEDS: Pantoprazole 40 mg EC Tab PO SCH (10:03)
[2018-08-29] MEDS: Famotidine 40 MG/5 ML PO SCH (10:04)
[2018-08-29 10:47] LABS: BASO % 0.3 % (0.0-2.0); EOS # 0.2 K/uL (0.0-0.7); EOS % 1.4 % (0.0-4.0); HEMOGLOBIN 9.4 g/dL (12.0-16.0); LYMPH % 7.1 % (20.0-40.0); MEAN CELL VOLUME 76.5 fl (81.0-99.0); MEAN CORPUSCULAR HEMOGLOBIN 23.8 pg (27.0-31.0); MEAN CORPUSCULAR HGB CONC 31.1 g/dL (33.0-37.0); MEAN PLATELET VOLUME 7.8 fl (7.2-11.7); MONO # 0.1 K/uL (0.0-0.8); MONO % 0.7 % (0.0-10.0); NEUT # 12.7 K/uL (1.8-7.0); NEUT % 90.5 % (50.0-75.0); RBC 3.93 Mil/uL (3.80-5.20); RED CELL DISTRIBUTION WIDTH 19.1 % (11.5-14.5)
--- NOTE | 2018-08-29 10:51 | CP.PCM.PN ---
Subjective - Date & Time of Evaluation Date of Evaluation: 08/29/18 Time of Evaluation: 10:51 - Subjective Subjective: RENAL s: seen and examined o: vs as below gen: nad sclera:anicteric op: clear neck: supple no thyromegaly cv: +s1+s2 no rub lungs: cta - anteriorlly abd: distended inferiorly + bs ext: trace edema neuro: follows commands psych: nml affect skin: no rash imp; ARF/ hyponatremia/ ascites/ ovarian ca plan: karli resolved na is improved - continue to monitor Objective - Vital Signs/Intake and Output Vital Signs (last 24 hours): Temp Pulse Resp BP Pulse Ox 97.7 F 134 H 20 102/69 98 08/29/18 08:21 08/29/18 08:21 08/29/18 08:21 08/29/18 08:21 08/29/18 08:21 Intake and Output: 08/29/18 08/29/18 06:59 18:59 Output Total 1110 Balance -1110 - Medications Medications: Current Medications Benzocaine/Menthol (Cepacol Sore Throat) 1 tere PO Q3 PRN PRN Reason: Sore Throat Last Admin: 08/28/18 16:33 Dose: 1 tere Famotidine (Pepcid) 20 mg PO BID [facility] Last Admin: 08/28/18 16:29 Dose: 20 mg Heparin Sodium (Porcine) (Heparin) 5,000 units SC Q8 [facility]; Protocol Last Admin: 08/29/18 09:59 Dose: 5,000 units Sodium Chloride (Sodium Chloride 0.9%) 500 mls @ 40 mls/hr IV .[id number] [facility] Last Admin: 08/28/18 19:31 Dose: Not Given Ketorolac Tromethamine (Toradol) 15 mg IVP Q6 PRN PRN Reason: Pain, moderate (4-7) Last Admin: 08/29/18 09:37 Dose: 15 mg Lorazepam (Ativan) 1 mg PO HS [facility] Last Admin: 08/28/18 22:02 Dose: 1 mg Ondansetron HCl (Zofran Inj) 4 mg IVP Q4 PRN PRN Reason: Nausea/Vomiting Last Admin: 08/28/18 22:03 Dose: 4 mg Pantoprazole Sodium (Protonix Ec Tab) 40 mg PO DAILY [facility] Last Admin: 08/29/18 10:03 Dose: 40 mg Phenol/Menthol (Phenaseptic 1.4% Throat [place]) 1 spry MT BID [facility] Last Admin: 08/29/18 09:24 Dose: 1 spry - Labs Labs: 08/28/18 09:00 08/28/18 09:00 PT 12.8 Seconds (9.8-13.1) 08/25/18 04:40 INR 1.1 08/25/18 04:40 APTT 27.0 Seconds (25.6-37.1) 08/25/18 04:40
[2018-08-29 11:08] LABS: ALB/GLOB RATIO 0.8 (1.0-2.1); ALBUMIN 2.1 g/dL (3.5-5.0); ALT/SGPT 58 U/L (9-52); AST/SGOT 129 U/L (14-36); BLOOD UREA NITROGEN 28 mg/dl (7-17); CALCIUM 7.7 mg/dL (8.4-10.2); GFR NON-AFRICAN AMERICAN > 60
--- NOTE | 2018-08-29 14:18 | CP.PCM.PN ---
Subjective - Date & Time of Evaluation Date of Evaluation: 08/29/18 Time of Evaluation: 08:00 - Subjective Subjective: afebrile off antibiotics poor apettite Objective - Vital Signs/Intake and Output Vital Signs (last 24 hours): Temp Pulse Resp BP Pulse Ox 97.7 F 134 H 20 102/69 98 08/29/18 08:21 08/29/18 08:21 08/29/18 08:21 08/29/18 08:21 08/29/18 08:21 Intake and Output: 08/29/18 08/29/18 06:59 18:59 Output Total 1110 Balance -1110 - Medications Medications: Current Medications Benzocaine/Menthol (Cepacol Sore Throat) 1 tere PO Q3 PRN PRN Reason: Sore Throat Last Admin: 08/28/18 16:33 Dose: 1 tere Famotidine (Pepcid) 20 mg PO BID [facility] Last Admin: 08/29/18 10:04 Dose: 20 mg Heparin Sodium (Porcine) (Heparin) 5,000 units SC Q8 [facility]; Protocol Last Admin: 08/29/18 09:59 Dose: 5,000 units Sodium Chloride (Sodium Chloride 0.9%) 500 mls @ 40 mls/hr IV .[id number] [facility] Last Admin: 08/28/18 19:31 Dose: Not Given Ketorolac Tromethamine (Toradol) 15 mg IVP Q6 PRN PRN Reason: Pain, moderate (4-7) Last Admin: 08/29/18 09:37 Dose: 15 mg Lorazepam (Ativan) 1 mg PO HS [facility] Last Admin: 08/28/18 22:02 Dose: 1 mg Ondansetron HCl (Zofran Inj) 4 mg IVP Q4 PRN PRN Reason: Nausea/Vomiting Last Admin: 08/28/18 22:03 Dose: 4 mg Pantoprazole Sodium (Protonix Ec Tab) 40 mg PO DAILY [facility] Last Admin: 08/29/18 10:03 Dose: 40 mg Phenol/Menthol (Phenaseptic 1.4% Throat [place]) 1 spry MT BID [facility] Last Admin: 08/29/18 09:24 Dose: 1 spry - Labs Labs: 08/29/18 10:30 08/29/18 10:30 PT 12.8 Seconds (9.8-13.1) 08/25/18 04:40 INR 1.1 08/25/18 04:40 APTT 27.0 Seconds (25.6-37.1) 08/25/18 04:40 - Constitutional Appears: Non-toxic, Chronically Ill - Head Exam Head Exam: NORMOCEPHALIC - Eye Exam Eye Exam: absent: Scleral icterus - ENT Exam ENT Exam: Mucous Membranes Dry - Neck Exam Neck Exam: absent: Lymphadenopathy - Respiratory Exam Respiratory Exam: Decreased Breath Sounds - Cardiovascular Exam Cardiovascular Exam: REGULAR RHYTHM - GI/Abdominal Exam GI & Abdominal Exam: Distended, Firm, Soft. absent: Guarding, Rigid, Tenderness, Organomegaly, Rebound - Rectal Exam Rectal Exam: Deferred - Exam Exam: NORMAL INSPECTION - Extremities Exam Extremities Exam: Pedal Edema - Back Exam Back Exam: absent: CVA tenderness (L), CVA tenderness (R) - Neurological Exam Neurological Exam: Alert, Awake, CN II-XII Intact, Oriented x3. absent: Motor Sensory Deficit - Psychiatric Exam Psychiatric exam: Depressed - Skin Skin Exam: Dry Assessment and Plan (1) Fluid overload Status: Acute (2) Hyponatremia Status: Acute (3) Metastatic cancer Status: Acute (4) Pleural effusion Status: Acute (5) Sepsis Status: Acute - Assessment and Plan (Free Text) Assessment: cont to observe off antibiotics chemo rx ? pleurodesis
[2018-08-29] MEDS: Sodium Chloride 0.9% 500 ML IV SCH ×2 (19:03→19:04)
[2018-08-30] MEDS: Sodium Chloride 0.9% 500 ML IV SCH ×2 (06:29→07:17)
[2018-08-30 06:34] LABS: HEMOGLOBIN 8.9 g/dL (12.0-16.0); MEAN CELL VOLUME 76.5 fl (81.0-99.0); MEAN CORPUSCULAR HGB CONC 31.3 g/dL (33.0-37.0); RBC 3.72 Mil/uL (3.80-5.20); RED CELL DISTRIBUTION WIDTH 18.7 % (11.5-14.5); WHITE BLOOD COUNT 12.3 K/uL (4.8-10.8)
[2018-08-30 06:51] LABS: ALB/GLOB RATIO 0.8 (1.0-2.1); ALBUMIN 1.9 g/dL (3.5-5.0); ALT/SGPT 44 U/L (9-52); AST/SGOT 91 U/L (14-36); BLOOD UREA NITROGEN 27 mg/dl (7-17); CALCIUM 7.6 mg/dL (8.4-10.2); GFR NON-AFRICAN AMERICAN > 60
--- NOTE | 2018-08-30 08:31 | CP.PCM.PN ---
Subjective - Date & Time of Evaluation Date of Evaluation: 08/30/18 Time of Evaluation: 08:32 - Subjective Subjective: NO CHEST PAIN/SOB APPREHENSIVE ABOUT BEING EVALUATED FOR CHEST TUBE REMOVAL AND PARACENTESES Objective - Vital Signs/Intake and Output Vital Signs (last 24 hours): Temp Pulse Resp BP Pulse Ox 98.3 F 123 H 22 103/74 100 08/30/18 08:03 08/30/18 08:03 08/30/18 08:03 08/30/18 08:03 08/30/18 08:03 Intake and Output: 08/30/18 08/30/18 06:59 18:59 Output Total 550 Balance -550 - Medications Medications: Current Medications Benzocaine/Menthol (Cepacol Sore Throat) 1 tere PO Q3 PRN PRN Reason: Sore Throat Last Admin: 08/28/18 16:33 Dose: 1 tere Famotidine (Pepcid) 20 mg PO BID [facility] Last Admin: 08/29/18 19:02 Dose: 20 mg Heparin Sodium (Porcine) (Heparin) 5,000 units SC Q8 [facility]; Protocol Last Admin: 08/30/18 01:30 Dose: 5,000 units Sodium Chloride (Sodium Chloride 0.9%) 500 mls @ 40 mls/hr IV .[id number] [facility] Last Admin: 08/30/18 06:29 Dose: 40 mls/hr Ketorolac Tromethamine (Toradol) 15 mg IVP Q6 PRN PRN Reason: Pain, moderate (4-7) Last Admin: 08/30/18 06:21 Dose: 15 mg Lorazepam (Ativan) 1 mg PO HS [facility] Last Admin: 08/29/18 22:47 Dose: 1 mg Ondansetron HCl (Zofran Inj) 4 mg IVP Q4 PRN PRN Reason: Nausea/Vomiting Last Admin: 08/28/18 22:03 Dose: 4 mg Pantoprazole Sodium (Protonix Ec Tab) 40 mg PO DAILY [facility] Last Admin: 08/29/18 10:03 Dose: 40 mg Phenol/Menthol (Phenaseptic 1.4% Throat [place]) 1 spry MT BID [facility] Last Admin: 08/29/18 18:59 Dose: 1 spry - Labs Labs: 08/30/18 05:50 08/30/18 05:50 PT 12.8 Seconds (9.8-13.1) 08/25/18 04:40 INR 1.1 08/25/18 04:40 APTT 27.0 Seconds (25.6-37.1) 08/25/18 04:40 - Constitutional Appears: Chronically Ill - Head Exam Head Exam: ATRAUMATIC, NORMAL INSPECTION, NORMOCEPHALIC - Eye Exam Eye Exam: EOMI, Normal appearance, PERRL Pupil Exam: NORMAL ACCOMODATION, PERRL - ENT Exam ENT Exam: Mucous Membranes Moist, Normal Exam - Neck Exam Neck Exam: Full ROM, Normal Inspection. absent: Lymphadenopathy - Respiratory Exam Respiratory Exam: Decreased Breath Sounds, Prolonged Expiratory Phase, Rales, NORMAL BREATHING PATTERN - Cardiovascular Exam Cardiovascular Exam: REGULAR RHYTHM, +S1, +S2. absent: Murmur - GI/Abdominal Exam GI & Abdominal Exam: Distended, Soft, Normal Bowel Sounds. absent: Tenderness - Rectal Exam Rectal Exam: NORMAL INSPECTION - Extremities Exam Extremities Exam: Full ROM, Normal Capillary Refill, Normal Inspection. absent: Joint Swelling, Pedal Edema - Back Exam Back Exam: NORMAL INSPECTION - Neurological Exam Neurological Exam: Alert, Awake, CN II-XII Intact, Normal Gait, Oriented x3 - Psychiatric Exam Psychiatric exam: Normal Affect, Normal Mood - Skin Skin Exam: Dry, Intact, Normal Color, Warm Assessment and Plan - Assessment and Plan (Free Text) Assessment: PLEURAL EFFUSION--IMPROVED WITH CHEST TUBE DRAINAGE OVARIAN CANCER WITH METS ASCITES Plan: IR EVALUATION FOR POSSIBLE CHEST TUBE REMOVAL AND PARACENTESES--THERAPEUTIC FOR CHEMOTHERAPY
[2018-08-30] MEDS: Phenol 1.4% Throat Spray MT SCH ×2 (09:06→18:07)
[2018-08-30] MEDS: Pantoprazole 40 mg EC Tab PO SCH (10:12)
--- NOTE | 2018-08-30 10:53 | CP.PCM.PN ---
Subjective - Date & Time of Evaluation Date of Evaluation: 08/30/18 Time of Evaluation: 10:49 - Subjective Subjective: Pt is still c/o abdominal discomfort . She is scheduled for paracentesis today. The chest tube is still draining a fair amount of fluid. CBC and chemistries are more or less WNL. Objective - Vital Signs/Intake and Output Vital Signs (last 24 hours): Temp Pulse Resp BP Pulse Ox 98.3 F 123 H 22 103/74 100 08/30/18 08:03 08/30/18 08:03 08/30/18 08:03 08/30/18 08:03 08/30/18 08:03 Intake and Output: 08/30/18 08/30/18 06:59 18:59 Output Total 550 Balance -550 - Medications Medications: Current Medications Benzocaine/Menthol (Cepacol Sore Throat) 1 tere PO Q3 PRN PRN Reason: Sore Throat Last Admin: 08/28/18 16:33 Dose: 1 tere Famotidine (Pepcid) 20 mg PO BID [facility] Last Admin: 08/30/18 10:12 Dose: 20 mg Heparin Sodium (Porcine) (Heparin) 5,000 units SC Q8 [facility]; Protocol Last Admin: 08/30/18 01:30 Dose: 5,000 units Sodium Chloride (Sodium Chloride 0.9%) 500 mls @ 40 mls/hr IV .[id number] [facility] Last Admin: 08/30/18 06:29 Dose: 40 mls/hr Ketorolac Tromethamine (Toradol) 15 mg IVP Q6 PRN PRN Reason: Pain, moderate (4-7) Last Admin: 08/30/18 06:21 Dose: 15 mg Lorazepam (Ativan) 1 mg PO HS [facility] Last Admin: 08/29/18 22:47 Dose: 1 mg Ondansetron HCl (Zofran Inj) 4 mg IVP Q4 PRN PRN Reason: Nausea/Vomiting Last Admin: 08/28/18 22:03 Dose: 4 mg Pantoprazole Sodium (Protonix Ec Tab) 40 mg PO DAILY [facility] Last Admin: 08/30/18 10:12 Dose: 40 mg Phenol/Menthol (Phenaseptic 1.4% Throat [place]) 1 spry MT BID [facility] Last Admin: 08/29/18 18:59 Dose: 1 spry - Labs Labs: 08/30/18 05:50 08/30/18 05:50 PT 12.8 Seconds (9.8-13.1) 08/25/18 04:40 INR 1.1 08/25/18 04:40 APTT 27.0 Seconds (25.6-37.1) 08/25/18 04:40
--- NOTE | 2018-08-30 11:06 | CP.PCM.PN ---
Subjective - Date & Time of Evaluation Date of Evaluation: 08/30/18 Time of Evaluation: 11:05 - Subjective Subjective: patient complaining of generalized weakness Objective - Vital Signs/Intake and Output Vital Signs (last 24 hours): Temp Pulse Resp BP Pulse Ox 98.3 F 123 H 22 103/74 100 08/30/18 08:03 08/30/18 08:03 08/30/18 08:03 08/30/18 08:03 08/30/18 08:03 Intake and Output: 08/30/18 08/30/18 06:59 18:59 Output Total 550 Balance -550 - Medications Medications: Current Medications Benzocaine/Menthol (Cepacol Sore Throat) 1 tere PO Q3 PRN PRN Reason: Sore Throat Last Admin: 08/28/18 16:33 Dose: 1 tere Famotidine (Pepcid) 20 mg PO BID [facility] Last Admin: 08/30/18 10:12 Dose: 20 mg Heparin Sodium (Porcine) (Heparin) 5,000 units SC Q8 [facility]; Protocol Last Admin: 08/30/18 01:30 Dose: 5,000 units Sodium Chloride (Sodium Chloride 0.9%) 500 mls @ 40 mls/hr IV .[id number] [facility] Last Admin: 08/30/18 06:29 Dose: 40 mls/hr Ketorolac Tromethamine (Toradol) 15 mg IVP Q6 PRN PRN Reason: Pain, moderate (4-7) Last Admin: 08/30/18 06:21 Dose: 15 mg Lorazepam (Ativan) 1 mg PO HS [facility] Last Admin: 08/29/18 22:47 Dose: 1 mg Ondansetron HCl (Zofran Inj) 4 mg IVP Q4 PRN PRN Reason: Nausea/Vomiting Last Admin: 08/28/18 22:03 Dose: 4 mg Pantoprazole Sodium (Protonix Ec Tab) 40 mg PO DAILY [facility] Last Admin: 08/30/18 10:12 Dose: 40 mg Phenol/Menthol (Phenaseptic 1.4% Throat [place]) 1 spry MT BID [facility] Last Admin: 08/29/18 18:59 Dose: 1 spry - Labs Labs: 08/30/18 05:50 08/30/18 05:50 PT 12.8 Seconds (9.8-13.1) 08/25/18 04:40 INR 1.1 08/25/18 04:40 APTT 27.0 Seconds (25.6-37.1) 08/25/18 04:40 - Constitutional Appears: No Acute Distress - ENT Exam ENT Exam: Mucous Membranes Moist - Respiratory Exam Respiratory Exam: NORMAL BREATHING PATTERN. absent: Chest Wall Tenderness - Cardiovascular Exam Cardiovascular Exam: absent: JVD, Rubs - GI/Abdominal Exam GI & Abdominal Exam: Distended, Soft - Extremities Exam Extremities Exam: absent: Calf Tenderness - Back Exam Back Exam: absent: CVA tenderness (L), CVA tenderness (R) - Neurological Exam Neurological Exam: Alert Assessment and Plan (1) Hyponatremia Assessment & Plan: Acute kidney injury serum creatinine started to rise again hyponatremia most likely related to massive ascites with the fluid overloaded dilutional serum sodium coming down 130 despite Samsca I noted so much fluid surrounding the patient and drinking too much. To do fluid restriction to control the hyponatremia SIADH hyperkalemia Ovarian cancer diagnosed recently s/p chemoth. Hypoalbuminemia Debility Massive ascites right chest tube with drainage for massive pleural effusion initially. 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
[2018-08-30] MEDS ORDERED: Lidocaine 1% Inj (20ml) ONE (11:33)
--- NOTE | 2018-08-30 11:48 | PCM.SURG1 ---
Surgeon's Initial Post Op Note - Surgeon's Notes Surgeon: Drew Vogt MD Housecleaner: NONE Type of Anesthesia: None Pre-Operative Diagnosis: Metastatic [employer] cancer Operative Findings: US showed complex abdominal mass/pelvic mass. No significant ascites seen on ultrasound for paracentesis. CXR showed near resolution of pleural effusion. Chest tube removed. Post-Operative Diagnosis: Metastatic [employer] cancer Operation Performed: Removal right chest tube. Specimen/Specimens Removed: NONE Estimated Blood Loss: EBL {In ML}: 0 Blood Products Given: N/A Drains Used: No Drains Post-Op Condition: Fair Date of Surgery/Procedure: 08/30/18 Time of Surgery/Procedure: 11:40
--- NOTE | 2018-08-30 13:11 | RAD ---
Date of service: 08/30/2018 HISTORY: Status post right chest tube removal. COMPARISON: Frontal chest radiograph 08/26/2018. FINDINGS: LUNGS: Right PICC unchanged in position. Right pleural drainage catheter now removed. Diminished bilateral pleural effusions identified which trace residual at the right and mild residual at the left. No pneumothorax bilaterally. No definitive alveolitis bilaterally. Extensive bilateral pulmonary metastases are again identified, right greater than left. PLEURA: As above. CARDIOVASCULAR: No aortic atherosclerotic calcification present. Normal cardiac size. No pulmonary vascular congestion. OSSEOUS STRUCTURES: No significant abnormalities. VISUALIZED UPPER ABDOMEN: Normal. OTHER FINDINGS: None. IMPRESSION: Trace right pleural effusion. Mild left pleural effusion, likely diminished. No definitive alveolitis bilaterally on acute basis. No pneumothorax bilaterally. Widespread pulmonary metastases reiterated. Right PICC unchanged in situ. Right pleural drainage catheter now removed.
[2018-08-30] MEDS ORDERED: Digoxin 125 mcg (0.125 mg) Tab PO ONE (16:54)
[2018-08-31] MEDS: Sodium Chloride 0.9% 500 ML IV SCH ×2 (08:13→21:59)
--- NOTE | 2018-08-31 08:51 | CP.PCM.PN ---
Subjective - Date & Time of Evaluation Date of Evaluation: 08/31/18 Time of Evaluation: 08:51 - Subjective Subjective: FEELS BETTER TODAY NO SOB CHEST TUBE REMOVED NO ASCITES Objective - Vital Signs/Intake and Output Vital Signs (last 24 hours): Temp Pulse Resp BP Pulse Ox 97.7 F 130 H 20 100/72 96 08/31/18 08:35 08/31/18 08:35 08/31/18 08:35 08/31/18 08:35 08/31/18 08:35 - Medications Medications: Current Medications Benzocaine/Menthol (Cepacol Sore Throat) 1 tere PO Q3 PRN PRN Reason: Sore Throat Last Admin: 08/28/18 16:33 Dose: 1 tere Digoxin (Lanoxin) 0.25 mg PO DAILY [facility] Epoetin Real (Procrit) 20,000 unit SC MWF [facility] Famotidine (Pepcid) 20 mg PO BID [facility] Last Admin: 08/30/18 18:06 Dose: 20 mg Ferrous Sulfate (Feosol) 325 mg PO BID [facility] Last Admin: 08/30/18 18:09 Dose: 325 mg Heparin Sodium (Porcine) (Heparin) 5,000 units SC Q8 [facility]; Protocol Last Admin: 08/31/18 00:16 Dose: 5,000 units Sodium Chloride (Sodium Chloride 0.9%) 500 mls @ 40 mls/hr IV .[id number] [facility] Last Admin: 08/30/18 07:17 Dose: Not Given Ketorolac Tromethamine (Toradol) 15 mg IVP Q6 PRN PRN Reason: Pain, moderate (4-7) Last Admin: 08/30/18 06:21 Dose: 15 mg Lorazepam (Ativan) 1 mg PO HS [facility] Last Admin: 08/31/18 00:16 Dose: 1 mg Ondansetron HCl (Zofran Inj) 4 mg IVP Q4 PRN PRN Reason: Nausea/Vomiting Last Admin: 08/30/18 19:07 Dose: 4 mg Pantoprazole Sodium (Protonix Ec Tab) 40 mg PO DAILY [facility] Last Admin: 08/30/18 10:12 Dose: 40 mg Phenol/Menthol (Phenaseptic 1.4% Throat [place]) 1 spry MT BID [facility] Last Admin: 08/30/18 18:07 Dose: 1 spry - Labs Labs: 08/30/18 05:50 08/30/18 05:50 PT 12.8 Seconds (9.8-13.1) 08/25/18 04:40 INR 1.1 08/25/18 04:40 APTT 27.0 Seconds (25.6-37.1) 08/25/18 04:40 - Constitutional Appears: No Acute Distress - Head Exam Head Exam: ATRAUMATIC, NORMAL INSPECTION, NORMOCEPHALIC - Eye Exam Eye Exam: EOMI, Normal appearance, PERRL Pupil Exam: NORMAL ACCOMODATION, PERRL - ENT Exam ENT Exam: Mucous Membranes Moist, Normal Exam - Neck Exam Neck Exam: Full ROM, Normal Inspection. absent: Lymphadenopathy - Respiratory Exam Respiratory Exam: Clear to Ausculation Bilateral, NORMAL BREATHING PATTERN - Cardiovascular Exam Cardiovascular Exam: REGULAR RHYTHM, +S1, +S2. absent: Murmur - GI/Abdominal Exam GI & Abdominal Exam: Distended, Soft, Mass, Normal Bowel Sounds. absent: Tenderness - Rectal Exam Rectal Exam: NORMAL INSPECTION - Extremities Exam Extremities Exam: Full ROM, Normal Capillary Refill, Normal Inspection. absent: Joint Swelling, Pedal Edema - Back Exam Back Exam: NORMAL INSPECTION - Neurological Exam Neurological Exam: Abnormal Gait, Alert, Awake, CN II-XII Intact, Oriented x3 - Psychiatric Exam Psychiatric exam: Normal Affect, Normal Mood - Skin Skin Exam: Dry, Intact, Normal Color, Warm Assessment and Plan - Assessment and Plan (Free Text) Assessment: METASTATIC OVARIAN CANCER PLEURAL EFFUSION RESOLVED WITH DRAINAGE Plan: CONTINUE PRESENT RX PT EVAL MAY NEED SUBACUTE CARE
--- NOTE | 2018-08-31 08:58 | CARD ---
APPROVED REPORT Date of service: 08/30/2018 EKG Measurement Heart [id number] <Conclusion> Sinus tachycardia Low voltage QRS Abnormal Electrocardiogram
[2018-08-31] MEDS: Phenol 1.4% Throat Spray MT SCH ×2 (09:09→17:09)
[2018-08-31] MEDS: Digoxin 250 mcg (0.25 mg) Tab PO SCH (10:08)
[2018-08-31] MEDS: Pantoprazole 40 mg EC Tab PO SCH (10:09)
--- NOTE | 2018-08-31 10:43 | CP.PCM.PN ---
Subjective - Date & Time of Evaluation Date of Evaluation: 08/31/18 Time of Evaluation: 09:00 - Subjective Subjective: afeb off antibiotics chest tube out Objective - Vital Signs/Intake and Output Vital Signs (last 24 hours): Temp Pulse Resp BP Pulse Ox 97.7 F 130 H 20 100/72 96 08/31/18 08:35 08/31/18 08:35 08/31/18 08:35 08/31/18 08:35 08/31/18 08:35 - Medications Medications: Current Medications Benzocaine/Menthol (Cepacol Sore Throat) 1 tere PO Q3 PRN PRN Reason: Sore Throat Last Admin: 08/28/18 16:33 Dose: 1 tere Digoxin (Lanoxin) 0.25 mg PO DAILY [facility] Last Admin: 08/31/18 10:08 Dose: 0.25 mg Epoetin Real (Procrit) 20,000 unit SC MWF [facility] Famotidine (Pepcid) 20 mg PO BID [facility] Last Admin: 08/31/18 10:08 Dose: 20 mg Ferrous Sulfate (Feosol) 325 mg PO BID [facility] Last Admin: 08/31/18 10:07 Dose: Not Given Heparin Sodium (Porcine) (Heparin) 5,000 units SC Q8 [facility]; Protocol Last Admin: 08/31/18 10:09 Dose: 5,000 units Sodium Chloride (Sodium Chloride 0.9%) 500 mls @ 40 mls/hr IV .[id number] [facility] Last Admin: 08/30/18 07:17 Dose: Not Given Ketorolac Tromethamine (Toradol) 15 mg IVP Q6 PRN PRN Reason: Pain, moderate (4-7) Last Admin: 08/30/18 06:21 Dose: 15 mg Lorazepam (Ativan) 1 mg PO HS [facility] Last Admin: 08/31/18 00:16 Dose: 1 mg Ondansetron HCl (Zofran Inj) 4 mg IVP Q4 PRN PRN Reason: Nausea/Vomiting Last Admin: 08/30/18 19:07 Dose: 4 mg Pantoprazole Sodium (Protonix Ec Tab) 40 mg PO DAILY [facility] Last Admin: 08/31/18 10:09 Dose: 40 mg Phenol/Menthol (Phenaseptic 1.4% Throat [place]) 1 spry MT BID [facility] Last Admin: 08/30/18 18:07 Dose: 1 spry - Labs Labs: 08/30/18 05:50 08/30/18 05:50 PT 12.8 Seconds (9.8-13.1) 08/25/18 04:40 INR 1.1 08/25/18 04:40 APTT 27.0 Seconds (25.6-37.1) 08/25/18 04:40 - Constitutional Appears: Non-toxic, Chronically Ill - Head Exam Head Exam: NORMOCEPHALIC - Eye Exam Eye Exam: absent: Scleral icterus - ENT Exam ENT Exam: Normal External Ear Exam - Neck Exam Neck Exam: absent: Lymphadenopathy - Respiratory Exam Respiratory Exam: Decreased Breath Sounds - Cardiovascular Exam Cardiovascular Exam: REGULAR RHYTHM - GI/Abdominal Exam GI & Abdominal Exam: Distended, Soft Assessment and Plan (1) Fluid overload Status: Acute (2) Hyponatremia Status: Acute (3) Metastatic cancer Status: Acute (4) Pleural effusion Status: Acute (5) Sepsis Status: Acute
--- NOTE | 2018-08-31 11:51 | CP.PCM.PN ---
Subjective - Date & Time of Evaluation Date of Evaluation: 08/31/18 Time of Evaluation: 11:49 - Subjective Subjective: Pt is feeling much better. her chest tube was removed yesterday and there was not enough fluid to drain from the abdomen. She is eating a little better. she is due for chemotherapy tomorrow. Objective - Vital Signs/Intake and Output Vital Signs (last 24 hours): Temp Pulse Resp BP Pulse Ox 97.7 F 130 H 20 100/72 96 08/31/18 08:35 08/31/18 08:35 08/31/18 08:35 08/31/18 08:35 08/31/18 08:35 - Medications Medications: Current Medications Benzocaine/Menthol (Cepacol Sore Throat) 1 tere PO Q3 PRN PRN Reason: Sore Throat Last Admin: 08/28/18 16:33 Dose: 1 tere Digoxin (Lanoxin) 0.25 mg PO DAILY [facility] Last Admin: 08/31/18 10:08 Dose: 0.25 mg Epoetin Real (Procrit) 20,000 [place] [facility] [place]amotidine (Pepcid) 20 mg PO BID [facility] Last Admin: 08/31/18 10:08 Dose: 20 mg Ferrous Sulfate (Feosol) 325 mg PO BID [facility] Last Admin: 08/31/18 10:07 Dose: Not Given Heparin Sodium (Porcine) (Heparin) 5,000 units SC Q8 [facility]; Protocol Last Admin: 08/31/18 10:09 Dose: 5,000 units Sodium Chloride (Sodium Chloride 0.9%) 500 mls @ 40 mls/hr IV .[id number] [facility] Last Admin: 08/30/18 07:17 Dose: Not Given Ketorolac Tromethamine (Toradol) 15 mg IVP Q6 PRN PRN Reason: Pain, moderate (4-7) Last Admin: 08/30/18 06:21 Dose: 15 mg Lorazepam (Ativan) 1 mg PO HS [facility] Last Admin: 08/31/18 00:16 Dose: 1 mg Ondansetron HCl (Zofran Inj) 4 mg IVP Q4 PRN PRN Reason: Nausea/Vomiting Last Admin: 08/30/18 19:07 Dose: 4 mg Pantoprazole Sodium (Protonix Ec Tab) 40 mg PO DAILY [facility] Last Admin: 08/31/18 10:09 Dose: 40 mg Phenol/Menthol (Phenaseptic 1.4% Throat [place]) 1 spry MT BID [facility] Last Admin: 08/30/18 18:07 Dose: 1 spry - Labs Labs: 08/30/18 05:50 08/30/18 05:50 PT 12.8 Seconds (9.8-13.1) 08/25/18 04:40 INR 1.1 08/25/18 04:40 APTT 27.0 Seconds (25.6-37.1) 08/25/18 04:40
--- NOTE | 2018-08-31 13:59 | CP.PCM.PN ---
Subjective - Date & Time of Evaluation Date of Evaluation: 08/31/18 Time of Evaluation: 13:59 - Subjective Subjective: patient out of bed in the chair she appeared to be chronically ill Objective - Vital Signs/Intake and Output Vital Signs (last 24 hours): Temp Pulse Resp BP Pulse Ox 97.7 F 130 H 20 100/72 96 08/31/18 08:35 08/31/18 08:35 08/31/18 08:35 08/31/18 08:35 08/31/18 08:35 - Medications Medications: Current Medications Benzocaine/Menthol (Cepacol Sore Throat) 1 tere PO Q3 PRN PRN Reason: Sore Throat Last Admin: 08/28/18 16:33 Dose: 1 tere Digoxin (Lanoxin) 0.25 mg PO DAILY [facility] Last Admin: 08/31/18 10:08 Dose: 0.25 mg Epoetin Real (Procrit) 20,000 unit SC MWF [facility] Famotidine (Pepcid) 20 mg PO BID [facility] Last Admin: 08/31/18 10:08 Dose: 20 mg Ferrous Sulfate (Feosol) 325 mg PO BID [facility] Last Admin: 08/31/18 10:07 Dose: Not Given Heparin Sodium (Porcine) (Heparin) 5,000 units SC Q8 [facility]; Protocol Last Admin: 08/31/18 10:09 Dose: 5,000 units Sodium Chloride (Sodium Chloride 0.9%) 500 mls @ 40 mls/hr IV .[id number] [facility] Last Admin: 08/30/18 07:17 Dose: Not Given Ketorolac Tromethamine (Toradol) 15 mg IVP Q6 PRN PRN Reason: Pain, moderate (4-7) Last Admin: 08/30/18 06:21 Dose: 15 mg Lorazepam (Ativan) 1 mg PO HS [facility] Last Admin: 08/31/18 00:16 Dose: 1 mg Ondansetron HCl (Zofran Inj) 4 mg IVP Q4 PRN PRN Reason: Nausea/Vomiting Last Admin: 08/30/18 19:07 Dose: 4 mg Pantoprazole Sodium (Protonix Ec Tab) 40 mg PO DAILY [facility] Last Admin: 08/31/18 10:09 Dose: 40 mg Phenol/Menthol (Phenaseptic 1.4% Throat [place]) 1 spry MT BID [facility] Last Admin: 08/30/18 18:07 Dose: 1 spry - Labs Labs: 08/30/18 05:50 08/30/18 05:50 PT 12.8 Seconds (9.8-13.1) 08/25/18 04:40 INR 1.1 08/25/18 04:40 APTT 27.0 Seconds (25.6-37.1) 08/25/18 04:40 - Constitutional Appears: No Acute Distress - Eye Exam Eye Exam: Conjunctival injection - ENT Exam ENT Exam: Mucous Membranes Moist - Respiratory Exam Respiratory Exam: NORMAL BREATHING PATTERN - Cardiovascular Exam Cardiovascular Exam: absent: Gallop, JVD, Rubs - GI/Abdominal Exam GI & Abdominal Exam: Distended, Guarding, Mass - Neurological Exam Neurological Exam: Alert - Psychiatric Exam Psychiatric exam: Normal Affect - Skin Skin Exam: absent: Cyanosis Assessment and Plan (1) Hyponatremia Assessment & Plan: 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
[2018-08-31] MEDS: Benzocaine/Menthol (Cepacol) Lozenge PO PRN (17:13)
[2018-08-31] MEDS ORDERED: Digoxin 250 mcg (0.25 mg) Tab PO ONE (17:31)
[2018-09-01 06:17] LABS: HEMOGLOBIN 8.2 g/dL (12.0-16.0); MEAN CELL VOLUME 76.2 fl (81.0-99.0); MEAN CORPUSCULAR HEMOGLOBIN 24.2 pg (27.0-31.0); MEAN CORPUSCULAR HGB CONC 31.7 g/dL (33.0-37.0); RBC 3.41 Mil/uL (3.80-5.20); RED CELL DISTRIBUTION WIDTH 18.6 % (11.5-14.5); WHITE BLOOD COUNT 8.5 K/uL (4.8-10.8)
[2018-09-01 06:43] LABS: BLOOD UREA NITROGEN 20 mg/dl (7-17); CALCIUM 7.7 mg/dL (8.4-10.2); GFR NON-AFRICAN AMERICAN > 60
--- NOTE | 2018-09-01 06:46 | CP.PCM.PN ---
Subjective - Date & Time of Evaluation Date of Evaluation: 08/27/18 Time of Evaluation: 11:00 - Subjective Subjective: Has very poor appetite Noted elevated WBC but so far all C and S showed no growth Has no SOB Has no fever. Has some nausea Objective - Vital Signs/Intake and Output Vital Signs (last 24 hours): Temp Pulse Resp BP Pulse Ox 98.1 F 95 H 18 105/68 96 09/01/18 01:00 09/01/18 01:00 09/01/18 01:00 09/01/18 01:00 09/01/18 01:00 Intake and Output: 08/31/18 09/01/18 18:59 06:59 Intake Total 200 Balance 200 - Medications Medications: Current Medications Benzocaine/Menthol (Cepacol Sore Throat) 1 tere PO Q3 PRN PRN Reason: Sore Throat Last Admin: 08/31/18 17:13 Dose: 1 tere Digoxin (Lanoxin) 0.25 mg PO DAILY [facility] Last Admin: 08/31/18 10:08 Dose: 0.25 mg Epoetin Real (Procrit) 20,000 unit SC MWF [facility] Famotidine (Pepcid) 20 mg PO BID [facility] Last Admin: 08/31/18 17:07 Dose: 20 mg Heparin Sodium (Porcine) (Heparin) 5,000 units SC Q8 [facility]; Protocol Last Admin: 09/01/18 00:45 Dose: 5,000 units Sodium Chloride (Sodium Chloride 0.9%) 500 mls @ 40 mls/hr IV .[id number] [facility] Last Admin: 08/31/18 21:59 Dose: 40 mls/hr [place] Sucrose 200 mg/ Sodium (Chloride) 110 mls @ 110 mls/hr IVPB DAILY [facility] Stop: 09/06/18 09:01 Ketorolac Tromethamine (Toradol) 15 mg IVP Q6 PRN PRN Reason: Pain, moderate (4-7) Last Admin: 08/31/18 21:57 Dose: 15 mg Lorazepam (Ativan) 1 mg PO HS [facility] Last Admin: 09/01/18 00:22 Dose: Not Given Ondansetron HCl (Zofran Inj) 4 mg IVP Q4 PRN PRN Reason: Nausea/Vomiting Last Admin: 08/30/18 19:07 Dose: 4 mg Pantoprazole Sodium (Protonix Ec Tab) 40 mg PO DAILY [facility] Last Admin: 08/31/18 10:09 Dose: 40 mg Phenol/Menthol (Phenaseptic 1.4% Throat [place]) 1 spry MT BID [facility] Last Admin: 08/31/18 17:09 Dose: 1 spry - Labs Labs: 09/01/18 05:55 08/30/18 05:50 PT 12.8 Seconds (9.8-13.1) 08/25/18 04:40 INR 1.1 08/25/18 04:40 APTT 27.0 Seconds (25.6-37.1) 08/25/18 04:40 - Head Exam Head Exam: NORMAL INSPECTION - Eye Exam Eye Exam: Normal appearance - Respiratory Exam Respiratory Exam: Clear to Ausculation Bilateral - GI/Abdominal Exam GI & Abdominal Exam: Soft - Neurological Exam Neurological Exam: Awake Assessment and Plan (1) Hyponatremia Status: Acute (2) Metastatic cancer Status: Acute (3) Pleural effusion Status: Acute (4) Anasarca Status: Acute (5) Anemia Status: Acute - Assessment and Plan (Free Text) Plan: Cont meds Con ttx Cont to meds Increase nutrition ensure periactin
--- NOTE | 2018-09-01 06:48 | CP.PCM.PN ---
Subjective - Date & Time of Evaluation Date of Evaluation: 08/28/18 Time of Evaluation: 11:30 - Subjective Subjective: Patient remains stable Still with slightly elevated WBC' Has no fever Has no chest pain Claims that appetite has improved Objective - Vital Signs/Intake and Output Vital Signs (last 24 hours): Temp Pulse Resp BP Pulse Ox 98.1 F 95 H 18 105/68 96 09/01/18 01:00 09/01/18 01:00 09/01/18 01:00 09/01/18 01:00 09/01/18 01:00 Intake and Output: 08/31/18 09/01/18 18:59 06:59 Intake Total 200 Balance 200 - Medications Medications: Current Medications Benzocaine/Menthol (Cepacol Sore Throat) 1 tere PO Q3 PRN PRN Reason: Sore Throat Last Admin: 08/31/18 17:13 Dose: 1 tere Digoxin (Lanoxin) 0.25 mg PO DAILY [facility] Last Admin: 08/31/18 10:08 Dose: 0.25 mg Epoetin Real (Procrit) 20,000 unit SC MWF [facility] Famotidine (Pepcid) 20 mg PO BID [facility] Last Admin: 08/31/18 17:07 Dose: 20 mg Heparin Sodium (Porcine) (Heparin) 5,000 units SC Q8 [facility]; Protocol Last Admin: 09/01/18 00:45 Dose: 5,000 units Sodium Chloride (Sodium Chloride 0.9%) 500 mls @ 40 mls/hr IV .[id number] [facility] Last Admin: 08/31/18 21:59 Dose: 40 mls/hr Iron Sucrose 200 mg/ Sodium (Chloride) 110 mls @ 110 mls/hr IVPB DAILY [facility] Stop: 09/06/18 09:01 Ketorolac Tromethamine (Toradol) 15 mg IVP Q6 PRN PRN Reason: Pain, moderate (4-7) Last Admin: 08/31/18 21:57 Dose: 15 mg Lorazepam (Ativan) 1 mg PO HS [facility] Last Admin: 09/01/18 00:22 Dose: Not Given Ondansetron HCl (Zofran Inj) 4 mg IVP Q4 PRN PRN Reason: Nausea/Vomiting Last Admin: 08/30/18 19:07 Dose: 4 mg Pantoprazole Sodium (Protonix Ec Tab) 40 mg PO DAILY [facility] Last Admin: 08/31/18 10:09 Dose: 40 mg Phenol/Menthol (Phenaseptic 1.4% Throat [place]) 1 spry MT BID [facility] Last Admin: 08/31/18 17:09 Dose: 1 spry - Labs Labs: 09/01/18 05:55 09/01/18 05:55 PT 12.8 Seconds (9.8-13.1) 08/25/18 04:40 INR 1.1 08/25/18 04:40 APTT 27.0 Seconds (25.6-37.1) 08/25/18 04:40 - Head Exam Head Exam: NORMAL INSPECTION - Eye Exam Eye Exam: Normal appearance - Respiratory Exam Respiratory Exam: NORMAL BREATHING PATTERN - Cardiovascular Exam Cardiovascular Exam: Tachycardia - GI/Abdominal Exam GI & Abdominal Exam: Normal Bowel Sounds Assessment and Plan (1) Hyponatremia Status: Acute (2) Metastatic cancer Status: Acute (3) Pleural effusion Status: Acute (4) Anasarca Status: Acute (5) Anemia Status: Acute (6) Tachycardia Status: Acute - Assessment and Plan (Free Text) Plan: Con tmeds observe tachy Cont tx Cont hydration encouraged increase intake
--- NOTE | 2018-09-01 06:53 | CP.PCM.PN ---
Subjective - Date & Time of Evaluation Date of Evaluation: 08/29/18 Time of Evaluation: 11:00 - Subjective Subjective: patient remains stable Has a lot of worries about her condition Remains tachycardic Has no fever Noted low hgb tolerated chemo. Objective - Vital Signs/Intake and Output Vital Signs (last 24 hours): Temp Pulse Resp BP Pulse Ox 98.1 F 95 H 18 105/68 96 09/01/18 01:00 09/01/18 01:00 09/01/18 01:00 09/01/18 01:00 09/01/18 01:00 Intake and Output: 08/31/18 09/01/18 18:59 06:59 Intake Total 200 Balance 200 - Medications Medications: Current Medications Benzocaine/Menthol (Cepacol Sore Throat) 1 tere PO Q3 PRN PRN Reason: Sore Throat Last Admin: 08/31/18 17:13 Dose: 1 tere Digoxin (Lanoxin) 0.25 mg PO DAILY [facility] Last Admin: 08/31/18 10:08 Dose: 0.25 mg Epoetin Real (Procrit) 20,000 unit SC MWF [facility] Famotidine (Pepcid) 20 mg PO BID [facility] Last Admin: 08/31/18 17:07 Dose: 20 mg Heparin Sodium (Porcine) (Heparin) 5,000 units SC Q8 [facility]; Protocol Last Admin: 09/01/18 00:45 Dose: 5,000 units Sodium Chloride (Sodium Chloride 0.9%) 500 mls @ 40 mls/hr IV .[id number] [facility] Last Admin: 08/31/18 21:59 Dose: 40 mls/hr Iron Sucrose 200 mg/ Sodium (Chloride) 110 mls @ 110 mls/hr IVPB DAILY [facility] Stop: 09/06/18 09:01 Ketorolac Tromethamine (Toradol) 15 mg IVP Q6 PRN PRN Reason: Pain, moderate (4-7) Last Admin: 08/31/18 21:57 Dose: 15 mg Lorazepam (Ativan) 1 mg PO HS [facility] Last Admin: 09/01/18 00:22 Dose: Not Given Ondansetron HCl (Zofran Inj) 4 mg IVP Q4 PRN PRN Reason: Nausea/Vomiting Last Admin: 08/30/18 19:07 Dose: 4 mg Pantoprazole Sodium (Protonix Ec Tab) 40 mg PO DAILY [facility] Last Admin: 08/31/18 10:09 Dose: 40 mg Phenol/Menthol (Phenaseptic 1.4% Throat [place]) 1 spry MT BID [facility] Last Admin: 08/31/18 17:09 Dose: 1 spry - Labs Labs: 09/01/18 05:55 09/01/18 05:55 PT 12.8 Seconds (9.8-13.1) 08/25/18 04:40 INR 1.1 08/25/18 04:40 APTT 27.0 Seconds (25.6-37.1) 08/25/18 04:40 - Head Exam Head Exam: NORMAL INSPECTION - Eye Exam Eye Exam: Normal appearance - Respiratory Exam Respiratory Exam: Clear to Ausculation Bilateral - Cardiovascular Exam Cardiovascular Exam: Tachycardia - GI/Abdominal Exam GI & Abdominal Exam: Normal Bowel Sounds Assessment and Plan (1) Hyponatremia Status: Acute (2) Metastatic cancer Status: Acute (3) Pleural effusion Status: Acute (4) Anasarca Status: Acute (5) Anemia Status: Acute (6) Tachycardia Status: Acute - Assessment and Plan (Free Text) Plan: Con tmeds Cont tx Cont meds encouraged increase intake
--- NOTE | 2018-09-01 06:56 | CP.PCM.PN ---
Subjective - Date & Time of Evaluation Date of Evaluation: 08/30/18 Time of Evaluation: 18:00 - Subjective Subjective: Patient feels a lot better teresita after chest tube removal. Has no fever Now off antibiotics Has better appetite but still with minimal intake Objective - Vital Signs/Intake and Output Vital Signs (last 24 hours): Temp Pulse Resp BP Pulse Ox 98.1 F 95 H 18 105/68 96 09/01/18 01:00 09/01/18 01:00 09/01/18 01:00 09/01/18 01:00 09/01/18 01:00 Intake and Output: 08/31/18 09/01/18 18:59 06:59 Intake Total 200 Balance 200 - Medications Medications: Current Medications Benzocaine/Menthol (Cepacol Sore Throat) 1 tere PO Q3 PRN PRN Reason: Sore Throat Last Admin: 08/31/18 17:13 Dose: 1 tere Digoxin (Lanoxin) 0.25 mg PO DAILY [facility] Last Admin: 08/31/18 10:08 Dose: 0.25 mg Epoetin Real (Procrit) 20,000 unit SC MWF [facility] Famotidine (Pepcid) 20 mg PO BID [facility] Last Admin: 08/31/18 17:07 Dose: 20 mg Heparin Sodium (Porcine) (Heparin) 5,000 units SC Q8 [facility]; Protocol Last Admin: 09/01/18 00:45 Dose: 5,000 units Sodium Chloride (Sodium Chloride 0.9%) 500 mls @ 40 mls/hr IV .[id number] [facility] Last Admin: 08/31/18 21:59 Dose: 40 mls/hr Iron Sucrose 200 mg/ Sodium (Chloride) 110 mls @ 110 mls/hr IVPB DAILY [facility] Stop: 09/06/18 09:01 Ketorolac Tromethamine (Toradol) 15 mg IVP Q6 PRN PRN Reason: Pain, moderate (4-7) Last Admin: 08/31/18 21:57 Dose: 15 mg Lorazepam (Ativan) 1 mg PO HS [facility] Last Admin: 09/01/18 00:22 Dose: Not Given Ondansetron HCl (Zofran Inj) 4 mg IVP Q4 PRN PRN Reason: Nausea/Vomiting Last Admin: 08/30/18 19:07 Dose: 4 mg Pantoprazole Sodium (Protonix Ec Tab) 40 mg PO DAILY [facility] Last Admin: 08/31/18 10:09 Dose: 40 mg Phenol/Menthol (Phenaseptic 1.4% Throat [place]) 1 spry MT BID [facility] Last Admin: 08/31/18 17:09 Dose: 1 spry - Labs Labs: 09/01/18 05:55 09/01/18 05:55 PT 12.8 Seconds (9.8-13.1) 08/25/18 04:40 INR 1.1 08/25/18 04:40 APTT 27.0 Seconds (25.6-37.1) 08/25/18 04:40 - Head Exam Head Exam: NORMAL INSPECTION - Eye Exam Eye Exam: Normal appearance - ENT Exam ENT Exam: Mucous Membranes Moist - Respiratory Exam Respiratory Exam: Decreased Breath Sounds - Cardiovascular Exam Cardiovascular Exam: Tachycardia - GI/Abdominal Exam GI & Abdominal Exam: Soft, Normal Bowel Sounds Assessment and Plan (1) Hyponatremia Status: Acute (2) Metastatic cancer Status: Acute (3) Pleural effusion Status: Acute (4) Anasarca Status: Acute (5) Anemia Status: Acute (6) Tachycardia Status: Acute - Assessment and Plan (Free Text) Plan: Cont meds Cont tx Cont to encourage increase intake food supplement
--- NOTE | 2018-09-01 06:58 | CP.PCM.PN ---
Subjective - Date & Time of Evaluation Date of Evaluation: 08/31/18 Time of Evaluation: 11:00 - Subjective Subjective: Patient feels a lot better Has no fever still with poor appetite and minimal intake For chemo Objective - Vital Signs/Intake and Output Vital Signs (last 24 hours): Temp Pulse Resp BP Pulse Ox 98.1 F 95 H 18 105/68 96 09/01/18 01:00 09/01/18 01:00 09/01/18 01:00 09/01/18 01:00 09/01/18 01:00 Intake and Output: 08/31/18 09/01/18 18:59 06:59 Intake Total 200 Balance 200 - Medications Medications: Current Medications Benzocaine/Menthol (Cepacol Sore Throat) 1 tere PO Q3 PRN PRN Reason: Sore Throat Last Admin: 08/31/18 17:13 Dose: 1 tere Digoxin (Lanoxin) 0.25 mg PO DAILY [facility] Last Admin: 08/31/18 10:08 Dose: 0.25 mg Epoetin Real (Procrit) 20,000 unit SC MWF [facility] Famotidine (Pepcid) 20 mg PO BID [facility] Last Admin: 08/31/18 17:07 Dose: 20 mg Heparin Sodium (Porcine) (Heparin) 5,000 units SC Q8 [facility]; Protocol Last Admin: 09/01/18 00:45 Dose: 5,000 units Sodium Chloride (Sodium Chloride 0.9%) 500 mls @ 40 mls/hr IV .[id number] [facility] Last Admin: 08/31/18 21:59 Dose: 40 mls/hr Iron Sucrose 200 mg/ Sodium (Chloride) 110 mls @ 110 mls/hr IVPB DAILY [facility] Stop: 09/06/18 09:01 Ketorolac Tromethamine (Toradol) 15 mg IVP Q6 PRN PRN Reason: Pain, moderate (4-7) Last Admin: 08/31/18 21:57 Dose: 15 mg Lorazepam (Ativan) 1 mg PO HS [facility] Last Admin: 09/01/18 00:22 Dose: Not Given Ondansetron HCl (Zofran Inj) 4 mg IVP Q4 PRN PRN Reason: Nausea/Vomiting Last Admin: 08/30/18 19:07 Dose: 4 mg Pantoprazole Sodium (Protonix Ec Tab) 40 mg PO DAILY [facility] Last Admin: 08/31/18 10:09 Dose: 40 mg Phenol/Menthol (Phenaseptic 1.4% Throat [place]) 1 sp[address] MT BID [facility] Last Admin: 08/31/18 17:09 Dose: 1 spry - Labs Labs: 09/01/18 05:55 09/01/18 05:55 PT 12.8 Seconds (9.8-13.1) 08/25/18 04:40 INR 1.1 08/25/18 04:40 APTT 27.0 Seconds (25.6-37.1) 08/25/18 04:40 - Head Exam Head Exam: NORMAL INSPECTION - Eye Exam Eye Exam: Normal appearance - Respiratory Exam Respiratory Exam: Decreased Breath Sounds - Cardiovascular Exam Cardiovascular Exam: Tachycardia - GI/Abdominal Exam GI & Abdominal Exam: Soft Assessment and Plan (1) Hyponatremia Status: Acute (2) Metastatic cancer Status: Acute (3) Pleural effusion Status: Acute (4) Anasarca Status: Acute (5) Anemia Status: Acute (6) Tachycardia Status: Acute - Assessment and Plan (Free Text) Plan: started on Digoxin to decrease heart rate ensure start periactin cont meds phys therapy
[2018-09-01] MEDS ORDERED: Famotidine 20mg/50ml Premix IVPB STA (08:21)
--- NOTE | 2018-09-01 09:21 | CP.PCM.PN ---
Subjective - Date & Time of Evaluation Date of Evaluation: 09/01/18 Time of Evaluation: 09:29 - Subjective Subjective: CRYING AND EMOTIONALLY UPSET BECAUSE OF LACK OF FRIENDS AND FAMILY SUPPORT L PRIOR CHEST TUBE SITE HAS MILD LIQUID DRAINAGE AND HAS BEEN REINFORCED WITH PRESSURE DRESSING Objective - Vital Signs/Intake and Output Vital Signs (last 24 hours): Temp Pulse Resp BP Pulse Ox 98.1 F 131 H 20 105/70 98 09/01/18 08:45 09/01/18 08:45 09/01/18 08:45 09/01/18 08:45 09/01/18 08:45 Intake and Output: 09/01/18 09/01/18 06:59 18:59 Intake Total 200 Balance 200 - Medications Medications: Current Medications Benzocaine/Menthol (Cepacol Sore Throat) 1 tere PO Q3 PRN PRN Reason: Sore Throat Last Admin: 08/31/18 17:13 Dose: 1 tere Cyproheptadine HCl (Periactin) 4 mg PO HS [facility] Digoxin (Lanoxin) 0.25 mg PO DAILY [facility] Last Admin: 08/31/18 10:08 Dose: 0.25 mg Epoetin Real (Procrit) 20,000 unit SC MWF [facility] Famotidine (Pepcid) 20 mg PO BID [facility] Last Admin: 08/31/18 17:07 Dose: 20 mg Famotidine (Pepcid 20mg/50ml Premix) 20 mg IVPB STAT [facility] Stop: 09/01/18 08:22 Heparin Sodium (Porcine) (Heparin) 5,000 units SC Q8 [facility]; Protocol Last Admin: 09/01/18 00:45 Dose: 5,000 units Sodium Chloride (Sodium Chloride 0.9%) 500 mls @ 40 mls/hr IV .[id number] [facility] Last Admin: 08/31/18 21:59 Dose: 40 mls/hr Iron Sucrose 200 mg/ Sodium (Chloride) 110 mls @ 110 mls/hr IVPB DAILY [facility] Stop: 09/06/18 09:01 Diphenhydramine HCl 25 mg/ (Sodium Chloride) 50.5 mls @ 101 mls/hr IVPB ONCE ONE Stop: 09/01/18 08:47 Carboplatin 155 mg/ Sodium (Chloride) 265.5 mls @ 0 mls/hr IV ONCE ONE Stop: 09/01/18 08:27 Dexamethasone 10 mg/ Sodium (Chloride) 51 mls @ 102 mls/hr IVPB ONCE ONE Stop: 09/01/18 10:29 Fosaprepitant 150 mg/ Sodium (Chloride) 250 mls @ 500 mls/hr IVPB ONCE ONE Stop: 09/01/18 08:49 Sodium Chloride (Sodium Chloride 0.9%) 500 mls @ 100 mls/hr IV .Q5H [facility] Paclitaxel 95 mg/ Sodium (Chloride) 265.8333 mls @ 0 mls/hr IV ONCE ONE Stop: 09/01/18 08:24 Ondansetron HCl 16 mg/ Sodium (Chloride) 58 mls @ 116 mls/hr IVPB ONCE ONE Stop: 09/01/18 08:47 Ketorolac Tromethamine (Toradol) 15 mg IVP Q6 PRN PRN Reason: Pain, moderate (4-7) Last Admin: 08/31/18 21:57 Dose: 15 mg Lorazepam (Ativan) 1 mg PO HS [facility] Last Admin: 09/01/18 00:22 Dose: Not Given Ondansetron HCl (Zofran Inj) 4 mg IVP Q4 PRN PRN Reason: Nausea/Vomiting Last Admin: 08/30/18 19:07 Dose: 4 mg Pantoprazole Sodium (Protonix Ec Tab) 40 mg PO DAILY [facility] Last Admin: 08/31/18 10:09 Dose: 40 mg Phenol/Menthol (Phenaseptic 1.4% Throat [place]) 1 sp[address] MT BID [facility] Last Admin: 08/31/18 17:09 Dose: 1 spry - Labs Labs: 09/01/18 05:55 09/01/18 05:55 PT 12.8 Seconds (9.8-13.1) 08/25/18 04:40 INR 1.1 08/25/18 04:40 APTT 27.0 Seconds (25.6-37.1) 08/25/18 04:40 - Constitutional Appears: Chronically Ill - Head Exam Head Exam: ATRAUMATIC, NORMAL INSPECTION, NORMOCEPHALIC - Eye Exam Eye Exam: EOMI, Normal appearance, PERRL Pupil Exam: NORMAL ACCOMODATION, PERRL - ENT Exam ENT Exam: Mucous Membranes Moist, Normal Exam - Neck Exam Neck Exam: Full ROM, Normal Inspection. absent: Lymphadenopathy - Respiratory Exam Respiratory Exam: Decreased Breath Sounds, Prolonged Expiratory Phase, Rales, NORMAL BREATHING PATTERN - Cardiovascular Exam Cardiovascular Exam: Tachycardia, REGULAR RHYTHM, +S1, +S2. absent: Murmur - GI/Abdominal Exam GI & Abdominal Exam: Soft, Normal Bowel Sounds. absent: Tenderness - Rectal Exam Rectal Exam: NORMAL INSPECTION - Extremities Exam Extremities Exam: Full ROM, Normal Capillary Refill, Normal Inspection. 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
[2018-09-01] MEDS: Digoxin 250 mcg (0.25 mg) Tab PO SCH (09:48)
[2018-09-01] MEDS: Phenol 1.4% Throat Spray MT SCH ×2 (09:49→18:31)
[2018-09-01] MEDS: Pantoprazole 40 mg EC Tab PO SCH (09:50)
[2018-09-01 09:56] VITALS: PULSE 131
[2018-09-01] MEDS ORDERED: Dexamethasone 10 MG in Sodium Chloride 0.9% 50 ML IVPB ONE (10:00)
[2018-09-01] MEDS ORDERED: Sodium Chloride 0.9% 500 ML IV SCH (10:00)
[2018-09-01] MEDS ORDERED: Fosaprepitant 150 MG in Sodium Chloride 0.9% 250 ML IVPB ONE (10:00)
[2018-09-01] MEDS: Epoetin Alfa 20000 UNIT/ML Inj SC SCH (10:07)
--- NOTE | 2018-09-01 10:42 | RAD ---
Date of service: 09/01/2018 HISTORY: evaluation COMPARISON: 08/30/2018 FINDINGS: LUNGS: Bilateral pulmonary rounded masses compatible with metastatic [id number] PLEURA: The left pleural effusion [id number] is similar. Trace right pleural effusion similar. CARDIOVASCULAR: No aortic atherosclerotic calcification present. Normal cardiac size. No pulmonary vascular congestion. The right PICC line tip appears in the proximal right atrium. No change in position. Correlate clinically OSSEOUS STRUCTURES: No significant abnormalities. VISUALIZED UPPER ABDOMEN: Normal. OTHER FINDINGS: None. IMPRESSION: No interval changes noted. Bilateral pulmonary metastatic (inferred) masses-similar. Mild-moderate left pleural effusion-similar. Trace right pleural effusion-similar. Right PICC tip line in proximal right atrium. Correlate clinically
[2018-09-01] MEDS ORDERED: CARBOPLATIN IV ONE (11:00)
[2018-09-01] MEDS ORDERED: SODIUM CHLORIDE 0.9% IV ONE ×2 (11:00)
[2018-09-01] MEDS ORDERED: PACLITAXEL IV ONE (11:00)
--- NOTE | 2018-09-01 13:03 | CP.PCM.PN ---
Subjective - Date & Time of Evaluation Date of Evaluation: 09/01/18 Time of Evaluation: 09:00 - Subjective Subjective: aferile depressed off antibiotics drainage from CT site + Objective - Vital Signs/Intake and Output Vital Signs (last 24 hours): Temp Pulse Resp BP Pulse Ox 98.1 F 131 H 20 105/70 98 09/01/18 08:45 09/01/18 08:45 09/01/18 08:45 09/01/18 08:45 09/01/18 08:45 Intake and Output: 09/01/18 09/01/18 06:59 18:59 Intake Total 200 Balance 200 - Medications Medications: Current Medications Benzocaine/Menthol (Cepacol Sore Throat) 1 tere PO Q3 PRN PRN Reason: Sore Throat Last Admin: 08/31/18 17:13 Dose: 1 tere Cyproheptadine HCl (Periactin) 4 mg PO HS [facility] Digoxin (Lanoxin) 0.25 mg PO DAILY [facility] Last Admin: 09/01/18 09:48 Dose: Not Given Epoetin Real (Procrit) 20,000 unit SC MWF [facility] Last Admin: 09/01/18 10:07 Dose: 20,000 unit Famotidine (Pepcid) 20 mg PO BID [facility] Last Admin: 09/01/18 09:49 Dose: 20 mg Heparin Sodium (Porcine) (Heparin) 5,000 units SC Q8 [facility]; Protocol Last Admin: 09/01/18 09:47 Dose: 5,000 units Sodium Chloride (Sodium Chloride 0.9%) 500 mls @ 40 mls/hr IV .[id number] [facility] Last Admin: 08/31/18 21:59 Dose: 40 mls/hr Iron Sucrose 200 mg/ Sodium (Chloride) 110 mls @ 110 mls/hr IVPB DAILY [facility] Stop: 09/06/18 09:01 Last Admin: 09/01/18 09:50 Dose: 110 mls/hr Sodium Chloride (Sodium Chloride 0.9%) 500 mls @ 100 mls/hr IV .Q5H [facility] Ketorolac Tromethamine (Toradol) 15 mg IVP Q6 PRN PRN Reason: Pain, moderate (4-7) Last Admin: 08/31/18 21:57 Dose: 15 mg Lorazepam (Ativan) 1 mg PO HS [facility] Last Admin: 09/01/18 00:22 Dose: Not Given Lorazepam (Ativan) 0.5 mg PO BID [facility] Megestrol Acetate (Megace) 40 mg PO DAILY [facility] Ondansetron HCl (Zofran Inj) 4 mg IVP Q4 PRN PRN Reason: Nausea/Vomiting Last Admin: 08/30/18 19:07 Dose: 4 mg Pantoprazole Sodium (Protonix Ec Tab) 40 mg PO DAILY [facility] Last Admin: 09/01/18 09:50 Dose: 40 mg Phenol/Menthol (Phenaseptic 1.4% Throat [place]) 1 sp[address] MT BID [facility] Last Admin: 09/01/18 09:49 Dose: 1 spry - Labs Labs: 09/01/18 05:55 09/01/18 05:55 PT 12.8 Seconds (9.8-13.1) 08/25/18 04:40 INR 1.1 08/25/18 04:40 APTT 27.0 Seconds (25.6-37.1) 08/25/18 04:40 - Constitutional Appears: Non-toxic, Cachectic, Chronically Ill - Head Exam Head Exam: NORMOCEPHALIC - Eye Exam Eye Exam: absent: Scleral icterus - ENT Exam ENT Exam: Mucous Membranes Dry - Neck Exam Neck Exam: absent: Lymphadenopathy - Respiratory Exam Respiratory Exam: Decreased Breath Sounds - Cardiovascular Exam Cardiovascular Exam: REGULAR RHYTHM - GI/Abdominal Exam GI & Abdominal Exam: Distended, Soft Assessment and Plan (1) Fluid overload Status: Acute (2) Hyponatremia Status: Acute (3) Metastatic cancer Status: Acute (4) Pleural effusion Status: Acute (5) Sepsis Status: Acute
--- NOTE | 2018-09-01 15:37 | CP.PCM.PN ---
Subjective - Date & Time of Evaluation Date of Evaluation: 09/01/18 Time of Evaluation: 15:35 - Subjective Subjective: Patient complaining of generalized weakness tiredness Poor appetite Objective - Vital Signs/Intake and Output Vital Signs (last 24 hours): Temp Pulse Resp BP Pulse Ox 98.1 F 131 H 20 105/70 98 09/01/18 08:45 09/01/18 08:45 09/01/18 08:45 09/01/18 08:45 09/01/18 08:45 Intake and Output: 09/01/18 09/01/18 06:59 18:59 Intake Total 200 Balance 200 - Medications Medications: Current Medications Benzocaine/Menthol (Cepacol Sore Throat) 1 tere PO Q3 PRN PRN Reason: Sore Throat Last Admin: 08/31/18 17:13 Dose: 1 tere Cyproheptadine HCl (Periactin) 4 mg PO HS [facility] Digoxin (Lanoxin) 0.25 mg PO DAILY [facility] Last Admin: 09/01/18 09:48 Dose: Not Given Epoetin Real (Procrit) 20,000 unit SC MWF [facility] Last Admin: 09/01/18 10:07 Dose: 20,000 unit Famotidine (Pepcid) 20 mg PO BID [facility] Last Admin: 09/01/18 09:49 Dose: 20 mg Heparin Sodium (Porcine) (Heparin) 5,000 units SC Q8 [facility]; Protocol Last Admin: 09/01/18 09:47 Dose: 5,000 units Sodium Chloride (Sodium Chloride 0.9%) 500 mls @ 40 mls/hr IV .[id number] [facility] Last Admin: 08/31/18 21:59 Dose: 40 mls/hr Iron Sucrose 200 mg/ Sodium (Chloride) 110 mls @ 110 mls/hr IVPB DAILY [facility] Stop: 09/06/18 09:01 Last Admin: 09/01/18 09:50 Dose: 110 mls/hr Sodium Chloride (Sodium Chloride 0.9%) 500 mls @ 100 mls/hr IV .Q5H [facility] Ketorolac Tromethamine (Toradol) 15 mg IVP Q6 PRN PRN Reason: Pain, moderate (4-7) Last Admin: 08/31/18 21:57 Dose: 15 mg Lorazepam (Ativan) 1 mg PO HS [facility] Last Admin: 09/01/18 00:22 Dose: Not Given Lorazepam (Ativan) 0.5 mg PO BID [facility] Megestrol Acetate (Megace) 40 mg PO DAILY [facility] Ondansetron HCl (Zofran Inj) 4 mg IVP Q4 PRN PRN Reason: Nausea/Vomiting Last Admin: 08/30/18 19:07 Dose: 4 mg Pantoprazole Sodium (Protonix Ec Tab) 40 mg PO DAILY [facility] Last Admin: 09/01/18 09:50 Dose: 40 mg Phenol/Menthol (Phenaseptic 1.4% Throat [place]) 1 spry MT BID [facility] Last Admin: 09/01/18 09:49 Dose: 1 spry - Labs Labs: 09/01/18 05:55 09/01/18 05:55 PT 12.8 Seconds (9.8-13.1) 08/25/18 04:40 INR 1.1 08/25/18 04:40 APTT 27.0 Seconds (25.6-37.1) 08/25/18 04:40 - Constitutional Appears: No Acute Distress - Eye Exam Eye Exam: Conjunctival injection - ENT Exam ENT Exam: Mucous Membranes Moist - Respiratory Exam Respiratory Exam: NORMAL BREATHING PATTERN - Cardiovascular Exam Cardiovascular Exam: absent: Gallop, JVD, Rubs - GI/Abdominal Exam GI & Abdominal Exam: Mass - Extremities Exam Extremities Exam: absent: Calf Tenderness - Back Exam Back Exam: absent: CVA tenderness (L), CVA tenderness (R) - Neurological Exam Neurological Exam: Alert - Skin Skin Exam: absent: Cyanosis Assessment and Plan (1) Hyponatremia Assessment & Plan: 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
--- NOTE | 2018-09-01 17:16 | CARD ---
APPROVED REPORT Date of service: 09/01/2018 EXAM: Two-dimensional and M-mode echocardiogram with Doppler and color Doppler. Other Information Quality : AverageRhythm : Tachycardia Technically limited study due to Limited Window due to large effusion INDICATION Pleural Effusion Palpitations 2D DIMENSIONS IVSd1.02 (0.7-1.1cm)LVDd3.27 (3.9-5.9cm) PWd1.37 (0.7-1.1cm)IVSs0.96 (0.8-1.2cm) LVDs2.46 (2.5-4.0cm)FS (%) 24.6 % PWs1.01 (0.8-1.2cm) Mitral Valve E/A ratio0.0 TDI E/Lateral E'0.0E/Medial E'0.0 LEFT VENTRICLE The left ventricle is normal size. There is normal left ventricular wall thickness. The left ventricular systolic function is normal. The estimated ejection fraction is 60-65% No regional wall motion abnormalities noted.. The left ventricular diastolic function assessment is incomplete. No left ventricle thrombus noted on this study. RIGHT VENTRICLE The right ventricle is normal size. The right ventricular systolic function is normal. ATRIA The left atrium size is normal. The right atrium size is normal. AORTIC VALVE The aortic valve is normal in structure. No aortic regurgitation is present. There is no aortic valvular stenosis. There is no aortic valvular vegetation. MITRAL VALVE The mitral valve is normal in structure. There is no mitral valve stenosis. There is no mitral valve regurgitation noted. TRICUSPID VALVE The tricuspid valve is normal in structure. There is trace tricuspid valve regurgitation noted. PULMONIC VALVE The pulmonary valve is not well visualized. There is no pulmonic valvular regurgitation. GREAT VESSELS The aortic root is normal in size. The IVC is normal in size and collapses >50% with inspiration. PERICARDIAL EFFUSION There is no pericardial effusion. There is large left pleural effusion. <Conclusion> Technically limited study. The estimated ejection fraction is 60-65%. The left ventricular diastolic function assessment is incomplete. There is trace tricuspid valve regurgitation noted. The IVC is normal in size and collapses >50% with inspiration. There is large left pleural effusion.
[2018-09-01] MEDS ORDERED: Nystatin 100,000 Units/ml Oral Susp 5 ml UD PO SCH (18:30)
[2018-09-01] MEDS: Nystatin 100,000 Units/ml Oral Susp 5 ml UD PO SCH (20:00)
--- NOTE | 2018-09-01 22:06 | CP.PCM.CON ---
History of Present Illness - History of Present Illness History of Present Illness: CT surgery consult for Dr. Welch consulted for leakage from pigtail site Patient is a48 yr old female with PMH stage IV ovarian cancer with mets to lungs and pleural effusions. Patient had previously had pigtail drain placed by IR which was removed yesterday. Nursing staff states that she began having serous fluid draining from the tube site today increased with coughing. Patient denies pain at drain site, CP and SOB. she is saturating well on 3L NC at the time of interview. PMH: ovarian cancer stage IV, pleural effusions PSH: none Social: denies, family lives in [place] Review of Systems - Review of Systems All systems: reviewed and no additional remarkable complaints except (as per HPI) Past Patient History - Past Medical History & Family History Past Medical History?: Yes - Past Social History Alcohol: None - CARDIAC Hx Pacemaker: No - PULMONARY Hx Respiratory Disorders: No - NEUROLOGICAL Hx Neurological Disorder: No - HEENT Hx HEENT Problems: Yes - RENAL Hx Chronic Kidney Disease: No - ENDOCRINE/METABOLIC Hx Endocrine Disorders: No - HEMATOLOGICAL/ONCOLOGICAL Hx Cancer: Yes - INTEGUMENTARY Hx Dermatological Problems: No - MUSCULOSKELETAL/RHEUMATOLOGICAL Hx Musculoskeletal Disorders: Yes (unsteady gait) - GASTROINTESTINAL Hx Gastrointestinal Disorders: No - GENITOURINARY/GYNECOLOGICAL Hx Genitourinary Disorders: Yes - PSYCHIATRIC Hx Psychophysiologic Disorder: Yes (anxiety) - SURGICAL HISTORY Hx Mastectomy: No - ANESTHESIA Hx Anesthesia: Yes Hx Anesthesia Reactions: No Meds Allergies/Adverse Reactions: Allergies Allergy/AdvReac Type Severity Reaction Status Date / Time No Known Allergies Allergy Verified 08/18/18 16:19 - Medications Medications: Current Medications Benzocaine/Menthol (Cepacol Sore Throat) 1 tere PO Q3 PRN PRN Reason: Sore Throat Last Admin: 08/31/18 17:13 Dose: 1 tere Cyproheptadine HCl (Periactin) 4 mg PO HS [facility] Digoxin (Lanoxin) 0.25 mg PO DAILY [facility] Last Admin: 09/01/18 09:48 Dose: Not Given Epoetin Real (Procrit) 20,000 unit SC MWF [facility] Last Admin: 09/01/18 10:07 Dose: 20,000 unit Famotidine (Pepcid) 20 mg PO BID [facility] Last Admin: 09/01/18 18:35 Dose: 20 mg Heparin Sodium (Porcine) (Heparin) 5,000 units SC Q8 [facility]; Protocol Last Admin: 09/01/18 18:33 Dose: 5,000 units Sodium Chloride (Sodium Chloride 0.9%) 500 mls @ 40 mls/hr IV .[id number] [facility] Last Admin: 08/31/18 21:59 Dose: 40 mls/hr Iron Sucrose 200 mg/ Sodium (Chloride) 110 mls @ 110 mls/hr IVPB DAILY [facility] Stop: 09/06/18 09:01 Last Admin: 09/01/18 09:50 Dose: 110 mls/hr Sodium Chloride (Sodium Chloride 0.9%) 500 mls @ 100 mls/hr IV .Q5H [facility] Ketorolac Tromethamine (Toradol) 15 mg IVP Q6 PRN PRN Reason: Pain, moderate (4-7) Last Admin: 08/31/18 21:57 Dose: 15 mg Lorazepam (Ativan) 1 mg PO HS [facility] Last Admin: 09/01/18 00:22 Dose: Not Given Lorazepam (Ativan) 0.5 mg PO BID [facility] Last Admin: 09/01/18 18:33 Dose: Not Given Megestrol Acetate (Megace) 40 mg PO DAILY [facility] Nystatin (Nystatin Oral Susp) 5 ml PO BID [facility] Ondansetron HCl (Zofran Inj) 4 mg IVP Q4 PRN PRN Reason: Nausea/Vomiting Last Admin: 08/30/18 19:07 Dose: 4 mg Pantoprazole Sodium (Protonix Ec Tab) 40 mg PO DAILY [facility] Last Admin: 09/01/18 09:50 Dose: 40 mg Phenol/Menthol (Phenaseptic 1.4% Throat [place]) 1 spry MT BID [facility] Last Admin: 09/01/18 18:31 Dose: Not Given Physical Exam - Constitutional Appears: Non-toxic, No Acute Distress, Cachectic, Chronically Ill - Head Exam Head Exam: ATRAUMATIC, NORMOCEPHALIC - Eye Exam Eye Exam: EOMI - ENT Exam ENT Exam: Mucous Membranes Moist - Respiratory Exam Respiratory Exam: Decreased Breath Sounds (lower lung patel bilaterally) - Cardiovascular Exam Cardiovascular Exam: REGULAR RHYTHM. absent: Tachycardia - GI/Abdominal Exam GI & Abdominal Exam: Mass, Soft. absent: Distended, Guarding, Tenderness - Extremities Exam Extremities exam: Positive for: pedal pulses present. Negative for: calf tenderness, pedal edema - Neurological Exam Neurological exam: Alert, Oriented x3 - Psychiatric Exam Psychiatric exam: Normal Affect, Normal Mood - Skin Skin Exam: Dry, Intact, Normal Color, Warm Results - Vital Signs Recent Vital Signs: Last Vital Signs Temp 98.3 F 09/01/18 16:27 Pulse 94 H 09/01/18 16:27 Resp 20 09/01/18 16:27 BP 104/70 09/01/18 16:27 Pulse Ox 90 L 09/01/18 16:27 - Labs Result Diagrams: 09/01/18 05:55 09/01/18 05:55 Labs: Laboratory Results - last 24 hr 09/01/18 09/01/18 09/01/18 05:55 05:55 05:55 WBC 8.5 RBC 3.41 L Hgb 8.2 L Hct 26.0 L MCV 76.2 L MCH 24.2 L MCHC 31.7 L RDW 18.6 H Plt Count 121 L Sodium 133 Potassium 4.3 Chloride 105 Carbon Dioxide 22 Anion Gap 10 BUN 20 H Creatinine 0.7 Est GFR ( Amer) > 60 Est GFR (Non-Af Amer) > 60 Random Glucose 106 H Calcium 7.7 L Digoxin 2.4 H Assessment & Plan - Assessment and Plan (Free Text) Assessment: 48 yr old female with recurrent drainage from pigtail catheter site Plan: chest CT w/ contrast reinforce dressings may need pleurex catheter vs pleurodesis d/w Dr. Rebekah Santos, PGY 1
[2018-09-01] MEDS: Sodium Chloride 0.9% 500 ML IV SCH (22:09)
[2018-09-01] MEDS ORDERED: Sodium Chloride 0.9% 50 ML IV ONE (23:11)
[2018-09-01] MEDS ORDERED: Iohexol 300 100 ML IJ ONE (23:11)
[2018-09-02] MEDS: Sodium Chloride 0.9% 500 ML IV SCH (00:45)
--- NOTE | 2018-09-02 08:48 | CP.PCM.PN ---
Subjective - Date & Time of Evaluation Date of Evaluation: 09/02/18 Time of Evaluation: 08:46 - Subjective Subjective: Surgery: Dr. Welch Pt seen and examined. No acute events overnight. She states that her breathing is somewhat improved. Objective - Vital Signs/Intake and Output Vital Signs (last 24 hours): Temp Pulse Resp BP Pulse Ox 98 F 86 20 115/75 97 09/02/18 02:31 09/02/18 02:31 09/02/18 02:31 09/02/18 02:31 09/02/18 02:31 Intake and Output: 09/02/18 09/02/18 06:59 18:59 Intake Total 1800 Output Total 550 Balance 1250 - Medications Medications: Current Medications Benzocaine/Menthol (Cepacol Sore Throat) 1 tere PO Q3 PRN PRN Reason: Sore Throat Last Admin: 08/31/18 17:13 Dose: 1 tere Cyproheptadine HCl (Periactin) 4 mg PO HS [facility] Last Admin: 09/01/18 22:47 Dose: 4 mg Digoxin (Lanoxin) 0.25 mg PO DAILY [facility] Last Admin: 09/01/18 09:48 Dose: Not Given Epoetin Real (Procrit) 20,000 unit SC MWF [facility] Last Admin: 09/01/18 10:07 Dose: 20,000 unit Famotidine (Pepcid) 20 mg PO BID [facility] Last Admin: 09/01/18 18:35 Dose: 20 mg Heparin Sodium (Porcine) (Heparin) 5,000 units SC Q8 [facility]; Protocol Last Admin: 09/02/18 00:45 Dose: 5,000 units Sodium Chloride (Sodium Chloride 0.9%) 500 mls @ 40 mls/hr IV .[id number] [facility] Last Admin: 09/02/18 00:45 Dose: 40 mls/hr Iron Sucrose 200 mg/ Sodium (Chloride) 110 mls @ 110 mls/hr IVPB DAILY [facility] Stop: 09/06/18 09:01 Last Admin: 09/01/18 09:50 Dose: 110 mls/hr Sodium Chloride (Sodium Chloride 0.9%) 500 mls @ 100 mls/hr IV .Q5H [facility] Ketorolac Tromethamine (Toradol) 15 mg IVP Q6 PRN PRN Reason: Pain, moderate (4-7) Last Admin: 08/31/18 21:57 Dose: 15 mg Lorazepam (Ativan) 1 mg PO HS [facility] Last Admin: 09/01/18 22:00 Dose: Not Given Lorazepam (Ativan) 0.5 mg PO BID [facility] Last Admin: 09/01/18 18:33 Dose: Not Given Megestrol Acetate (Megace) 40 mg PO DAILY [facility] Nystatin (Nystatin Oral Susp) 5 ml PO BID [facility] Last Admin: 09/01/18 20:00 Dose: 5 ml Ondansetron HCl (Zofran Inj) 4 mg IVP Q4 PRN PRN Reason: Nausea/Vomiting Last Admin: 08/30/18 19:07 Dose: 4 mg Pantoprazole Sodium (Protonix Ec Tab) 40 mg PO DAILY [facility] Last Admin: 09/01/18 09:50 Dose: 40 mg Phenol/Menthol (Phenaseptic 1.4% Throat [place]) 1 sp[address] MT BID [facility] Last Admin: 09/01/18 18:31 Dose: Not Given - Labs Labs: 09/01/18 05:55 09/01/18 05:55 PT 12.8 Seconds (9.8-13.1) 08/25/18 04:40 INR 1.1 08/25/18 04:40 APTT 27.0 Seconds (25.6-37.1) 08/25/18 04:40 - Constitutional Appears: Non-toxic, No Acute Distress - Head Exam Head Exam: ATRAUMATIC, NORMOCEPHALIC - Eye Exam Eye Exam: EOMI - ENT Exam ENT Exam: Mucous Membranes Moist - Neck Exam Neck Exam: Full ROM - Respiratory Exam Respiratory Exam: NORMAL BREATHING PATTERN. absent: Accessory Muscle Use, Respiratory Distress - GI/Abdominal Exam GI & Abdominal Exam: Soft. absent: Tenderness - Neurological Exam Neurological Exam: Alert, Awake, Oriented x3 - Psychiatric Exam Psychiatric exam: Normal Affect, Normal Mood Assessment and Plan - Assessment and Plan (Free Text) Assessment: 48F w. recurrent B/L pleural effusions -Dr. Welch to review CT scan -Possible pleurex catheter / pleurodesis thursday -further recs to follow -d/w attending Kandace PGY4
--- NOTE | 2018-09-02 09:24 | CT ---
Date of service: 09/01/2018 PROCEDURE: CT Chest with contrast HISTORY: Pleural effusions, sepsis and abdominal pain COMPARISON: 08/18/2018. CT thorax abdomen and pelvis TECHNIQUE: Contiguous axial images were obtained through the chest with intravenous contrast enhancement. Sagittal and coronal reconstructions were performed. IV contrast: 80 cc Omnipaque 300. Radiation dose: Total exam DLP = 261.64 mGy-cm. This CT exam was performed using one or more of the following dose reduction techniques: Automated exposure control, adjustment of the mA and/or kV according to patient size, and/or use of iterative reconstruction technique. FINDINGS: LUNGS: Compressive atelectasis related to bilateral pleural effusions. Innumerable pulmonary masses consistent with metastatic disease. These are approximately stable where they can be compared. MEDIASTINUM: Unremarkable thoracic aorta. No aneurysm or dissection. Normal sized heart. Main pulmonary artery unremarkable. No vascular congestion. No lymphadenopathy. No aortic atherosclerotic calcification or mural plaque present. PLEURA: Decrease in right pleural effusion. Increase in left pleural effusion. BONES: No fracture. No destructive lesion. UPPER ABDOMEN: Trace perihepatic fluid OTHER FINDINGS: Supraclavicular mass 2.7 x 3.1 cm. IMPRESSION: Decrease in right pleural effusion. Increase in left pleural effusion. Tumor burden primarily bilateral cystic and necrotic pulmonary masses and right supraclavicular adenopathy. Or comparable these tumor masses are stable. Concordant results (preliminary interpretation) provided by [facility]. Procedure Completed: 23:25. Preliminary Report: Dictated and Authenticated: 00:25. Final Interpretation: 09:21. September 02, 2018
--- NOTE | 2018-09-02 09:29 | CARD ---
APPROVED REPORT Date of service: 09/01/2018 EKG Measurement Heart [id number] <Conclusion> Sinus tachycardia Low voltage QRS Abnormal ECG
[2018-09-02] MEDS: Nystatin 100,000 Units/ml Oral Susp 5 ml UD PO SCH ×3 (10:26→17:35)
[2018-09-02] MEDS: Pantoprazole 40 mg EC Tab PO SCH (10:26)
[2018-09-02] MEDS: Phenol 1.4% Throat Spray MT SCH ×2 (10:26→17:35)
[2018-09-02] MEDS: Digoxin 250 mcg (0.25 mg) Tab PO SCH (12:46)
--- NOTE | 2018-09-02 12:50 | RAD ---
Date of service: 09/02/2018 PROCEDURE: CHEST RADIOGRAPH, 1 VIEW HISTORY: pleural effusion monitoring COMPARISON: September 01, 2018. FINDINGS: LUNGS: Stable pulmonary masses bilaterally. PLEURA: Stable bilateral pleural effusions. CARDIOVASCULAR: No aortic atherosclerotic calcification present. PICC line in satisfactory position OSSEOUS STRUCTURES: No significant abnormalities. VISUALIZED UPPER ABDOMEN: Normal. OTHER FINDINGS: None. IMPRESSION: No significant interval change compared to the prior examination(s).
--- NOTE | 2018-09-02 15:36 | CP.PCM.CON ---
Past Patient History - Past Medical History & Family History Past Medical History?: Yes - Past Social History Alcohol: None - CARDIAC Hx Pacemaker: No - PULMONARY Hx Respiratory Disorders: No - NEUROLOGICAL Hx Neurological Disorder: No - HEENT Hx HEENT Problems: Yes - RENAL Hx Chronic Kidney Disease: No - ENDOCRINE/METABOLIC Hx Endocrine Disorders: No - HEMATOLOGICAL/ONCOLOGICAL Hx Cancer: Yes - INTEGUMENTARY Hx Dermatological Problems: No - MUSCULOSKELETAL/RHEUMATOLOGICAL Hx Musculoskeletal Disorders: Yes (unsteady gait) - GASTROINTESTINAL Hx Gastrointestinal Disorders: No - GENITOURINARY/GYNECOLOGICAL Hx Genitourinary Disorders: Yes - PSYCHIATRIC Hx Psychophysiologic Disorder: Yes (anxiety) - SURGICAL HISTORY Hx Mastectomy: No - ANESTHESIA Hx Anesthesia: Yes Hx Anesthesia Reactions: No Meds Allergies/Adverse Reactions: Allergies Allergy/AdvReac Type Severity Reaction Status Date / Time No Known Allergies Allergy Verified 08/18/18 16:19 - Medications Medications: Current Medications Benzocaine/Menthol (Cepacol Sore Throat) 1 tere PO Q3 PRN PRN Reason: Sore Throat Last Admin: 08/31/18 17:13 Dose: 1 tere Cyproheptadine HCl (Periactin) 4 mg PO HS [facility] Last Admin: 09/01/18 22:47 Dose: 4 mg Epoetin Real (Procrit) 20,000 unit SC MWF [facility] Last Admin: 09/01/18 10:07 Dose: 20,000 unit Famotidine (Pepcid) 20 mg PO BID [facility] Last Admin: 09/02/18 10:26 Dose: Not Given Heparin Sodium (Porcine) (Heparin) 5,000 units SC Q8 [facility]; Protocol Last Admin: 09/02/18 10:25 Dose: 5,000 units Sodium Chloride (Sodium Chloride 0.9%) 500 mls @ 40 mls/hr IV .[id number] [facility] Last Admin: 09/02/18 00:45 Dose: 40 mls/hr Iron Sucrose 200 mg/ Sodium (Chloride) 110 mls @ 110 mls/hr IVPB DAILY [facility] Stop: 09/06/18 09:01 Last Admin: 09/02/18 10:25 Dose: 110 mls/hr Sodium Chloride (Sodium Chloride 0.9%) 500 mls @ 100 mls/hr IV .Q5H [facility] Ketorolac Tromethamine (Toradol) 15 mg IVP Q6 PRN PRN Reason: Pain, moderate (4-7) Last Admin: 08/31/18 21:57 Dose: 15 mg Nystatin (Nystatin Oral Susp) 5 ml PO BID [facility] Last Admin: 09/02/18 13:37 Dose: 5 ml Ondansetron HCl (Zofran Inj) 4 mg IVP Q4 PRN PRN Reason: Nausea/Vomiting Last Admin: 08/30/18 19:07 Dose: 4 mg Pantoprazole Sodium (Protonix Ec Tab) 40 mg PO DAILY [facility] Last Admin: 09/02/18 10:26 Dose: Not Given Phenol/Menthol (Phenaseptic 1.4% Throat [place]) 1 spry MT BID [facility] Last Admin: 09/02/18 10:26 Dose: Not Given Results - Vital Signs Recent Vital Signs: Last Vital Signs Temp 97.6 F 09/02/18 09:00 Pulse 117 H 09/02/18 09:00 Resp 20 09/02/18 09:00 BP 106/68 09/02/18 09:00 Pulse Ox 94 L 09/02/18 09:00 - Labs Result Diagrams: 09/01/18 05:55 09/01/18 05:55
[2018-09-02] MEDS ORDERED: Sodium Chloride 0.9% 250 ML IV SCH (17:00)
[2018-09-02] MEDS ORDERED: Sodium Chloride 0.9% 1,000 ML IV SCH (17:00)
[2018-09-02] MEDS: Dextrose 5%/Lactated Ringer's 1,000 ML IV SCH (18:57)
[2018-09-03] MEDS: Dextrose 5%/Lactated Ringer's 1,000 ML IV SCH ×2 (04:19→15:41)
--- NOTE | 2018-09-03 07:56 | CP.PCM.PN ---
Subjective - Date & Time of Evaluation Date of Evaluation: 09/03/18 Time of Evaluation: 07:10 - Subjective Subjective: CT surgery: Lowe Patient seen and examined this am at bedside. She denies any pain at the previous tube site. She does endorse continued drainage and mild SOB with activity. Tolerating diet well. She otherwise denies GOMEZ, CP, f/c, n/v, abdominal pain and extremity pain or weakness. Objective - Vital Signs/Intake and Output Vital Signs (last 24 hours): Temp Pulse Resp BP Pulse Ox 97.6 F 125 H 20 111/70 95 09/03/18 01:00 09/03/18 01:00 09/03/18 01:00 09/03/18 01:00 09/03/18 01:00 Intake and Output: 09/03/18 09/03/18 06:59 18:59 Intake Total 200 Balance 200 - Medications Medications: Current Medications Benzocaine/Menthol (Cepacol Sore Throat) 1 tere PO Q3 PRN PRN Reason: Sore Throat Last Admin: 08/31/18 17:13 Dose: 1 tere Cyproheptadine HCl (Periactin) 4 mg PO HS [facility] Last Admin: 09/02/18 22:39 Dose: 4 mg Epoetin Real (Procrit) 20,000 unit SC MWF [facility] Last Admin: 09/01/18 10:07 Dose: 20,000 unit Famotidine (Pepcid) 20 mg PO BID [facility] Last Admin: 09/02/18 17:35 Dose: 20 mg Heparin Sodium (Porcine) (Heparin) 5,000 units SC Q8 [facility]; Protocol Last Admin: 09/03/18 00:53 Dose: 5,000 units Iron Sucrose 200 mg/ Sodium (Chloride) 110 mls @ 110 mls/hr IVPB DAILY [facility] Stop: 09/06/18 09:01 Last Admin: 09/02/18 10:25 Dose: 110 mls/hr Dextrose/Lactated Ringer's (Dextrose 5%/Lactated Ringer's) 1,000 mls @ 100 mls/hr IV .Q10H [facility] Stop: 09/03/18 18:08 Last Admin: 09/03/18 04:19 Dose: 100 mls/hr Ketorolac Tromethamine (Toradol) 15 mg IVP Q6 PRN PRN Reason: Pain, moderate (4-7) Last Admin: 08/31/18 21:57 Dose: 15 mg Nystatin (Nystatin Oral Susp) 5 ml PO BID [facility] Last Admin: 09/02/18 17:35 Dose: 5 ml Ondansetron HCl (Zofran Inj) 4 mg IVP Q4 PRN PRN Reason: Nausea/Vomiting Last Admin: 08/30/18 19:07 Dose: 4 mg Pantoprazole Sodium (Protonix Ec Tab) 40 mg PO DAILY [facility] Last Admin: 09/02/18 10:26 Dose: Not Given Phenol/Menthol (Phenaseptic 1.4% Throat [place]) 1 spry MT BID [facility] Last Admin: 09/02/18 17:35 Dose: Not Given - Labs Labs: 09/01/18 05:55 09/01/18 05:55 PT 12.8 Seconds (9.8-13.1) 08/25/18 04:40 INR 1.1 08/25/18 04:40 APTT 27.0 Seconds (25.6-37.1) 08/25/18 04:40 - Constitutional Appears: Non-toxic, No Acute Distress, Cachectic, Chronically Ill - Eye Exam Eye Exam: EOMI - ENT Exam ENT Exam: Mucous Membranes Moist - Respiratory Exam Respiratory Exam: Decreased Breath Sounds (lower lung patel bilaterally), NORMAL BREATHING PATTERN Assessment and Plan - Assessment and Plan (Free Text) Assessment: 48 yr old famle with recurrent pleural effusions due to underlying malignancy and drainage from previous pigtail chest tube site. Plan: c/w dressing reinforcement possibly needs chest tube placement/ pleurodesis daily CXR d/w Dr. Rebekah Santos ,PGY 1
[2018-09-03] MEDS: Pantoprazole 40 mg EC Tab PO SCH (09:42)
[2018-09-03] MEDS: Nystatin 100,000 Units/ml Oral Susp 5 ml UD PO SCH ×2 (09:42→16:37)
[2018-09-03] MEDS: Phenol 1.4% Throat Spray MT SCH ×2 (09:42→16:36)
--- NOTE | 2018-09-03 09:44 | CARD ---
APPROVED REPORT Date of service: 09/02/2018 EKG Measurement Heart [id number] [place] [id number] <Conclusion> Sinus tachycardia Low voltage QRS Abnormal ECG
--- NOTE | 2018-09-03 10:54 | RAD ---
Date of service: 09/03/2018 HISTORY: pleural effusion monitoring COMPARISON: Portable chest 09/02/2018. FINDINGS: LUNGS: Right PICC unchanged in position. Inspiratory volumes appear diminished. No interval change in left pleural effusion and numerous pulmonary masses appreciated bilaterally. No right pleural effusion or pneumothorax bilaterally. Cardiac silhouette appears stable. PLEURA: As above. CARDIOVASCULAR: No aortic atherosclerotic calcification present. As above. OSSEOUS STRUCTURES: No significant abnormalities. VISUALIZED UPPER ABDOMEN: Normal. OTHER FINDINGS: None. IMPRESSION: Diminished inspiratory volumes. Stable left pleural effusion. Scattered pulmonary masses reiterated.
[2018-09-03] MEDS: Epoetin Alfa 20000 UNIT/ML Inj SC SCH (11:24)
--- NOTE | 2018-09-03 11:47 | CP.PCM.PN ---
Subjective - Date & Time of Evaluation Date of Evaluation: 09/03/18 Time of Evaluation: 11:42 - Subjective Subjective: Pt is afebrile and has no more leaking from the chest tube site. She is however in a very bad mood today.She denies seeing me [id number] today even though I have seen her for almost 25-30 mins daily, and she has received 2 doses of chemothe rapy already. She is due for the next dose on next Thursday. She is totally non cooperative with the nursing staff .She has been taken out of bed and walked to a chair,but today she denies that. Her WBC is 8.5 today. If it drops further she may need granix. she is c/o pain in the mouth and throat, and is on nystatin. will try a magic mouthwash swish and spit. I also feel she may need a psych re eval. Objective - Vital Signs/Intake and Output Vital Signs (last 24 hours): Temp Pulse Resp BP Pulse Ox 97.6 F 125 H 20 111/70 95 09/03/18 01:00 09/03/18 01:00 09/03/18 01:00 09/03/18 01:00 09/03/18 01:00 Intake and Output: 09/03/18 09/03/18 06:59 18:59 Intake Total 200 Balance 200 - Medications Medications: Current Medications Benzocaine/Menthol (Cepacol Sore Throat) 1 tere PO Q3 PRN PRN Reason: Sore Throat Last Admin: 08/31/18 17:13 Dose: 1 tere Cyproheptadine HCl (Periactin) 4 mg PO HS [facility] Last Admin: 09/02/18 22:39 Dose: 4 mg Epoetin Real (Procrit) 20,000 unit SC MWF [facility] Last Admin: 09/03/18 11:24 Dose: 20,000 unit Famotidine (Pepcid) 20 mg PO BID [facility] Last Admin: 09/03/18 09:42 Dose: 20 mg Heparin Sodium (Porcine) (Heparin) 5,000 units SC Q8 [facility]; Protocol Last Admin: 09/03/18 09:41 Dose: 5,000 units Iron Sucrose 200 mg/ Sodium (Chloride) 110 mls @ 110 mls/hr IVPB DAILY [facility] Stop: 09/06/18 09:01 Last Admin: 09/03/18 11:25 Dose: 110 mls/hr Dextrose/Lactated Ringer's (Dextrose 5%/Lactated Ringer's) 1,000 mls @ 100 mls/hr IV .Q10H [facility] Stop: 09/03/18 18:08 Last Admin: 09/03/18 04:19 Dose: 100 mls/hr Ketorolac Tromethamine (Toradol) 15 mg IVP Q6 PRN PRN Reason: Pain, moderate (4-7) Last Admin: 08/31/18 21:57 Dose: 15 mg Nystatin (Nystatin Oral Susp) 5 ml PO BID [facility] Last Admin: 09/03/18 09:42 Dose: 5 ml Ondansetron HCl (Zofran Inj) 4 mg IVP Q4 PRN PRN Reason: Nausea/Vomiting Last Admin: 08/30/18 19:07 Dose: 4 mg Pantoprazole Sodium (Protonix Ec Tab) 40 mg PO DAILY [facility] Last Admin: 09/03/18 09:42 Dose: 40 mg Phenol/Menthol (Phenaseptic 1.4% Throat [place]) 1 spry MT BID [facility] Last Admin: 09/03/18 09:42 Dose: Not Given - Labs Labs: 09/01/18 05:55 09/01/18 05:55 PT 12.8 Seconds (9.8-13.1) 08/25/18 04:40 INR 1.1 08/25/18 04:40 APTT 27.0 Seconds (25.6-37.1) 08/25/18 04:40
[2018-09-03 11:48] LABS: HEMOGLOBIN 9.4 g/dL (12.0-16.0); MEAN CELL VOLUME 76.1 fl (81.0-99.0); MEAN CORPUSCULAR HEMOGLOBIN 24.4 pg (27.0-31.0); MEAN CORPUSCULAR HGB CONC 32.1 g/dL (33.0-37.0); RBC 3.86 Mil/uL (3.80-5.20); RED CELL DISTRIBUTION WIDTH 19.2 % (11.5-14.5); WHITE BLOOD COUNT 10.7 K/uL (4.8-10.8)
--- NOTE | 2018-09-03 11:53 | CP.PCM.PN ---
Subjective - Date & Time of Evaluation Date of Evaluation: 09/03/18 Time of Evaluation: 11:53 - Subjective Subjective: APPEARS TO BE IN DENIAL REGARDING HER ILLNESS APPREHENSIVE STILL HAS SOME DRAINAGE VIA R PRIOR CHEST TUBE SITE THORACIC SURGERY FOLLOWING FOR FURTHER RX WILL CONTINUE TO FOLLOW IMP-METASTATIC DZ---R/O FISTULA R CHEST PROGNOSIS IS EXTREMELY POOR Objective - Vital Signs/Intake and Output Vital Signs (last 24 hours): Temp Pulse Resp BP Pulse Ox 97.6 F 125 H 20 111/70 95 09/03/18 01:00 09/03/18 01:00 09/03/18 01:00 09/03/18 01:00 09/03/18 01:00 Intake and Output: 09/03/18 09/03/18 06:59 18:59 Intake Total 200 Balance 200 - Medications Medications: Current Medications Benzocaine/Menthol (Cepacol Sore Throat) 1 tere PO Q3 PRN PRN Reason: Sore Throat Last Admin: 08/31/18 17:13 Dose: 1 tere Cyproheptadine HCl (Periactin) 4 mg PO HS [facility] Last Admin: 09/02/18 22:39 Dose: 4 mg Epoetin Real (Procrit) 20,000 unit SC MWF [facility] Last Admin: 09/03/18 11:24 Dose: 20,000 unit Famotidine (Pepcid) 20 mg PO BID [facility] Last Admin: 09/03/18 09:42 Dose: 20 mg Heparin Sodium (Porcine) (Heparin) 5,000 units SC Q8 [facility]; Protocol Last Admin: 09/03/18 09:41 Dose: 5,000 units Iron Sucrose 200 mg/ Sodium (Chloride) 110 mls @ 110 mls/hr IVPB DAILY [facility] Stop: 09/06/18 09:01 Last Admin: 09/03/18 11:25 Dose: 110 mls/hr Dextrose/Lactated Ringer's (Dextrose 5%/Lactated Ringer's) 1,000 mls @ 100 mls/hr IV .Q10H [facility] Stop: 09/03/18 18:08 Last Admin: 09/03/18 04:19 Dose: 100 mls/hr Ketorolac Tromethamine (Toradol) 15 mg IVP Q6 PRN PRN Reason: Pain, moderate (4-7) Last Admin: 08/31/18 21:57 Dose: 15 mg Nystatin (Nystatin Oral Susp) 5 ml PO BID [facility] Last Admin: 09/03/18 09:42 Dose: 5 ml Ondansetron HCl (Zofran Inj) 4 mg IVP Q4 PRN PRN Reason: Nausea/Vomiting Last Admin: 08/30/18 19:07 Dose: 4 mg Pantoprazole Sodium (Protonix Ec Tab) 40 mg PO DAILY [facility] Last Admin: 09/03/18 09:42 Dose: 40 mg Phenol/Menthol (Phenaseptic 1.4% Throat [place]) 1 spry MT BID [facility] Last Admin: 09/03/18 09:42 Dose: Not Given - Labs Labs: 09/03/18 11:41 09/01/18 05:55 PT 12.8 Seconds (9.8-13.1) 08/25/18 04:40 INR 1.1 08/25/18 04:40 APTT 27.0 Seconds (25.6-37.1) 08/25/18 04:40
[2018-09-03 11:55] LABS: INR 1.2; PROTHROMBIN TIME 14.1 Seconds (9.8-13.1)
[2018-09-03 11:57] LABS: PARTIAL THROMBOPLASTIN TIME 32.1 Seconds (25.6-37.1)
[2018-09-03 12:05] LABS: ALB/GLOB RATIO 0.8 (1.0-2.1); ALBUMIN 2.3 g/dL (3.5-5.0); ALT/SGPT 51 U/L (9-52); AST/SGOT 66 U/L (14-36); BLOOD UREA NITROGEN 16 mg/dl (7-17); CALCIUM 8.3 mg/dL (8.4-10.2); GFR NON-AFRICAN AMERICAN > 60
--- NOTE | 2018-09-03 12:08 | CP.PCM.PN ---
Subjective - Date & Time of Evaluation Date of Evaluation: 09/03/18 Time of Evaluation: 08:00 - Subjective Subjective: drainage right chest + no fever poor prognosis Objective - Vital Signs/Intake and Output Vital Signs (last 24 hours): Temp Pulse Resp BP Pulse Ox 97.6 F 125 H 20 111/70 95 09/03/18 01:00 09/03/18 01:00 09/03/18 01:00 09/03/18 01:00 09/03/18 01:00 Intake and Output: 09/03/18 09/03/18 06:59 18:59 Intake Total 200 Balance 200 - Medications Medications: Current Medications Benzocaine/Menthol (Cepacol Sore Throat) 1 tere PO Q3 PRN PRN Reason: Sore Throat Last Admin: 08/31/18 17:13 Dose: 1 tere Cyproheptadine HCl (Periactin) 4 mg PO HS [facility] Last Admin: 09/02/18 22:39 Dose: 4 mg Epoetin Real (Procrit) 20,000 unit SC MWF [facility] Last Admin: 09/03/18 11:24 Dose: 20,000 unit Famotidine (Pepcid) 20 mg PO BID [facility] Last Admin: 09/03/18 09:42 Dose: 20 mg Heparin Sodium (Porcine) (Heparin) 5,000 units SC Q8 [facility]; Protocol Last Admin: 09/03/18 09:41 Dose: 5,000 units Iron Sucrose 200 mg/ Sodium (Chloride) 110 mls @ 110 mls/hr IVPB DAILY [facility] Stop: 09/06/18 09:01 Last Admin: 09/03/18 11:25 Dose: 110 mls/hr Dextrose/Lactated Ringer's (Dextrose 5%/Lactated Ringer's) 1,000 mls @ 100 mls/hr IV .Q10H [facility] Stop: 09/03/18 18:08 Last Admin: 09/03/18 04:19 Dose: 100 mls/hr Ketorolac Tromethamine (Toradol) 15 mg IVP Q6 PRN PRN Reason: Pain, moderate (4-7) Last Admin: 08/31/18 21:57 Dose: 15 mg Nystatin (Nystatin Oral Susp) 5 ml PO BID [facility] Last Admin: 09/03/18 09:42 Dose: 5 ml Ondansetron HCl (Zofran Inj) 4 mg IVP Q4 PRN PRN Reason: Nausea/Vomiting Last Admin: 08/30/18 19:07 Dose: 4 mg Pantoprazole Sodium (Protonix Ec Tab) 40 mg PO DAILY [facility] Last Admin: 09/03/18 09:42 Dose: 40 mg Phenol/Menthol (Phenaseptic 1.4% Throat [place]) 1 spry MT BID [facility] Last Admin: 09/03/18 09:42 Dose: Not Given Saliva Substitute (First Magic Mouthwash) 5 ml PO QID [facility] - Labs Labs: 09/03/18 11:41 09/03/18 11:41 PT 14.1 Seconds (9.8-13.1) H 09/03/18 11:41 INR 1.2 09/03/18 11:41 APTT 32.1 Seconds (25.6-37.1) 09/03/18 11:41 - Constitutional Appears: Cachectic, Chronically Ill - Head Exam Head Exam: NORMOCEPHALIC - Eye Exam Eye Exam: absent: Scleral icterus - ENT Exam ENT Exam: Mucous Membranes Dry - Neck Exam Neck Exam: absent: Lymphadenopathy - Respiratory Exam Respiratory Exam: Decreased Breath Sounds - Cardiovascular Exam Cardiovascular Exam: REGULAR RHYTHM - GI/Abdominal Exam GI & Abdominal Exam: Distended, Tenderness, Hypoactive Bowel Sounds - Rectal Exam Rectal Exam: Deferred - Exam Exam: NORMAL INSPECTION - Extremities Exam Extremities Exam: absent: Pedal Edema - Back Exam Back Exam: absent: CVA tenderness (L), CVA tenderness (R) Assessment and Plan (1) Fluid overload Status: Acute (2) Hyponatremia Status: Acute (3) Metastatic cancer Status: Acute (4) Pleural effusion Status: Acute (5) Sepsis Status: Acute
--- NOTE | 2018-09-03 13:33 | CP.PCM.PN ---
Subjective - Date & Time of Evaluation Date of Evaluation: 09/03/18 Time of Evaluation: 13:16 - Subjective Subjective: Reason for consultation: 1 Recurrent pleural effusions, bilat, and sob 2. Pleurocutaneous fitula, cath removal site. Requested by Dr. Jerry. Pt s/e. pkrogress notes reviewed as well as imaging studies. 48 yo female with pmh of recently dx stage IV ovarian ca presented with bilat pleural efflusions. Drained with a pig tail cath with sx improvement,ie sob. Right pleural effusion recurred with sob. Chest cath site formed pleurocutaneous fistula from which serous effusion leaks out. CT: Bilateral pl eural effusions, compressive atelectais lower lobes, and innumerable shannon balls. We may not be able to reexpand lung after pleurodesis. I am inclined to recommend a pleurex cath into the right chest, and follow the outcome, and plan a further procedure on the left chest. Surgery discussed with the pt who accepted surgery without reservation. Objective - Vital Signs/Intake and Output Vital Signs (last 24 hours): Temp Pulse Resp BP Pulse Ox 97.6 F 125 H 20 111/70 95 09/03/18 01:00 09/03/18 01:00 09/03/18 01:00 09/03/18 01:00 09/03/18 01:00 Intake and Output: 09/03/18 09/03/18 06:59 18:59 Intake Total 200 Balance 200 - Medications Medications: Current Medications Benzocaine/Menthol (Cepacol Sore Throat) 1 tere PO Q3 PRN PRN Reason: Sore Throat Last Admin: 08/31/18 17:13 Dose: 1 tere Cyproheptadine HCl (Periactin) 4 mg PO HS [facility] Last Admin: 09/02/18 22:39 Dose: 4 mg Epoetin Real (Procrit) 20,000 unit SC MWF [facility] Last Admin: 09/03/18 11:24 Dose: 20,000 unit Famotidine (Pepcid) 20 mg PO BID [facility] Last Admin: 09/03/18 09:42 Dose: 20 mg Heparin Sodium (Porcine) (Heparin) 5,000 units SC Q8 [facility]; Protocol Last Admin: 09/03/18 09:41 Dose: 5,000 units Iron Sucrose 200 mg/ Sodium (Chloride) 110 mls @ 110 mls/hr IVPB DAILY [facility] Stop: 09/06/18 09:01 Last Admin: 09/03/18 11:25 Dose: 110 mls/hr Dextrose/Lactated Ringer's (Dextrose 5%/Lactated Ringer's) 1,000 mls @ 100 mls/hr IV .Q10H [facility] Stop: 09/03/18 18:08 Last Admin: 09/03/18 04:19 Dose: 100 mls/hr Ketorolac Tromethamine (Toradol) 15 mg IVP Q6 PRN PRN Reason: Pain, moderate (4-7) Last Admin: 08/31/18 21:57 Dose: 15 mg Nystatin (Nystatin Oral Susp) 5 ml PO BID [facility] Last Admin: 09/03/18 09:42 Dose: 5 ml Ondansetron HCl (Zofran Inj) 4 mg IVP Q4 PRN PRN Reason: Nausea/Vomiting Last Admin: 08/30/18 19:07 Dose: 4 mg Pantoprazole Sodium (Protonix Ec Tab) 40 mg PO DAILY [facility] Last Admin: 09/03/18 09:42 Dose: 40 mg Phenol/Menthol (Phenaseptic 1.4% Throat [place]) 1 spry MT BID [facility] Last Admin: 09/03/18 09:42 Dose: Not Given Saliva Substitute (First Magic Mouthwash) 5 ml PO QID [facility] Stop: 09/08/18 09:01 - Labs Labs: 09/03/18 11:41 09/03/18 11:41 PT 14.1 Seconds (9.8-13.1) H 09/03/18 11:41 INR 1.2 09/03/18 11:41 APTT 32.1 Seconds (25.6-37.1) 09/03/18 11:41
--- NOTE | 2018-09-03 14:42 | CP.PCM.CON ---
History of Present Illness - History of Present Illness History of Present Illness: follow up consult pt is 48 ys old female without previous psychiatric hospitalization or treatment. pt has a past medical history of anemia and benign breast mass, presented to the emergency department complaining of shortness of breath, associated with intermittent dry cough, chest pain, and bilateral leg swelling. Patient has been recently diagnosed with stage 4 ovarian cancer pt on evaluation today, presenting with anxious mood and affect, reported she is currently fearful about her prognosis, pt worried about having limited social support, pt reported decreased sleep, interrupted insomnia due to increased anxiety, reported decreased appetite, feeling down and worried, denied any current suicidal or homicidal ideation, denied perceptual disturbances Past Patient History - Past Medical History & Family History Past Medical History?: Yes - Past Social History Alcohol: None - CARDIAC Hx Pacemaker: No - PULMONARY Hx Respiratory Disorders: No - NEUROLOGICAL Hx Neurological Disorder: No - HEENT Hx HEENT Problems: Yes - RENAL Hx Chronic Kidney Disease: No - ENDOCRINE/METABOLIC Hx Endocrine Disorders: No - HEMATOLOGICAL/ONCOLOGICAL Hx Cancer: Yes - INTEGUMENTARY Hx Dermatological Problems: No - MUSCULOSKELETAL/RHEUMATOLOGICAL Hx Musculoskeletal Disorders: Yes (unsteady gait) - GASTROINTESTINAL Hx Gastrointestinal Disorders: No - GENITOURINARY/GYNECOLOGICAL Hx Genitourinary Disorders: Yes - PSYCHIATRIC Hx Psychophysiologic Disorder: Yes (anxiety) - SURGICAL HISTORY Hx Mastectomy: No - ANESTHESIA Hx Anesthesia: Yes Hx Anesthesia Reactions: No Meds Allergies/Adverse Reactions: Allergies Allergy/AdvReac Type Severity Reaction Status Date / Time No Known Allergies Allergy Verified 08/18/18 16:19 - Medications Medications: Current Medications Benzocaine/Menthol (Cepacol Sore Throat) 1 tere PO Q3 PRN PRN Reason: Sore Throat Last Admin: 08/31/18 17:13 Dose: 1 tere Cyproheptadine HCl (Periactin) 4 mg PO HS [facility] Last Admin: 09/02/18 22:39 Dose: 4 mg Epoetin Real (Procrit) 20,000 unit SC MWF [facility] Last Admin: 09/03/18 11:24 Dose: 20,000 unit Famotidine (Pepcid) 20 mg PO BID [facility] Last Admin: 09/03/18 09:42 Dose: 20 mg Heparin Sodium (Porcine) (Heparin) 5,000 units SC Q8 [facility]; Protocol Last Admin: 09/03/18 09:41 Dose: 5,000 units Iron Sucrose 200 mg/ Sodium (Chloride) 110 mls @ 110 mls/hr IVPB DAILY [facility] Stop: 09/06/18 09:01 Last Admin: 09/03/18 11:25 Dose: 110 mls/hr Dextrose/Lactated Ringer's (Dextrose 5%/Lactated Ringer's) 1,000 mls @ 100 mls/hr IV .Q10H [facility] Stop: 09/03/18 18:08 Last Admin: 09/03/18 04:19 Dose: 100 mls/hr Ketorolac Tromethamine (Toradol) 15 mg IVP Q6 PRN PRN Reason: Pain, moderate (4-7) Last Admin: 08/31/18 21:57 Dose: 15 mg Nystatin (Nystatin Oral Susp) 5 ml PO BID [facility] Last Admin: 09/03/18 09:42 Dose: 5 ml Ondansetron HCl (Zofran Inj) 4 mg IVP Q4 PRN PRN Reason: Nausea/Vomiting Last Admin: 08/30/18 19:07 Dose: 4 mg Pantoprazole Sodium (Protonix Ec Tab) 40 mg PO DAILY [facility] Last Admin: 09/03/18 09:42 Dose: 40 mg Phenol/Menthol (Phenaseptic 1.4% Throat [place]) 1 sp[address] MT BID [facility] Last Admin: 09/03/18 09:42 Dose: Not Given Saliva Substitute (First Magic Mouthwash) 5 ml PO QID [facility] Stop: 09/08/18 09:01 Results - Vital Signs Recent Vital Signs: Last Vital Signs Temp 97.6 F 09/03/18 01:00 Pulse 125 H 09/03/18 01:00 Resp 20 09/03/18 01:00 BP 111/70 09/03/18 01:00 Pulse Ox 95 09/03/18 01:00 - Labs Result Diagrams: 09/03/18 11:41 09/03/18 11:41 Labs: Laboratory Results - last 24 hr 09/03/18 09/03/18 09/03/18 11:41 11:41 11:41 WBC 10.7 RBC 3.86 Hgb 9.4 L Hct 29.3 L MCV 76.1 L MCH 24.4 L MCHC 32.1 L RDW 19.2 H Plt Count 323 D PT 14.1 H INR 1.2 APTT 32.1 Sodium 136 Potassium 3.9 Chloride 108 H Carbon Dioxide 21 L Anion Gap 11 BUN 16 Creatinine 0.8 Est GFR ( Amer) > 60 Est GFR (Non-Af Amer) > 60 Random Glucose 127 H Calcium 8.3 L Total Bilirubin 0.3 AST 66 H D ALT 51 Alkaline Phosphatase 262 H Total Protein 5.1 L Albumin 2.3 L D Globulin 2.8 Albumin/Globulin Ratio 0.8 L Assessment & Plan - Assessment and Plan (Free Text) Assessment: mood disorder due to medical condition with depressive features generalized anxiety disorder Plan: recommend starting lexapro 5mg daily recommend starting ativan 0.5mg q8 prn for anxiety
[2018-09-03] MEDS: Mag&Al/Simet/Diphen/Lido 237 ML KIT PO SCH ×3 (15:15→22:28)
--- NOTE | 2018-09-03 17:52 | US ---
Date of service: 08/30/2018 PROCEDURE: Limited ultrasound examination of the right upper abdomen. HISTORY: ascites COMPARISON: Comparison is made to the previous study dated 08/21/2018. TECHNIQUE: Limited only two views of right upper abdomen were obtained. FINDINGS: Incomplete study. The study is not diagnostic. IMPRESSION: Incomplete study.
[2018-09-04 07:08] LABS: BASO % 0.5 % (0.0-2.0); EOS # 0.1 K/uL (0.0-0.7); EOS % 0.7 % (0.0-4.0); HEMOGLOBIN 8.9 g/dL (12.0-16.0); LYMPH # 1.1 K/uL (1.0-4.3); MEAN CELL VOLUME 76.6 fl (81.0-99.0); MEAN CORPUSCULAR HEMOGLOBIN 24.4 pg (27.0-31.0); MEAN CORPUSCULAR HGB CONC 31.8 g/dL (33.0-37.0); MEAN PLATELET VOLUME 8.3 fl (7.2-11.7); MONO # 0.2 K/uL (0.0-0.8); MONO % 2.5 % (0.0-10.0); NEUT # 8.3 K/uL (1.8-7.0); NEUT % 85.3 % (50.0-75.0); NRBC % 0.4 % (0.0-0.0); RBC 3.67 Mil/uL (3.80-5.20); RED CELL DISTRIBUTION WIDTH 18.6 % (11.5-14.5); WHITE BLOOD COUNT 9.7 K/uL (4.8-10.8)
[2018-09-04 07:26] LABS: ALB/GLOB RATIO 0.8 (1.0-2.1); ALBUMIN 2.1 g/dL (3.5-5.0); ALT/SGPT 52 U/L (9-52); AST/SGOT 73 U/L (14-36); BLOOD UREA NITROGEN 16 mg/dl (7-17); CALCIUM 8.1 mg/dL (8.4-10.2); GFR NON-AFRICAN AMERICAN > 60
--- NOTE | 2018-09-04 08:00 | CP.PCM.PN ---
Subjective - Date & Time of Evaluation Date of Evaluation: 09/04/18 Time of Evaluation: 07:00 - Subjective Subjective: CT surgery progress note: Dr. Welch Patient seen and examined this am at bedside. patient has been nauseous overnight with several bouts of emesis. She continues to c/o mild SOB and weakness. We discussed again the plans for pleurex cath placement on Thursday and patient understood and agreed. She otherwise denies GOMEZ, CP, f/c, abdominal pain, stool changes and extremity pain. Objective - Vital Signs/Intake and Output Vital Signs (last 24 hours): Temp Pulse Resp BP Pulse Ox 97.6 F 126 H 20 115/84 94 L 09/04/18 07:59 09/04/18 07:59 09/04/18 07:59 09/04/18 07:59 09/04/18 07:59 - Medications Medications: Current Medications Benzocaine/Menthol (Cepacol Sore Throat) 1 tere PO Q3 PRN PRN Reason: Sore Throat Last Admin: 08/31/18 17:13 Dose: 1 tere Cyproheptadine HCl (Periactin) 4 mg PO HS [facility] Last Admin: 09/03/18 22:28 Dose: 4 mg Epoetin Real (Procrit) 20,000 unit SC MWF [facility] Last Admin: 09/03/18 11:24 Dose: 20,000 unit Escitalopram Oxalate (Lexapro) 5 mg PO HS [facility] Last Admin: 09/03/18 22:28 Dose: 5 mg Famotidine (Pepcid) 20 mg PO BID [facility] Last Admin: 09/03/18 16:38 Dose: 20 mg Heparin Sodium (Porcine) (Heparin) 5,000 units SC Q8 [facility]; Protocol Last Admin: 09/04/18 01:09 Dose: 5,000 units Iron Sucrose 200 mg/ Sodium (Chloride) 110 mls @ 110 mls/hr IVPB DAILY [facility] Stop: 09/06/18 09:01 Last Admin: 09/03/18 11:25 Dose: 110 mls/hr Ketorolac Tromethamine (Toradol) 15 mg IVP Q6 PRN PRN Reason: Pain, moderate (4-7) Last Admin: 08/31/18 21:57 Dose: 15 mg Nystatin (Nystatin Oral Susp) 5 ml PO BID [facility] Last Admin: 09/03/18 16:37 Dose: 5 ml Ondansetron HCl (Zofran Inj) 4 mg IVP Q4 PRN PRN Reason: Nausea/Vomiting Last Admin: 08/30/18 19:07 Dose: 4 mg Pantoprazole Sodium (Protonix Ec Tab) 40 mg PO DAILY [facility] Last Admin: 09/03/18 09:42 Dose: 40 mg Phenol/Menthol (Phenaseptic 1.4% Throat [place]) 1 sp[address] MT BID [facility] Last Admin: 09/03/18 16:36 Dose: Not Given Saliva Substitute (First Magic Mouthwash) 5 ml PO QID [facility] Stop: 09/08/18 09:01 Last Admin: 09/03/18 22:28 Dose: 5 ml - Labs Labs: 09/04/18 05:30 09/04/18 05:30 PT 14.1 Seconds (9.8-13.1) H 09/03/18 11:41 INR 1.2 09/03/18 11:41 APTT 32.1 Seconds (25.6-37.1) 09/03/18 11:41 - Constitutional Appears: Non-toxic, No Acute Distress, Cachectic, Chronically Ill - Head Exam Head Exam: ATRAUMATIC, NORMOCEPHALIC - Eye Exam Eye Exam: EOMI - ENT Exam ENT Exam: Mucous Membranes Moist - Respiratory Exam Respiratory Exam: Decreased Breath Sounds (lower lobes bilaterally), NORMAL BREATHING PATTERN. absent: Accessory Muscle Use, Respiratory Distress - Cardiovascular Exam Cardiovascular Exam: REGULAR RHYTHM. absent: Tachycardia - GI/Abdominal Exam GI & Abdominal Exam: Soft, Mass. 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 sheree Santos, PGY 1
--- NOTE | 2018-09-04 09:32 | RAD ---
Date of service: 09/04/2018 HISTORY: Pleural effusion monitoring COMPARISON: Comparison with chest radiograph dated 09/03/2018. FINDINGS: Situ right sided PICC line with tip in the SVC/RA junction. LUNGS: Multiple bilateral varying sized rounded pulmonary masses are seen. Additionally, there are diffuse bilateral infiltrates possibly representing pulmonary venous congestion with bilateral effusions and bibasilar atelectasis left greater than right. PLEURA: As above. No pneumothorax apparent. CARDIOVASCULAR: No aortic atherosclerotic calcification present. Normal cardiac size. No pulmonary vascular congestion. OSSEOUS STRUCTURES: No significant abnormalities. VISUALIZED UPPER ABDOMEN: Normal. OTHER FINDINGS: None. IMPRESSION: Multiple bilateral varying sized rounded pulmonary masses are seen. Additionally, there are diffuse bilateral infiltrates possibly representing pulmonary venous congestion with bilateral effusions and bibasilar atelectasis left greater than right.
[2018-09-04] MEDS: Mag&Al/Simet/Diphen/Lido 237 ML KIT PO SCH ×4 (10:24→21:19)
[2018-09-04] MEDS: Nystatin 100,000 Units/ml Oral Susp 5 ml UD PO SCH ×2 (10:24→17:39)
[2018-09-04] MEDS: Pantoprazole 40 mg EC Tab PO SCH (10:25)
[2018-09-04] MEDS: Phenol 1.4% Throat Spray MT SCH ×2 (10:25→17:39)
--- NOTE | 2018-09-04 11:25 | CP.PCM.PN ---
Subjective - Date & Time of Evaluation Date of Evaluation: 09/04/18 Time of Evaluation: 11:29 - Subjective Subjective: VERY UNCOOPERATIVE CRYING DEMANDING VARIOUS MEDS FROM NURSE C/O BLOOD-TINGED VOMITUS AND ABDOMINAL PAIN VERY WEAK AND FRAIL LOOKING Objective - Vital Signs/Intake and Output Vital Signs (last 24 hours): Temp Pulse Resp BP Pulse Ox 97.6 F 126 H 20 115/84 94 L 09/04/18 07:59 09/04/18 07:59 09/04/18 07:59 09/04/18 07:59 09/04/18 07:59 - Medications Medications: Current Medications Benzocaine/Menthol (Cepacol Sore Throat) 1 tere PO Q3 PRN PRN Reason: Sore Throat Last Admin: 08/31/18 17:13 Dose: 1 tere Cyproheptadine HCl (Periactin) 4 mg PO HS [facility] Last Admin: 09/03/18 22:28 Dose: 4 mg Epoetin Real (Procrit) 20,000 unit SC MWF [facility] Last Admin: 09/03/18 11:24 Dose: 20,000 unit Escitalopram Oxalate (Lexapro) 5 mg PO [facility] Last Admin: 09/03/18 22:28 Dose: 5 mg Famotidine (Pepcid) 20 mg PO BID [facility] Last Admin: 09/04/18 10:25 Dose: 20 mg Heparin Sodium (Porcine) (Heparin) 5,000 units SC Q8 [facility]; Protocol Last Admin: 09/04/18 10:24 Dose: 5,000 units Iron Sucrose 200 mg/ Sodium (Chloride) 110 mls @ 110 mls/hr IVPB DAILY [facility] Stop: 09/06/18 09:01 Last Admin: 09/04/18 10:25 Dose: 110 mls/hr Ketorolac Tromethamine (Toradol) 15 mg IVP Q6 PRN PRN Reason: Pain, moderate (4-7) Last Admin: 09/04/18 10:49 Dose: 15 mg Nystatin (Nystatin Oral Susp) 5 ml PO BID [facility] Last Admin: 09/04/18 10:24 Dose: 5 ml Ondansetron HCl (Zofran Inj) 4 mg IVP Q4 PRN PRN Reason: Nausea/Vomiting Last Admin: 08/30/18 19:07 Dose: 4 mg Pantoprazole Sodium (Protonix Ec Tab) 40 mg PO DAILY [facility] Last Admin: 09/04/18 10:25 Dose: 40 mg Phenol/Menthol (Phenaseptic 1.4% Throat [place]) 1 spry MT BID [facility] Last Admin: 09/04/18 10:25 Dose: Not Given Saliva Substitute (First Magic Mouthwash) 5 ml PO QID [facility] Stop: 09/08/18 09:01 Last Admin: 09/04/18 10:24 Dose: 5 ml - Labs Labs: 09/04/18 05:30 09/04/18 05:30 PT 14.1 Seconds (9.8-13.1) H 09/03/18 11:41 INR 1.2 09/03/18 11:41 APTT 32.1 Seconds (25.6-37.1) 09/03/18 11:41 - Constitutional Appears: Cachectic, Chronically Ill - Head Exam Head Exam: ATRAUMATIC, NORMAL INSPECTION, NORMOCEPHALIC - Eye Exam Eye Exam: EOMI, Normal appearance, PERRL Pupil Exam: NORMAL ACCOMODATION, PERRL - ENT Exam ENT Exam: Mucous Membranes Moist, Normal Exam - Neck Exam Neck Exam: Full ROM, Normal Inspection. absent: Lymphadenopathy - Respiratory Exam Respiratory Exam: Decreased Breath Sounds, Prolonged Expiratory Phase, Rales, NORMAL BREATHING PATTERN - Cardiovascular Exam Cardiovascular Exam: REGULAR RHYTHM, +S1, +S2. absent: Murmur - GI/Abdominal Exam GI & Abdominal Exam: Distended, Soft, Tenderness, Mass, Normal Bowel Sounds - Rectal Exam Rectal Exam: NORMAL INSPECTION - Extremities Exam Extremities Exam: Full ROM, Normal Capillary Refill, Normal Inspection. absent: Joint Swelling, Pedal Edema - Back Exam Back Exam: NORMAL INSPECTION - Neurological Exam Neurological Exam: Alert, Awake, CN II-XII Intact, Oriented x3 - Psychiatric Exam Psychiatric exam: Depressed - Skin Skin Exam: Dry, Intact, Normal Color, Warm Assessment and Plan - Assessment and Plan (Free Text) Assessment: METASTATIC OVARIAN CANCER DEWITT BALL LESIONS IN LUNG R BRONCHOPLEURAL FISTULA? WITH METS PLEURAL EFFUSIONS CACHEXIA Plan: CONTINUE CURRENT RX PROGNOSIS IS EXTREMELY POOR PT REFUSES TO NOTIFY FAMILY ABOUT HER ILLNESS AND SEEMS TO BE IN DENIAL
--- NOTE | 2018-09-04 13:07 | CP.PCM.PN ---
Subjective - Date & Time of Evaluation Date of Evaluation: 09/04/18 Time of Evaluation: 06:00 - Subjective Subjective: weak/ distraught afebrile Objective - Vital Signs/Intake and Output Vital Signs (last 24 hours): Temp Pulse Resp BP Pulse Ox 97.6 F 126 H 20 115/84 94 L 09/04/18 07:59 09/04/18 07:59 09/04/18 07:59 09/04/18 07:59 09/04/18 07:59 - Medications Medications: Current Medications Benzocaine/Menthol (Cepacol Sore Throat) 1 tere PO Q3 PRN PRN Reason: Sore Throat Last Admin: 08/31/18 17:13 Dose: 1 tere Cyproheptadine HCl (Periactin) 4 mg PO HS [facility] Last Admin: 09/03/18 22:28 Dose: 4 mg Epoetin Real (Procrit) 20,000 unit SC MWF [facility] Last Admin: 09/03/18 11:24 Dose: 20,000 unit Escitalopram Oxalate (Lexapro) 5 mg PO HS [facility] Last Admin: 09/03/18 22:28 Dose: 5 mg Famotidine (Pepcid) 20 mg PO BID [facility] Last Admin: 09/04/18 10:25 Dose: 20 mg Heparin Sodium (Porcine) (Heparin) 5,000 units SC Q8 [facility]; Protocol Last Admin: 09/04/18 10:24 Dose: 5,000 units Iron Sucrose 200 mg/ Sodium (Chloride) 110 mls @ 110 mls/hr IVPB DAILY [facility] Stop: 09/06/18 09:01 Last Admin: 09/04/18 10:25 Dose: 110 mls/hr Ketorolac Tromethamine (Toradol) 15 mg IVP Q6 PRN PRN Reason: Pain, moderate (4-7) Last Admin: 09/04/18 10:49 Dose: 15 mg Nystatin (Nystatin Oral Susp) 5 ml PO BID [facility] Last Admin: 09/04/18 10:24 Dose: 5 ml Ondansetron HCl (Zofran Inj) 4 mg IVP Q4 PRN PRN Reason: Nausea/Vomiting Last Admin: 08/30/18 19:07 Dose: 4 mg Pantoprazole Sodium (Protonix Ec Tab) 40 mg PO DAILY [facility] Last Admin: 09/04/18 10:25 Dose: 40 mg Phenol/Menthol (Phenaseptic 1.4% Throat [place]) 1 spry MT BID [facility] Last Admin: 09/04/18 10:25 Dose: Not Given Saliva Substitute (First Magic Mouthwash) 5 ml PO QID [facility] Stop: 09/08/18 09:01 Last Admin: 09/04/18 10:24 Dose: 5 ml - Labs Labs: 09/04/18 05:30 09/04/18 05:30 PT 14.1 Seconds (9.8-13.1) H 09/03/18 11:41 INR 1.2 09/03/18 11:41 APTT 32.1 Seconds (25.6-37.1) 09/03/18 11:41 - Constitutional Appears: Cachectic, Chronically Ill - Head Exam Head Exam: NORMOCEPHALIC - Eye Exam Eye Exam: absent: Scleral icterus - ENT Exam ENT Exam: Mucous Membranes Dry - Neck Exam Neck Exam: absent: Lymphadenopathy - Respiratory Exam Respiratory Exam: Decreased Breath Sounds - Cardiovascular Exam Cardiovascular Exam: REGULAR RHYTHM - GI/Abdominal Exam GI & Abdominal Exam: Distended - Rectal Exam Rectal Exam: Deferred - Exam Exam: NORMAL INSPECTION Assessment and Plan (1) Fluid overload Status: Acute (2) Hyponatremia Status: Acute (3) Metastatic cancer Status: Acute (4) Pleural effusion Status: Acute (5) Sepsis Status: Acute - Assessment and Plan (Free Text) Assessment: may benefit from Hospice care previously in denial now angry
--- NOTE | 2018-09-04 16:27 | CP.PCM.PN ---
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 Ovarian cancer status post chemotherapy Chronic debility Large abdominal mass Anemia sodium is stable, monitor closely Objective - Vital Signs/Intake and Output Vital Signs (last 24 hours): Temp Pulse Resp BP Pulse Ox 97.6 F 126 H 20 115/84 94 L 09/04/18 07:59 09/04/18 07:59 09/04/18 07:59 09/04/18 07:59 09/04/18 07:59 - Medications Medications: Current Medications Benzocaine/Menthol (Cepacol Sore Throat) 1 tere PO Q3 PRN PRN Reason: Sore Throat Last Admin: 08/31/18 17:13 Dose: 1 tere Cyproheptadine HCl (Periactin) 4 mg PO HS [facility] Last Admin: 09/03/18 22:28 Dose: 4 mg Epoetin Real (Procrit) 20,000 unit SC MWF [facility] Last Admin: 09/03/18 11:24 Dose: 20,000 unit Escitalopram Oxalate (Lexapro) 5 mg PO HS [facility] Last Admin: 09/03/18 22:28 Dose: 5 mg Famotidine (Pepcid) 20 mg PO BID [facility] Last Admin: 09/04/18 10:25 Dose: 20 mg Heparin Sodium (Porcine) (Heparin) 5,000 units SC Q8 [facility]; Protocol Last Admin: 09/04/18 10:24 Dose: 5,000 units Iron Sucrose 200 mg/ Sodium (Chloride) 110 mls @ 110 mls/hr IVPB DAILY [facility] Stop: 09/06/18 09:01 Last Admin: 09/04/18 10:25 Dose: 110 mls/hr Ketorolac Tromethamine (Toradol) 15 mg IVP Q6 PRN PRN Reason: Pain, moderate (4-7) Last Admin: 09/04/18 10:49 Dose: 15 mg Nystatin (Nystatin Oral Susp) 5 ml PO BID [facility] Last Admin: 09/04/18 10:24 Dose: 5 ml Ondansetron HCl (Zofran Inj) 4 mg IVP Q4 PRN PRN Reason: Nausea/Vomiting Last Admin: 09/04/18 15:32 Dose: 4 mg Pantoprazole Sodium (Protonix Ec Tab) 40 mg PO DAILY [facility] Last Admin: 09/04/18 10:25 Dose: 40 mg Phenol/Menthol (Phenaseptic 1.4% Throat [place]) 1 spry MT BID [facility] Last Admin: 09/04/18 10:25 Dose: Not Given Saliva Substitute (First Magic Mouthwash) 5 ml PO QID [facility] Stop: 09/08/18 09:01 Last Admin: 09/04/18 10:24 Dose: 5 ml - Labs Labs: 09/04/18 05:30 09/04/18 05:30 PT 14.1 Seconds (9.8-13.1) H 09/03/18 11:41 INR 1.2 09/03/18 11:41 APTT 32.1 Seconds (25.6-37.1) 09/03/18 11:41
--- NOTE | 2018-09-04 23:28 | CP.PCM.PN ---
Subjective - Date & Time of Evaluation Date of Evaluation: 09/01/18 Time of Evaluation: 11:00 - Subjective Subjective: Patient continues to be tachycardic Has very poor intake Has persistent anemia Hgb was 8. plus Objective - Vital Signs/Intake and Output Vital Signs (last 24 hours): Temp Pulse Resp BP Pulse Ox 97.4 F L 129 H 20 114/80 92 L 09/04/18 16:34 09/04/18 16:34 09/04/18 16:34 09/04/18 16:34 09/04/18 16:34 Intake and Output: 09/04/18 09/05/18 18:59 06:59 Intake Total 500 500 Output Total 452 Balance 48 500 - Medications Medications: Current Medications Benzocaine/Menthol (Cepacol Sore Throat) 1 tere PO Q3 PRN PRN Reason: Sore Throat Last Admin: 08/31/18 17:13 Dose: 1 tere Cyproheptadine HCl (Periactin) 4 mg PO HS [facility] Last Admin: 09/04/18 21:19 Dose: 4 mg Epoetin Real (Procrit) 20,000 unit SC MWF [facility] Last Admin: 09/03/18 11:24 Dose: 20,000 unit Escitalopram Oxalate (Lexapro) 5 mg PO HS [facility] Last Admin: 09/04/18 21:19 Dose: 5 mg Famotidine (Pepcid) 20 mg PO BID [facility] Last Admin: 09/04/18 17:39 Dose: 20 mg Heparin Sodium (Porcine) (Heparin) 5,000 units SC Q8 [facility]; Protocol Last Admin: 09/04/18 17:38 Dose: 5,000 units Iron Sucrose 200 mg/ Sodium (Chloride) 110 mls @ 110 mls/hr IVPB DAILY [facility] Stop: 09/06/18 09:01 Last Admin: 09/04/18 10:25 Dose: 110 mls/hr Ketorolac Tromethamine (Toradol) 15 mg IVP Q6 PRN PRN Reason: Pain, moderate (4-7) Last Admin: 09/04/18 10:49 Dose: 15 mg Nystatin (Nystatin Oral Susp) 5 ml PO BID [facility] Last Admin: 09/04/18 17:39 Dose: 5 ml Ondansetron HCl (Zofran Inj) 4 mg IVP Q4 PRN PRN Reason: Nausea/Vomiting Last Admin: 09/04/18 15:32 Dose: 4 mg Pantoprazole Sodium (Protonix Ec Tab) 40 mg PO DAILY [facility] Last Admin: 09/04/18 10:25 Dose: 40 mg Phenol/Menthol (Phenaseptic 1.4% Throat [place]) [address] [place] BID [facility] Last Admin: 09/04/18 17:39 Dose: Not Given Saliva Substitute (First Magic Mouthwash) 5 ml PO QID [facility] Stop: 09/08/18 09:01 Last Admin: 09/04/18 21:19 Dose: 5 ml - Labs Labs: 09/04/18 05:30 09/04/18 05:30 PT 14.1 Seconds (9.8-13.1) H 09/03/18 11:41 INR 1.2 09/03/18 11:41 APTT 32.1 Seconds (25.6-37.1) 09/03/18 11:41 - Head Exam Head Exam: NORMAL INSPECTION - Eye Exam Eye Exam: Normal appearance - ENT Exam ENT Exam: Mucous Membranes Moist - Cardiovascular Exam Cardiovascular Exam: Tachycardia - GI/Abdominal Exam GI & Abdominal Exam: Normal Bowel Sounds - Neurological Exam Neurological Exam: Awake, Oriented x3 Assessment and Plan (1) Hyponatremia Status: Acute (2) Metastatic cancer Status: Acute (3) Pleural effusion Status: Acute (4) Anasarca Status: Acute (5) Anemia Status: Acute (6) Tachycardia Status: Acute - Assessment and Plan (Free Text) Plan: Cont to encourage increase intake Appetite stimulant Ensure food supplement
--- NOTE | 2018-09-04 23:34 | CP.PCM.PN ---
Subjective - Date & Time of Evaluation Date of Evaluation: 09/02/18 Time of Evaluation: 16:20 - Subjective Subjective: Patient remains to have very poor appetite Complains of sore throat Has no fever, Objective - Vital Signs/Intake and Output Vital Signs (last 24 hours): Temp Pulse Resp BP Pulse Ox 97.4 F L 129 H 20 114/80 92 L 09/04/18 16:34 09/04/18 16:34 09/04/18 16:34 09/04/18 16:34 09/04/18 16:34 Intake and Output: 09/04/18 09/05/18 18:59 06:59 Intake Total 500 500 Output Total 452 Balance 48 500 - Medications Medications: Current Medications Benzocaine/Menthol (Cepacol Sore Throat) 1 tere PO Q3 PRN PRN Reason: Sore Throat Last Admin: 08/31/18 17:13 Dose: 1 tere Cyproheptadine HCl (Periactin) 4 mg PO HS [facility] Last Admin: 09/04/18 21:19 Dose: 4 mg Epoetin Real (Procrit) 20,000 unit SC MWF [facility] Last Admin: 09/03/18 11:24 Dose: 20,000 unit Escitalopram Oxalate (Lexapro) 5 mg PO HS [facility] Last Admin: 09/04/18 21:19 Dose: 5 mg Famotidine (Pepcid) 20 mg PO BID [facility] Last Admin: 09/04/18 17:39 Dose: 20 mg Heparin Sodium (Porcine) (Heparin) 5,000 units SC Q8 [facility]; Protocol Last Admin: 09/04/18 17:38 Dose: 5,000 units Iron Sucrose 200 mg/ Sodium (Chloride) 110 mls @ 110 mls/hr IVPB DAILY [facility] Stop: 09/06/18 09:01 Last Admin: 09/04/18 10:25 Dose: 110 mls/hr Ketorolac Tromethamine (Toradol) 15 mg IVP Q6 PRN PRN Reason: Pain, moderate (4-7) Last Admin: 09/04/18 10:49 Dose: 15 mg Nystatin (Nystatin Oral Susp) 5 ml PO BID [facility] Last Admin: 09/04/18 17:39 Dose: 5 ml Ondansetron HCl (Zofran Inj) 4 mg IVP Q4 PRN PRN Reason: Nausea/Vomiting Last Admin: 09/04/18 15:32 Dose: 4 mg Pantoprazole Sodium (Protonix Ec Tab) 40 mg PO DAILY [facility] Last Admin: 09/04/18 10:25 Dose: 40 mg Phenol/Menthol (Phenaseptic 1.4% Throat [place]) [address] sp[address] [place] BID [facility] Last Admin: 09/04/18 17:39 Dose: Not Given Saliva Substitute (First Magic Mouthwash) 5 ml PO QID [facility] Stop: 09/08/18 09:01 Last Admin: 09/04/18 21:19 Dose: 5 ml - Labs Labs: 09/04/18 05:30 09/04/18 05:30 PT 14.1 Seconds (9.8-13.1) H 09/03/18 11:41 INR 1.2 09/03/18 11:41 APTT 32.1 Seconds (25.6-37.1) 09/03/18 11:41 - Head Exam Head Exam: NORMAL INSPECTION - Eye Exam Eye Exam: Normal appearance - Respiratory Exam Respiratory Exam: Chest Wall Tenderness, Clear to Ausculation Bilateral - Cardiovascular Exam Cardiovascular Exam: Tachycardia - GI/Abdominal Exam GI & Abdominal Exam: Soft - Neurological Exam Neurological Exam: Awake, Oriented x3 Assessment and Plan (1) Hyponatremia Status: Acute (2) Metastatic cancer Status: Acute (3) Pleural effusion Status: Acute (4) Anasarca Status: Acute (5) Anemia Status: Acute (6) Tachycardia Status: Acute - Assessment and Plan (Free Text) Plan: Cont meds Cont tx Cont PT encouraged increased feeding
--- NOTE | 2018-09-04 23:37 | CP.PCM.PN ---
Subjective - Date & Time of Evaluation Date of Evaluation: 09/03/18 Time of Evaluation: 15:00 - Subjective Subjective: Patient remains very weak Has no chest pain or SOB. Afebrile Still with poor appetite Complains of sore pain and claims that sx has been affecting her and causing pain on swallowing. Objective - Vital Signs/Intake and Output Vital Signs (last 24 hours): Temp Pulse Resp BP Pulse Ox 97.4 F L 129 H 20 114/80 92 L 09/04/18 16:34 09/04/18 16:34 09/04/18 16:34 09/04/18 16:34 09/04/18 16:34 Intake and Output: 09/04/18 09/05/18 18:59 06:59 Intake Total 500 500 Output Total 452 Balance 48 500 - Medications Medications: Current Medications Benzocaine/Menthol (Cepacol Sore Throat) 1 tere PO Q3 PRN PRN Reason: Sore Throat Last Admin: 08/31/18 17:13 Dose: 1 tere Cyproheptadine HCl (Periactin) 4 mg PO HS [facility] Last Admin: 09/04/18 21:19 Dose: 4 mg Epoetin Real (Procrit) 20,000 unit SC MWF [facility] Last Admin: 09/03/18 11:24 Dose: 20,000 unit Escitalopram Oxalate (Lexapro) 5 mg PO HS [facility] Last Admin: 09/04/18 21:19 Dose: 5 mg Famotidine (Pepcid) 20 mg PO BID [facility] Last Admin: 09/04/18 17:39 Dose: 20 mg Heparin Sodium (Porcine) (Heparin) 5,000 units SC Q8 [facility]; Protocol Last Admin: 09/04/18 17:38 Dose: 5,000 units Iron Sucrose 200 mg/ Sodium (Chloride) 110 mls @ 110 mls/hr IVPB DAILY [facility] Stop: 09/06/18 09:01 Last Admin: 09/04/18 10:25 Dose: 110 mls/hr Ketorolac Tromethamine (Toradol) 15 mg IVP Q6 PRN PRN Reason: Pain, moderate (4-7) Last Admin: 09/04/18 10:49 Dose: 15 mg Nystatin (Nystatin Oral Susp) 5 ml PO BID [facility] Last Admin: 09/04/18 17:39 Dose: 5 ml Ondansetron HCl (Zofran Inj) 4 mg IVP Q4 PRN PRN Reason: Nausea/Vomiting Last Admin: 09/04/18 15:32 Dose: 4 mg Pantoprazole Sodium (Protonix Ec Tab) 40 mg PO DAILY [facility] Last Admin: 09/04/18 10:25 Dose: 40 mg Phenol/Menthol (Phenaseptic 1.4% Throat [place]) [address] sp[address] [place] BID [facility] Last Admin: 09/04/18 17:39 Dose: Not Given Saliva Substitute (First Magic Mouthwash) 5 ml PO QID [facility] Stop: 09/08/18 09:01 Last Admin: 09/04/18 21:19 Dose: 5 ml - Labs Labs: 09/04/18 05:30 09/04/18 05:30 PT 14.1 Seconds (9.8-13.1) H 09/03/18 11:41 INR 1.2 09/03/18 11:41 APTT 32.1 Seconds (25.6-37.1) 09/03/18 11:41 - Eye Exam Eye Exam: Normal appearance - ENT Exam ENT Exam: Mucous Membranes Moist - Respiratory Exam Respiratory Exam: Decreased Breath Sounds - Cardiovascular Exam Cardiovascular Exam: Tachycardia - GI/Abdominal Exam GI & Abdominal Exam: Normal Bowel Sounds Assessment and Plan (1) Hyponatremia Status: Acute (2) Metastatic cancer Status: Acute (3) Pleural effusion Status: Acute (4) Anasarca Status: Acute (5) Anemia Status: Acute (6) Tachycardia Status: Acute - Assessment and Plan (Free Text) Plan: Con tmeds Con ttx Cont PT encouraged increase intake. subacute rehab eval. discussed again re hospice
--- NOTE | 2018-09-04 23:49 | CP.PCM.PN ---
Subjective - Date & Time of Evaluation Date of Evaluation: 09/04/18 Time of Evaluation: 17:00 - Subjective Subjective: Patient has very low intake Currently on appetite stimulant but seem to have no effect refuses to eat and claims that she has sore throat. Objective - Vital Signs/Intake and Output Vital Signs (last 24 hours): Temp Pulse Resp BP Pulse Ox 97.4 F L 129 H 20 114/80 92 L 09/04/18 16:34 09/04/18 16:34 09/04/18 16:34 09/04/18 16:34 09/04/18 16:34 Intake and Output: 09/04/18 09/05/18 18:59 06:59 Intake Total 500 500 Output Total 452 Balance 48 500 - Medications Medications: Current Medications Benzocaine/Menthol (Cepacol Sore Throat) 1 tere PO Q3 PRN PRN Reason: Sore Throat Last Admin: 08/31/18 17:13 Dose: 1 tere Cyproheptadine HCl (Periactin) 4 mg PO HS [facility] Last Admin: 09/04/18 21:19 Dose: 4 mg Epoetin Real (Procrit) 20,000 unit SC MWF [facility] Last Admin: 09/03/18 11:24 Dose: 20,000 unit Escitalopram Oxalate (Lexapro) 5 mg PO HS [facility] Last Admin: 09/04/18 21:19 Dose: 5 mg Famotidine (Pepcid) 20 mg PO BID [facility] Last Admin: 09/04/18 17:39 Dose: 20 mg Heparin Sodium (Porcine) (Heparin) 5,000 units SC Q8 [facility]; Protocol Last Admin: 09/04/18 17:38 Dose: 5,000 units Iron Sucrose 200 mg/ Sodium (Chloride) 110 mls @ 110 mls/hr IVPB DAILY [facility] Stop: 09/06/18 09:01 Last Admin: 09/04/18 10:25 Dose: 110 mls/hr Ketorolac Tromethamine (Toradol) 15 mg IVP Q6 PRN PRN Reason: Pain, moderate (4-7) Last Admin: 09/04/18 10:49 Dose: 15 mg Nystatin (Nystatin Oral Susp) 5 ml PO BID [facility] Last Admin: 09/04/18 17:39 Dose: 5 ml Ondansetron HCl (Zofran Inj) 4 mg IVP Q4 PRN PRN Reason: Nausea/Vomiting Last Admin: 09/04/18 15:32 Dose: 4 mg Pantoprazole Sodium (Protonix Ec Tab) 40 mg PO DAILY [facility] Last Admin: 09/04/18 10:25 Dose: 40 mg Phenol/Menthol (Phenaseptic 1.4% Throat [place]) 1 sp[address] MT BID [facility] Last Admin: 09/04/18 17:39 Dose: Not Given Saliva Substitute (First Magic Mouthwash) 5 ml PO QID [facility] Stop: 09/08/18 09:01 Last Admin: 09/04/18 21:19 Dose: 5 ml - Labs Labs: 09/04/18 05:30 09/04/18 05:30 PT 14.1 Seconds (9.8-13.1) H 09/03/18 11:41 INR 1.2 09/03/18 11:41 APTT 32.1 Seconds (25.6-37.1) 09/03/18 11:41 - Head Exam Head Exam: NORMAL INSPECTION - Eye Exam Eye Exam: Normal appearance - Respiratory Exam Respiratory Exam: Clear to Ausculation Bilateral - Cardiovascular Exam Cardiovascular Exam: Tachycardia - GI/Abdominal Exam GI & Abdominal Exam: Normal Bowel Sounds Assessment and Plan (1) Hyponatremia Status: Acute (2) Metastatic cancer Status: Acute (3) Pleural effusion Status: Acute (4) Anasarca Status: Acute (5) Anemia Status: Acute (6) Tachycardia Status: Acute - Assessment and Plan (Free Text) Plan: Cont meds started on Nystatin susp cont meds will try to call hospice again.
--- NOTE | 2018-09-05 08:08 | CP.PCM.PN ---
<SantosJackie bentley - Last Filed: 09/05/18 08:28> Subjective - Date & Time of Evaluation Date of Evaluation: 09/05/18 Time of Evaluation: 06:55 - Subjective Subjective: CT surgery: [place] Patient seen and examined this am at bedside. NAEO per nursing. Patient continues to endorse SOB and mild nausea but has had no emesis since yesterday. She otherwise denies f/c, GOMEZ, CP, extremity pain or weakness. We discussed her procedure and that it will be tomorrow all questions and concerns answered. Objective - Vital Signs/Intake and Output Vital Signs (last 24 hours): Temp Pulse Resp BP Pulse Ox 97.4 F L 129 H 20 114/80 92 L 09/04/18 16:34 09/04/18 16:34 09/04/18 16:34 09/04/18 16:34 09/04/18 16:34 Intake and Output: 09/05/18 09/05/18 06:59 18:59 Intake Total 500 Balance 500 - Medications Medications: Current Medications Benzocaine/Menthol (Cepacol Sore Throat) 1 tere PO Q3 PRN PRN Reason: Sore Throat Last Admin: 08/31/18 17:13 Dose: 1 tere Cyproheptadine HCl (Periactin) 4 mg PO HS [facility] Last Admin: 09/04/18 21:19 Dose: 4 mg Epoetin Real (Procrit) 20,000 unit SC MWF [facility] Last Admin: 09/03/18 11:24 Dose: 20,000 unit Escitalopram Oxalate (Lexapro) 5 mg PO HS [facility] Last Admin: 09/04/18 21:19 Dose: 5 mg Famotidine (Pepcid) 20 mg PO BID [facility] Last Admin: 09/04/18 17:39 Dose: 20 mg Heparin Sodium (Porcine) (Heparin) 5,000 units SC Q8 [facility]; Protocol Last Admin: 09/05/18 00:38 Dose: 5,000 units Iron Sucrose 200 mg/ Sodium (Chloride) 110 mls @ 110 mls/hr IVPB DAILY [facility] Stop: 09/06/18 09:01 Last Admin: 09/04/18 10:25 Dose: 110 mls/hr Ketorolac Tromethamine (Toradol) 15 mg IVP Q6 PRN PRN Reason: Pain, moderate (4-7) Last Admin: 09/05/18 00:36 Dose: 15 mg Nystatin (Nystatin Oral Susp) 5 ml PO BID [facility] Last Admin: 09/04/18 17:39 Dose: 5 ml Ondansetron HCl (Zofran Inj) 4 mg IVP Q4 PRN PRN Reason: Nausea/Vomiting Last Admin: 09/04/18 15:32 Dose: 4 mg Pantoprazole Sodium (Protonix Ec Tab) 40 mg PO DAILY [facility] Last Admin: 09/04/18 10:25 Dose: 40 mg Phenol/Menthol (Phenaseptic 1.4% Throat [place]) 1 sp[address] MT BID [facility] Last Admin: 09/04/18 17:39 Dose: Not Given Saliva Substitute (First Magic Mouthwash) 5 ml PO QID [facility] Stop: 09/08/18 09:01 Last Admin: 09/04/18 21:19 Dose: 5 ml - Labs Labs: 09/04/18 05:30 09/04/18 05:30 PT 14.1 Seconds (9.8-13.1) H 09/03/18 11:41 INR 1.2 09/03/18 11:41 APTT 32.1 Seconds (25.6-37.1) 09/03/18 11:41 - Constitutional Appears: Non-toxic, No Acute Distress, Cachectic, Chronically Ill - Eye Exam Eye Exam: EOMI - ENT Exam ENT Exam: Mucous Membranes Moist - Respiratory Exam Respiratory Exam: Decreased Breath Sounds (lower lung patel bilaterally), NORMAL BREATHING PATTERN - Cardiovascular Exam Cardiovascular Exam: REGULAR RHYTHM - GI/Abdominal Exam GI & Abdominal Exam: Soft, Mass. 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 Rebekah Santos, PGY 1 <Zac Welch - Last Filed: 09/10/18 13:56> Objective - Vital Signs/Intake and Output Vital Signs (last 24 hours): Temp Pulse Resp BP Pulse Ox 97.7 F 120 H 19 113/83 98 09/10/18 08:02 09/10/18 08:02 09/10/18 08:02 09/10/18 08:02 09/10/18 08:02 - Medications Medications: Current Medications Cyproheptadine HCl (Periactin) 4 mg PO HS [facility] Last Admin: 09/09/18 22:39 Dose: 4 mg Epoetin Real (Procrit) 20,000 unit SC MWF [facility] Last Admin: 09/10/18 10:10 Dose: 20,000 unit Escitalopram Oxalate (Lexapro) 5 mg PO HS [facility] Last Admin: 09/09/18 22:39 Dose: 5 mg Famotidine (Pepcid) 20 mg PO BID [facility] Last Admin: 09/10/18 09:45 Dose: 20 mg Lactated Ringer's (Lactated Ringer's) 1,000 mls @ 100 mls/hr IV .Q10H [facility] Last Admin: 09/08/18 16:27 Dose: Not Given Ibuprofen (Motrin Tab) 400 mg PO Q6 PRN PRN Reason: Pain, moderate (4-7) Ketorolac Tromethamine (Toradol) 15 mg IVP Q6 PRN PRN Reason: Pain, moderate (4-7) Last Admin: 09/10/18 04:46 Dose: 15 mg Nystatin (Nystatin Oral Susp) 5 ml PO BID [facility] Last Admin: 09/10/18 09:45 Dose: 5 ml Ondansetron HCl (Zofran Inj) 4 mg IVP Q4 PRN PRN Reason: Nausea/Vomiting Last Admin: 09/04/18 15:32 Dose: 4 mg Pantoprazole Sodium (Protonix Ec Tab) 40 mg PO DAILY [facility] Last Admin: 09/10/18 09:46 Dose: 40 mg Phenol/Menthol (Phenaseptic 1.4% Throat [place]) 1 spry MT BID [facility] Last Admin: 09/10/18 09:45 Dose: 1 spry - Labs Labs: 09/10/18 10:36 09/10/18 10:36 PT 16.4 Seconds (9.8-13.1) H 09/06/18 05:35 INR 1.4 09/06/18 05:35 APTT 31.4 Seconds (25.6-37.1) 09/06/18 05:35
[2018-09-05] MEDS: Nystatin 100,000 Units/ml Oral Susp 5 ml UD PO SCH ×2 (08:32→16:18)
[2018-09-05] MEDS: Phenol 1.4% Throat Spray MT SCH ×2 (08:33→16:18)
[2018-09-05] MEDS: Mag&Al/Simet/Diphen/Lido 237 ML KIT PO SCH ×4 (08:33→21:28)
[2018-09-05] MEDS: Pantoprazole 40 mg EC Tab PO SCH (08:33)
--- NOTE | 2018-09-05 16:10 | RAD ---
Date of service: 09/05/2018 HISTORY: pleural effusion monitoring COMPARISON: Comparison made with prior studies dated 09/04/2018. FINDINGS: No change right sided PICC line with tip in the SVC LUNGS: Multiple bilateral varying sized parenchymal nodules are again consistent with diffuse metastatic disease. Bilateral effusions left larger than right. Possible underlying atelectasis and/or infiltrate changes within the mid to lower lung patel. PLEURA: As above. No pneumothorax apparent. CARDIOVASCULAR: No aortic atherosclerotic calcification present. Normal cardiac size. No pulmonary vascular congestion. OSSEOUS STRUCTURES: No significant abnormalities. VISUALIZED UPPER ABDOMEN: Normal. OTHER FINDINGS: None. IMPRESSION: Multiple bilateral varying sized parenchymal nodules are again consistent with diffuse metastatic disease. Bilateral effusions left larger than right. Possible underlying atelectasis and/or infiltrate changes within the mid to lower lung patel.
--- NOTE | 2018-09-06 01:34 | CP.PCM.PN ---
Subjective - Date & Time of Evaluation Date of Evaluation: 09/05/18 Time of Evaluation: 16:20 - Subjective Subjective: Patient remains stable [place] has very poor appetite CBc and CMP are stable but noted persistent anemia Objective - Vital Signs/Intake and Output Vital Signs (last 24 hours): Temp Pulse Resp BP Pulse Ox 97.7 F 128 H 18 115/84 94 L 09/05/18 16:23 09/05/18 16:23 09/05/18 16:23 09/05/18 16:23 09/05/18 16:23 - Medications Medications: Current Medications Benzocaine/Menthol (Cepacol Sore Throat) 1 tere PO Q3 PRN PRN Reason: Sore Throat Last Admin: 08/31/18 17:13 Dose: 1 tere Cyproheptadine HCl (Periactin) 4 mg PO [facility] Last Admin: 09/05/18 21:29 Dose: 4 mg Epoetin Real (Procrit) 20,000 unit SC [facility] Last Admin: 09/03/18 11:24 Dose: 20,000 unit Escitalopram Oxalate (Lexapro) 5 mg PO [facility] Last Admin: 09/05/18 21:29 Dose: 5 mg Famotidine (Pepcid) 20 mg PO BID [facility] Last Admin: 09/05/18 16:18 Dose: Not Given Iron Sucrose 200 mg/ Sodium (Chloride) 110 mls @ 110 mls/hr IVPB DAILY [facility] Stop: 09/06/18 09:01 Last Admin: 09/05/18 08:33 Dose: 110 mls/hr Ketorolac Tromethamine (Toradol) 15 mg IVP Q6 PRN PRN Reason: Pain, moderate (4-7) Last Admin: 09/05/18 22:06 Dose: 15 mg Nystatin (Nystatin Oral Susp) 5 ml PO BID [facility] Last Admin: 09/05/18 16:18 Dose: Not Given Ondansetron HCl (Zofran Inj) 4 mg IVP Q4 PRN PRN Reason: Nausea/Vomiting Last Admin: 09/04/18 15:32 Dose: 4 mg Pantoprazole Sodium (Protonix Ec Tab) 40 mg PO DAILY [facility] Last Admin: 09/05/18 08:33 Dose: 40 mg Phenol/Menthol (Phenaseptic 1.4% Throat [place]) 1 spry MT BID [facility] Last Admin: 09/05/18 16:18 Dose: Not Given Saliva Substitute (First Magic Mouthwash) 5 ml PO QID [facility] Stop: 09/08/18 09:01 Last Admin: 09/05/18 21:28 Dose: 5 ml - Labs Labs: 09/04/18 05:30 09/04/18 05:30 PT 14.1 Seconds (9.8-13.1) H 09/03/18 11:41 INR 1.2 09/03/18 11:41 APTT 32.1 Seconds (25.6-37.1) 09/03/18 11:41 - Head Exam Head Exam: NORMAL INSPECTION - ENT Exam ENT Exam: Mucous Membranes Moist - Respiratory Exam Respiratory Exam: Decreased Breath Sounds - Cardiovascular Exam Cardiovascular Exam: Tachycardia - GI/Abdominal Exam GI & Abdominal Exam: Normal Bowel Sounds - Neurological Exam Neurological Exam: CN II-XII Intact, Oriented x3 Assessment and Plan (1) Hyponatremia Status: Acute (2) Metastatic cancer Status: Acute (3) Pleural effusion Status: Acute (4) Anasarca Status: Acute (5) Anemia Status: Acute (6) Tachycardia Status: Acute - Assessment and Plan (Free Text) Assessment: Cont meds cont nutrition allow patient to have any food that she wants. may need to have hospice follow up
[2018-09-06 06:27] LABS: INR 1.4; PROTHROMBIN TIME 16.4 Seconds (9.8-13.1)
[2018-09-06 06:30] LABS: PARTIAL THROMBOPLASTIN TIME 31.4 Seconds (25.6-37.1)
[2018-09-06 06:31] LABS: BASO # 0.1 K/uL (0.0-0.2); BASO % 0.9 % (0.0-2.0); EOS # 0.1 K/uL (0.0-0.7); EOS % 1.5 % (0.0-4.0); HEMOGLOBIN 8.8 g/dL (12.0-16.0); LYMPH # 1.2 K/uL (1.0-4.3); LYMPH % 15.6 % (20.0-40.0); MEAN CELL VOLUME 79.9 fl (81.0-99.0); MEAN CORPUSCULAR HEMOGLOBIN 25.2 pg (27.0-31.0); MEAN CORPUSCULAR HGB CONC 31.6 g/dL (33.0-37.0); MEAN PLATELET VOLUME 7.6 fl (7.2-11.7); MONO # 0.3 K/uL (0.0-0.8); MONO % 3.7 % (0.0-10.0); NEUT # 6.1 K/uL (1.8-7.0); NEUT % 78.3 % (50.0-75.0); NRBC % 1.1 % (0.0-0.0); RBC 3.49 Mil/uL (3.80-5.20); RED CELL DISTRIBUTION WIDTH 19.2 % (11.5-14.5); WHITE BLOOD COUNT 7.8 K/uL (4.8-10.8)
[2018-09-06 06:43] LABS: ALB/GLOB RATIO 0.8 (1.0-2.1); ALBUMIN 2.2 g/dL (3.5-5.0); ALT/SGPT 68 U/L (9-52); AST/SGOT 87 U/L (14-36); BLOOD UREA NITROGEN 21 mg/dl (7-17); CALCIUM 8.3 mg/dL (8.4-10.2); GFR NON-AFRICAN AMERICAN 59
--- NOTE | 2018-09-06 07:28 | RAD ---
Date of service: 09/05/2018 HISTORY: b/l pleural effusions COMPARISON: Frontal chest radiograph 09/05/2018 at 3:08 p.m.. FINDINGS: LUNGS: Right PICC unchanged in position. Pulmonary volumes diminished. No definitive airspace disease bilaterally. Scattered metastatic pulmonary masses are again seen at the right greater than left chest. PLEURA: Minimal right, mild left pleural effusions. No pneumothorax bilaterally. CARDIOVASCULAR: No aortic atherosclerotic calcification present. Normal cardiac size. No pulmonary vascular congestion. OSSEOUS STRUCTURES: No significant abnormalities. VISUALIZED UPPER ABDOMEN: Normal. OTHER FINDINGS: None. IMPRESSION: With the exception of diminished pulmonary volumes, examination stable interval including mild left and minimal right pleural effusions and multiple pulmonary metastases bilaterally.
[2018-09-06] MEDS: Nystatin 100,000 Units/ml Oral Susp 5 ml UD PO SCH ×2 (08:57→17:12)
[2018-09-06] MEDS: Mag&Al/Simet/Diphen/Lido 237 ML KIT PO SCH ×4 (08:57→21:05)
[2018-09-06] MEDS: Pantoprazole 40 mg EC Tab PO SCH (08:57)
[2018-09-06] MEDS: Phenol 1.4% Throat Spray MT SCH ×2 (08:57→17:13)
--- NOTE | 2018-09-06 10:03 | CP.PCM.PN ---
Subjective - Date & Time of Evaluation Date of Evaluation: 09/06/18 Time of Evaluation: 10:03 - Subjective Subjective: awake and conscious Objective - Vital Signs/Intake and Output Vital Signs (last 24 hours): Temp Pulse Resp BP Pulse Ox 97.4 F L 120 H 20 124/83 96 09/06/18 08:30 09/06/18 08:30 09/06/18 08:30 09/06/18 08:30 09/06/18 08:30 - Medications Medications: Current Medications Benzocaine/Menthol (Cepacol Sore Throat) 1 tere PO Q3 PRN PRN Reason: Sore Throat Last Admin: 08/31/18 17:13 Dose: 1 tere Cyproheptadine HCl (Periactin) 4 mg PO HS [facility] Last Admin: 09/05/18 21:29 Dose: 4 mg Epoetin Real (Procrit) 20,000 unit SC MWF [facility] Last Admin: 09/03/18 11:24 Dose: 20,000 unit Escitalopram Oxalate (Lexapro) 5 mg PO [facility] Last Admin: 09/05/18 21:29 Dose: 5 mg Famotidine (Pepcid) 20 mg PO BID [facility] Last Admin: 09/06/18 08:57 Dose: Not Given Ketorolac Tromethamine (Toradol) 15 mg IVP Q6 PRN PRN Reason: Pain, moderate (4-7) Last Admin: 09/06/18 03:55 Dose: 15 mg Nystatin (Nystatin Oral Susp) 5 ml PO BID [facility] Last Admin: 09/06/18 08:57 Dose: Not Given Ondansetron HCl (Zofran Inj) 4 mg IVP Q4 PRN PRN Reason: Nausea/Vomiting Last Admin: 09/04/18 15:32 Dose: 4 mg Pantoprazole Sodium (Protonix Ec Tab) 40 mg PO DAILY [facility] Last Admin: 09/06/18 08:57 Dose: Not Given Phenol/Menthol (Phenaseptic 1.4% Throat [place]) 1 sp[address] [place] BID [facility] Last Admin: 09/06/18 08:57 Dose: Not Given Saliva Substitute (First Magic Mouthwash) 5 ml PO QID [facility] Stop: 09/08/18 09:01 Last Admin: 09/06/18 08:57 Dose: Not Given - Labs Labs: 09/06/18 05:35 09/06/18 05:35 PT 16.4 Seconds (9.8-13.1) H 09/06/18 05:35 INR 1.4 09/06/18 05:35 APTT 31.4 Seconds (25.6-37.1) 09/06/18 05:35 - Constitutional Appears: No Acute Distress - Eye Exam Eye Exam: Conjunctival injection - ENT Exam ENT Exam: Mucous Membranes Moist - Respiratory Exam Respiratory Exam: absent: Chest Wall Tenderness - Cardiovascular Exam Cardiovascular Exam: absent: Gallop, JVD, Rubs - GI/Abdominal Exam GI & Abdominal Exam: Guarding, Mass - Extremities Exam Extremities Exam: absent: Calf Tenderness - Back Exam Back Exam: absent: CVA tenderness (L), CVA tenderness (R) - Neurological Exam Neurological Exam: Alert Assessment and Plan (1) Hyponatremia Assessment & Plan: 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
--- NOTE | 2018-09-06 10:39 | CP.PCM.PN ---
Subjective - Date & Time of Evaluation Date of Evaluation: 09/06/18 Time of Evaluation: 10:34 - Subjective Subjective: Pt is a little calmer yoday. She is going for a [facility] chest tube placemShe is due for chemotherapy on Thu ent today to drain the pleural fluid. She still does not get out of bed, and does not eat well. She is due for chemotherapy on ThuSep 08 Objective - Vital Signs/Intake and Output Vital Signs (last 24 hours): Temp Pulse Resp BP Pulse Ox 97.4 F L 120 H 20 124/83 96 09/06/18 08:30 09/06/18 08:30 09/06/18 08:30 09/06/18 08:30 09/06/18 08:30 - Medications Medications: Current Medications Benzocaine/Menthol (Cepacol Sore Throat) 1 tere PO Q3 PRN PRN Reason: Sore Throat Last Admin: 08/31/18 17:13 Dose: 1 tere Cyproheptadine HCl (Periactin) 4 mg PO [facility] Last Admin: 09/05/18 21:29 Dose: 4 mg Epoetin Real (Procrit) 20,000 unit SC MWF [facility] Last Admin: 09/03/18 11:24 Dose: 20,000 unit Escitalopram Oxalate (Lexapro) 5 mg PO [facility] Last Admin: 09/05/18 21:29 Dose: 5 mg Famotidine (Pepcid) 20 mg PO BID [facility] Last Admin: 09/06/18 08:57 Dose: Not Given Ketorolac Tromethamine (Toradol) 15 mg IVP Q6 PRN PRN Reason: Pain, moderate (4-7) Last Admin: 09/06/18 03:55 Dose: 15 mg Nystatin (Nystatin Oral Susp) 5 ml PO BID [facility] Last Admin: 09/06/18 08:57 Dose: Not Given Ondansetron HCl (Zofran Inj) 4 mg IVP Q4 PRN PRN Reason: Nausea/Vomiting Last Admin: 09/04/18 15:32 Dose: 4 mg Pantoprazole Sodium (Protonix Ec Tab) 40 mg PO DAILY [facility] Last Admin: 09/06/18 08:57 Dose: Not Given Phenol/Menthol (Phenaseptic 1.4% Throat [place]) 1 sp[address] [place] BID [facility] Last Admin: 09/06/18 08:57 Dose: Not Given Saliva Substitute (First Magic Mouthwash) 5 ml PO QID [facility] Stop: 09/08/18 09:01 Last Admin: 09/06/18 08:57 Dose: Not Given - Labs Labs: 09/06/18 05:35 09/06/18 05:35 PT 16.4 Seconds (9.8-13.1) H 09/06/18 05:35 INR 1.4 09/06/18 05:35 APTT 31.4 Seconds (25.6-37.1) 09/06/18 05:35
[2018-09-06] MEDS ORDERED: Propofol 10 mg/ml Inj (20 ML) ONE (12:23)
[2018-09-06] MEDS ORDERED: Midazolam 2 MG/2 ML VIAL ONE (12:23)
[2018-09-06] MEDS ORDERED: Bupivacaine HCl 0.5% PF (30 ml) Inj ONE (12:25)
[2018-09-06] MEDS ORDERED: ceFAZolin IV 1 gm in Dextrose 1 GM/50 ML BAG IVPB ONE (12:25)
[2018-09-06] MEDS ORDERED: Lidocaine 1% Inj (20ml) ONE (12:25)
[2018-09-06] MEDS ORDERED: Sodium Chloride 0.9% 1,000 ML IV SCH (12:30)
[2018-09-06] MEDS: Epoetin Alfa 20000 UNIT/ML Inj SC SCH (12:54)
[2018-09-06] MEDS ORDERED: Lidocaine 1% Inj (20ml) IJ ONE (13:00)
[2018-09-06] MEDS ORDERED: HYDROmorphone 0.5 mg/0.5 ml ISec IVP PRN (14:13)
--- NOTE | 2018-09-06 14:15 | PCM.SURG1 ---
Surgeon's Initial Post Op Note - Surgeon's Notes Surgeon: Rebekah Core Mounter: Kandace PGY4 Type of Anesthesia: IV Sedation, Local Pre-Operative Diagnosis: Recurrent B/L pleural effusions Operative Findings: 400+cc of serous pleura effusion Post-Operative Diagnosis: Same Operation Performed: Placement of L side pleurx catheter Specimen/Specimens Removed: none Estimated Blood Loss: EBL {In ML}: 5 Blood Products Given: N/A Drains Used: Chest Tubes (L side pleurx catheter) Post-Op Condition: Good Date of Surgery/Procedure: 09/06/18 Time of Surgery/Procedure: 14:15
--- NOTE | 2018-09-06 15:06 | RAD ---
Date of service: 09/06/2018 PROCEDURE: Intraoperative Fluoroscopy. HISTORY: CHEST TUBE FINDINGS: Fluoroscopic assistance was provided for chest tube placement. Please refer to the operative report from EHSAN Gordon DR, MD. Total fluoroscopic time (continuous mode) utilized during the procedure 93.7 seconds. Total exam DLP: 6.81 (mGy).
--- NOTE | 2018-09-06 15:08 | RAD ---
Date of service: 09/06/2018 HISTORY: s/p L pleurx catheter COMPARISON: Preoperative study 09/05/2018 FINDINGS: LUNGS: Improved aeration of the left lung following chest tube in the left pleural space. PLEURA: Substantial decrease in left pleural effusion. CARDIOVASCULAR: No atherosclerotic calcification present No significant interval change compared to the prior examination(s). PICC line in satisfactory position OSSEOUS STRUCTURES: No significant abnormalities. VISUALIZED UPPER ABDOMEN: Normal. OTHER FINDINGS: None. IMPRESSION: No adverse findings/no pneumothorax following chest tube placement in the left pleural space. Left pleural effusion is decreased, commensurate re-expansion left lung. Underlying pulmonary nodules bilaterally. Stable right pleural effusion.
[2018-09-06] MEDS ORDERED: Lactated Ringer's 500 ML IV ONE (15:10)
[2018-09-06] MEDS: Lactated Ringer's 1,000 ML IV SCH (17:13)
[2018-09-07] MEDS: Lactated Ringer's 1,000 ML IV SCH ×2 (00:15→10:24)
--- NOTE | 2018-09-07 08:30 | CP.PCM.PN ---
Subjective - Date & Time of Evaluation Date of Evaluation: 09/07/18 Time of Evaluation: 08:30 - Subjective Subjective: SURGICAL PROCEDURE NOTES REVIEWED PT APPEARS WEAK AND TEARFUL Objective - Vital Signs/Intake and Output Vital Signs (last 24 hours): Temp Pulse Resp BP Pulse Ox 97.6 F 120 H 20 116/79 95 09/07/18 08:05 09/07/18 08:05 09/07/18 08:05 09/07/18 08:05 09/07/18 08:05 - Medications Medications: Current Medications Benzocaine/Menthol (Cepacol Sore Throat) 1 tere PO Q3 PRN PRN Reason: Sore Throat Last Admin: 08/31/18 17:13 Dose: 1 tere Cyproheptadine HCl (Periactin) 4 mg PO [facility] Last Admin: 09/06/18 21:06 Dose: 4 mg Epoetin Real (Procrit) 20,000 unit SC MWF [facility] Last Admin: 09/06/18 12:54 Dose: Not Given Escitalopram Oxalate (Lexapro) 5 mg PO [facility] Last Admin: 09/06/18 21:06 Dose: 5 mg Famotidine (Pepcid) 20 mg PO BID [facility] Last Admin: 09/06/18 17:13 Dose: Not Given Lactated Ringer's (Lactated Ringer's) 1,000 mls @ 100 mls/hr IV .Q10H [facility] Last Admin: 09/07/18 00:15 Dose: Not Given Ibuprofen (Motrin Tab) 400 mg PO Q6 PRN PRN Reason: Pain, moderate (4-7) Ketorolac Tromethamine (Toradol) 15 mg IVP Q6 PRN PRN Reason: Pain, moderate (4-7) Last Admin: 09/07/18 02:30 Dose: 15 mg Nystatin (Nystatin Oral Susp) 5 ml PO BID [facility] Last Admin: 09/06/18 17:12 Dose: 5 ml Ondansetron HCl (Zofran Inj) 4 mg IVP Q4 PRN PRN Reason: Nausea/Vomiting Last Admin: 09/04/18 15:32 Dose: 4 mg Pantoprazole Sodium (Protonix Ec Tab) 40 mg PO DAILY [facility] Last Admin: 09/06/18 08:57 Dose: Not Given Phenol/Menthol (Phenaseptic 1.4% Throat [place]) 1 sp[address] MT BID [facility] Last Admin: 09/06/18 17:13 Dose: Not Given Saliva Substitute (First Magic Mouthwash) 5 ml PO QID [facility] Stop: 09/08/18 09:01 Last Admin: 09/06/18 21:05 Dose: 5 ml - Labs Labs: 09/06/18 05:35 09/06/18 05:35 PT 16.4 Seconds (9.8-13.1) H 09/06/18 05:35 INR 1.4 09/06/18 05:35 APTT 31.4 Seconds (25.6-37.1) 09/06/18 05:35 - Constitutional Appears: Cachectic, Chronically Ill - Head Exam Head Exam: ATRAUMATIC, NORMAL INSPECTION, NORMOCEPHALIC - Eye Exam Eye Exam: EOMI, Normal appearance, PERRL Pupil Exam: NORMAL ACCOMODATION, PERRL - ENT Exam ENT Exam: Mucous Membranes Moist, Normal Exam - Neck Exam Neck Exam: Full ROM, Normal Inspection. absent: Lymphadenopathy - Respiratory Exam Respiratory Exam: Decreased Breath Sounds, Prolonged Expiratory Phase, Rales, NORMAL BREATHING PATTERN - Cardiovascular Exam Cardiovascular Exam: REGULAR RHYTHM, +S1, +S2. absent: Murmur - GI/Abdominal Exam GI & Abdominal Exam: Soft, Normal Bowel Sounds. absent: Tenderness - Rectal Exam Rectal Exam: NORMAL INSPECTION - Extremities Exam Extremities Exam: Full ROM, Normal Capillary Refill, Normal Inspection. absent: Joint Swelling, Pedal Edema - Back Exam Back Exam: NORMAL INSPECTION - Neurological Exam Neurological Exam: Abnormal Gait, Alert, Awake, CN II-XII Intact, Oriented x3 - Psychiatric Exam Psychiatric exam: Normal Affect, Normal Mood - Skin Skin Exam: Dry, Intact, Normal Color, Warm Assessment and Plan - Assessment and Plan (Free Text) Assessment: METASTATIC OVARIAN CANCER WITH PLEURAL EFFUSIONS Plan: CONTINUE CURRENT RX PROGNOSIS IS EXTREMELY POOR
--- NOTE | 2018-09-07 08:48 | RAD ---
Date of service: 09/07/2018 HISTORY: comparison COMPARISON: 09/06/2018 FINDINGS: LUNGS: Multiple bilateral pulmonary masses are again evident. No focal consolidation. PLEURA: Bilateral small pleural effusion, right greater than left. Left pleural effusion minimally increased compared to the prior examination. Pleural drainage catheter at left base. Subcutaneous emphysema seen over lower left lateral chest wall. CARDIOVASCULAR: No pneumothorax. Right PICC catheter unchanged in position. Normal cardiac size. No pulmonary vascular congestion. OSSEOUS STRUCTURES: No significant abnormalities. VISUALIZED UPPER ABDOMEN: Normal. OTHER FINDINGS: None. IMPRESSION: Multiple bilateral pulmonary masses and small bilateral pleural effusions. Left pleural drainage catheter. Minimal increase in extent of left pleural effusion. Subcutaneous emphysema over lower left lateral chest wall.
--- NOTE | 2018-09-07 09:39 | CP.PCM.PN ---
Subjective - Date & Time of Evaluation Date of Evaluation: 09/07/18 Time of Evaluation: 09:36 - Subjective Subjective: Surgery: Dr. Welch Pt seen and examined. No acute events overnight. Pt resting comfortably in bed. She states that her breathing is somewhat improved. Objective - Vital Signs/Intake and Output Vital Signs (last 24 hours): Temp Pulse Resp BP Pulse Ox 97.6 F 120 H 20 116/79 95 09/07/18 08:05 09/07/18 08:05 09/07/18 08:05 09/07/18 08:05 09/07/18 08:05 - Medications Medications: Current Medications Benzocaine/Menthol (Cepacol Sore Throat) 1 tere PO Q3 PRN PRN Reason: Sore Throat Last Admin: 08/31/18 17:13 Dose: 1 tere Cyproheptadine HCl (Periactin) 4 mg PO [facility] Last Admin: 09/06/18 21:06 Dose: 4 mg Epoetin Real (Procrit) 20,000 unit SC MWF [facility] Last Admin: 09/06/18 12:54 Dose: Not Given Escitalopram Oxalate (Lexapro) 5 mg PO [facility] Last Admin: 09/06/18 21:06 Dose: 5 mg Famotidine (Pepcid) 20 mg PO BID [facility] Last Admin: 09/06/18 17:13 Dose: Not Given Lactated Ringer's (Lactated Ringer's) 1,000 mls @ 100 mls/hr IV .Q10H [facility] Last Admin: 09/07/18 00:15 Dose: Not Given Ibuprofen (Motrin Tab) 400 mg PO Q6 PRN PRN Reason: Pain, moderate (4-7) Ketorolac Tromethamine (Toradol) 15 mg IVP Q6 PRN PRN Reason: Pain, moderate (4-7) Last Admin: 09/07/18 08:37 Dose: 15 mg Nystatin (Nystatin Oral Susp) 5 ml PO BID [facility] Last Admin: 09/06/18 17:12 Dose: 5 ml Ondansetron HCl (Zofran Inj) 4 mg IVP Q4 PRN PRN Reason: Nausea/Vomiting Last Admin: 09/04/18 15:32 Dose: 4 mg Pantoprazole Sodium (Protonix Ec Tab) 40 mg PO DAILY [facility] Last Admin: 09/06/18 08:57 Dose: Not Given Phenol/Menthol (Phenaseptic 1.4% Throat [place]) 1 sp[address] MT BID [facility] Last Admin: 09/06/18 17:13 Dose: Not Given Saliva Substitute (First Magic Mouthwash) 5 ml PO QID [facility] Stop: 09/08/18 09:01 Last Admin: 09/06/18 21:05 Dose: 5 ml - Labs Labs: 09/06/18 05:35 09/06/18 05:35 PT 16.4 Seconds (9.8-13.1) H 09/06/18 05:35 INR 1.4 09/06/18 05:35 APTT 31.4 Seconds (25.6-37.1) 09/06/18 05:35 - Constitutional Appears: Non-toxic, No Acute Distress - Head Exam Head Exam: ATRAUMATIC, NORMOCEPHALIC - Eye Exam Eye Exam: EOMI - ENT Exam ENT Exam: Mucous Membranes Moist - Neck Exam Neck Exam: Full ROM - Respiratory Exam Respiratory Exam: NORMAL BREATHING PATTERN. absent: Accessory Muscle Use, Respiratory Distress Additional comments: L side pleurx catheter in place, dressing C/D/I - GI/Abdominal Exam GI & Abdominal Exam: Soft. absent: Distended, Firm, Guarding, Rigid, Tenderness, Rebound - Extremities Exam Extremities Exam: absent: Calf Tenderness, Pedal Edema - Neurological Exam Neurological Exam: Alert, Awake, Oriented x3 Assessment and Plan - Assessment and Plan (Free Text) Assessment: 48F with recurrent pleural effusions 2/2 metastatic ovarian tumor, s/p L pleurx catheter -AM CXR stable, slight increase in L pleural effusion -c/w daily CXR -will d/w attending Kandace PGY4
[2018-09-07] MEDS: Mag&Al/Simet/Diphen/Lido 237 ML KIT PO SCH ×5 (10:22→22:06)
[2018-09-07] MEDS: Nystatin 100,000 Units/ml Oral Susp 5 ml UD PO SCH ×2 (10:25→18:08)
[2018-09-07] MEDS: Phenol 1.4% Throat Spray MT SCH ×3 (10:26→18:09)
[2018-09-07] MEDS: Pantoprazole 40 mg EC Tab PO SCH (10:26)
--- NOTE | 2018-09-07 11:01 | CP.PCM.PN ---
Subjective - Date & Time of Evaluation Date of Evaluation: 09/07/18 Time of Evaluation: 09:00 - Subjective Subjective: events noted going through phases of denial anger and sorrow afebrile at present had pleural catheter placed Objective - Vital Signs/Intake and Output Vital Signs (last 24 hours): Temp Pulse Resp BP Pulse Ox 97.6 F 120 H 20 116/79 95 09/07/18 08:05 09/07/18 08:05 09/07/18 08:05 09/07/18 08:05 09/07/18 08:05 - Medications Medications: Current Medications Benzocaine/Menthol (Cepacol Sore Throat) 1 tere PO Q3 PRN PRN Reason: Sore Throat Last Admin: 08/31/18 17:13 Dose: 1 tere Cyproheptadine HCl (Periactin) 4 mg PO [facility] Last Admin: 09/06/18 21:06 Dose: 4 mg Epoetin Real (Procrit) 20,000 unit SC MWF [facility] Last Admin: 09/06/18 12:54 Dose: Not Given Escitalopram Oxalate (Lexapro) 5 mg PO [facility] Last Admin: 09/06/18 21:06 Dose: 5 mg Famotidine (Pepcid) 20 mg PO BID [facility] Last Admin: 09/07/18 10:26 Dose: 20 mg Lactated Ringer's (Lactated Ringer's) 1,000 mls @ 100 mls/hr IV .Q10H [facility] Last Admin: 09/07/18 10:24 Dose: Not Given Ibuprofen (Motrin Tab) 400 mg PO Q6 PRN PRN Reason: Pain, moderate (4-7) Ketorolac Tromethamine (Toradol) 15 mg IVP Q6 PRN PRN Reason: Pain, moderate (4-7) Last Admin: 09/07/18 08:37 Dose: 15 mg Nystatin (Nystatin Oral Susp) 5 ml PO BID [facility] Last Admin: 09/07/18 10:25 Dose: 5 ml Ondansetron HCl (Zofran Inj) 4 mg IVP Q4 PRN PRN Reason: Nausea/Vomiting Last Admin: 09/04/18 15:32 Dose: 4 mg Pantoprazole Sodium (Protonix Ec Tab) 40 mg PO DAILY [facility] Last Admin: 09/07/18 10:26 Dose: 40 mg Phenol/Menthol (Phenaseptic 1.4% Throat [place]) 1 sp[address] [place] BID [facility] Last Admin: 09/07/18 10:44 Dose: Not Given Saliva Substitute (First Magic Mouthwash) 5 ml PO QID [facility] Stop: 09/08/18 09:01 Last Admin: 09/07/18 10:22 Dose: 5 ml - Labs Labs: 09/06/18 05:35 09/06/18 05:35 PT 16.4 Seconds (9.8-13.1) H 09/06/18 05:35 INR 1.4 09/06/18 05:35 APTT 31.4 Seconds (25.6-37.1) 09/06/18 05:35 - Constitutional Appears: Cachectic, Chronically Ill - Eye Exam Eye Exam: absent: Scleral icterus - ENT Exam ENT Exam: Mucous Membranes Dry - Neck Exam Neck Exam: absent: Lymphadenopathy - Respiratory Exam Respiratory Exam: Decreased Breath Sounds - Cardiovascular Exam Cardiovascular Exam: REGULAR RHYTHM - GI/Abdominal Exam GI & Abdominal Exam: Distended Assessment and Plan (1) Fluid overload Status: Acute (2) Hyponatremia Status: Acute (3) Metastatic cancer Status: Acute (4) Pleural effusion Status: Acute (5) Sepsis Status: Acute
--- NOTE | 2018-09-07 12:41 | CP.PCM.PN ---
Subjective - Date & Time of Evaluation Date of Evaluation: 09/07/18 Time of Evaluation: 12:41 - Subjective Subjective: patient seen and examined this morning at bedside, tearful, feeling weak, states poor appetite, no overnight events Afebrile, due for chem tomorrow Objective - Vital Signs/Intake and Output Vital Signs (last 24 hours): Temp Pulse Resp BP Pulse Ox 97.6 F 120 H 20 116/79 95 09/07/18 08:05 09/07/18 08:05 09/07/18 08:05 09/07/18 08:05 09/07/18 08:05 - Medications Medications: Current Medications Benzocaine/Menthol (Cepacol Sore Throat) 1 tere PO Q3 PRN PRN Reason: Sore Throat Last Admin: 08/31/18 17:13 Dose: 1 tere Cyproheptadine HCl (Periactin) 4 mg PO HS [facility] Last Admin: 09/06/18 21:06 Dose: 4 mg Epoetin Real (Procrit) 20,000 unit SC F [facility] Last Admin: 09/06/18 12:54 Dose: Not Given Escitalopram Oxalate (Lexapro) 5 mg PO [facility] Last Admin: 09/06/18 21:06 Dose: 5 mg Famotidine (Pepcid) 20 mg PO BID [facility] Last Admin: 09/07/18 10:26 Dose: 20 mg Lactated Ringer's (Lactated Ringer's) 1,000 mls @ 100 mls/hr IV .Q10H [facility] Last Admin: 09/07/18 10:24 Dose: Not Given Ibuprofen (Motrin Tab) 400 mg PO Q6 PRN PRN Reason: Pain, moderate (4-7) Ketorolac Tromethamine (Toradol) 15 mg IVP Q6 PRN PRN Reason: Pain, moderate (4-7) Last Admin: 09/07/18 08:37 Dose: 15 mg Nystatin (Nystatin Oral Susp) 5 ml PO BID [facility] Last Admin: 09/07/18 10:25 Dose: 5 ml Ondansetron HCl (Zofran Inj) 4 mg IVP Q4 PRN PRN Reason: Nausea/Vomiting Last Admin: 09/04/18 15:32 Dose: 4 mg Pantoprazole Sodium (Protonix Ec Tab) 40 mg PO DAILY [facility] Last Admin: 09/07/18 10:26 Dose: 40 mg Phenol/Menthol (Phenaseptic 1.4% Throat [place]) 1 spry MT BID [facility] Last Admin: 09/07/18 10:44 Dose: Not Given Saliva Substitute (First Magic Mouthwash) 5 ml PO QID [facility] Stop: 09/08/18 09:01 Last Admin: 09/07/18 10:22 Dose: 5 ml - Labs Labs: 09/06/18 05:35 09/06/18 05:35 PT 16.4 Seconds (9.8-13.1) H 09/06/18 05:35 INR 1.4 09/06/18 05:35 APTT 31.4 Seconds (25.6-37.1) 09/06/18 05:35 - Constitutional Appears: Chronically Ill - Head Exam Head Exam: NORMAL INSPECTION - Respiratory Exam Respiratory Exam: Decreased Breath Sounds, Rales, Rhonchi, NORMAL BREATHING PATTERN - Cardiovascular Exam Cardiovascular Exam: Tachycardia, REGULAR RHYTHM, +S1, +S2 - GI/Abdominal Exam GI & Abdominal Exam: Distended, Tenderness, Normal Bowel Sounds - Extremities Exam Extremities Exam: absent: Pedal Edema - Neurological Exam Neurological Exam: Alert, Awake, Oriented x3 - Psychiatric Exam Psychiatric exam: Anxious - Skin Skin Exam: Dry, Warm Assessment and Plan (1) Hyponatremia Status: Acute (2) Anasarca Status: Acute (3) Metastatic cancer Status: Acute (4) Pleural effusion Status: Acute (5) Tachycardia Status: Acute - Assessment and Plan (Free Text) Assessment: Continue meds Heme/onc on board Thoracic surgery on board Had pleural tube yesterday For chemo tomorrow Rest of plan as ordered Case seen and examined with Dr Beach.
[2018-09-07 12:51] LABS: HEMOGLOBIN 8.8 g/dL (12.0-16.0); MEAN CELL VOLUME 82.2 fl (81.0-99.0); MEAN CORPUSCULAR HEMOGLOBIN 25.5 pg (27.0-31.0); RBC 3.48 Mil/uL (3.80-5.20); RED CELL DISTRIBUTION WIDTH 19.8 % (11.5-14.5); WHITE BLOOD COUNT 8.8 K/uL (4.8-10.8)
--- NOTE | 2018-09-07 12:53 | CP.PCM.PN ---
Subjective - Date & Time of Evaluation Date of Evaluation: 09/07/18 Time of Evaluation: 12:48 - Subjective Subjective: POD#1. pt s/e. States breathing better. cxr-No pneumo.-L effusion somewhat increased since yesterday. [id number] a/p: Satisfactory pod#1. chest ct in am. to assess the reexpansion of LLL. Objective - Vital Signs/Intake and Output Vital Signs (last 24 hours): Temp Pulse Resp BP Pulse Ox 97.6 F 120 H 20 116/79 95 09/07/18 08:05 09/07/18 08:05 09/07/18 08:05 09/07/18 08:05 09/07/18 08:05 - Medications Medications: Current Medications Benzocaine/Menthol (Cepacol Sore Throat) 1 tere PO Q3 PRN PRN Reason: Sore Throat Last Admin: 08/31/18 17:13 Dose: 1 tere Cyproheptadine HCl (Periactin) 4 mg PO [facility] Last Admin: 09/06/18 21:06 Dose: 4 mg Epoetin Real (Procrit) 20,000 unit SC F [facility] Last Admin: 09/06/18 12:54 Dose: Not Given Escitalopram Oxalate (Lexapro) 5 mg PO [facility] Last Admin: 09/06/18 21:06 Dose: 5 mg Famotidine (Pepcid) 20 mg PO BID [facility] Last Admin: 09/07/18 10:26 Dose: 20 mg Lactated Ringer's (Lactated Ringer's) 1,000 mls @ 100 mls/hr IV .Q10H [facility] Last Admin: 09/07/18 10:24 Dose: Not Given Ibuprofen (Motrin Tab) 400 mg PO Q6 PRN PRN Reason: Pain, moderate (4-7) Ketorolac Tromethamine (Toradol) 15 mg IVP Q6 PRN PRN Reason: Pain, moderate (4-7) Last Admin: 09/07/18 08:37 Dose: 15 mg Nystatin (Nystatin Oral Susp) 5 ml PO BID [facility] Last Admin: 09/07/18 10:25 Dose: 5 ml Ondansetron HCl (Zofran Inj) 4 mg IVP Q4 PRN PRN Reason: Nausea/Vomiting Last Admin: 09/04/18 15:32 Dose: 4 mg Pantoprazole Sodium (Protonix Ec Tab) 40 mg PO DAILY [facility] Last Admin: 09/07/18 10:26 Dose: 40 mg Phenol/Menthol (Phenaseptic 1.4% Throat [place]) 1 spry MT BID [facility] Last Admin: 09/07/18 10:44 Dose: Not Given Saliva Substitute (First Magic Mouthwash) 5 ml PO QID [facility] Stop: 09/08/18 09:01 Last Admin: 09/07/18 10:22 Dose: 5 ml - Labs Labs: 09/06/18 05:35 09/06/18 05:35 PT 16.4 Seconds (9.8-13.1) H 09/06/18 05:35 INR 1.4 09/06/18 05:35 APTT 31.4 Seconds (25.6-37.1) 09/06/18 05:35 Assessment and Plan - Assessment and Plan (Free Text) Assessment: satisfactory POD#1. Plan: ct chest in am. Attending/Attestation - Attestation I have personally seen and examined this patient.: Yes I have fully participated in the care of the patient.: Yes I have reviewed all pertinent clinical information, including history, physical exam and plan: Yes
[2018-09-07 12:58] LABS: ALB/GLOB RATIO 0.8 (1.0-2.1); ALBUMIN 2.1 g/dL (3.5-5.0); ALT/SGPT 63 U/L (9-52); AST/SGOT 75 U/L (14-36); BLOOD UREA NITROGEN 22 mg/dl (7-17); CALCIUM 8.1 mg/dL (8.4-10.2); GFR NON-AFRICAN AMERICAN 59
[2018-09-08 05:08] LABS: BASO # 0.1 K/uL (0.0-0.2); BASO % 0.6 % (0.0-2.0); EOS # 0.2 K/uL (0.0-0.7); EOS % 1.5 % (0.0-4.0); HEMOGLOBIN 9.1 g/dL (12.0-16.0); LYMPH # 1.5 K/uL (1.0-4.3); LYMPH % 14.5 % (20.0-40.0); MEAN CELL VOLUME 81.6 fl (81.0-99.0); MEAN CORPUSCULAR HEMOGLOBIN 25.5 pg (27.0-31.0); MEAN CORPUSCULAR HGB CONC 31.2 g/dL (33.0-37.0); MEAN PLATELET VOLUME 7.2 fl (7.2-11.7); MONO # 0.5 K/uL (0.0-0.8); MONO % 5.2 % (0.0-10.0); NEUT # 8.2 K/uL (1.8-7.0); NEUT % 78.2 % (50.0-75.0); NRBC % 1.1 % (0.0-0.0); RBC 3.57 Mil/uL (3.80-5.20); RED CELL DISTRIBUTION WIDTH 19.3 % (11.5-14.5); WHITE BLOOD COUNT 10.5 K/uL (4.8-10.8)
[2018-09-08] MEDS ORDERED: Dexamethasone 10 MG in Sodium Chloride 0.9% 50 ML IVPB ONE (07:51)
[2018-09-08] MEDS ORDERED: Fosaprepitant 150 MG in Sodium Chloride 0.9% 250 ML IVPB ONE (07:52)
[2018-09-08] MEDS ORDERED: Sodium Chloride 0.9% 500 ML IV SCH (08:00)
[2018-09-08] MEDS: Pantoprazole 40 mg EC Tab PO SCH (08:26)
[2018-09-08] MEDS: Phenol 1.4% Throat Spray MT SCH ×2 (08:26→16:27)
[2018-09-08] MEDS: Mag&Al/Simet/Diphen/Lido 237 ML KIT PO SCH (08:27)
[2018-09-08] MEDS: Nystatin 100,000 Units/ml Oral Susp 5 ml UD PO SCH ×2 (08:27→16:27)
[2018-09-08] MEDS: Epoetin Alfa 20000 UNIT/ML Inj SC SCH (08:27)
[2018-09-08] MEDS ORDERED: CARBOPLATIN IV ONE (11:30)
[2018-09-08] MEDS ORDERED: SODIUM CHLORIDE 0.9% IV ONE ×2 (11:30)
[2018-09-08] MEDS ORDERED: PACLITAXEL IV ONE (11:30)
--- NOTE | 2018-09-08 11:38 | CP.PCM.PN ---
Subjective - Date & Time of Evaluation Date of Evaluation: 09/08/18 Time of Evaluation: 11:35 - Subjective Subjective: POD #2 Pt s/e No sob. wbc 10.[address] pending. Objective - Vital Signs/Intake and Output Vital Signs (last 24 hours): Temp Pulse Resp BP Pulse Ox 97.7 F 115 H 20 123/80 100 09/08/18 07:45 09/08/18 07:45 09/08/18 07:45 09/08/18 07:45 09/08/18 07:45 - Medications Medications: Current Medications Cyproheptadine HCl (Periactin) 4 mg PO HS [facility] Last Admin: 09/07/18 22:06 Dose: Not Given Dexamethasone (Decadron Inj) 10 mg IVP ONCE [facility] Stop: 09/08/18 17:00 Last Admin: 09/08/18 09:29 Dose: 10 mg Epoetin Real (Procrit) 20,000 unit SC MWF [facility] Last Admin: 09/08/18 08:27 Dose: 20,000 unit Escitalopram Oxalate (Lexapro) 5 mg PO [facility] Last Admin: 09/07/18 22:07 Dose: Not Given Famotidine (Pepcid) 20 mg PO BID [facility] Last Admin: 09/08/18 08:24 Dose: Not Given Lactated Ringer's (Lactated Ringer's) 1,000 mls @ 100 mls/hr IV .Q10H [facility] Last Admin: 09/07/18 10:24 Dose: Not Given Diphenhydramine HCl 25 mg/ (Sodium Chloride) 50.5 mls @ 101 mls/hr IVPB ONCE [facility] Stop: 09/08/18 17:00 Last Admin: 09/08/18 09:28 Dose: 101 mls/hr Sodium Chloride (Sodium Chloride 0.9%) 500 mls @ 100 mls/hr IV .Q5H [facility] Stop: 09/08/18 12:59 Last Admin: 09/08/18 09:28 Dose: 100 mls/hr Ondansetron HCl 16 mg/ Sodium (Chloride) 58 mls @ 116 mls/hr IVPB ONCE [facility] Stop: 09/08/18 17:00 Last Admin: 09/08/18 09:28 Dose: 116 mls/hr Carboplatin 155 mg/ Sodium (Chloride) 265.5 mls @ 177 mls/hr IV ONCE ONE Stop: 09/08/18 12:59 Paclitaxel 95 mg/ Sodium (Chloride) 265.8333 mls @ 265.833 mls/hr IV ONCE ONE Stop: 09/08/18 12:29 Ibuprofen (Motrin Tab) 400 mg PO Q6 PRN PRN Reason: Pain, moderate (4-7) Ketorolac Tromethamine (Toradol) 15 mg IVP Q6 PRN PRN Reason: Pain, moderate (4-7) Last Admin: 09/07/18 23:41 Dose: 15 mg Nystatin (Nystatin Oral Susp) 5 ml PO BID [facility] Last Admin: 09/08/18 08:27 Dose: Not Given Ondansetron HCl (Zofran Inj) 4 mg IVP Q4 PRN PRN Reason: Nausea/Vomiting Last Admin: 09/04/18 15:32 Dose: 4 mg Pantoprazole Sodium (Protonix Ec Tab) 40 mg PO DAILY [facility] Last Admin: 09/08/18 08:26 Dose: Not Given Phenol/Menthol (Phenaseptic 1.4% Throat [place]) 1 spry MT BID [facility] Last Admin: 09/08/18 08:26 Dose: Not Given - Labs Labs: 09/08/18 04:30 09/07/18 12:40 PT 16.4 Seconds (9.8-13.1) H 09/06/18 05:35 INR 1.4 09/06/18 05:35 APTT 31.4 Seconds (25.6-37.1) 09/06/18 05:35 Assessment and Plan - Assessment and Plan (Free Text) Assessment: Satisfactory pod #2. Plan: ct chest today. continue current care.
--- NOTE | 2018-09-08 12:11 | CP.PCM.PN ---
<SantosJackie - Last Filed: 09/08/18 12:45> Subjective - Date & Time of Evaluation Date of Evaluation: 09/08/18 Time of Evaluation: 09:55 - Subjective Subjective: CT surgery Dr. Welch Patient seen and examined this am at bedside. She states her SOB is improved. She otherwise denies GOMEZ, CP, abdominal pain, n/v and extremity pain or weakness. She is recieving chemotherapy this morning and will be getting a CT of her Chest. Objective - Vital Signs/Intake and Output Vital Signs (last 24 hours): Temp Pulse Resp BP Pulse Ox 97.7 F 115 H 20 123/80 100 09/08/18 07:45 09/08/18 07:45 09/08/18 07:45 09/08/18 07:45 09/08/18 07:45 - Medications Medications: Current Medications Cyproheptadine HCl (Periactin) 4 mg PO HS [facility] Last Admin: 09/07/18 22:06 Dose: Not Given Dexamethasone (Decadron Inj) 10 mg IVP ONCE [facility] Stop: 09/08/18 17:00 Last Admin: 09/08/18 09:29 Dose: 10 mg Epoetin Real (Procrit) 20,000 unit SC MWF [facility] Last Admin: 09/08/18 08:27 Dose: 20,000 unit Escitalopram Oxalate (Lexapro) 5 mg PO HS [facility] Last Admin: 09/07/18 22:07 Dose: Not Given Famotidine (Pepcid) 20 mg PO BID [facility] Last Admin: 09/08/18 08:24 Dose: Not Given Lactated Ringer's (Lactated Ringer's) 1,000 mls @ 100 mls/hr IV .Q10H [facility] Last Admin: 09/07/18 10:24 Dose: Not Given Diphenhydramine HCl 25 mg/ (Sodium Chloride) 50.5 mls @ 101 mls/hr IVPB ONCE [facility] Stop: 09/08/18 17:00 Last Admin: 09/08/18 09:28 Dose: 101 mls/hr Sodium Chloride (Sodium Chloride 0.9%) 500 mls @ 100 mls/hr IV .Q5H [facility] Stop: 09/08/18 12:59 Last Admin: 09/08/18 09:28 Dose: 100 mls/hr Ondansetron HCl 16 mg/ Sodium (Chloride) 58 mls @ 116 mls/hr IVPB ONCE [facility] Stop: 09/08/18 17:00 Last Admin: 09/08/18 09:28 Dose: 116 mls/hr Carboplatin 155 mg/ Sodium (Chloride) 265.5 mls @ 177 mls/hr IV ONCE ONE Stop: 09/08/18 12:59 Paclitaxel 95 mg/ Sodium (Chloride) 265.8333 mls @ 265.833 mls/hr IV ONCE ONE Stop: 09/08/18 12:29 Ibuprofen (Motrin Tab) 400 mg PO Q6 PRN PRN Reason: Pain, moderate (4-7) Ketorolac Tromethamine (Toradol) 15 mg IVP Q6 PRN PRN Reason: Pain, moderate (4-7) Last Admin: 09/07/18 23:41 Dose: 15 mg Nystatin (Nystatin Oral Susp) 5 ml PO BID [facility] Last Admin: 09/08/18 08:27 Dose: Not Given Ondansetron HCl (Zofran Inj) 4 mg IVP Q4 PRN PRN Reason: Nausea/Vomiting Last Admin: 09/04/18 15:32 Dose: 4 mg Pantoprazole Sodium (Protonix Ec Tab) 40 mg PO DAILY [facility] Last Admin: 09/08/18 08:26 Dose: Not Given Phenol/Menthol (Phenaseptic 1.4% Throat [place]) 1 spry MT BID [facility] Last Admin: 09/08/18 08:26 Dose: Not Given - Labs Labs: 09/08/18 04:30 09/07/18 12:40 PT 16.4 Seconds (9.8-13.1) H 09/06/18 05:35 INR 1.4 09/06/18 05:35 APTT 31.4 Seconds (25.6-37.1) 09/06/18 05:35 - Constitutional Appears: Non-toxic, No Acute Distress, Cachectic, Chronically Ill - Head Exam Head Exam: ATRAUMATIC, NORMOCEPHALIC - Eye Exam Eye Exam: EOMI - ENT Exam ENT Exam: Mucous Membranes Moist - Respiratory Exam Respiratory Exam: NORMAL BREATHING PATTERN - Cardiovascular Exam Cardiovascular Exam: REGULAR RHYTHM - GI/Abdominal Exam GI & Abdominal Exam: Soft, Mass. absent: Guarding, Tenderness - Extremities Exam Extremities Exam: absent: Calf Tenderness, Pedal Edema - Neurological Exam Neurological Exam: Alert, Awake, Oriented x3 - Psychiatric Exam Psychiatric exam: Normal Affect, Normal Mood - Skin Skin Exam: Dry, Intact, Normal Color, Warm Assessment and Plan - Assessment and Plan (Free Text) Assessment: 48 yr old female with recurrent pleural effusions s/p VATS and pleurx catheter placement POD 2 Plan: f/u chest CT results today c/w Diet as tolerated zofran for N/V d/w attending Jackie Santos, PGY 1 <Zac Welch - Last Filed: 09/10/18 13:41> Objective - Vital Signs/Intake and Output Vital Signs (last 24 hours): Temp Pulse Resp BP Pulse Ox 97.7 F 120 H 19 113/83 98 09/10/18 08:02 09/10/18 08:02 09/10/18 08:02 09/10/18 08:02 09/10/18 08:02 - Medications Medications: Current Medications Cyproheptadine HCl (Periactin) 4 mg PO HS [facility] Last Admin: 09/09/18 22:39 Dose: 4 mg Epoetin Real (Procrit) 20,000 unit SC MWF [facility] Last Admin: 09/10/18 10:10 Dose: 20,000 unit Escitalopram Oxalate (Lexapro) 5 mg PO [facility] Last Admin: 09/09/18 22:39 Dose: 5 mg Famotidine (Pepcid) 20 mg PO BID [facility] Last Admin: 09/10/18 09:45 Dose: 20 mg Lactated Ringer's (Lactated Ringer's) 1,000 mls @ 100 mls/hr IV .Q10H [facility] Last Admin: 09/08/18 16:27 Dose: Not Given Ibuprofen (Motrin Tab) 400 mg PO Q6 PRN PRN Reason: Pain, moderate (4-7) Ketorolac Tromethamine (Toradol) 15 mg IVP Q6 PRN PRN Reason: Pain, moderate (4-7) Last Admin: 09/10/18 04:46 Dose: 15 mg Nystatin (Nystatin Oral Susp) 5 ml PO BID [facility] Last Admin: 09/10/18 09:45 Dose: 5 ml Ondansetron HCl (Zofran Inj) 4 mg IVP Q4 PRN PRN Reason: Nausea/Vomiting Last Admin: 09/04/18 15:32 Dose: 4 mg Pantoprazole Sodium (Protonix Ec Tab) 40 mg PO DAILY [facility] Last Admin: 09/10/18 09:46 Dose: 40 mg Phenol/Menthol (Phenaseptic 1.4% Throat [place]) 1 spry MT BID [facility] Last Admin: 09/10/18 09:45 Dose: 1 spry - Labs Labs: 09/10/18 10:36 09/10/18 10:36 PT 16.4 Seconds (9.8-13.1) H 09/06/18 05:35 INR 1.4 09/06/18 05:35 APTT 31.4 Seconds (25.6-37.1) 09/06/18 05:35 Attending/Attestation - Attestation I have personally seen and examined this patient.: Yes I have fully participated in the care of the patient.: Yes I have reviewed all pertinent clinical information, including history, physical exam and plan: Yes
[2018-09-08] MEDS ORDERED: Sodium Chloride 0.9% 0 ML IV ONE (12:36)
[2018-09-08] MEDS ORDERED: Iohexol 300 100 ML IJ ONE ×2 (12:36→15:44)
--- NOTE | 2018-09-08 14:11 | CP.PCM.PN ---
Subjective - Date & Time of Evaluation Date of Evaluation: 09/08/18 Time of Evaluation: 14:10 - Subjective Subjective: no new events reported Complain of chronic debility Objective - Vital Signs/Intake and Output Vital Signs (last 24 hours): Temp Pulse Resp BP Pulse Ox 97.7 F 115 H 20 123/80 100 09/08/18 07:45 09/08/18 07:45 09/08/18 07:45 09/08/18 07:45 09/08/18 07:45 - Medications Medications: Current Medications Cyproheptadine HCl (Periactin) 4 mg PO [facility] Last Admin: 09/07/18 22:06 Dose: Not Given Dexamethasone (Decadron Inj) 10 mg IVP ONCE [facility] Stop: 09/08/18 17:00 Last Admin: 09/08/18 09:29 Dose: 10 mg Epoetin Real (Procrit) 20,000 unit SC F [facility] Last Admin: 09/08/18 08:27 Dose: 20,000 unit Escitalopram Oxalate (Lexapro) 5 mg PO [facility] Last Admin: 09/07/18 22:07 Dose: Not Given Famotidine (Pepcid) 20 mg PO BID [facility] Last Admin: 09/08/18 08:24 Dose: Not Given Lactated Ringer's (Lactated Ringer's) 1,000 mls @ 100 mls/hr IV .Q10H [facility] Last Admin: 09/07/18 10:24 Dose: Not Given Diphenhydramine HCl 25 mg/ (Sodium Chloride) 50.5 mls @ 101 mls/hr IVPB ONCE [facility] Stop: 09/08/18 17:00 Last Admin: 09/08/18 09:28 Dose: 101 mls/hr Ondansetron HCl 16 mg/ Sodium (Chloride) 58 mls @ 116 mls/hr IVPB ONCE [facility] Stop: 09/08/18 17:00 Last Admin: 09/08/18 09:28 Dose: 116 mls/hr Ibuprofen (Motrin Tab) 400 mg PO Q6 PRN PRN Reason: Pain, moderate (4-7) Ketorolac Tromethamine (Toradol) 15 mg IVP Q6 PRN PRN Reason: Pain, moderate (4-7) Last Admin: 09/07/18 23:41 Dose: 15 mg Nystatin (Nystatin Oral Susp) 5 ml PO BID [facility] Last Admin: 09/08/18 08:27 Dose: Not Given Ondansetron HCl (Zofran Inj) 4 mg IVP Q4 PRN PRN Reason: Nausea/Vomiting Last Admin: 09/04/18 15:32 Dose: 4 mg Pantoprazole Sodium (Protonix Ec Tab) 40 mg PO DAILY [facility] Last Admin: 09/08/18 08:26 Dose: Not Given Phenol/Menthol (Phenaseptic 1.4% Throat [place]) 1 spry MT BID [facility] Last Admin: 09/08/18 08:26 Dose: Not Given - Labs Labs: 09/08/18 04:30 09/07/18 12:40 PT 16.4 Seconds (9.8-13.1) H 09/06/18 05:35 INR 1.4 09/06/18 05:35 APTT 31.4 Seconds (25.6-37.1) 09/06/18 05:35 - Constitutional Appears: No Acute Distress - Eye Exam Eye Exam: Conjunctival injection - ENT Exam ENT Exam: Mucous Membranes Moist - Respiratory Exam Respiratory Exam: NORMAL BREATHING PATTERN. absent: Chest Wall Tenderness - Cardiovascular Exam Cardiovascular Exam: absent: Gallop, Rubs - GI/Abdominal Exam GI & Abdominal Exam: Mass - Extremities Exam Extremities Exam: absent: Calf Tenderness - Back Exam Back Exam: absent: CVA tenderness (L), CVA tenderness (R) - Neurological Exam Neurological Exam: Alert Assessment and Plan (1) Hyponatremia Assessment & Plan: hyponatremia corrected NA 136 Ovarian cancer status post chemotherapy Chronic debility Large abdominal mass Anemia Status: Acute (2) Fluid overload Status: Acute (3) Metastatic cancer Status: Acute (4) Pleural effusion Status: Acute (5) Sepsis Status: Acute
[2018-09-08] MEDS ORDERED: Sodium Chloride 0.9% 50 ML IV ONE (15:44)
[2018-09-08] MEDS: Lactated Ringer's 1,000 ML IV SCH (16:27)
--- NOTE | 2018-09-08 17:20 | CT ---
Date of service: 09/08/2018 PROCEDURE: CT Chest with contrast HISTORY: Comparison. Relevant surgical history: 09/06/2018 placement of chest tube in the left pleural space. COMPARISON: 09/01/2018 CT thorax. 09/07/2018 single-view chest. Single-view chest TECHNIQUE: Contiguous axial images were obtained through the chest with intravenous contrast enhancement. Sagittal and coronal reconstructions were performed. IV contrast: 80 cc Omnipaque 300. Radiation dose: Total exam DLP = 237.9 mGy-cm. This CT exam was performed using one or more of the following dose reduction techniques: Automated exposure control, adjustment of the mA and/or kV according to patient size, and/or use of iterative reconstruction technique. FINDINGS: LUNGS: Improved aeration of the left lung following chest tube placement. Multiple pulmonary nodules again identified unchanged. Progressive compressive atelectasis right lung related to increasing right pleural effusion. MEDIASTINUM: Unremarkable thoracic aorta. No aneurysm or dissection. Normal sized heart. Main pulmonary artery unremarkable. No vascular congestion. No lymphadenopathy. No aortic atherosclerotic calcification or mural plaque present. PLEURA: Small left pneumothorax anteriorly. The tip of the chest tube is situated posteriorly. Decrease in left pleural effusion compared to prior C Increase in right pleural effusion. BONES: No fracture. No destructive lesion. UPPER ABDOMEN: Grossly unremarkable. OTHER FINDINGS: Supraclavicular tumor mass on the right unchanged. IMPRESSION: Status post insertion of chest tube in the left pleural space. Decrease in left pleural effusion. Tiny anterior pneumothorax. Commensurate re-expansion left lung. Increase in right pleural effusion with progressive compressive atelectasis primarily affecting the right lower lobe. Additional benign and/or incidental findings described above.
--- NOTE | 2018-09-09 07:17 | CP.PCM.PN ---
<TomJackie - Last Filed: 09/09/18 07:15> Subjective - Date & Time of Evaluation Date of Evaluation: 09/09/18 Time of Evaluation: 06:45 - Subjective Subjective: CT surgery progress note Dr. Welch patient seen and examined this am at bedside. ARLINEEO per nursing. Patient states she is doing well and her breathing is continuing to improve. Discussed CT results with patient. She voiced understanding. denies GOMEZ, f/c, n/v, CP, SOB and extremity pain or weakness. Objective - Vital Signs/Intake and Output Vital Signs (last 24 hours): Temp Pulse Resp BP Pulse Ox 97.3 F L 93 H 18 122/82 94 L 09/09/18 01:00 09/09/18 01:00 09/09/18 01:00 09/09/18 01:00 09/09/18 01:00 - Medications Medications: Current Medications Cyproheptadine HCl (Periactin) 4 mg PO HS [facility] Last Admin: 09/08/18 21:58 Dose: 4 mg Epoetin Real (Procrit) 20,000 unit SC MWF [facility] Last Admin: 09/08/18 08:27 Dose: 20,000 unit Escitalopram Oxalate (Lexapro) 5 mg PO HS [facility] Last Admin: 09/08/18 21:58 Dose: 5 mg Famotidine (Pepcid) 20 mg PO BID [facility] Last Admin: 09/08/18 16:27 Dose: Not Given Lactated Ringer's (Lactated Ringer's) 1,000 mls @ 100 mls/hr IV .Q10H [facility] Last Admin: 09/08/18 16:27 Dose: Not Given Ibuprofen (Motrin Tab) 400 mg PO Q6 PRN PRN Reason: Pain, moderate (4-7) Ketorolac Tromethamine (Toradol) 15 mg IVP Q6 PRN PRN Reason: Pain, moderate (4-7) Last Admin: 09/09/18 01:12 Dose: 15 mg Nystatin (Nystatin Oral Susp) 5 ml PO BID [facility] Last Admin: 09/08/18 16:27 Dose: Not Given Ondansetron HCl (Zofran Inj) 4 mg IVP Q4 PRN PRN Reason: Nausea/Vomiting Last Admin: 09/04/18 15:32 Dose: 4 mg Pantoprazole Sodium (Protonix Ec Tab) 40 mg PO DAILY [facility] Last Admin: 09/08/18 08:26 Dose: Not Given Phenol/Menthol (Phenaseptic 1.4% Throat [place]) 1 spry MT BID [facility] Last Admin: 09/08/18 16:27 Dose: Not Given - Labs Labs: 09/08/18 04:30 09/07/18 12:40 PT 16.4 Seconds (9.8-13.1) H 09/06/18 05:35 INR 1.4 09/06/18 05:35 APTT 31.4 Seconds (25.6-37.1) 09/06/18 05:35 - Constitutional Appears: Well, Non-toxic, No Acute Distress - Head Exam Head Exam: ATRAUMATIC, NORMOCEPHALIC - Eye Exam Eye Exam: EOMI - ENT Exam ENT Exam: Mucous Membranes Moist - Respiratory Exam Respiratory Exam: Decreased Breath Sounds (Right lower lobe), NORMAL BREATHING PATTERN - Cardiovascular Exam Cardiovascular Exam: REGULAR RHYTHM - GI/Abdominal Exam GI & Abdominal Exam: Soft, Mass. absent: Distended, Guarding, Tenderness - Neurological Exam Neurological Exam: Alert, Awake, Oriented x3 - Psychiatric Exam Psychiatric exam: Normal Affect, Normal Mood - Skin Skin Exam: Dry, Intact, Normal Color, Warm Additional comments: drain site dressing saturated, dressing changed at bedside. Assessment and Plan - Assessment and Plan (Free Text) Assessment: 48 yr old female with recurrent pleural effusions 2/2 metastatic ovarian cancer s/p pleurex catheter placement POD 3 Plan: c/w daily chest xray may consider right pleurx catheter if effusion grows/ persists will d/w attending Jackie Santos, PGY 1 <Tony Otoole - Last Filed: 09/09/18 09:48> Objective - Vital Signs/Intake and Output Vital Signs (last 24 hours): Temp Pulse Resp BP Pulse Ox 97.5 F L 105 H 20 105/71 95 09/09/18 08:24 09/09/18 08:24 09/09/18 08:24 09/09/18 08:24 09/09/18 08:24 - Medications Medications: Current Medications Cyproheptadine HCl (Periactin) 4 mg PO HS [facility] Last Admin: 09/08/18 21:58 Dose: 4 mg Epoetin Real (Procrit) 20,000 unit SC MWF [facility] Last Admin: 09/08/18 08:27 Dose: 20,000 unit Escitalopram Oxalate (Lexapro) 5 mg PO HS [facility] Last Admin: 09/08/18 21:58 Dose: 5 mg Famotidine (Pepcid) 20 mg PO BID [facility] Last Admin: 09/09/18 09:45 Dose: Not Given Lactated Ringer's (Lactated Ringer's) 1,000 mls @ 100 mls/hr IV .Q10H [facility] Last Admin: 09/08/18 16:27 Dose: Not Given Ibuprofen (Motrin Tab) 400 mg PO Q6 PRN PRN Reason: Pain, moderate (4-7) Ketorolac Tromethamine (Toradol) 15 mg IVP Q6 PRN PRN Reason: Pain, moderate (4-7) Last Admin: 09/09/18 08:15 Dose: 15 mg Nystatin (Nystatin Oral Susp) 5 ml PO BID [facility] Last Admin: 09/09/18 09:45 Dose: Not Given Ondansetron HCl (Zofran Inj) 4 mg IVP Q4 PRN PRN Reason: Nausea/Vomiting Last Admin: 09/04/18 15:32 Dose: 4 mg Pantoprazole Sodium (Protonix Ec Tab) 40 mg PO DAILY [facility] Last Admin: 09/09/18 09:45 Dose: Not Given Phenol/Menthol (Phenaseptic 1.4% Throat [place]) 1 spry MT BID [facility] Last Admin: 09/09/18 09:45 Dose: Not Given - Labs Labs: 09/08/18 04:30 09/07/18 12:40 PT 16.4 Seconds (9.8-13.1) H 09/06/18 05:35 INR 1.4 09/06/18 05:35 APTT 31.4 Seconds (25.6-37.1) 09/06/18 05:35 Assessment and Plan - Assessment and Plan (Free Text) Plan: Pt is clear for DC to rehab for surgical standpoint Intermittent drainage of PleurX catheter one a week PRN for SOB. Sterile dressing change PRN Recommend VNS set up upon leaving Case DW Dr. Welch <Zac Welch - Last Filed: 09/10/18 13:36> Objective - Vital Signs/Intake and Output Vital Signs (last 24 hours): Temp Pulse Resp BP Pulse Ox 97.7 F 120 H 19 113/83 98 09/10/18 08:02 09/10/18 08:02 09/10/18 08:02 09/10/18 08:02 09/10/18 08:02 - Medications Medications: Current Medications Cyproheptadine HCl (Periactin) 4 mg PO HS [facility] Last Admin: 09/09/18 22:39 Dose: 4 mg Epoetin Real (Procrit) 20,000 unit SC MWF [facility] Last Admin: 09/10/18 10:10 Dose: 20,000 unit Escitalopram Oxalate (Lexapro) 5 mg PO HS [facility] Last Admin: 09/09/18 22:39 Dose: 5 mg Famotidine (Pepcid) 20 mg PO BID [facility] Last Admin: 09/10/18 09:45 Dose: 20 mg Lactated Ringer's (Lactated Ringer's) 1,000 mls @ 100 mls/hr IV .Q10H [facility] Last Admin: 09/08/18 16:27 Dose: Not Given Ibuprofen (Motrin Tab) 400 mg PO Q6 PRN PRN Reason: Pain, moderate (4-7) Ketorolac Tromethamine (Toradol) 15 mg IVP Q6 PRN PRN Reason: Pain, moderate (4-7) Last Admin: 09/10/18 04:46 Dose: 15 mg Nystatin (Nystatin Oral Susp) 5 ml PO BID [facility] Last Admin: 09/10/18 09:45 Dose: 5 ml Ondansetron HCl (Zofran Inj) 4 mg IVP Q4 PRN PRN Reason: Nausea/Vomiting Last Admin: 09/04/18 15:32 Dose: 4 mg Pantoprazole Sodium (Protonix Ec Tab) 40 mg PO DAILY [facility] Last Admin: 09/10/18 09:46 Dose: 40 mg Phenol/Menthol (Phenaseptic 1.4% Throat [place]) 1 spry MT BID [facility] Last Admin: 09/10/18 09:45 Dose: 1 spry - Labs Labs: 09/10/18 10:36 09/10/18 10:36 PT 16.4 Seconds (9.8-13.1) H 09/06/18 05:35 INR 1.4 09/06/18 05:35 APTT 31.4 Seconds (25.6-37.1) 09/06/18 05:35 Attending/Attestation - Attestation I have personally seen and examined this patient.: Yes I have fully participated in the care of the patient.: Yes I have reviewed all pertinent clinical information, including history, physical exam and plan: Yes
[2018-09-09] MEDS: Nystatin 100,000 Units/ml Oral Susp 5 ml UD PO SCH ×2 (09:45→19:44)
[2018-09-09] MEDS: Pantoprazole 40 mg EC Tab PO SCH (09:45)
[2018-09-09] MEDS: Phenol 1.4% Throat Spray MT SCH ×2 (09:45→16:41)
[2018-09-09 09:55] VITALS: BMI 23.2
--- NOTE | 2018-09-09 09:57 | CP.PCM.PN ---
Subjective - Date & Time of Evaluation Date of Evaluation: 09/09/18 Time of Evaluation: 09:56 - Subjective Subjective: complaining of generalized weakness Objective - Vital Signs/Intake and Output Vital Signs (last 24 hours): Temp Pulse Resp BP Pulse Ox 97.5 F L 105 H 20 105/71 95 09/09/18 08:24 09/09/18 08:24 09/09/18 08:24 09/09/18 08:24 09/09/18 08:24 - Medications Medications: Current Medications Cyproheptadine HCl (Periactin) 4 mg PO [facility] Last Admin: 09/08/18 21:58 Dose: 4 mg Epoetin Real (Procrit) 20,000 unit SC MWF [facility] Last Admin: 09/08/18 08:27 Dose: 20,000 unit Escitalopram Oxalate (Lexapro) 5 mg PO [facility] Last Admin: 09/08/18 21:58 Dose: 5 mg Famotidine (Pepcid) 20 mg PO BID [facility] Last Admin: 09/09/18 09:45 Dose: Not Given Lactated Ringer's (Lactated Ringer's) 1,000 mls @ 100 mls/hr IV .Q10H [facility] Last Admin: 09/08/18 16:27 Dose: Not Given Ibuprofen (Motrin Tab) 400 mg PO Q6 PRN PRN Reason: Pain, moderate (4-7) Ketorolac Tromethamine (Toradol) 15 mg IVP Q6 PRN PRN Reason: Pain, moderate (4-7) Last Admin: 09/09/18 08:15 Dose: 15 mg Nystatin (Nystatin Oral Susp) 5 ml PO BID [facility] Last Admin: 09/09/18 09:45 Dose: Not Given Ondansetron HCl (Zofran Inj) 4 mg IVP Q4 PRN PRN Reason: Nausea/Vomiting Last Admin: 09/04/18 15:32 Dose: 4 mg Pantoprazole Sodium (Protonix Ec Tab) 40 mg PO DAILY [facility] Last Admin: 09/09/18 09:45 Dose: Not Given Phenol/Menthol (Phenaseptic 1.4% Throat [place]) 1 spry MT BID [facility] Last Admin: 09/09/18 09:45 Dose: Not Given - Labs Labs: 09/08/18 04:30 09/07/18 12:40 PT 16.4 Seconds (9.8-13.1) H 09/06/18 05:35 INR 1.4 09/06/18 05:35 APTT 31.4 Seconds (25.6-37.1) 09/06/18 05:35 - Constitutional Appears: No Acute Distress - Eye Exam Eye Exam: Conjunctival injection - ENT Exam ENT Exam: Mucous Membranes Moist - Respiratory Exam Respiratory Exam: NORMAL BREATHING PATTERN. absent: Chest Wall Tenderness - Cardiovascular Exam Cardiovascular Exam: absent: Gallop, JVD, Rubs - GI/Abdominal Exam GI & Abdominal Exam: Mass - Extremities Exam Extremities Exam: absent: Calf Tenderness - Back Exam Back Exam: absent: CVA tenderness (L), CVA tenderness (R) - Neurological Exam Neurological Exam: Awake Assessment and Plan (1) Hyponatremia Assessment & Plan: hyponatremia corrected NA 136 Ovarian cancer status post chemotherapy Chronic debility Large abdominal mass Anemia Status: Acute (2) Fluid overload Status: Acute (3) Metastatic cancer Status: Acute (4) Pleural effusion Status: Acute (5) Sepsis Status: Acute
[2018-09-09 12:21] LABS: HEMOGLOBIN 9.2 g/dL (12.0-16.0); MEAN CELL VOLUME 84.1 fl (81.0-99.0); MEAN CORPUSCULAR HEMOGLOBIN 25.8 pg (27.0-31.0); MEAN CORPUSCULAR HGB CONC 30.6 g/dL (33.0-37.0); RBC 3.58 Mil/uL (3.80-5.20); RED CELL DISTRIBUTION WIDTH 20.6 % (11.5-14.5); WHITE BLOOD COUNT 12.9 K/uL (4.8-10.8)
--- NOTE | 2018-09-09 12:24 | RAD ---
Date of service: 09/09/2018 PROCEDURE: CHEST RADIOGRAPH, 1 VIEW HISTORY: pleurx catheter COMPARISON: 09/07/2018 FINDINGS: LUNGS: Extensive right-sided pulmonary opacity superimposed upon previously demonstrated pattern of multiple bilateral rounded masses. PLEURA: Bilateral pleural effusion, right greater than left, slightly increased from previous examination. No pneumothorax. CARDIOVASCULAR: No aortic atherosclerotic calcification present. Normal heart size. Right PICC catheter unchanged. OSSEOUS STRUCTURES: No significant abnormalities. VISUALIZED UPPER ABDOMEN: Normal. OTHER FINDINGS: None. IMPRESSION: Increasing right-sided opacity. Bilateral pulmonary masses. Increasing bilateral pleural effusion.
--- NOTE | 2018-09-09 13:31 | CP.PCM.PN ---
Subjective - Date & Time of Evaluation Date of Evaluation: 09/09/18 Time of Evaluation: 13:31 - Subjective Subjective: NO ACUTE CHANGES. CONTINUED PAIN AND ANXIETY. COGNITIVE FUNCTION REMAINS IMPAIRED. Objective - Vital Signs/Intake and Output Vital Signs (last 24 hours): Temp Pulse Resp BP Pulse Ox 97.5 F L 105 H 20 105/71 95 09/09/18 08:24 09/09/18 08:24 09/09/18 08:24 09/09/18 08:24 09/09/18 08:24 - Medications Medications: Current Medications Cyproheptadine HCl (Periactin) 4 mg PO [facility] Last Admin: 09/08/18 21:58 Dose: 4 mg Epoetin Real (Procrit) 20,000 unit SC F [facility] Last Admin: 09/08/18 08:27 Dose: 20,000 unit Escitalopram Oxalate (Lexapro) 5 mg PO [facility] Last Admin: 09/08/18 21:58 Dose: 5 mg Famotidine (Pepcid) 20 mg PO BID [facility] Last Admin: 09/09/18 09:45 Dose: Not Given Lactated Ringer's (Lactated Ringer's) 1,000 mls @ 100 mls/hr IV .Q10H [facility] Last Admin: 09/08/18 16:27 Dose: Not Given Ibuprofen (Motrin Tab) 400 mg PO Q6 PRN PRN Reason: Pain, moderate (4-7) Ketorolac Tromethamine (Toradol) 15 mg IVP Q6 PRN PRN Reason: Pain, moderate (4-7) Last Admin: 09/09/18 08:15 Dose: 15 mg Nystatin (Nystatin Oral Susp) 5 ml PO BID [facility] Last Admin: 09/09/18 09:45 Dose: Not Given Ondansetron HCl (Zofran Inj) 4 mg IVP Q4 PRN PRN Reason: Nausea/Vomiting Last Admin: 09/04/18 15:32 Dose: 4 mg Pantoprazole Sodium (Protonix Ec Tab) 40 mg PO DAILY [facility] Last Admin: 09/09/18 09:45 Dose: Not Given Phenol/Menthol (Phenaseptic 1.4% Throat [place]) 1 spry MT BID [facility] Last Admin: 09/09/18 09:45 Dose: Not Given - Labs Labs: 09/09/18 12:05 09/07/18 12:40 PT 16.4 Seconds (9.8-13.1) H 09/06/18 05:35 INR 1.4 09/06/18 05:35 APTT 31.4 Seconds (25.6-37.1) 09/06/18 05:35 - Constitutional Appears: No Acute Distress - Head Exam Head Exam: ATRAUMATIC, NORMAL INSPECTION, NORMOCEPHALIC - Eye Exam Eye Exam: EOMI, Normal appearance, PERRL. absent: Conjunctival injection, Nystagmus, Periorbital swelling, Periorbital tenderness, Scleral icterus Pupil Exam: NORMAL ACCOMODATION, PERRL - ENT Exam ENT Exam: Mucous Membranes Dry, Normal Exam. absent: Mucous Membranes Moist, Normal External Ear Exam, Normal Oropharynx, TM's Normal Bilaterally - Neck Exam Neck Exam: Full ROM, Normal Inspection. absent: Lymphadenopathy, Meningismus, Tenderness, Thyromegaly - Respiratory Exam Respiratory Exam: Decreased Breath Sounds, NORMAL BREATHING PATTERN. absent: Accessory Muscle Use, Chest Wall Tenderness, Clear to Ausculation Bilateral, Prolonged Expiratory Phase, Rales, Rhonchi, Wheezes, Respiratory Distress, Stridor - Cardiovascular Exam Cardiovascular Exam: Tachycardia, REGULAR RHYTHM, +S1, +S2, Murmur - GI/Abdominal Exam GI & Abdominal Exam: Soft, Normal Bowel Sounds. absent: Bruit, Distended, Firm, Guarding, Rigid, Tenderness, Diminished Bowel Sounds, Hernia, Hyperactive Bowel Sounds, Hypoactive Bowel Sounds, Organomegaly, Pulsatile Mass, Rebound, Mass - Rectal Exam Rectal Exam: Deferred - Extremities Exam Additional comments: 3+ LLE EDEMA WITH 1+ RLE. - Back Exam Back Exam: NORMAL INSPECTION - Neurological Exam Neurological Exam: Alert, Awake - Psychiatric Exam Psychiatric exam: Normal Affect, Normal Mood. absent: Agitated, Anxious, Depressed, Flat Affect, Homicidal Ideation, Manic, Suicidal Ideation - Skin Skin Exam: Dry, Intact, Normal Color, Warm. absent: Abrasion, Cyanosis, Diaphoretic, Erythema, Mottled, Pallor, Pallor, Petechiae, Rash, Urticaria, Ve sicles Assessment and Plan (1) Anxiety Status: Acute (2) Anemia Status: Acute (3) Metastatic cancer Status: Acute (4) Pleural effusion Status: Acute (5) Tachycardia Status: Acute (6) Edema of left lower extremity Status: Acute - Assessment and Plan (Free Text) Plan: SUSPECT DVT, ORDERED STAT DUPLEX OF LE. IF POSITIVE THEN WOULD EVAL FOR PE. PTS TACHYCARDIA IS MULTIFACTORIAL. ANXIETY SHOULD BE CONSIDERED AN ETIOLOGY WELL.
--- NOTE | 2018-09-09 15:20 | CT ---
Date of service: 09/09/2018 PROCEDURE: CT HEAD WITHOUT CONTRAST. HISTORY: Ovarian ca; r/o brain mets COMPARISON: Not available TECHNIQUE: Axial computed tomography images were obtained through the head/brain without intravenous contrast. Radiation dose: Total exam DLP = 714.28 mGy-cm. This CT exam was performed using one or more of the following dose reduction techniques: Automated exposure control, adjustment of the mA and/or kV according to patient size, and/or use of iterative reconstruction technique. FINDINGS: HEMORRHAGE: No intracranial hemorrhage. BRAIN: No mass effect or edema. No significant atrophy. No microvascular white matter ischemic change. VENTRICLES: Unremarkable. No hydrocephalus. CALVARIUM: Unremarkable. PARANASAL SINUSES: Unremarkable as visualized. No significant inflammatory changes. MASTOID AIR CELLS: Unremarkable as visualized. No inflammatory changes. OTHER FINDINGS: None. IMPRESSION: No evidence of intracranial mass. Please note that noncontrast CT examination is of limited sensitivity for detection of intracranial metastasis.
--- NOTE | 2018-09-09 16:43 | US ---
Date of service: 09/09/2018 PROCEDURE: Bilateral lower extremity venous duplex Doppler. HISTORY: edema, cancer COMPARISON: Comparison is made to the previous study dated 08/18/2018 TECHNIQUE: Bilateral common femoral, superficial femoral, popliteal and posterior tibial veins were evaluated. Flow was assessed with color Doppler, compressibility, assessment of phasic flow and augmentation response. FINDINGS: COMMON FEMORAL VEIN: Right CFV: Unremarkable. Left CFV: Unremarkable. SUPERFICIAL FEMORAL VEIN: Right SFV: Unremarkable. Left SFV: Unremarkable. POPLITEAL VEIN: Right Popliteal: Unremarkable. Left Popliteal: Unremarkable. POSTERIOR TIBIAL VEIN: Right PTV: Unremarkable. Left PTV: Unremarkable. OTHER FINDINGS: None. IMPRESSION: No evidence of deep venous thrombosis.
--- NOTE | 2018-09-10 06:58 | OP ---
PROCEDURE DATE: 09/06/2018 PREOPERATIVE DIAGNOSES: 1. Bilateral pleural effusions. 2. Stage IV ovarian cancer. POSTOPERATIVE DIAGNOSES: 1. Bilateral pleural effusions. 2. Stage IV ovarian cancer. OPERATIONS PERFORMED: 1. Placement of PleurX catheter to left pleural space. 2. Sonographic and fluoroscopic guidances. SURGEON: Zac Welch MD SPEECH THERAPY DIRECTOR: Samir Jeronimo DO. ANESTHESIOLOGIST: Fernando Reece MD TYPE OF ANESTHESIA: IV sedation plus local 1% Xylocaine. DESCRIPTION OF PROCEDURE: The patient was taken to the operating room under satisfactory IV sedation, the patient was placed in supine position with the upper half of the body elevated approximately 30 degrees. Under sonographic guidance catheter exit site and guide wire entrance site were marked with a marking pencil. Next, operative field was prepared and draped in a sterile fashion. Operative field field was infiltrated with 1% Xylocaine including the catheter tunnel. Previously identified guidewire entrance site was first impaled with a guide wire introducing st up with a 19-gauge needle, and after confirming satisfactory fluid in pleural cavity, the guidewire was advanced and the needle was removed. After confirming the placement of the guidewire under fluoroscope, 1 cm skin opening was made at the point of insertion site and then also at the predetermined catheter exit site. Next, the catheter was attached to the tunneler which was then advanced from the catheter exit site to the guidewire entrance site. At this time, catheter was shortened by about 7 cm and guidewire entrance site was dilated progressively with dilators and finally to 15.5-Greek dilator with peel-away catheter with dialator was advanced over the guidewire into the pleural cavity. This was done under direct fluoroscopic guidance. Next, the guidewire was withdrawn and the catheter was advanced through the peel-away sheath. Finally the peel-away sheath was manually peeled away completing catheter placement, was confirmed by fluoroscopy. The incision was closed with 0 Vicryl suture and the catheter [place] was positioned approximately 1 cm proximal to the catheter exit site and was secured to the surrounding tissues with 0 Vicryl sutures. Catheter was secured to the skin with 0 silk sutures. During the insertion process, most of the right pleural effusion was evacuated through wall suction at 60 cm water. Sterile dressing was applied and taped in the usual manner. The patient tolerated the procedure very well and was transferred to the recovery room awake with good vital signs. Estimated blood loss was 5 mL. Sponge, needle, and instrument counts were correct. Zac Welch MD [place]
--- NOTE | 2018-09-10 09:12 | CP.PCM.CON ---
History of Present Illness - History of Present Illness History of Present Illness: Psychiatry consult follow-up called to evaluate capacity CC: AMS HPI: 48 yo female w/ no past psychiatric histoty, admitted w/ SOB, cough and b/l leg swelling, recently diagnosed w/ stage 4 ovarian cancer. Patient currently acutely disorganized, tangential and oriented to self, location, not date. She believes it is 1997. When asked if she has cancer she stated "I like chicken, not beef." Central Office Maintainer attempted to ask her several times about her acute medical issues and she did not give logical, coherent answers. She states that she saw the handbook writer last night (untrue). She denies acute AH/VH/SI/HI. She can not explain her current medications, treatments, diagnosis or manipulate new information. Impression: 48 yo female w/ acute delirium vs neurocognitive impairment and unspecified mood disorder. -Continue Lexapro and Ativan PRN -Patient does not have capacity to make medical decisions at this time. Past Patient History - Past Medical History & Family History Past Medical History?: Yes - Past Social History Alcohol: None - CARDIAC Hx Pacemaker: No - PULMONARY Hx Respiratory Disorders: No - NEUROLOGICAL Hx Neurological Disorder: No - HEENT Hx HEENT Problems: Yes - RENAL Hx Chronic Kidney Disease: No - ENDOCRINE/METABOLIC Hx Endocrine Disorders: No - HEMATOLOGICAL/ONCOLOGICAL Hx Cancer: Yes - INTEGUMENTARY Hx Dermatological Problems: No - MUSCULOSKELETAL/RHEUMATOLOGICAL Hx Musculoskeletal Disorders: Yes (unsteady gait) - GASTROINTESTINAL Hx Gastrointestinal Disorders: No - GENITOURINARY/GYNECOLOGICAL Hx Genitourinary Disorders: Yes - PSYCHIATRIC Hx Psychophysiologic Disorder: Yes (anxiety) - SURGICAL HISTORY Hx Mastectomy: No - ANESTHESIA Hx Anesthesia: Yes Hx Anesthesia Reactions: No Meds Allergies/Adverse Reactions: Allergies Allergy/AdvReac Type Severity Reaction Status Date / Time No Known Allergies Allergy Verified 08/18/18 16:19 - Medications Medications: Current Medications Cyproheptadine HCl (Periactin) 4 mg PO HS [facility] Last Admin: 09/09/18 22:39 Dose: 4 mg Epoetin Real (Procrit) 20,000 unit SC MWF [facility] Last Admin: 09/08/18 08:27 Dose: 20,000 unit Escitalopram Oxalate (Lexapro) 5 mg PO HS [facility] Last Admin: 09/09/18 22:39 Dose: 5 mg Famotidine (Pepcid) 20 mg PO BID [facility] Last Admin: 09/09/18 16:41 Dose: Not Given Lactated Ringer's (Lactated Ringer's) 1,000 mls @ 100 mls/hr IV .Q10H [facility] Last Admin: 09/08/18 16:27 Dose: Not Given Ibuprofen (Motrin Tab) 400 mg PO Q6 PRN PRN Reason: Pain, moderate (4-7) Ketorolac Tromethamine (Toradol) 15 mg IVP Q6 PRN PRN Reason: Pain, moderate (4-7) Last Admin: 09/10/18 04:46 Dose: 15 mg Nystatin (Nystatin Oral Susp) 5 ml PO BID [facility] Last Admin: 09/09/18 19:44 Dose: Not Given Ondansetron HCl (Zofran Inj) 4 mg IVP Q4 PRN PRN Reason: Nausea/Vomiting Last Admin: 09/04/18 15:32 Dose: 4 mg Pantoprazole Sodium (Protonix Ec Tab) 40 mg PO DAILY [facility] Last Admin: 09/09/18 09:45 Dose: Not Given Phenol/Menthol (Phenaseptic 1.4% Throat [place]) 1 spry MT BID [facility] Last Admin: 09/09/18 16:41 Dose: Not Given Results - Vital Signs Recent Vital Signs: Last Vital Signs Temp 97.7 F 09/10/18 08:02 Pulse 120 H 09/10/18 08:02 Resp 19 09/10/18 08:02 BP 113/83 09/10/18 08:02 Pulse Ox 98 09/10/18 08:02 - Labs Result Diagrams: 09/09/18 12:05 09/07/18 12:40 Labs: Laboratory Results - last 24 hr 09/09/18 12:05 WBC 12.9 H RBC 3.58 L Hgb 9.2 L Hct 30.1 L MCV 84.1 D MCH 25.8 L MCHC 30.6 L RDW 20.6 H Plt Count 476 H
[2018-09-10] MEDS: Nystatin 100,000 Units/ml Oral Susp 5 ml UD PO SCH ×2 (09:45→16:57)
[2018-09-10] MEDS: Phenol 1.4% Throat Spray MT SCH ×2 (09:45→16:57)
[2018-09-10] MEDS: Pantoprazole 40 mg EC Tab PO SCH (09:46)
[2018-09-10] MEDS: Epoetin Alfa 20000 UNIT/ML Inj SC SCH (10:10)
--- NOTE | 2018-09-10 10:34 | CP.PCM.PN ---
Subjective - Date & Time of Evaluation Date of Evaluation: 09/10/18 Time of Evaluation: 10:25 - Subjective Subjective: Pt is extremely confused. Her chemistries are in the normal range, and her ct of the brain was normal as well. She keeps talking but is never relevent. Every day she changes her mind about what she wants to do. She did not want to cont inue treatment yesterday but today she said she does not remember and suddenly starts talking about something totally irrelevant. It is difficult to decide if she wants any treatment or just hospice. Objective - Vital Signs/Intake and Output Vital Signs (last 24 hours): Temp Pulse Resp BP Pulse Ox 97.7 F 120 H 19 113/83 98 09/10/18 08:02 09/10/18 08:02 09/10/18 08:02 09/10/18 08:02 09/10/18 08:02 - Medications Medications: Current Medications Cyproheptadine HCl (Periactin) 4 mg PO HS [facility] Last Admin: 09/09/18 22:39 Dose: 4 mg Epoetin Real (Procrit) 20,000 unit SC MWF [facility] Last Admin: 09/10/18 10:10 Dose: 20,000 unit Escitalopram Oxalate (Lexapro) 5 mg PO [facility] Last Admin: 09/09/18 22:39 Dose: 5 mg Famotidine (Pepcid) 20 mg PO BID [facility] Last Admin: 09/10/18 09:45 Dose: 20 mg Lactated Ringer's (Lactated Ringer's) 1,000 mls @ 100 mls/hr IV .Q10H [facility] Last Admin: 09/08/18 16:27 Dose: Not Given Ibuprofen (Motrin Tab) 400 mg PO Q6 PRN PRN Reason: Pain, moderate (4-7) Ketorolac Tromethamine (Toradol) 15 mg IVP Q6 PRN PRN Reason: Pain, moderate (4-7) Last Admin: 09/10/18 04:46 Dose: 15 mg Nystatin (Nystatin Oral Susp) 5 ml PO BID [facility] Last Admin: 09/10/18 09:45 Dose: 5 ml Ondansetron HCl (Zofran Inj) 4 mg IVP Q4 PRN PRN Reason: Nausea/Vomiting Last Admin: 09/04/18 15:32 Dose: 4 mg Pantoprazole Sodium (Protonix Ec Tab) 40 mg PO DAILY [facility] Last Admin: 09/10/18 09:46 Dose: 40 mg Phenol/Menthol (Phenaseptic 1.4% Throat [place]) 1 spry MT BID [facility] Last Admin: 09/10/18 09:45 Dose: 1 spry - Labs Labs: 09/09/18 12:05 09/07/18 12:40 PT 16.4 Seconds (9.8-13.1) H 09/06/18 05:35 INR 1.4 09/06/18 05:35 APTT 31.4 Seconds (25.6-37.1) 09/06/18 05:35
[2018-09-10 10:51] LABS: HEMOGLOBIN 9.9 g/dL (12.0-16.0); MEAN CELL VOLUME 82.6 fl (81.0-99.0); MEAN CORPUSCULAR HEMOGLOBIN 25.4 pg (27.0-31.0); MEAN CORPUSCULAR HGB CONC 30.8 g/dL (33.0-37.0); RBC 3.88 Mil/uL (3.80-5.20); RED CELL DISTRIBUTION WIDTH 21.2 % (11.5-14.5); WHITE BLOOD COUNT 11.3 K/uL (4.8-10.8)
--- NOTE | 2018-09-10 11:17 | CP.PCM.PN ---
Subjective - Date & Time of Evaluation Date of Evaluation: 09/10/18 Time of Evaluation: 11:16 - Subjective Subjective: patient awake and conscious Objective - Vital Signs/Intake and Output Vital Signs (last 24 hours): Temp Pulse Resp BP Pulse Ox 97.7 F 120 H 19 113/83 98 09/10/18 08:02 09/10/18 08:02 09/10/18 08:02 09/10/18 08:02 09/10/18 08:02 - Medications Medications: Current Medications Cyproheptadine HCl (Periactin) 4 mg PO [facility] Last Admin: 09/09/18 22:39 Dose: 4 mg Epoetin Real (Procrit) 20,000 unit SC F [facility] Last Admin: 09/10/18 10:10 Dose: 20,000 unit Escitalopram Oxalate (Lexapro) 5 mg PO [facility] Last Admin: 09/09/18 22:39 Dose: 5 mg Famotidine (Pepcid) 20 mg PO BID [facility] Last Admin: 09/10/18 09:45 Dose: 20 mg Lactated Ringer's (Lactated Ringer's) 1,000 mls @ 100 mls/hr IV .Q10H [facility] Last Admin: 09/08/18 16:27 Dose: Not Given Ibuprofen (Motrin Tab) 400 mg PO Q6 PRN PRN Reason: Pain, moderate (4-7) Ketorolac Tromethamine (Toradol) 15 mg IVP Q6 PRN PRN Reason: Pain, moderate (4-7) Last Admin: 09/10/18 04:46 Dose: 15 mg Nystatin (Nystatin Oral Susp) 5 ml PO BID [facility] Last Admin: 09/10/18 09:45 Dose: 5 ml Ondansetron HCl (Zofran Inj) 4 mg IVP Q4 PRN PRN Reason: Nausea/Vomiting Last Admin: 09/04/18 15:32 Dose: 4 mg Pantoprazole Sodium (Protonix Ec Tab) 40 mg PO DAILY [facility] Last Admin: 09/10/18 09:46 Dose: 40 mg Phenol/Menthol (Phenaseptic 1.4% Throat [place]) 1 spry MT BID [facility] Last Admin: 09/10/18 09:45 Dose: 1 spry - Labs Labs: 09/10/18 10:36 09/10/18 10:36 PT 16.4 Seconds (9.8-13.1) H 09/06/18 05:35 INR 1.4 09/06/18 05:35 APTT 31.4 Seconds (25.6-37.1) 09/06/18 05:35 - Constitutional Appears: No Acute Distress - Eye Exam Eye Exam: Conjunctival injection - ENT Exam ENT Exam: Mucous Membranes Moist - Respiratory Exam Respiratory Exam: NORMAL BREATHING PATTERN. absent: Chest Wall Tenderness - Cardiovascular Exam Cardiovascular Exam: absent: Gallop, Rubs - GI/Abdominal Exam GI & Abdominal Exam: Mass, Normal Bowel Sounds - Extremities Exam Extremities Exam: absent: Calf Tenderness - Back Exam Back Exam: absent: CVA tenderness (L), CVA tenderness (R) - Neurological Exam Neurological Exam: Awake - Psychiatric Exam Psychiatric exam: Anxious - Skin Skin Exam: absent: Cyanosis Assessment and Plan (1) Hyponatremia Assessment & Plan: hyponatremia serum sodium in the range of 134-135 Ovarian cancer status post chemotherapy Chronic debility Large abdominal mass Anemia the plan As noted per oncology Kidney function stable Status: Acute (2) Fluid overload Status: Acute (3) Metastatic cancer Status: Acute (4) Pleural effusion Status: Acute (5) Sepsis Status: Acute
--- NOTE | 2018-09-10 13:21 | CP.PCM.PN ---
Subjective - Date & Time of Evaluation Date of Evaluation: 09/10/18 Time of Evaluation: 13:22 - Subjective Subjective: NO NEW PULMONARY FINDINGS LUNGS-POOR AERATION WITH RALES EPISODES OF RAMBLING AND INAPPROPRIATE BEHAVIOR MAY NEED HOSPICE/PALLIATIVE CARE PROGNOSIS IS POOR Objective - Vital Signs/Intake and Output Vital Signs (last 24 hours): Temp Pulse Resp BP Pulse Ox 97.7 F 120 H 19 113/83 98 09/10/18 08:02 09/10/18 08:02 09/10/18 08:02 09/10/18 08:02 09/10/18 08:02 - Medications Medications: Current Medications Cyproheptadine HCl (Periactin) 4 mg PO [facility] Last Admin: 09/09/18 22:39 Dose: 4 mg Epoetin Real (Procrit) 20,000 unit SC F [facility] Last Admin: 09/10/18 10:10 Dose: 20,000 unit Escitalopram Oxalate (Lexapro) 5 mg PO [facility] Last Admin: 09/09/18 22:39 Dose: 5 mg Famotidine (Pepcid) 20 mg PO BID [facility] Last Admin: 09/10/18 09:45 Dose: 20 mg Lactated Ringer's (Lactated Ringer's) 1,000 mls @ 100 mls/hr IV .Q10H [facility] Last Admin: 09/08/18 16:27 Dose: Not Given Ibuprofen (Motrin Tab) 400 mg PO Q6 PRN PRN Reason: Pain, moderate (4-7) Ketorolac Tromethamine (Toradol) 15 mg IVP Q6 PRN PRN Reason: Pain, moderate (4-7) Last Admin: 09/10/18 04:46 Dose: 15 mg Nystatin (Nystatin Oral Susp) 5 ml PO BID [facility] Last Admin: 09/10/18 09:45 Dose: 5 ml Ondansetron HCl (Zofran Inj) 4 mg IVP Q4 PRN PRN Reason: Nausea/Vomiting Last Admin: 09/04/18 15:32 Dose: 4 mg Pantoprazole Sodium (Protonix Ec Tab) 40 mg PO DAILY [facility] Last Admin: 09/10/18 09:46 Dose: 40 mg Phenol/Menthol (Phenaseptic 1.4% Throat [place]) 1 spry MT BID [facility] Last Admin: 09/10/18 09:45 Dose: 1 spry - Labs Labs: 11/30/18 10:36 09/10/18 10:36 PT 16.4 Seconds (9.8-13.1) H 09/06/18 05:35 INR 1.4 09/06/18 05:35 APTT 31.4 Seconds (25.6-37.1) 09/06/18 05:35
[2018-09-10 16:19] VITALS: BP 116/76; PULSE 130; RESP 20; TEMP 97.8; O2SAT 96
--- NOTE | 2018-09-14 19:20 | PQF ---
PROVIDER RESPONSE TEXT: Provider was unable to determine a response for this query. REVIEWER QUERY TEXT: Clarification of Clinical Diagnostic Findings Please clarify if the dx. is Sepsis due to :Surgical Site Infection (biopsy wound cellulitis) versus not a surgical site infection just Sepsis due to abdominal Cellulitis OR: Other explanation of clinical findings Clinical Impression.: Pleural Effusion, Metastatic CA, Sepsis POA: Surgical Site Infection (bx, wound cellulitis) 08/19 Critical Care progress note includes : Abdominal wall cellulitis with severe sepsis The patient's Clinical Indicators include: - Query created by: Avis Aragon on 08/24/2018 10:29 AM Electronically signed by: George Jerry MD 09/14/2018 7:17 PM
== END 2018-09-10 17:59 | DRG 584 ==
LOC: H.ER 16:16 → H.ERHOLD 18:18 → H.ICU/CCU 08-19 00:30 → H.ERHOLD 08-19 08:24 → H.ICU/CCU 08-19 08:25 → H.MEDSURG1 08-26 16:25
PROVIDERS: ADMIT Family Medicine; ATTEND Family Medicine
PROC: 0W9930Z Drainage of Right Pleural Cavity with Drainage Device, Percutaneous Approach (ICD-10-PCS; 2018-08-19)
PROC: 02HV33Z Insertion of Infusion Device into Superior Vena Cava, Percutaneous Approach (ICD-10-PCS; 2018-08-25)
PROC: 3E03305 Introduction of Other Antineoplastic into Peripheral Vein, Percutaneous Approach (ICD-10-PCS; 2018-08-25)
PROC: B548ZZA Ultrasonography of Superior Vena Cava, Guidance (ICD-10-PCS; 2018-08-25)
PROC: 0WP830Z Removal of Drainage Device from Chest Wall, Percutaneous Approach (ICD-10-PCS; 2018-08-30)
PROC: 0W9B30Z Drainage of Left Pleural Cavity with Drainage Device, Percutaneous Approach (ICD-10-PCS; principal; 2018-09-06 12:00)
DX: A41.9 Sepsis, unspecified organism (principal); J96.01 Acute respiratory failure with hypoxia; N17.9 Acute kidney failure, unspecified; C78.02 Secondary malignant neoplasm of left lung; C78.6 Secondary malignant neoplasm of retroperitoneum and peritoneum; J91.0 Malignant pleural effusion; L03.311 Cellulitis of abdominal wall; E22.2 Syndrome of inappropriate secretion of antidiuretic hormone; E87.5 Hyperkalemia; R18.8 Other ascites; E87.2 Acidosis; E87.79 Other fluid overload; F06.31 Mood disorder due to known physiological condition with depressive features; R64 Cachexia; C56.9 Malignant neoplasm of unspecified ovary; R65.20 Severe sepsis without septic shock; D63.0 Anemia in neoplastic disease; E86.0 Dehydration; E88.09 Other disorders of plasma-protein metabolism, not elsewhere classified; F41.1 Generalized anxiety disorder; Z92.21 Personal history of antineoplastic chemotherapy

== ENCOUNTER 2018-09-17 13:56 | Inpatient (IN) | payer MEDICAID ==
--- NOTE | 2018-09-17 14:40 | ED PDOC ---
HPI:Nausea, Vomiting, Diarrhea Time Seen by Provider: 09/17/18 14:07 Chief Complaint (Nursing): GI Problem Chief Complaint (Provider): Vomiting History Per: Patient History/Exam Limitations: no limitations Onset/Duration Of Symptoms: Days Additional Complaint(s): 48 year old female was brought to the ED via EMS for an evaluation of coffee ground vomiting onset today. Patient lives in [facility] and the reports from yesterday present she has no DVT, she has metastatic ovarian CA/ pleural effusion/ ascites and is confused. Her labs present she has elevated cholesterol, white blood count and thyroid count. Denies nausea, discomfort, pain, fever, urinary problems or trouble breathing. Past Medical History Reviewed: Historical Data, Nursing Documentation, Vital Signs Vital Signs: Last Vital Signs Temp 97.7 F 09/17/18 14:01 Pulse 129 H 09/17/18 14:01 Resp 20 09/17/18 14:01 BP 113/71 09/17/18 14:01 Pulse Ox 99 09/17/18 14:01 - Medical History PMH: Crohn's Disease Denies: Chronic Kidney Disease - Family History Family History: States: Unknown Family Hx - Social History Current smoker - smoking cessation education provided: No Alcohol: None Drugs: Denies - Home Medications Home Medications: Ambulatory Orders Medication Instructions Recorded Guaifenesin/Dextromethorphan 1 ter PO DAILY 06/22/14 [Mucinex Dm 30 mg-600 mg] - Allergies Allergies/Adverse Reactions: Allergies Allergy/AdvReac Type Severity Reaction Status Date / Time No Known Allergies Allergy Verified 09/17/18 14:01 Review of Systems ROS Statement: Except As Marked, All Systems Reviewed And Found Negative Constitutional: Negative for: Fever Respiratory: Negative for: Cough, Shortness of Breath Gastrointestinal: Positive for: Vomiting. Negative for: Nausea, Abdominal Pain, Diarrhea Genitourinary Female: Negative for: Dysuria, Frequency, Incontinence Physical Exam - Reviewed Nursing Documentation Reviewed: Yes Vital Signs Reviewed: Yes - Physical Exam Appears: Positive for: Well, Non-toxic, No Acute Distress Head Exam: Positive for: ATRAUMATIC, NORMAL INSPECTION, NORMOCEPHALIC Skin: Positive for: Normal Color, Warm, Dry. Negative for: Rash Eye Exam: Positive for: EOMI, Normal appearance, PERRL Neck: Positive for: Normal, Painless ROM Cardiovascular/Chest: Positive for: Regular Rate, Rhythm. Negative for: Murmur Respiratory: Positive for: Other (labored breathing ) Gastrointestinal/Abdominal: Positive for: Bowel Sounds, Distended. Negative for: Tenderness Extremity: Positive for: Pedal Edema (2+ edema bilateral) Neurologic/Psych: Positive for: Alert, Oriented (x1) - ECG O2 Sat by Pulse Oximetry: 99 (RA) Pulse Ox Interpretation: Normal Medical Decision Making Medical Decision Making: Time: 1424 Initial Plan: VBG Shock Panel EKG CMP Lipase ED urine dipstick CBC w/ differential Obstructive series [RAD] IV Insertion Reevaluation 1500 Patient signed out to Dr. Arceo pending workup for distended abdomen and vomiting. ----- Scribe Attestation: Documented by Chucho Ott, acting as a scribe for Mandie Avilez MD. Provider Scribe Attestation: All medical record entries made by the Scribe were at my direction and personally dictated by me. I have reviewed the chart and agree that the record accurately reflects my personal performance of the history, physical exam, medical decision making, and the department course for this patient. I have also personally directed, reviewed, and agree with the discharge instructions and disposition. Disposition - Disposition Disposition: Transfer of Care Disposition Time: 15:00 Forms: [employer] ([place]) Patient Signed Over To: Momo Arceo Handoff Comments: pending workup for distended abdomen and vomiting
[2018-09-17] MEDS ORDERED: Sodium Chloride 0.9% 500 ML IV STA (15:11)
--- NOTE | 2018-09-17 15:12 | ED PDOC ---
- Laboratory Results Result Diagrams: 09/17/18 18:20 09/17/18 15:40 Interpretation Of Abn Labs: 5.3 k, - ECG ECG: Positive for: Interpreted By Me, Viewed By Me ECG Rhythm: Positive for: Sinus Tachycardia O2 Sat by Pulse Oximetry: 99 (RA) Pulse Ox Interpretation: Normal - Radiology X-Ray: Read By Radiologist X-Ray Interpretation: Other (effusons) - Progress ED Course And Treament: 1510: Stable. Took over care from Dr. Yee. Leggett on labs and imaging. Here with bloody vomit and abd distension. Confused at baseline. Has ovarian and chose not to get tx. PCP Dr. Jerry. PROCEDURE: CT Abdomen and Pelvis without intravenous contrast HISTORY: DIFFUSE PAIN AND DISTENSION COMPARISON: None. TECHNIQUE: Unenhanced. Neither IV nor oral contrast administered Radiation dose: Total exam DLP = 873.70 mGy-cm. This CT exam was performed using one or more of the following dose reduction techniques: Automated exposure control, adjustment of the mA and/or kV according to patient size, and/or use of iterative reconstruction technique. FINDINGS: LOWER THORAX: Pulmonary masses I would identified bilaterally in right upper, right middle and lower lobe as well as left upper and left lower lobes. Compressive atelectasis related to bilateral pleural effusions right larger than left. Incompletely visualized chest tube in the left pleural space. LIVER: Unremarkable. No gross lesion or ductal dilatation. GALLBLADDER AND BILE DUCTS: Contrast in the gallbladder, vicarious excretion. No gallbladder stones are seen. PANCREAS: Unremarkable. No gross lesion or ductal dilatation. SPLEEN: Unremarkable. ADRENALS: Unremarkable. No mass. KIDNEYS AND URETERS: Dilated left collecting system and ureter containing contrast. Point of obstruction appears in the upper pelvis with the ureter is obscured by the previously identified mass. No abnormalities in the right kidney or ureter. VASCULATURE: Unremarkable. No aortic aneurysm. No atherosclerotic calcification or mural p laque present. BOWEL: Unremarkable. No obstruction. No gross mural thickening. APPENDIX: Unremarkable. Normal appendix. PERITONEUM: Large abdominopelvic mass 15 x 25 cm. Cephalocaudal dimension approximately 20 cm. LYMPH NODES: Retroperitoneal lymphadenopathy identified. Multiple gume masses periaortic pericaval chains. BLADDER: Unremarkable. REPRODUCTIVE: Unremarkable. BONES: No acute fracture. OTHER FINDINGS: Diffuse edema and anasarca. IMPRESSION: Massive tumor burden in the abdomen and pelvis. Unilateral left obstructive uropathy, hydronephrosis and hydroureter related to mass impression upon the distal left ureter. Pulmonary metastatic disease. Bilateral pleural effusions right larger than left. Pelvic and visible lower extremity edema/anasarca. 1802: Spoke with Dr. Beach. Pt. well known to him. He is working on getting her hospice. She has end stage Ca and no tx started yet. Will admit and he will get hospice in hospital to evaluate her. Pt. stable. HR elevated chronically considering her CA diagnosis. Pt. getting IV fluids. CBC hemolyzed. Will attempt again. Pt. is a very difficult stick due to anasarca diffuse. Dr. Beach aware and will fu on cbc and hg. - Critical Care Total Time (In Min): 30 Documented Critical Care: Time excludes all time spent performint seperately billable procedures Disposition Counseled Patient/Family Regarding: Studies Performed, Diagnosis - Clinical Impression Clinical Impression: Abdominal malignant neoplasm, Hyperkalemia, Renal insufficiency - POA Present On Arrival: None - Disposition Disposition: Admitted as In-Patient Disposition Time: 18:08 Condition: SERIOUS
[2018-09-17] MEDS ORDERED: Iohexol 240 (50 ml) PO ONE (15:18)
[2018-09-17 15:41] LABS: VENOUS BLOOD GAS BASE EXCESS -7.2 mmol/L (0.0-2.0); VENOUS BLOOD GAS PCO2 44 mmHg (40-60); VENOUS BLOOD GAS PO2 21 mm/Hg (30-55); VENOUS BLOOD PH 7.26 (7.32-7.43)
[2018-09-17 16:01] LABS: ALB/GLOB RATIO 0.8 (1.0-2.1); ALBUMIN 2.4 g/dL (3.5-5.0); CALCIUM 8.8 mg/dL (8.4-10.2)
[2018-09-17 16:12] LABS: TROPONIN I 0.056 ng/mL (0.00-0.120)
--- NOTE | 2018-09-17 16:18 | RAD ---
Date of service: 09/17/2018 PROCEDURE: Radiographs of the chest and abdomen (obstructive series) HISTORY: abdominal distention COMPARISON: No prior. TECHNIQUE: AP radiograph of the chest, with upright and supine radiographs of the abdomen. FINDINGS: CHEST: Lungs: Multiple bilateral pulmonary nodules. Cardiovascular: Normal size heart. No pulmonary vascular congestion. No aortic atherosclerotic calcification present Pleura: Bilateral pleural effusions right larger than left. Chest tube in the right pleural space. The tip is situated medially overlying the aortic arch. Other findings: None. ABDOMEN AND PELVIS: Bowel: Unremarkable bowel gas pattern. No evidence of mechanical obstruction. Free air: None. Bones: Unremarkable. Other findings: None. IMPRESSION: No visible free air. Pulmonary and pleural findings described in greater detail above. No evidence of mechanical bowel obstruction.
--- NOTE | 2018-09-17 17:21 | CT ---
Date of service: 09/17/2018 PROCEDURE: CT HEAD WITHOUT CONTRAST. HISTORY: confusion COMPARISON: None available. TECHNIQUE: Axial computed tomography images were obtained through the head/brain without intravenous contrast. Supplemental Coronal and Sagittal projections created and reviewed. Radiation dose: Total exam DLP = 673.99 mGy-cm. This CT exam was performed using one or more of the following dose reduction techniques: Automated exposure control, adjustment of the mA and/or kV according to patient size, and/or use of iterative reconstruction technique. FINDINGS: HEMORRHAGE: No intracranial hemorrhage. BRAIN: No mass effect or edema. No atrophy or chronic microvascular ischemic changes. VENTRICLES: Unremarkable. No hydrocephalus. CALVARIUM: Unremarkable. PARANASAL SINUSES: Unremarkable as visualized. No significant inflammatory changes. MASTOID AIR CELLS: Unremarkable as visualized. No inflammatory changes. OTHER FINDINGS: None. IMPRESSION: No acute intracranial abnormalities. No significant findings to account for the clinical presentation.
--- NOTE | 2018-09-17 17:50 | CT ---
Date of service: 09/17/2018 PROCEDURE: CT Abdomen and Pelvis without intravenous contrast HISTORY: DIFFUSE PAIN AND DISTENSION COMPARISON: None. TECHNIQUE: Unenhanced. Neither IV nor oral contrast administered Radiation dose: Total exam DLP = 873.70 mGy-cm. This CT exam was performed using one or more of the following dose reduction techniques: Automated exposure control, adjustment of the mA and/or kV according to patient size, and/or use of iterative reconstruction technique. FINDINGS: LOWER THORAX: Pulmonary masses I would identified bilaterally in right upper, right middle and lower lobe as well as left upper and left lower lobes. Compressive atelectasis related to bilateral pleural effusions right larger than left. Incompletely visualized chest tube in the left pleural space. LIVER: Unremarkable. No gross lesion or ductal dilatation. GALLBLADDER AND BILE DUCTS: Contrast in the gallbladder, vicarious excretion. No gallbladder stones are seen. PANCREAS: Unremarkable. No gross lesion or ductal dilatation. SPLEEN: Unremarkable. ADRENALS: Unremarkable. No mass. KIDNEYS AND URETERS: Dilated left collecting system and ureter containing contrast. Point of obstruction appears in the upper pelvis with the ureter is obscured by the previously identified mass. No abnormalities in the right kidney or ureter. VASCULATURE: Unremarkable. No aortic aneurysm. No atherosclerotic calcification or mural plaque present. BOWEL: Unremarkable. No obstruction. No gross mural thickening. APPENDIX: Unremarkable. Normal appendix. PERITONEUM: Large abdominopelvic mass 15 x 25 cm. Cephalocaudal dimension approximately 20 cm. LYMPH NODES: Retroperitoneal lymphadenopathy identified. Multiple gume masses periaortic pericaval chains. BLADDER: Unremarkable. REPRODUCTIVE: Unremarkable. BONES: No acute fracture. OTHER FINDINGS: Diffuse edema and anasarca. IMPRESSION: Massive tumor burden in the abdomen and pelvis. Unilateral left obstructive uropathy, hydronephrosis and hydroureter related to mass impression upon the distal left ureter. Pulmonary metastatic disease. Bilateral pleural effusions right larger than left. Pelvic and visible lower extremity edema/anasarca.
[2018-09-17] MEDS ORDERED: Albuterol 0.083% Inhal Sol (2.5 mg/3 mL) UD INH STA (17:56)
[2018-09-17 18:30] LABS: BASO % 0.3 % (0.0-2.0); LYMPH # 1.4 K/uL (1.0-4.3); LYMPH % 8.4 % (20.0-40.0); MEAN CELL VOLUME 86.2 fl (81.0-99.0); MEAN CORPUSCULAR HEMOGLOBIN 26.2 pg (27.0-31.0); MEAN CORPUSCULAR HGB CONC 30.4 g/dL (33.0-37.0); MEAN PLATELET VOLUME 7.5 fl (7.2-11.7); MONO # 0.7 K/uL (0.0-0.8); MONO % 4.1 % (0.0-10.0); NEUT # 14.3 K/uL (1.8-7.0); NEUT % 87.2 % (50.0-75.0); NRBC % 1.3 % (0.0-0.0); PLATELET COUNT 327 K/uL (130-400); RBC 4.18 Mil/uL (3.80-5.20); RED CELL DISTRIBUTION WIDTH 30.5 % (11.5-14.5); WHITE BLOOD COUNT 16.3 K/uL (4.8-10.8)
[2018-09-17] MEDS ORDERED: Albuterol-Ipratrop 3 mg / 0.5 (3 ml) UD ONE (18:50)
[2018-09-17] MEDS ORDERED: Albuterol 0.083% Inhal Sol (2.5 mg/3 mL) UD ONE (19:01)
[2018-09-17 19:02] LABS: INR 1.3; PROTHROMBIN TIME 15.1 Seconds (9.8-13.1)
[2018-09-17 19:04] LABS: PARTIAL THROMBOPLASTIN TIME 24.7 Seconds (25.6-37.1)
[2018-09-17 21:11] LABS: BANDS 5 % (0-2); EOSINOPHIL 1 % (0-7); LYMPHOCYTE 7 % (20-50); MONOCYTE 3 % (0-10); NEUTROPHIL 84 % (42-75); PLATELET ESTIMATE NORMAL (NORMAL); TOTAL CELLS COUNTED 100
[2018-09-17 21:12] LABS: ANISOCYTOSIS SLIGHT; SMUDGE CELLS PRESENT
[2018-09-18] MEDS: Levothyroxine 50 MCG TAB PO SCH (05:31)
[2018-09-18 07:34] LABS: BASO # 0.1 K/uL (0.0-0.2); BASO % 0.4 % (0.0-2.0); HEMOGLOBIN 12.1 g/dL (12.0-16.0); LYMPH # 1.1 K/uL (1.0-4.3); LYMPH % 7.1 % (20.0-40.0); MEAN CELL VOLUME 87.2 fl (81.0-99.0); MEAN CORPUSCULAR HEMOGLOBIN 26.9 pg (27.0-31.0); MEAN CORPUSCULAR HGB CONC 30.8 g/dL (33.0-37.0); MEAN PLATELET VOLUME 7.5 fl (7.2-11.7); MONO # 0.4 K/uL (0.0-0.8); MONO % 2.4 % (0.0-10.0); NEUT # 13.7 K/uL (1.8-7.0); NEUT % 90.1 % (50.0-75.0); NRBC % 1.3 % (0.0-0.0); PLATELET COUNT 323 K/uL (130-400); RED CELL DISTRIBUTION WIDTH 31.8 % (11.5-14.5); WHITE BLOOD COUNT 15.2 K/uL (4.8-10.8)
[2018-09-18 07:40] LABS: CALCIUM 8.8 mg/dL (8.4-10.2)
--- NOTE | 2018-09-18 09:19 | RAD ---
Date of service: 09/18/2018 HISTORY: cough COMPARISON: No prior. FINDINGS: LUNGS: Diffuse bilateral infiltrates. PLEURA: Possible bilateral pleural effusions. CARDIOVASCULAR: No aortic atherosclerotic calcification present. Normal cardiac size. No pulmonary vascular congestion. OSSEOUS STRUCTURES: No significant abnormalities. VISUALIZED UPPER ABDOMEN: Normal. OTHER FINDINGS: None. IMPRESSION: Diffuse bilateral infiltrates.
--- NOTE | 2018-09-18 10:01 | CP.PCM.HP ---
History of Present Illness - History of Present Illness History of Present Illness: 48 year old female with history of metastatic ovarian/endometrial cancer, with mets to lung,peritoneum associated with ascites and pleural effusions bilaterally presented to ED due to coffee ground emesis noted at [facility]. Patient was evaluated in ED, hgb was stable and hemodynamically stable. Patient was noted to have persistent pleural effusions and worsening kidney function and peripheral edema. It was noted on imaging that there was possible obstructive uropathy due to massive tumor. Patient was seen and examined at bedside. Complains of wanting to remove tubes from lung and iv lines Patient is oriented to person/place/time though continues to confabulate previous history (e.g. stating she came from home and was not recently at hospital) No other complaints at this time other than wanting to go home to [place]. Of note, MRN of patient and previous chart do not match though patient was recently here last month. Present on Admission - Present on Admission Any Indicators Present on Admission: No Review of Systems - Review of Systems All systems: reviewed and no additional remarkable complaints except (mentioned in HPI) Past Patient History - Past Medical History & Family History Past Medical History?: Yes - Past Social History Smoking Status: Never Smoked - CARDIAC Hx Cardiac Disorders: No - PULMONARY Hx Respiratory Disorders: Yes Other/Comment: Left sided Pleural Effusion and chest tube - NEUROLOGICAL Hx Neurological Disorder: No - HEENT Hx HEENT Problems: No - RENAL Hx Chronic Kidney Disease: No - ENDOCRINE/METABOLIC Hx Endocrine Disorders: No - HEMATOLOGICAL/ONCOLOGICAL Hx Blood Disorders: No - INTEGUMENTARY Hx Dermatological Problems: No - MUSCULOSKELETAL/RHEUMATOLOGICAL Hx Musculoskeletal Disorders: No Hx Falls: No - GASTROINTESTINAL Hx Crohn's Disease: Yes ([place] to corroborate) - GENITOURINARY/GYNECOLOGICAL Hx Genitourinary Disorders: Yes Hx Bladder Cancer: Yes Hx Ovarian Cancer: Yes (metastatic) - PSYCHIATRIC Hx Psychophysiologic Disorder: No Hx Substance Use: No - SURGICAL HISTORY Hx Surgeries: No - ANESTHESIA Hx Anesthesia: Yes Hx Anesthesia Reactions: No Hx Malignant Hyperthermia: No Meds Allergies/Adverse Reactions: Allergies Allergy/AdvReac Type Severity Reaction Status Date / Time No Known Allergies Allergy Verified 09/17/18 14:01 Physical Exam - Constitutional Appears: Chronically Ill - Head Exam Head Exam: NORMAL INSPECTION - Eye Exam Eye Exam: Normal appearance - Neck Exam Neck exam: Positive for: Normal Inspection - Respiratory Exam Respiratory Exam: Decreased Breath Sounds - Cardiovascular Exam Cardiovascular Exam: +S1, +S2 - GI/Abdominal Exam GI & Abdominal Exam: Mass - Extremities Exam Extremities exam: Positive for: pedal edema - Neurological Exam Neurological exam: Alert, Oriented x3 - Psychiatric Exam Psychiatric exam: Agitated, Anxious - Skin Skin Exam: Normal Color, Warm Results - Vital Signs Recent Vital Signs: Last Vital Signs Temp 97.4 F L 09/18/18 08:00 Pulse 117 H 09/18/18 08:00 Resp 20 09/18/18 08:00 BP 123/89 09/18/18 08:00 Pulse Ox 96 09/18/18 08:00 - Labs Result Diagrams: 09/19/18 05:30 09/19/18 05:30 Labs: Laboratory Results - last 24 hr 09/17/18 09/17/18 09/17/18 15:33 15:40 18:20 WBC 16.3 H RBC 4.18 Hgb 11.0 L Hct 36.1 MCV 86.2 MCH 26.2 L MCHC 30.4 L RDW 30.5 H Plt Count 327 MPV 7.5 Neut % (Auto) 87.2 H Lymph % (Auto) 8.4 L [place] % (Auto) 4.1 Eos % (Auto) 0.0 Baso % (Auto) 0.3 Neut # (Auto) 14.3 H Lymph # (Auto) 1.4 [place] # (Auto) 0.7 Eos # (Auto) 0.0 Baso # (Auto) 0.0 Neutrophils % (Manual) 84 H Band Neutrophils % 5 H Lymphocytes % (Manual) 7 L Monocytes % (Manual) 3 Eosinophils % (Manual) 1 Smudge Cells Present Platelet Estimate Normal Anisocytosis (manual) Slight PT INR APTT pO2 21 L VBG pH 7.26 L VBG pCO2 44 VBG HCO3 17.4 VBG Total CO2 21.1 L VBG O2 Sat (Calc) 30.2 L VBG Base Excess -7.2 L VBG Potassium 5.1 Sodium 136.0 136 Chloride 104.0 107 Glucose 125 H Lactate 2.6 H FiO2 21.0 Blood Gas Comments Lac=2.6 Crit Value Called To ovidio Hernandez Crit Value Called By 22 Crit Value Read Back Y Blood Gas Notified Time 1540 Potassium 5.3 H Carbon Dioxide 15 L Anion Gap 19 BUN 41 H Creatinine 2.2 H Est GFR ( Amer) 29 Est GFR (Non-Af Amer) 24 Random Glucose 122 H Lactic Acid Calcium 8.8 Phosphorus Magnesium Total Bilirubin 0.5 AST 49 H ALT 44 Alkaline Phosphatase 368 H Troponin I 0.0560 NT-Pro-B Natriuret Pep 3940 H Total Protein 5.3 L Albumin 2.4 L Globulin 2.9 Albumin/Globulin Ratio 0.8 L Lipase 440 H Venous Blood Potassium 5.1 09/17/18 09/18/18 09/18/18 18:20 05:30 05:30 WBC 15.2 H RBC 4.50 Hgb 12.1 Hct 39.2 MCV 87.2 MCH 26.9 L MCHC 30.8 L RDW 31.8 H Plt Count 323 MPV 7.5 Neut % (Auto) 90.1 H Lymph % (Auto) 7.1 L [place] % (Auto) 2.4 Eos % (Auto) 0.0 Baso % (Auto) 0.4 Neut # (Auto) 13.7 H Lymph # (Auto) 1.1 [place] # (Auto) 0.4 Eos # (Auto) 0.0 Baso # (Auto) 0.1 Neutrophils % (Manual) Band Neutrophils % Lymphocytes % (Manual) Monocytes % (Manual) Eosinophils % (Manual) Smudge Cells Platelet Estimate Anisocytosis (manual) PT 15.1 H INR 1.3 APTT 24.7 L pO2 VBG pH VBG pCO2 VBG HCO3 VBG Total CO2 VBG O2 Sat (Calc) VBG Base Excess VBG Potassium Sodium 137 Chloride 106 Glucose Lactate FiO2 Blood Gas Comments Crit Value Called To Crit Value Called By Crit Value Read Back Blood Gas Notified Time Potassium 4.7 Carbon Dioxide 18 L Anion Gap 18 BUN 43 H Creatinine 2.2 H Est GFR ( Amer) 29 Est GFR (Non-Af Amer) 24 Random Glucose 118 H Lactic Acid Calcium 8.8 Phosphorus 6.3 H Magnesium 2.2 Total Bilirubin AST ALT Alkaline Phosphatase Troponin I NT-Pro-B Natriuret Pep Total Protein Albumin Globulin Albumin/Globulin Ratio Lipase Venous Blood Potassium 09/18/18 05:30 WBC RBC Hgb Hct MCV MCH MCHC RDW Plt Count MPV Neut % (Auto) Lymph % (Auto) [place] % (Auto) Eos % (Auto) Baso % (Auto) Neut # (Auto) Lymph # (Auto) [place] # (Auto) Eos # (Auto) Baso # (Auto) Neutrophils % (Manual) Band Neutrophils % Lymphocytes % (Manual) Monocytes % (Manual) Eosinophils % (Manual) Smudge Cells Platelet Estimate Anisocytosis (manual) PT INR APTT pO2 VBG pH VBG pCO2 VBG HCO3 VBG Total CO2 VBG O2 Sat (Calc) VBG Base Excess VBG Potassium Sodium Chloride Glucose Lactate FiO2 Blood Gas Comments Crit Value Called To Crit Value Called By Crit Value Read Back Blood Gas Notified Time Potassium Carbon Dioxide Anion Gap BUN Creatinine Est GFR ( Amer) Est GFR (Non-Af Amer) Random Glucose Lactic Acid 1.8 Calcium Phosphorus Magnesium Total Bilirubin AST ALT Alkaline Phosphatase Troponin I NT-Pro-B Natriuret Pep Total Protein Albumin Globulin Albumin/Globulin Ratio Lipase Venous Blood Potassium Assessment & Plan - Assessment and Plan (Free Text) Assessment: 48 yo female with ovarian/endometrial CA with mets to lung, peritoneum with pleural effusion bilaterally, worsening kidney function, peripheral edema noted with possible obstructive uropathy due to mass. plan all available diagnostic data reviewed discussed with nursing staff monitor vitals monitor labs consult heme/onc consult renal consult urology consult CT surgery Hospice eval meds as ordered rest of plan as ordered
--- NOTE | 2018-09-18 11:44 | CP.PCM.CON ---
<Jon Euceda - Last Filed: 09/18/18 11:53> History of Present Illness - History of Present Illness History of Present Illness: SURGERY CONSULT NOTE FOR DR. WELHC Reason for consult: Pleural effusion 48F presents to hospital for vomiting as per ED documentation. Patient currently awake and alert bedside. She denies any chest pain, she denies any shortness of breath. She has been on a regular diet and tolerating well, She denies any abdominal pain currently. She states she has been passing flatus and having bowel movements. She denies any fevers or chills also. She has a Pleurx catheter in the left thorax from a procedure by surgery two weeks. PMH: Metastatic ovarian cancer PSH: denies Past Patient History - Past Medical History & Family History Past Medical History?: Yes - Past Social History Smoking Status: Never Smoked - CARDIAC Hx Cardiac Disorders: No - PULMONARY Hx Respiratory Disorders: Yes Other/Comment: Left sided Pleural Effusion and chest tube - NEUROLOGICAL Hx Neurological Disorder: No - HEENT Hx HEENT Problems: No - RENAL Hx Chronic Kidney Disease: No - ENDOCRINE/METABOLIC Hx Endocrine Disorders: No - HEMATOLOGICAL/ONCOLOGICAL Hx Blood Disorders: No - INTEGUMENTARY Hx Dermatological Problems: No - MUSCULOSKELETAL/RHEUMATOLOGICAL Hx Musculoskeletal Disorders: No Hx Falls: No - GASTROINTESTINAL Hx Crohn's Disease: Yes ([place] to corroborate) - GENITOURINARY/GYNECOLOGICAL Hx Genitourinary Disorders: Yes Hx Bladder Cancer: Yes Hx Ovarian Cancer: Yes (metastatic) - PSYCHIATRIC Hx Psychophysiologic Disorder: No Hx Substance Use: No - SURGICAL HISTORY Hx Surgeries: No - ANESTHESIA Hx Anesthesia: Yes Hx Anesthesia Reactions: No Hx Malignant Hyperthermia: No Meds Allergies/Adverse Reactions: Allergies Allergy/AdvReac Type Severity Reaction Status Date / Time No Known Allergies Allergy Verified 09/17/18 14:01 - Medications Medications: Current Medications Acetaminophen (Tylenol 325mg Tab) 650 mg PO Q4 PRN PRN Reason: Pain, Mild (1-3) Acetaminophen (Tylenol 325mg Tab) 650 mg PO Q4 PRN PRN Reason: TEMP >100 Epoetin Real (Procrit) 20,000 unit SC MWF [facility] Escitalopram Oxalate (Lexapro) 5 mg PO HS [facility] Last Admin: 09/17/18 22:57 Dose: 5 mg Furosemide (Lasix) 40 mg IVP BID [facility] Home Med (Dronabinol [Marinol]) 2.5 mg PO BID [facility] Levothyroxine Sodium (Synthroid) 50 mcg PO DAILY@0630 [facility] Last Admin: 09/18/18 05:31 Dose: 50 mcg Pantoprazole Sodium (Protonix Ec Tab) 40 mg PO DAILY [facility] Spironolactone (Aldactone) 50 mg PO BID [facility] Last Admin: 09/18/18 09:33 Dose: 50 mg Physical Exam - Constitutional Appears: Non-toxic, No Acute Distress - ENT Exam ENT Exam: Mucous Membranes Moist - Respiratory Exam Respiratory Exam: Decreased Breath Sounds (right and left lower lungs), NORMAL BREATHING PATTERN - Cardiovascular Exam Cardiovascular Exam: REGULAR RHYTHM, +S1, +S2 - GI/Abdominal Exam GI & Abdominal Exam: Mass (large palpable pelvic/abdominal mass), Soft. absent: Distended, Firm, Guarding, Rebound, Rigid, Tenderness - Extremities Exam Extremities exam: Negative for: pedal edema, tenderness - Neurological Exam Neurological exam: Alert, Oriented x3 - Psychiatric Exam Psychiatric exam: Normal Affect, Normal Mood - Skin Skin Exam: Dry, Intact, Normal Color, Warm Results - Vital Signs Recent Vital Signs: Last Vital Signs Temp 97.4 F L 09/18/18 08:00 Pulse 117 H 09/18/18 08:00 Resp 20 09/18/18 08:00 BP 123/89 09/18/18 08:00 Pulse Ox 96 09/18/18 08:00 - Labs Result Diagrams: 09/18/18 05:30 09/18/18 05:30 Labs: Laboratory Results - last 24 hr 09/17/18 09/17/18 09/17/18 15:33 15:40 18:20 WBC 16.3 H RBC 4.18 Hgb 11.0 L Hct 36.1 MCV 86.2 MCH 26.2 L MCHC 30.4 L RDW 30.5 H Plt Count 327 MPV 7.5 Neut % (Auto) 87.2 H Lymph % (Auto) 8.4 L [place] % (Auto) 4.1 Eos % (Auto) 0.0 Baso % (Auto) 0.3 Neut # (Auto) 14.3 H Lymph # (Auto) 1.4 [place] # (Auto) 0.7 Eos # (Auto) 0.0 Baso # (Auto) 0.0 Neutrophils % (Manual) 84 H Band Neutrophils % 5 H Lymphocytes % (Manual) 7 L Monocytes % (Manual) 3 Eosinophils % (Manual) 1 Smudge Cells Present Platelet Estimate Normal Anisocytosis (manual) Slight PT INR APTT pO2 21 L VBG pH 7.26 L VBG pCO2 44 VBG HCO3 17.4 VBG Total CO2 21.1 L VBG O2 Sat (Calc) 30.2 L VBG Base Excess -7.2 L VBG Potassium 5.1 Sodium 136.0 136 Chloride 104.0 107 Glucose 125 H Lactate 2.6 H FiO2 21.0 Blood Gas Comments Lac=2.6 Crit Value Called To ovidio Hernandez Crit Value Called By 22 Crit Value Read Back Y Blood Gas Notified Time 1540 Potassium 5.3 H Carbon Dioxide 15 L Anion Gap 19 BUN 41 H Creatinine 2.2 H Est GFR ( Amer) 29 Est GFR (Non-Af Amer) 24 Random Glucose 122 H Lactic Acid Calcium 8.8 Phosphorus Magnesium Total Bilirubin 0.5 AST 49 H ALT 44 Alkaline Phosphatase 368 H Troponin I 0.0560 NT-Pro-B Natriuret Pep 3940 H Total Protein 5.3 L Albumin 2.4 L Globulin 2.9 Albumin/Globulin Ratio 0.8 L Lipase 440 H Venous Blood Potassium 5.1 09/17/18 09/18/18 09/18/18 18:20 05:30 05:30 WBC 15.2 H RBC 4.50 Hgb 12.1 Hct 39.2 MCV 87.2 MCH 26.9 L MCHC 30.8 L RDW 31.8 H Plt Count 323 MPV 7.5 Neut % (Auto) 90.1 H Lymph % (Auto) 7.1 L [place] % (Auto) 2.4 Eos % (Auto) 0.0 Baso % (Auto) 0.4 Neut # (Auto) 13.7 H Lymph # (Auto) 1.1 [place] # (Auto) 0.4 Eos # (Auto) 0.0 Baso # (Auto) 0.1 Neutrophils % (Manual) Band Neutrophils % Lymphocytes % (Manual) Monocytes % (Manual) Eosinophils % (Manual) Smudge Cells Platelet Estimate Anisocytosis (manual) PT 15.1 H INR 1.3 APTT 24.7 L pO2 VBG pH VBG pCO2 VBG HCO3 VBG Total CO2 VBG O2 Sat (Calc) VBG Base Excess VBG Potassium Sodium 137 Chloride 106 Glucose Lactate FiO2 Blood Gas Comments Crit Value Called To Crit Value Called By Crit Value Read Back Blood Gas Notified Time Potassium 4.7 Carbon Dioxide 18 L Anion Gap 18 BUN 43 H Creatinine 2.2 H Est GFR ( Amer) 29 Est GFR (Non-Af Amer) 24 Random Glucose 118 H Lactic Acid Calcium 8.8 Phosphorus 6.3 H Magnesium 2.2 Total Bilirubin AST ALT Alkaline Phosphatase Troponin I NT-Pro-B Natriuret Pep Total Protein Albumin Globulin Albumin/Globulin Ratio Lipase Venous Blood Potassium 09/18/18 05:30 WBC RBC Hgb Hct MCV MCH MCHC RDW Plt Count MPV Neut % (Auto) Lymph % (Auto) [place] % (Auto) Eos % (Auto) Baso % (Auto) Neut # (Auto) Lymph # (Auto) [place] # (Auto) Eos # (Auto) Baso # (Auto) Neutrophils % (Manual) Band Neutrophils % Lymphocytes % (Manual) Monocytes % (Manual) Eosinophils % (Manual) Smudge Cells Platelet Estimate Anisocytosis (manual) PT INR APTT pO2 VBG pH VBG pCO2 VBG HCO3 VBG Total CO2 VBG O2 Sat (Calc) VBG Base Excess VBG Potassium Sodium Chloride Glucose Lactate FiO2 Blood Gas Comments Crit Value Called To Crit Value Called By Crit Value Read Back Blood Gas Notified Time Potassium Carbon Dioxide Anion Gap BUN Creatinine Est GFR ( Amer) Est GFR (Non-Af Amer) Random Glucose Lactic Acid 1.8 Calcium Phosphorus Magnesium Total Bilirubin AST ALT Alkaline Phosphatase Troponin I NT-Pro-B Natriuret Pep Total Protein Albumin Globulin Albumin/Globulin Ratio Lipase Venous Blood Potassium Assessment & Plan - Assessment and Plan (Free Text) Assessment: 48F with metastatic ovarian cancer and bilateral pleural effusions/pulmonary mets Plan: - Continue to monitor respiratory status - Patient adamantly refuses treatment for malignancy and also refuses any kind of surgical intervention. - Risk and benefits were thoroughly explained to patient. - Left Pleurx catheter can be drained daily - Recommend CT of chest for further evaluation of pleural effusion Discussed with Dr. Rebekah Euceda, PY3 <Zac Welch - Last Filed: 09/20/18 13:54> Meds - Medications Medications: Current Medications Acetaminophen (Tylenol 325mg Tab) 650 mg PO Q4 PRN PRN Reason: Pain, Mild (1-3) Acetaminophen (Tylenol 325mg Tab) 650 mg PO Q4 PRN PRN Reason: TEMP >100 Calcium Acetate (Phoslo) 667 mg PO WM [facility] Last Admin: 09/20/18 09:16 Dose: 667 mg Epoetin Real (Procrit) 20,000 unit SC MWF [facility] Last Admin: 09/20/18 09:17 Dose: 20,000 unit Escitalopram Oxalate (Lexapro) 5 mg PO HS [facility] Last Admin: 09/19/18 21:14 Dose: 5 mg Furosemide (Lasix) 40 mg IVP BID [facility] Last Admin: 09/20/18 09:15 Dose: 40 mg Levothyroxine Sodium (Synthroid) 50 mcg PO DAILY@0630 [facility] Last Admin: 09/20/18 06:17 Dose: Not Given Megestrol Acetate (Megace) 400 mg PO DAILY [facility] Last Admin: 09/20/18 09:16 Dose: 400 mg Pantoprazole Sodium (Protonix Ec Tab) 40 mg PO DAILY [facility] Last Admin: 09/20/18 09:17 Dose: Not Given Sodium Bicarbonate (Sodium Bicarbonate Tab) 650 mg PO Q8 [facility] Last Admin: 09/20/18 09:16 Dose: 650 mg Spironolactone (Aldactone) 50 mg PO BID [facility] Last Admin: 09/20/18 09:16 Dose: 50 mg Results - Vital Signs Recent Vital Signs: Last Vital Signs Temp 96.8 F L 09/20/18 12:43 Pulse 112 H 09/20/18 12:43 Resp 20 09/20/18 12:43 BP 111/79 09/20/18 12:43 Pulse Ox 95 09/20/18 12:43 - Labs Result Diagrams: 09/20/18 04:25 09/20/18 04:25 Labs: Laboratory Results - last 24 hr 09/20/18 09/20/18 04:25 04:25 WBC 16.8 H RBC 4.19 Hgb 11.4 L Hct 37.0 MCV 88.2 D MCH 27.1 MCHC 30.7 L RDW 32.1 H Plt Count 240 Sodium 137 Potassium 3.7 Chloride 105 Carbon Dioxide 21 L Anion Gap 15 BUN 46 H Creatinine 2.2 H Est GFR ( Amer) 29 Est GFR (Non-Af Amer) 24 Random Glucose 111 H Calcium 8.5 Total Bilirubin 0.3 AST 41 H ALT 40 Alkaline Phosphatase 346 H Total Protein 5.0 L Albumin 2.3 L Globulin 2.7 Albumin/Globulin Ratio 0.9 L Attending/Attestation - Attestation I have personally seen and examined this patient.: Yes I have fully participated in the care of the patient.: Yes I have reviewed all pertinent clinical information: Yes
[2018-09-18] MEDS: Pantoprazole 40 mg EC Tab PO SCH (12:21)
[2018-09-18 12:32] LABS: BANDS 1 % (0-2); LYMPHOCYTE 4 % (20-50); MONOCYTE 2 % (0-10); NEUTROPHIL 93 % (42-75); TOTAL CELLS COUNTED 100
[2018-09-18 12:33] LABS: PLATELET ESTIMATE NORMAL (NORMAL)
[2018-09-18 12:34] LABS: ANISOCYTOSIS MARKED; OVALOCYTES SLIGHT; PLATELET CLUMPS PRESENT; SCHISTOCYTES SLIGHT; TEARDROP CELLS SLIGHT; TOXIC GRANULATION PRESENT
--- NOTE | 2018-09-18 13:18 | CP.PCM.CON ---
History of Present Illness - History of Present Illness History of Present Illness: NEPHROLOGY CONSULT 48 yo F w/ hx of met endometrial cancer that presented w/ coffee ground emesis. She is otherwise poor historian and is unable to give me much further history. She denies any hx of kidney disease. I have seen her on a prior hospitalization here - however it does not appear to be visible. Its not clear what her bl renal function is. She had imaging w/ obstruction of her left kidney. She endorses poor UOP. She denies n/v currently. She has a drain in he L pleural cavity and wants to know what its for. ros: a full detailed ROS is negative except as in my hpi pmh: met endometiral ca famhx: no esrd sochx: no active smoke eoth or ivdu meds: asbelow all: nkda PE: vs as below gen: nad sclera: anicteric op: clear neck: supple no thyromegaly cv: +S1+2 no rub lungs: cta b/l anteriorlly abd: distended ttp LLQ neuro: follows commands oriented x 3 psych: nml affect skin: no rash labs and imaging reviewed imp: ARF/ Met Endometiral ca/obstructie uropathy/ anemia / hyperkalemia/ acidosis/ hyperphosphatemia plan: FREDY - baseline not clear - however has obstruction - please consult likely needs percutaneous nephrostomy tube placement monitor h and h tx k medically start sodium bicarb 650 mg po tid start calcium acetate 1 tab po tid thank you for this interesting consult Past Patient History - Past Medical History & Family History Past Medical History?: Yes - Past Social History Smoking Status: Never Smoked - CARDIAC Hx Cardiac Disorders: No - PULMONARY Hx Respiratory Disorders: Yes Other/Comment: Left sided Pleural Effusion and chest tube - NEUROLOGICAL Hx Neurological Disorder: No - HEENT Hx HEENT Problems: No - RENAL Hx Chronic Kidney Disease: No - ENDOCRINE/METABOLIC Hx Endocrine Disorders: No - HEMATOLOGICAL/ONCOLOGICAL Hx Blood Disorders: No - INTEGUMENTARY Hx Dermatological Problems: No - MUSCULOSKELETAL/RHEUMATOLOGICAL Hx Musculoskeletal Disorders: No Hx Falls: No - GASTROINTESTINAL Hx Crohn's Disease: Yes ([place] to corroborate) - GENITOURINARY/GYNECOLOGICAL Hx Genitourinary Disorders: Yes Hx Bladder Cancer: Yes Hx Ovarian Cancer: Yes (metastatic) - PSYCHIATRIC Hx Psychophysiologic Disorder: No Hx Substance Use: No - SURGICAL HISTORY Hx Surgeries: No - ANESTHESIA Hx Anesthesia: Yes Hx Anesthesia Reactions: No Hx Malignant Hyperthermia: No Meds Allergies/Adverse Reactions: Allergies Allergy/AdvReac Type Severity Reaction Status Date / Time No Known Allergies Allergy Verified 09/17/18 14:01 - Medications Medications: Current Medications Acetaminophen (Tylenol 325mg Tab) 650 mg PO Q4 PRN PRN Reason: Pain, Mild (1-3) Acetaminophen (Tylenol 325mg Tab) 650 mg PO Q4 PRN PRN Reason: TEMP >100 Epoetin Real (Procrit) 20,000 unit [facility] Escitalopram Oxalate (Lexapro) 5 mg PO HS [facility] Last Admin: 09/17/18 22:57 Dose: 5 mg Furosemide (Lasix) 40 mg IVP BID [facility] Last Admin: 09/18/18 11:00 Dose: 40 mg Home Med (Dronabinol [Marinol]) 2.5 mg PO BID [facility] Levothyroxine Sodium (Synthroid) 50 mcg PO DAILY@0630 [facility] Last Admin: 09/18/18 05:31 Dose: 50 mcg Pantoprazole Sodium (Protonix Ec Tab) 40 mg PO DAILY [facility] Last Admin: 09/18/18 12:21 Dose: Not Given Spironolactone (Aldactone) 50 mg PO BID [facility] Last Admin: 09/18/18 09:33 Dose: 50 mg Results - Vital Signs Recent Vital Signs: Last Vital Signs Temp 97.5 F L 09/18/18 12:38 Pulse 106 H 09/18/18 12:38 Resp 20 09/18/18 12:38 BP 124/87 09/18/18 12:38 Pulse Ox 96 09/18/18 12:38 - Labs Result Diagrams: 09/18/18 05:30 09/18/18 05:30 Labs: Laboratory Results - last 24 hr 09/17/18 09/17/18 09/17/18 15:33 15:40 18:20 WBC 16.3 H RBC 4.18 Hgb 11.0 L Hct 36.1 MCV 86.2 MCH 26.2 L MCHC 30.4 L RDW 30.5 H Plt Count 327 MPV 7.5 Neut % (Auto) 87.2 H Lymph % (Auto) 8.4 L [place] % (Auto) 4.1 Eos % (Auto) 0.0 Baso % (Auto) 0.3 Neut # (Auto) 14.3 H Lymph # (Auto) 1.4 [place] # (Auto) 0.7 Eos # (Auto) 0.0 Baso # (Auto) 0.0 Neutrophils % (Manual) 84 H Band Neutrophils % 5 H Lymphocytes % (Manual) 7 L Monocytes % (Manual) 3 Eosinophils % (Manual) 1 Smudge Cells Present Toxic Granulation Platelet Estimate Normal Plt Clumps, EDTA Anisocytosis (manual) Slight Tear Drop Cells Ovalocytes Schistocytes PT INR APTT pO2 21 L VBG pH 7.26 L VBG pCO2 44 VBG HCO3 17.4 VBG Total CO2 21.1 L VBG O2 Sat (Calc) 30.2 L VBG Base Excess -7.2 L VBG Potassium 5.1 Sodium 136.0 136 Chloride 104.0 107 Glucose 125 H Lactate 2.6 H FiO2 21.0 Blood Gas Comments Lac=2.6 Crit Value Called To ovidio Hernandez Crit Value Called By 22 Crit Value Read Back Y Blood Gas Notified Time 1540 Potassium 5.3 H Carbon Dioxide 15 L Anion Gap 19 BUN 41 H Creatinine 2.2 H Est GFR ( Amer) 29 Est GFR (Non-Af Amer) 24 Random Glucose 122 H Lactic Acid Calcium 8.8 Phosphorus Magnesium Total Bilirubin 0.5 AST 49 H ALT 44 Alkaline Phosphatase 368 H Troponin I 0.0560 NT-Pro-B Natriuret Pep 3940 H Total Protein 5.3 L Albumin 2.4 L Globulin 2.9 Albumin/Globulin Ratio 0.8 L Lipase 440 H Venous Blood Potassium 5.1 09/17/18 09/18/18 09/18/18 18:20 05:30 05:30 WBC 15.2 H RBC 4.50 Hgb 12.1 Hct 39.2 MCV 87.2 MCH 26.9 L MCHC 30.8 L RDW 31.8 H Plt Count 323 MPV 7.5 Neut % (Auto) 90.1 H Lymph % (Auto) 7.1 L [place] % (Auto) 2.4 Eos % (Auto) 0.0 Baso % (Auto) 0.4 Neut # (Auto) 13.7 H Lymph # (Auto) 1.1 [place] # (Auto) 0.4 Eos # (Auto) 0.0 Baso # (Auto) 0.1 Neutrophils % (Manual) 93 H Band Neutrophils % 1 Lymphocytes % (Manual) 4 L Monocytes % (Manual) 2 Eosinophils % (Manual) Smudge Cells Toxic Granulation Present Platelet Estimate Normal Plt Clumps, EDTA Present Anisocytosis (manual) Marked Tear Drop Cells Slight Ovalocytes Slight Schistocytes Slight PT 15.1 H INR 1.3 APTT 24.7 L pO2 VBG pH VBG pCO2 VBG HCO3 VBG Total CO2 VBG O2 Sat (Calc) VBG Base Excess VBG Potassium Sodium 137 Chloride 106 Glucose Lactate FiO2 Blood Gas Comments Crit Value Called To Crit Value Called By Crit Value Read Back Blood Gas Notified Time Potassium 4.7 Carbon Dioxide 18 L Anion Gap 18 BUN 43 H Creatinine 2.2 H Est GFR ( Amer) 29 Est GFR (Non-Af Amer) 24 Random Glucose 118 H Lactic Acid Calcium 8.8 Phosphorus 6.3 H Magnesium 2.2 Total Bilirubin AST ALT Alkaline Phosphatase Troponin I NT-Pro-B Natriuret Pep Total Protein Albumin Globulin Albumin/Globulin Ratio Lipase Venous Blood Potassium 09/18/18 05:30 WBC RBC Hgb Hct MCV MCH MCHC RDW Plt Count MPV Neut % (Auto) Lymph % (Auto) [place] % (Auto) Eos % (Auto) Baso % (Auto) Neut # (Auto) Lymph # (Auto) [place] # (Auto) Eos # (Auto) Baso # (Auto) Neutrophils % (Manual) Band Neutrophils % Lymphocytes % (Manual) Monocytes % (Manual) Eosinophils % (Manual) Smudge Cells Toxic Granulation Platelet Estimate Plt Clumps, EDTA Anisocytosis (manual) Tear Drop Cells Ovalocytes Schistocytes PT INR APTT pO2 VBG pH VBG pCO2 VBG HCO3 VBG Total CO2 VBG O2 Sat (Calc) VBG Base Excess VBG Potassium Sodium Chloride Glucose Lactate FiO2 Blood Gas Comments Crit Value Called To Crit Value Called By Crit Value Read Back Blood Gas Notified Time Potassium Carbon Dioxide Anion Gap BUN Creatinine Est GFR ( Amer) Est GFR (Non-Af Amer) Random Glucose Lactic Acid 1.8 Calcium Phosphorus Magnesium Total Bilirubin AST ALT Alkaline Phosphatase Troponin I NT-Pro-B Natriuret Pep Total Protein Albumin Globulin Albumin/Globulin Ratio Lipase Venous Blood Potassium
--- NOTE | 2018-09-18 15:50 | CT ---
Date of service: 09/18/2018 PROCEDURE: HISTORY: pleural effusions COMPARISON: TECHNIQUE: FINDINGS: Massive bilateral pleural effusions with multiple intraparenchymal and juxtapleural masses as well as passive atelectasis. The proximal tracheobronchial tree is patent. No pericardial effusion. Multiple enlarged mediastinal lymph nodes. Anasarca. Perihepatic and perisplenic ascites. No suspicious skeletal lesions. IMPRESSION: As above.
[2018-09-18] MEDS: Calcium Acetate 667 MG Capsule PO SCH ×2 (18:42→19:02)
--- NOTE | 2018-09-18 19:06 | CARD ---
APPROVED REPORT Date of service: 09/17/2018 EKG Measurement Heart [id number] <Conclusion> Sinus tachycardia Low voltage QRS Abnormal Electrocardiogram
[2018-09-19] MEDS: Levothyroxine 50 MCG TAB PO SCH (06:23)
[2018-09-19 06:36] LABS: HEMOGLOBIN 11.5 g/dL (12.0-16.0); MEAN CORPUSCULAR HEMOGLOBIN 26.9 pg (27.0-31.0); MEAN CORPUSCULAR HGB CONC 31.3 g/dL (33.0-37.0); RBC 4.28 Mil/uL (3.80-5.20); RED CELL DISTRIBUTION WIDTH 31.7 % (11.5-14.5)
[2018-09-19 07:00] LABS: ALB/GLOB RATIO 0.8 (1.0-2.1); ALBUMIN 2.3 g/dL (3.5-5.0); CALCIUM 8.4 mg/dL (8.4-10.2)
--- NOTE | 2018-09-19 08:00 | CP.PCM.PN ---
<DavidjordinFannyh - Last Filed: 09/19/18 10:46> Subjective - Date & Time of Evaluation Date of Evaluation: 09/19/18 Time of Evaluation: 07:55 - Subjective Subjective: Cardiothoracic Surgery Progress Note for Dr. Welch 48F seen and evaluated at bedside this morning. No acute events overnight. Patient is in confused state, stating nurses are confusing her with a different patient. Claims her belongings are being withheld and that she needs to leave for [place]. In addition, she wants her drain out immediately. No abdominal pain, chest tightness, or difficulty breathing. Denies f/c, n/v/d, SOB, CP, or urinary symptoms. Objective - Vital Signs/Intake and Output Vital Signs (last 24 hours): Temp Pulse Resp BP Pulse Ox 97.2 F L 115 H 22 117/84 97 09/19/18 04:26 09/19/18 04:26 09/19/18 04:26 09/19/18 04:26 09/19/18 04:26 - Medications Medications: Current Medications Acetaminophen (Tylenol 325mg Tab) 650 mg PO Q4 PRN PRN Reason: Pain, Mild (1-3) Acetaminophen (Tylenol 325mg Tab) 650 mg PO Q4 PRN PRN Reason: TEMP >100 Calcium Acetate (Phoslo) 667 mg PO WM [facility] Last Admin: 09/18/18 19:02 Dose: Not Given Epoetin Real (Procrit) 20,000 unit SC MWF [facility] Escitalopram Oxalate (Lexapro) 5 mg PO HS [facility] Last Admin: 09/18/18 21:28 Dose: 5 mg Furosemide (Lasix) 40 mg IVP BID [facility] Last Admin: 09/18/18 18:42 Dose: 40 mg Home Med (Dronabinol [Marinol]) 2.5 mg PO BID [facility] Levothyroxine Sodium (Synthroid) 50 mcg PO DAILY@0630 [facility] Last Admin: 09/19/18 06:23 Dose: 50 mcg Pantoprazole Sodium (Protonix Ec Tab) 40 mg PO DAILY [facility] Last Admin: 09/18/18 12:21 Dose: Not Given Sodium Bicarbonate (Sodium Bicarbonate Tab) 650 mg PO Q8 [facility] Last Admin: 09/19/18 01:09 Dose: 650 mg Spironolactone (Aldactone) 50 mg PO BID [facility] Last Admin: 09/18/18 18:41 Dose: 50 mg - Labs Labs: 09/19/18 05:30 09/19/18 05:30 PT 15.1 Seconds (9.8-13.1) H 09/17/18 18:20 INR 1.3 09/17/18 18:20 APTT 24.7 Seconds (25.6-37.1) L 09/17/18 18:20 - Constitutional Appears: No Acute Distress, Cachectic, Chronically Ill - Head Exam Head Exam: ATRAUMATIC, NORMAL INSPECTION, NORMOCEPHALIC - Eye Exam Eye Exam: EOMI - ENT Exam ENT Exam: Mucous Membranes Dry - Respiratory Exam Respiratory Exam: Decreased Breath Sounds (left and right lower lung), NORMAL BREATHING PATTERN. absent: Respiratory Distress Additional comments: pleurx catheter on left side, no drainage - Cardiovascular Exam Cardiovascular Exam: REGULAR RHYTHM - GI/Abdominal Exam GI & Abdominal Exam: Distended, Soft, Normal Bowel Sounds. absent: Tenderness - Neurological Exam Neurological Exam: Alert, Awake - Skin Skin Exam: Dry, Intact, Normal Color, Warm Assessment and Plan - Assessment and Plan (Free Text) Assessment: 48F w/ metastatis ovarian cancer and bilateral pulmonary effusions likely malignant Plan: Continue to monitor respiratory status Continue attempts at draining from left sided Pleurx catheter, currently no output in bag Patient currently being evaluated for hospice Patient refusing any surgical intervention at this time Further recommendations per Dr. Rebekah Hamm PGY1 <Zac Welch - Last Filed: 09/20/18 13:59> Objective - Vital Signs/Intake and Output Vital Signs (last 24 hours): Temp Pulse Resp BP Pulse Ox 96.8 F L 112 H 20 111/79 95 09/20/18 12:43 09/20/18 12:43 09/20/18 12:43 09/20/18 12:43 09/20/18 12:43 - Medications Medications: Current Medications Acetaminophen (Tylenol 325mg Tab) 650 mg PO Q4 PRN PRN Reason: Pain, Mild (1-3) Acetaminophen (Tylenol 325mg Tab) 650 mg PO Q4 PRN PRN Reason: TEMP >100 Calcium Acetate (Phoslo) 667 mg PO WM [facility] Last Admin: 09/20/18 09:16 Dose: 667 mg Epoetin Real (Procrit) 20,000 unit SC [facility]WF [facility] Last Admin: 09/20/18 09:17 Dose: 20,000 unit Escitalopram Oxalate (Lexapro) 5 mg PO HS [facility] Last Admin: 09/19/18 21:14 Dose: 5 mg Furosemide (Lasix) 40 mg IVP BID [facility] Last Admin: 09/20/18 09:15 Dose: 40 mg Levothyroxine Sodium (Synthroid) 50 mcg PO DAILY@0630 [facility] Last Admin: 09/20/18 06:17 Dose: Not Given Megestrol Acetate (Megace) 400 mg PO DAILY [facility] Last Admin: 09/20/18 09:16 Dose: 400 mg Pantoprazole Sodium (Protonix Ec Tab) 40 mg PO DAILY [facility] Last Admin: 09/20/18 09:17 Dose: Not Given Sodium Bicarbonate (Sodium Bicarbonate Tab) 650 mg PO Q8 [facility] Last Admin: 09/20/18 09:16 Dose: 650 mg Spironolactone (Aldactone) 50 mg PO BID [facility] Last Admin: 09/20/18 09:16 Dose: 50 mg - Labs Labs: 09/20/18 04:25 09/20/18 04:25 PT 15.1 Seconds (9.8-13.1) H 09/17/18 18:20 INR 1.3 09/17/18 18:20 APTT 24.7 Seconds (25.6-37.1) L 09/17/18 18:20
[2018-09-19] MEDS: Calcium Acetate 667 MG Capsule PO SCH ×3 (10:20→17:39)
[2018-09-19] MEDS: Pantoprazole 40 mg EC Tab PO SCH (10:21)
--- NOTE | 2018-09-19 11:40 | CP.PCM.CON ---
History of Present Illness - History of Present Illness History of Present Illness: This is a 48 yrs old female who was diagnosed to have a stage 4 metastatic ovarian/endometrial cncer, with metastasis to lung,peritoneum, with ascitis,and pleural effusion. She also had some psych issues,where she has different persona lity everyday, once in a while she agrees to go along with her treatment, but most of the time she refuses to get out of the bed and sit in a chair . She did not cooperate with the physical therapy that was attempted. She has received 3 doses of chemo with Carboplatin + Taxol the fluid production is a little less , but the mass seems larger. She says she does not want any more treatment of any kind. Her PICC line which she had when she left the hospital is missing, and i am not sure who took it out in the subacute rehab . she does not remember anything. she hardly eats at all, ans now has poor venous access for hydration. She claims she wants to go to [place] (where her family is ) now, and refuses to believe that it is not possible at this time. Will try to call her half sister and talk to her re DNR, DNI. Past Patient History - Past Medical History & Family History Past Medical History?: Yes - Past Social History Smoking Status: Never Smoked - CARDIAC Hx Cardiac Disorders: No - PULMONARY Hx Respiratory Disorders: Yes Other/Comment: Left sided Pleural Effusion and chest tube - NEUROLOGICAL Hx Neurological Disorder: No - HEENT Hx HEENT Problems: No - RENAL Hx Chronic Kidney Disease: No - ENDOCRINE/METABOLIC Hx Endocrine Disorders: No - HEMATOLOGICAL/ONCOLOGICAL Hx Blood Disorders: No - INTEGUMENTARY Hx Dermatological Problems: No - MUSCULOSKELETAL/RHEUMATOLOGICAL Hx Musculoskeletal Disorders: No Hx Falls: No - GASTROINTESTINAL Hx Crohn's Disease: Yes (Unabale to corroborate) - GENITOURINARY/GYNECOLOGICAL Hx Genitourinary Disorders: Yes Hx Bladder Cancer: Yes Hx Ovarian Cancer: Yes (metastatic) - PSYCHIATRIC Hx Psychophysiologic Disorder: No Hx Substance Use: No - SURGICAL HISTORY Hx Surgeries: No - ANESTHESIA Hx Anesthesia: Yes Hx Anesthesia Reactions: No Hx Malignant Hyperthermia: No Meds Allergies/Adverse Reactions: Allergies Allergy/AdvReac Type Severity Reaction Status Date / Time No Known Allergies Allergy Verified 09/17/18 14:01 - Medications Medications: Current Medications Acetaminophen (Tylenol 325mg Tab) 650 mg PO Q4 PRN PRN Reason: Pain, Mild (1-3) Acetaminophen (Tylenol 325mg Tab) 650 mg PO Q4 PRN PRN Reason: TEMP >100 Calcium Acetate (Phoslo) 667 mg PO WM [facility] Last Admin: 09/19/18 10:20 Dose: 667 mg Epoetin Real (Procrit) 20,000 unit SC MWF [facility] Escitalopram Oxalate (Lexapro) 5 mg PO HS [facility] Last Admin: 09/18/18 21:28 Dose: 5 mg Furosemide (Lasix) 40 mg IVP BID [facility] Last Admin: 09/19/18 11:07 Dose: 40 mg Home Med (Dronabinol [Marinol]) 2.5 mg PO BID [facility] Levothyroxine Sodium (Synthroid) 50 mcg PO DAILY@0630 [facility] Last Admin: 09/19/18 06:23 Dose: 50 mcg Pantoprazole Sodium (Protonix Ec Tab) 40 mg PO DAILY [facility] Last Admin: 09/19/18 10:21 Dose: Not Given Sodium Bicarbonate (Sodium Bicarbonate Tab) 650 mg PO Q8 [facility] Last Admin: 09/19/18 10:20 Dose: 650 mg Spironolactone (Aldactone) 50 mg PO BID [facility] Last Admin: 09/19/18 10:20 Dose: 50 mg Physical Exam - Additional Findings Additional findings: Physical exam; alert. well oriented, im no acute distress Neck; supple, no adenopathy Chest; air entry is poor on te left side, .No rales Abd; Ascitis 3+, mass in the pelvis 5-6 cm above the pelvic rim Extremities edematous but no DVT Results - Vital Signs Recent Vital Signs: Last Vital Signs Temp 97.1 F L 09/19/18 08:38 Pulse 110 H 09/19/18 08:38 Resp 20 09/19/18 08:38 BP 114/82 09/19/18 11:07 Pulse Ox 97 09/19/18 08:38 - Labs Result Diagrams: 09/19/18 05:30 09/19/18 05:30 Labs: Laboratory Results - last 24 hr 09/18/18 09/18/18 09/19/18 05:30 05:30 05:30 WBC 15.0 H RBC 4.28 Hgb 11.5 L Hct 36.8 MCV 86.0 MCH 26.9 L MCHC 31.3 L RDW 31.7 H Plt Count 260 Neutrophils % (Manual) 93 H Band Neutrophils % 1 Lymphocytes % (Manual) 4 L Monocytes % (Manual) 2 Toxic Granulation Present Platelet Estimate Normal Plt Clumps, EDTA Present Anisocytosis (manual) Marked Tear Drop Cells Slight Ovalocytes Slight Schistocytes Slight Sodium Potassium Chloride Carbon Dioxide Anion Gap BUN Creatinine Est GFR ( Amer) Est GFR (Non-Af Amer) Random Glucose Calcium Total Bilirubin AST ALT Alkaline Phosphatase Total Protein Albumin Globulin Albumin/Globulin Ratio Procalcitonin 0.58 H 09/19/18 05:30 WBC RBC Hgb Hct MCV MCH MCHC RDW Plt Count Neutrophils % (Manual) Band Neutrophils % Lymphocytes % (Manual) Monocytes % (Manual) Toxic Granulation Platelet Estimate Plt Clumps, EDTA Anisocytosis (manual) Tear Drop Cells Ovalocytes Schistocytes Sodium 136 Potassium 4.2 Chloride 105 Carbon Dioxide 19 L Anion Gap 16 BUN 45 H Creatinine 2.3 H Est GFR ( Amer) 27 Est GFR (Non-Af Amer) 23 Random Glucose 113 H Calcium 8.4 Total Bilirubin 0.4 AST 47 H ALT 35 Alkaline Phosphatase 357 H Total Protein 5.0 L Albumin 2.3 L Globulin 2.7 Albumin/Globulin Ratio 0.8 L Procalcitonin Assessment & Plan - Assessment and Plan (Free Text) Assessment: Impression; Advanced carcinoma of the ovary/endometrium, with lung and peritoneal metastasis pleural effusion and abdominal ascitis. Plan: Plan; Pt does nort want any more treatment. Was due for Chemotherapy on ThursdaySep 22, but since she refuses we may have her go to hospice..Will discuss with her step sister who is supposwed to be coming here on thursday. Prognosis very poor.
[2018-09-19] MEDS: Megestrol Acetate 40 mg/ml Cup PO SCH (17:40)
--- NOTE | 2018-09-19 21:02 | CP.PCM.PN ---
Subjective - Date & Time of Evaluation Date of Evaluation: 09/19/18 Time of Evaluation: 10:00 - Subjective Subjective: patient seen and examined at bedside no acute events overnight. spoke with nursing staff continues to confabulate no other complaints at this time no sob, cp, palpitations Objective - Vital Signs/Intake and Output Vital Signs (last 24 hours): Temp Pulse Resp BP Pulse Ox 96.9 F L 124 H 17 116/82 93 L 09/19/18 20:08 09/19/18 20:08 09/19/18 20:08 09/19/18 20:08 09/19/18 20:08 - Medications Medications: Current Medications Acetaminophen (Tylenol 325mg Tab) 650 mg PO Q4 PRN PRN Reason: Pain, Mild (1-3) Acetaminophen (Tylenol 325mg Tab) 650 mg PO Q4 PRN PRN Reason: TEMP >100 Calcium Acetate (Phoslo) 667 mg PO WM [facility] Last Admin: 09/19/18 17:39 Dose: 667 mg Epoetin Real (Procrit) 20,000 unit [place] [facility] Escitalopram Oxalate (Lexapro) 5 mg PO HS [facility] Last Admin: 09/18/18 21:28 Dose: 5 mg Furosemide (Lasix) 40 mg IVP BID [facility] Last Admin: 09/19/18 17:39 Dose: 40 mg Levothyroxine Sodium (Synthroid) 50 mcg PO DAILY@0630 [facility] Last Admin: 09/19/18 06:23 Dose: 50 mcg Megestrol Acetate (Megace) 400 mg PO DAILY [facility] Last Admin: 09/19/18 17:40 Dose: 400 mg Pantoprazole Sodium (Protonix Ec Tab) 40 mg PO DAILY [facility] Last Admin: 09/19/18 10:21 Dose: Not Given Sodium Bicarbonate (Sodium Bicarbonate Tab) 650 mg PO Q8 [facility] Last Admin: 09/19/18 17:40 Dose: 650 mg Spironolactone (Aldactone) 50 mg PO BID [facility] Last Admin: 09/19/18 17:40 Dose: 50 mg - Labs Labs: 09/19/18 05:30 09/19/18 05:30 PT 15.1 Seconds (9.8-13.1) H 09/17/18 18:20 INR 1.3 09/17/18 18:20 APTT 24.7 Seconds (25.6-37.1) L 09/17/18 18:20 - Additional Findings Additional findings: - Constitutional Appears: Chronically Ill - Head Exam Head Exam: NORMAL INSPECTION - Eye Exam Eye Exam: Normal appearance - Neck Exam Neck exam: Positive for: Normal Inspection - Respiratory Exam Respiratory Exam: Decreased Breath Sounds - Cardiovascular Exam Cardiovascular Exam: +S1, +S2 - GI/Abdominal Exam GI & Abdominal Exam: Mass - Extremities Exam Extremities exam: Positive for: pedal edema - Neurological Exam Neurological exam: Alert, Oriented x3 - Psychiatric Exam Psychiatric exam: Agitated, Anxious - Skin Skin Exam: Normal Color, Warm Assessment and Plan - Assessment and Plan (Free Text) Assessment: 48 yo female with ovarian/endometrial CA with mets to lung, peritoneum with pleural effusion bilaterally, worsening kidney function, peripheral edema noted with possible obstructive uropathy due to mass. plan all available diagnostic data reviewed discussed with nursing staff monitor vitals monitor labs consulted heme/onc, appreciate recommendations consulted renal, appreciate recommendations consulted urology, appreciate recommendations consulted CT surgery, appreciate recommendations Hospice eval in progress consult psych monitor I&&os meds as ordered rest of plan as ordered
[2018-09-20 05:57] LABS: HEMOGLOBIN 11.4 g/dL (12.0-16.0); MEAN CELL VOLUME 88.2 fl (81.0-99.0); MEAN CORPUSCULAR HEMOGLOBIN 27.1 pg (27.0-31.0); MEAN CORPUSCULAR HGB CONC 30.7 g/dL (33.0-37.0); RBC 4.19 Mil/uL (3.80-5.20); RED CELL DISTRIBUTION WIDTH 32.1 % (11.5-14.5); WHITE BLOOD COUNT 16.8 K/uL (4.8-10.8)
[2018-09-20 06:11] LABS: ALB/GLOB RATIO 0.9 (1.0-2.1); ALBUMIN 2.3 g/dL (3.5-5.0); CALCIUM 8.5 mg/dL (8.4-10.2)
[2018-09-20] MEDS: Levothyroxine 50 MCG TAB PO SCH (06:17)
--- NOTE | 2018-09-20 08:47 | CON ---
DATE: REASON FOR CONSULTATION: Left ureteral obstruction secondary to left upper pelvic mass measuring 15 x 25 cm. This is a large abdominopelvic mass most likely secondary to her original disease of ovarian cancer with metastatic disease to the abdomen, retroperitoneum and lungs. Patient also has massive bilateral pleural effusions on chest CT with a chest tube. Patient is currently relatively comfortable with no complaint of any abdominal or pelvic pain. At this time, she is voiding tiffany urine without complaints. No dysuria, gross hematuria, renal colic or abdominal pain at this time. Called to see this patient for cystoscopy with insertion of left ureteral stent, however, the patient does not want any tubes at this time and the tube would only make her more uncomfortable at this time. Her creatinine is 2.2. According to the nursing staff there is no plan to treat her cancer at this time and no plan to remove her abdominopelvic mass. PHYSICAL EXAMINATION: VITAL SIGNS: Today, temperature is 97.6, pulse is 122, blood pressure is 112/80, respiratory rate is 17 with O2 saturation on room air of 99%. ABDOMEN: Soft. Nondistended or tender and no CVA tenderness. LABORATORY DATA: On 09/18/2018, CBC with WBC count of 15.2, hematocrit of 39.2 and the platelet count is 323,000. Coag profile shows a PT of 15.1, which is elevated. INR of 1.3 and PTT of 24.7. Chem profile shows a sodium 137, potassium 4.7, chloride 106, CO2 of 18, BUN and creatinine 43 and 2.2 respectively with a GFR of 24 indicating chronic kidney disease stage IV. Random glucose is 118. Lactic acid 1.8. Calcium 8.8. Phosphorus 6.3. Magnesium 2.2. Urinalysis currently not on the chart. DIAGNOSTIC IMPRESSION: Ovarian cancer with metastasis to the abdomen, retroperitoneum, and lungs. The patient does not want any additional tubes placed and says she will if additional tubes are placed and she does not want any additional tubes at this time. She does currently have a chest tube. Otherwise, patient is relatively comfortable at this time. PLAN: No urologic intervention for this patient at this time. Ramesh Starr MD
[2018-09-20] MEDS: Megestrol Acetate 40 mg/ml Cup PO SCH (09:16)
[2018-09-20] MEDS: Calcium Acetate 667 MG Capsule PO SCH ×3 (09:16→17:37)
[2018-09-20] MEDS: Epoetin Alfa 20000 UNIT/ML Inj SC SCH (09:17)
[2018-09-20] MEDS: Pantoprazole 40 mg EC Tab PO SCH (09:17)
--- NOTE | 2018-09-20 10:25 | CP.PCM.PN ---
Subjective - Date & Time of Evaluation Date of Evaluation: 09/20/18 Time of Evaluation: 10:25 - Subjective Subjective: Patient awake and conscious she complain of some abdominal pain. Gilmore appeared to be edematous vital sign noted Objective - Vital Signs/Intake and Output Vital Signs (last 24 hours): Temp Pulse Resp BP Pulse Ox 97.5 F L 96 H 20 106/75 94 L 09/20/18 08:15 09/20/18 08:15 09/20/18 08:15 09/20/18 09:15 09/20/18 08:15 - Medications Medications: Current Medications Acetaminophen (Tylenol 325mg Tab) 650 mg PO Q4 PRN PRN Reason: Pain, Mild (1-3) Acetaminophen (Tylenol 325mg Tab) 650 mg PO Q4 PRN PRN Reason: TEMP >100 Calcium Acetate (Phoslo) 667 mg PO WM [facility] Last Admin: 09/20/18 09:16 Dose: 667 mg Epoetin Real (Procrit) 20,000 unit SC MWF [facility] Last Admin: 09/20/18 09:17 Dose: 20,000 unit Escitalopram Oxalate (Lexapro) 5 mg PO HS [facility] Last Admin: 09/19/18 21:14 Dose: 5 mg Furosemide (Lasix) 40 mg IVP BID [facility] Last Admin: 09/20/18 09:15 Dose: 40 mg Levothyroxine Sodium (Synthroid) 50 mcg PO DAILY@0630 [facility] Last Admin: 09/20/18 06:17 Dose: Not Given Megestrol Acetate (Megace) 400 mg PO DAILY [facility] Last Admin: 09/20/18 09:16 Dose: 400 mg Pantoprazole Sodium (Protonix Ec Tab) 40 mg PO DAILY [facility] Last Admin: 09/20/18 09:17 Dose: Not Given Sodium Bicarbonate (Sodium Bicarbonate Tab) 650 mg PO Q8 [facility] Last Admin: 09/20/18 09:16 Dose: 650 mg Spironolactone (Aldactone) 50 mg PO BID [facility] Last Admin: 09/20/18 09:16 Dose: 50 mg - Labs Labs: 09/20/18 04:25 09/20/18 04:25 PT 15.1 Seconds (9.8-13.1) H 09/17/18 18:20 INR 1.3 09/17/18 18:20 APTT 24.7 Seconds (25.6-37.1) L 09/17/18 18:20 - Constitutional Appears: No Acute Distress - Eye Exam Eye Exam: Conjunctival injection - ENT Exam ENT Exam: Mucous Membranes Moist - Respiratory Exam Respiratory Exam: NORMAL BREATHING PATTERN. absent: Chest Wall Tenderness - Cardiovascular Exam Cardiovascular Exam: absent: Gallop, JVD, Rubs - GI/Abdominal Exam GI & Abdominal Exam: Mass - Extremities Exam Extremities Exam: absent: Calf Tenderness - Back Exam Back Exam: absent: CVA tenderness (R) - Neurological Exam Neurological Exam: Alert - Psychiatric Exam Psychiatric exam: Depressed - Skin Skin Exam: absent: Cyanosis Assessment and Plan (1) FREDY (acute kidney injury) Assessment & Plan: imp: ARF/multifactorial Met Endometiral ca/ ovarian cancer Large abdominal mass obstructie uropathy/with left hydronephrosis and hydroureter anemia / hyperkalemia/corrected acidosis / hyperphosphatemia anasarca bilateral leg edema the plan IV Lasix Call urology for the hydronephrosis she may need percutaneous nephrostomy on the left side? Status: Acute (2) Abdominal malignant neoplasm Status: Acute
--- NOTE | 2018-09-20 13:02 | CP.PCM.CON ---
History of Present Illness - History of Present Illness History of Present Illness: This is a 48 yrs old female who was diagnosed to have a stage 4 metastatic ovarian/endometrial cncer, with metastasis to lung,peritoneum, with ascitis,and pleural effusion. PT on evaluation has waxing and waning in her level of attention , with possible delirium, at one point able to answer questions coherently then through out of the interview becomes anxious, and paranoid , reported decreased sleep and appetite , relates that to the pain, thought form alternates between coherent and circumstantial and loose association , denied suicidal ideation, denied perceptual disturbances Past Patient History - Past Medical History & Family History Past Medical History?: Yes - Past Social History Smoking Status: Never Smoked - CARDIAC Hx Cardiac Disorders: No - PULMONARY Hx Respiratory Disorders: Yes Other/Comment: Left sided Pleural Effusion and chest tube - NEUROLOGICAL Hx Neurological Disorder: No - HEENT Hx HEENT Problems: No - RENAL Hx Chronic Kidney Disease: No - ENDOCRINE/METABOLIC Hx Endocrine Disorders: No - HEMATOLOGICAL/ONCOLOGICAL Hx Blood Disorders: No - INTEGUMENTARY Hx Dermatological Problems: No - MUSCULOSKELETAL/RHEUMATOLOGICAL Hx Musculoskeletal Disorders: No Hx Falls: No - GASTROINTESTINAL Hx Crohn's Disease: Yes (Unabale to corroborate) - GENITOURINARY/GYNECOLOGICAL Hx Genitourinary Disorders: Yes Hx Bladder Cancer: Yes Hx Ovarian Cancer: Yes (metastatic) - PSYCHIATRIC Hx Psychophysiologic Disorder: No Hx Substance Use: No - SURGICAL HISTORY Hx Surgeries: No - ANESTHESIA Hx Anesthesia: Yes Hx Anesthesia Reactions: No Hx Malignant Hyperthermia: No Meds Allergies/Adverse Reactions: Allergies Allergy/AdvReac Type Severity Reaction Status Date / Time No Known Allergies Allergy Verified 09/17/18 14:01 - Medications Medications: Current Medications Acetaminophen (Tylenol 325mg Tab) 650 mg PO Q4 PRN PRN Reason: Pain, Mild (1-3) Acetaminophen (Tylenol 325mg Tab) 650 mg PO Q4 PRN PRN Reason: TEMP >100 Calcium Acetate (Phoslo) 667 mg PO WM [facility] Last Admin: 09/20/18 09:16 Dose: 667 mg Epoetin Real (Procrit) 20,000 unit SC MWF [facility] Last Admin: 09/20/18 09:17 Dose: 20,000 unit Escitalopram Oxalate (Lexapro) 5 mg PO HS [facility] Last Admin: 09/19/18 21:14 Dose: 5 mg Furosemide (Lasix) 40 mg IVP BID [facility] Last Admin: 09/20/18 09:15 Dose: 40 mg Levothyroxine Sodium (Synthroid) 50 mcg PO DAILY@0630 [facility] Last Admin: 09/20/18 06:17 Dose: Not Given Megestrol Acetate (Megace) 400 mg PO DAILY [facility] Last Admin: 09/20/18 09:16 Dose: 400 mg Pantoprazole Sodium (Protonix Ec Tab) 40 mg PO DAILY [facility] Last Admin: 09/20/18 09:17 Dose: Not Given Sodium Bicarbonate (Sodium Bicarbonate Tab) 650 mg PO Q8 [facility] Last Admin: 09/20/18 09:16 Dose: 650 mg Spironolactone (Aldactone) 50 mg PO BID [facility] Last Admin: 09/20/18 09:16 Dose: 50 mg Results - Vital Signs Recent Vital Signs: Last Vital Signs Temp 96.8 F L 09/20/18 12:43 Pulse 112 H 09/20/18 12:43 Resp 20 09/20/18 12:43 BP 111/79 09/20/18 12:43 Pulse Ox 95 09/20/18 12:43 - Labs Result Diagrams: 09/20/18 04:25 09/20/18 04:25 Labs: Laboratory Results - last 24 hr 09/20/18 09/20/18 04:25 04:25 WBC 16.8 H RBC 4.19 Hgb 11.4 L Hct 37.0 MCV 88.2 D MCH 27.1 MCHC 30.7 L RDW 32.1 H Plt Count 240 Sodium 137 Potassium 3.7 Chloride 105 Carbon Dioxide 21 L Anion Gap 15 BUN 46 H Creatinine 2.2 H Est GFR ( Amer) 29 Est GFR (Non-Af Amer) 24 Random Glucose 111 H Calcium 8.5 Total Bilirubin 0.3 AST 41 H ALT 40 Alkaline Phosphatase 346 H Total Protein 5.0 L Albumin 2.3 L Globulin 2.7 Albumin/Globulin Ratio 0.9 L Assessment & Plan - Assessment and Plan (Free Text) Assessment: delirium due to medical condition generalized anxiety disorder mood disorder due to medical condition with depressive features Plan: recommend increasing lexapro to 10mg qhs recommend ativan 0.25 mg bid prn for anxiety
--- NOTE | 2018-09-20 13:35 | CP.PCM.PN ---
Subjective - Date & Time of Evaluation Date of Evaluation: 09/20/18 Time of Evaluation: 13:33 - Subjective Subjective: Reason for consultation: Bilateral pleural effusions from metastatic ovarian cancer. Requested by: Mayelin Pt s/e. Progress notes and imaging studies reviewed. 48 yo female with bilateral pleural effusions from metastatic ovarian ca. ct chest: numerous bilateral medina balls and bilateral pleural effsusions and compressive atelectasis of lower lobes. We inserted a Pleurx cath to left during her previoius adm at [facility]. It appears the pleurex cath has not been drained properly with pleurex cath drainage system. The pt declines any surgical treatments, but I believe it is appropraite to drain the left effusion properly using pleurex cath drainage sysem as recommened by the manufacture to help her sob. I have discussed the matter with THERESA Young who assured me it will be taken care of as soon as she gets hold of the drainage system. a/p: 1, Bilateral pleural effusions. 2. Continue the pleurex cath drainage with pleured cath drainage system as discussed. 3. No further surgical interventions as requested by the pt. Objective - Vital Signs/Intake and Output Vital Signs (last 24 hours): Temp Pulse Resp BP Pulse Ox 96.8 F L 112 H 20 111/79 95 09/20/18 12:43 09/20/18 12:43 09/20/18 12:43 09/20/18 12:43 09/20/18 12:43 - Medications Medications: Current Medications Acetaminophen (Tylenol 325mg Tab) 650 mg PO Q4 PRN PRN Reason: Pain, Mild (1-3) Acetaminophen (Tylenol 325mg Tab) 650 mg PO Q4 PRN PRN Reason: TEMP >100 Calcium Acetate (Phoslo) 667 mg PO WM [facility] Last Admin: 09/20/18 09:16 Dose: 667 mg Epoetin Real (Procrit) 20,000 unit SC MWF [facility] Last Admin: 09/20/18 09:17 Dose: 20,000 unit Escitalopram Oxalate (Lexapro) 5 mg PO HS [facility] Last Admin: 09/19/18 21:14 Dose: 5 mg Furosemide (Lasix) 40 mg IVP BID [facility] Last Admin: 09/20/18 09:15 Dose: 40 mg Levothyroxine Sodium (Synthroid) 50 mcg PO DAILY@0630 [facility] Last Admin: 09/20/18 06:17 Dose: Not Given Megestrol Acetate (Megace) 400 mg PO DAILY [facility] Last Admin: 09/20/18 09:16 Dose: 400 mg Pantoprazole Sodium (Protonix Ec Tab) 40 mg PO DAILY [facility] Last Admin: 09/20/18 09:17 Dose: Not Given Sodium Bicarbonate (Sodium Bicarbonate Tab) 650 mg PO Q8 [facility] Last Admin: 09/20/18 09:16 Dose: 650 mg Spironolactone (Aldactone) 50 mg PO BID [facility] Last Admin: 09/20/18 09:16 Dose: 50 mg - Labs Labs: 09/20/18 04:25 09/20/18 04:25 PT 15.1 Seconds (9.8-13.1) H 09/17/18 18:20 INR 1.3 09/17/18 18:20 APTT 24.7 Seconds (25.6-37.1) L 09/17/18 18:20 Assessment and Plan - Assessment and Plan (Free Text) Plan: a/p: 1, Bilateral pleural effusions. 2. Continue the pleurex cath drainage with pleured cath drainage system as discussed. 3. No further surgical interventions as requested by the pt.
[2018-09-21] MEDS: Levothyroxine 50 MCG TAB PO SCH (06:25)
[2018-09-21] MEDS: Megestrol Acetate 40 mg/ml Cup PO SCH (09:43)
[2018-09-21] MEDS: Calcium Acetate 667 MG Capsule PO SCH ×3 (09:44→17:41)
[2018-09-21] MEDS: Pantoprazole 40 mg EC Tab PO SCH (09:46)
--- NOTE | 2018-09-21 11:49 | CP.PCM.PN ---
Subjective - Date & Time of Evaluation Date of Evaluation: 09/21/18 Time of Evaluation: 11:48 - Subjective Subjective: Patient awake and conscious she is in bed Vital signs noted to be stable Patient is chronically ill and debilitated Objective - Vital Signs/Intake and Output Vital Signs (last 24 hours): Temp Pulse Resp BP Pulse Ox 96.9 F L 98 H 20 95/71 L 100 09/21/18 09:26 09/21/18 09:26 09/21/18 09:26 09/21/18 09:26 09/21/18 09:26 - Medications Medications: Current Medications Acetaminophen (Tylenol 325mg Tab) 650 mg PO Q4 PRN PRN Reason: Pain, Mild (1-3) Acetaminophen (Tylenol 325mg Tab) 650 mg PO Q4 PRN PRN Reason: TEMP >100 Calcium Acetate (Phoslo) 667 mg PO WM [facility] Last Admin: 09/21/18 09:44 Dose: 667 mg Epoetin Real (Procrit) 20,000 unit SC MWF [facility] Last Admin: 09/20/18 09:17 Dose: 20,000 unit Escitalopram Oxalate (Lexapro) 10 mg PO HS [facility] Furosemide (Lasix) 40 mg IVP BID [facility] Last Admin: 09/21/18 09:43 Dose: Not Given Levothyroxine Sodium (Synthroid) 50 mcg PO DAILY@0630 [facility] Last Admin: 09/21/18 06:25 Dose: Not Given Lorazepam (Ativan) 0.25 mg PO Q12 PRN PRN Reason: Anxiety Megestrol Acetate (Megace) 400 mg PO DAILY [facility] Last Admin: 09/21/18 09:43 Dose: 400 mg Pantoprazole Sodium (Protonix Ec Tab) 40 mg PO DAILY [facility] Last Admin: 09/21/18 09:46 Dose: 40 mg Sodium Bicarbonate (Sodium Bicarbonate Tab) 650 mg PO Q8 [facility] Last Admin: 09/21/18 09:44 Dose: 650 mg Spironolactone (Aldactone) 50 mg PO BID [facility] Last Admin: 09/21/18 09:43 Dose: 50 mg - Labs Labs: 09/20/18 04:25 09/20/18 04:25 PT 15.1 Seconds (9.8-13.1) H 09/17/18 18:20 INR 1.3 12/07/18 18:20 APTT 24.7 Seconds (25.6-37.1) L 09/17/18 18:20 - Constitutional Appears: No Acute Distress - Eye Exam Eye Exam: Conjunctival injection - ENT Exam ENT Exam: Mucous Membranes Moist - Respiratory Exam Respiratory Exam: NORMAL BREATHING PATTERN. absent: Chest Wall Tenderness, Rales, Rhonchi - Cardiovascular Exam Cardiovascular Exam: absent: Gallop, JVD, Rubs - GI/Abdominal Exam GI & Abdominal Exam: Mass - Extremities Exam Extremities Exam: absent: Calf Tenderness - Back Exam Back Exam: absent: CVA tenderness (L), CVA tenderness (R) - Neurological Exam Neurological Exam: Alert - Skin Skin Exam: absent: Cyanosis Assessment and Plan (1) Abdominal malignant neoplasm Status: Acute (2) FREDY (acute kidney injury) Assessment & Plan: ARF/multifactorial Met Endometiral ca/ ovarian cancer Large abdominal mass obstructie uropathy/with left hydronephrosis and hydroureter anemia / hyperkalemia/corrected acidosis / hyperphosphatemia anasarca bilateral leg edema the plan IV Lasix Call urology for the hydronephrosis she may need percutaneous nephrostomy on the left side? Status: Acute
--- NOTE | 2018-09-21 13:13 | CP.PCM.PN ---
Subjective - Date & Time of Evaluation Date of Evaluation: 09/21/18 Time of Evaluation: 08:00 - Subjective Subjective: Pt seen and examine this morning with Dr. Beach. Noted to be lying in bed comfortably. States she still feels sob. Discussed plan for today. Awaiting Hospice eval. Objective - Vital Signs/Intake and Output Vital Signs (last 24 hours): Temp Pulse Resp BP Pulse Ox 96.9 F L 98 H 20 95/71 L 100 09/21/18 09:26 09/21/18 09:26 09/21/18 09:26 09/21/18 09:26 09/21/18 09:26 - Medications Medications: Current Medications Acetaminophen (Tylenol 325mg Tab) 650 mg PO Q4 PRN PRN Reason: Pain, Mild (1-3) Acetaminophen (Tylenol 325mg Tab) 650 mg PO Q4 PRN PRN Reason: TEMP >100 Calcium Acetate (Phoslo) 667 mg PO WM [facility] Last Admin: 09/21/18 09:44 Dose: 667 mg Epoetin Real (Procrit) 20,000 unit SC MWF [facility] Last Admin: 09/20/18 09:17 Dose: 20,000 unit Escitalopram Oxalate (Lexapro) 10 mg PO HS [facility] Furosemide (Lasix) 40 mg IVP BID [facility] Last Admin: 09/21/18 09:43 Dose: Not Given Levothyroxine Sodium (Synthroid) 50 mcg PO DAILY@0630 [facility] Last Admin: 09/21/18 06:25 Dose: Not Given Lorazepam (Ativan) 0.25 mg PO Q12 PRN PRN Reason: Anxiety Megestrol Acetate (Megace) 400 mg PO DAILY [facility] Last Admin: 09/21/18 09:43 Dose: 400 mg Pantoprazole Sodium (Protonix Ec Tab) 40 mg PO DAILY [facility] Last Admin: 09/21/18 09:46 Dose: 40 mg Sodium Bicarbonate (Sodium Bicarbonate Tab) 650 mg PO Q8 [facility] Last Admin: 09/21/18 09:44 Dose: 650 mg Spironolactone (Aldactone) 50 mg PO BID [facility] Last Admin: 09/21/18 09:43 Dose: 50 mg - Labs Labs: 09/20/18 04:25 09/20/18 04:25 PT 15.1 Seconds (9.8-13.1) H 09/17/18 18:20 INR 1.3 09/17/18 18:20 APTT 24.7 Seconds (25.6-37.1) L 09/17/18 18:20 - Constitutional Appears: No Acute Distress - Head Exam Head Exam: NORMAL INSPECTION - Eye Exam Eye Exam: Normal appearance - ENT Exam ENT Exam: Mucous Membranes Moist - Respiratory Exam Respiratory Exam: Decreased Breath Sounds, Clear to Ausculation Bilateral - Cardiovascular Exam Cardiovascular Exam: REGULAR RHYTHM, +S1, +S2 - GI/Abdominal Exam GI & Abdominal Exam: Distended - Extremities Exam Extremities Exam: Normal Capillary Refill, Pedal Edema - Neurological Exam Neurological Exam: Alert Assessment and Plan - Assessment and Plan (Free Text) Assessment: 48 yo female with statge 4 ovarian/endometrial CA with mets to lung, peritoneum with pleural effusion bilaterally, worsening kidney function, peripheral edema noted with possible obstructive uropathy due to mass. Pt is currently being evaluated for hospice. -Hematology/oncology consulted-pt is refusing chemotherapy -nephrology Consulted- ARF, Obstructive uropathy, recommended to consult urology for perc nephrostomy, IV lasix for edema -Urology consulted- -CT Surgery Consulted- C/W pleural cath drainage, pt refusing any surgical intervention -Hospice Eval pending -Psych consulted- increase lexapro to 10mgqHS, Atican 0.25mg BId prn for anxiety -Meds as ordered D/W Dr. Beach
[2018-09-22] MEDS: Levothyroxine 50 MCG TAB PO SCH (06:17)
[2018-09-22] MEDS: Calcium Acetate 667 MG Capsule PO SCH ×3 (09:00→21:20)
--- NOTE | 2018-09-22 10:04 | CP.PCM.PN ---
Subjective - Date & Time of Evaluation Date of Evaluation: 09/22/18 Time of Evaluation: 09:00 - Subjective Subjective: Pt seen and examined with Dr. Beach at the bedside. Reports that her breathing has not improved much. Family is coming tomorrow to sign for hospice and decide code status. Objective - Vital Signs/Intake and Output Vital Signs (last 24 hours): Temp Pulse Resp BP Pulse Ox 97.0 F L 109 H 20 107/77 100 09/22/18 08:07 09/22/18 08:07 09/22/18 08:07 09/22/18 08:07 09/22/18 08:07 - Medications Medications: Current Medications Acetaminophen (Tylenol 325mg Tab) 650 mg PO Q4 PRN PRN Reason: Pain, Mild (1-3) Acetaminophen (Tylenol 325mg Tab) 650 mg PO Q4 PRN PRN Reason: TEMP >100 Calcium Acetate (Phoslo) 667 mg PO WM [facility] Last Admin: 09/21/18 17:41 Dose: Not Given Epoetin Real (Procrit) 20,000 unit SC MWF [facility] Last Admin: 09/20/18 09:17 Dose: 20,000 unit Escitalopram Oxalate (Lexapro) 10 mg PO HS [facility] Last Admin: 09/21/18 21:27 Dose: Not Given Furosemide (Lasix) 40 mg IVP BID [facility] Last Admin: 09/21/18 16:26 Dose: 40 mg Levothyroxine Sodium (Synthroid) 50 mcg PO DAILY@0630 [facility] Last Admin: 09/22/18 06:17 Dose: Not Given Lorazepam (Ativan) 0.25 mg PO Q12 PRN PRN Reason: Anxiety Megestrol Acetate (Megace) 400 mg PO DAILY [facility] Last Admin: 09/21/18 09:43 Dose: 400 mg Pantoprazole Sodium (Protonix Ec Tab) 40 mg PO DAILY [facility] Last Admin: 09/21/18 09:46 Dose: 40 mg Sodium Bicarbonate (Sodium Bicarbonate Tab) 650 mg PO Q8 [facility] Last Admin: 09/22/18 00:30 Dose: Not Given Spironolactone (Aldactone) 50 mg PO BID [facility] Last Admin: 09/21/18 16:26 Dose: 50 mg - Labs Labs: 09/20/18 04:25 09/20/18 04:25 PT 15.1 Seconds (9.8-13.1) H 09/17/18 18:20 INR 1.3 09/17/18 18:20 APTT 24.7 Seconds (25.6-37.1) L 09/17/18 18:20 - Constitutional Appears: No Acute Distress, Chronically Ill - Head Exam Head Exam: NORMAL INSPECTION - Eye Exam Eye Exam: Normal appearance - ENT Exam ENT Exam: Mucous Membranes Moist - Respiratory Exam Respiratory Exam: Decreased Breath Sounds. absent: Accessory Muscle Use, Rales, Wheezes - Cardiovascular Exam Cardiovascular Exam: REGULAR RHYTHM, +S1, +S2 - GI/Abdominal Exam GI & Abdominal Exam: Distended, Firm, Normal Bowel Sounds. absent: Tenderness - Extremities Exam Extremities Exam: Pedal Edema (BL +1 pitting up to mid leg) - Neurological Exam Neurological Exam: Alert, Awake - Psychiatric Exam Psychiatric exam: Depressed - Skin Skin Exam: Normal Color Assessment and Plan - Assessment and Plan (Free Text) Assessment: 48 yo female with statge 4 ovarian/endometrial CA with mets to lung, peritoneum with pleural effusion bilaterally, worsening kidney function, peripheral edema noted with possible obstructive uropathy due to mass. Pt is currently being evaluated for hospice. Pt has no capacity to make decision, awaiting family for consent to hospice, did not come by yesterday. Will come tomorrow. -Hematology/oncology consulted-pt is refusing chemotherapy -Nephrology Consulted- ARF, Obstructive uropathy, recommended to consult urology for perc nephrostomy, IV lasix for edema (cannot increase due to low BP) -CT Surgery Consulted- C/W pleural cath drainage, pt refusing any surgical intervention -Hospice Eval pending -Psych consulted- increase lexapro to 10mgqHS, Atican 0.25mg BId prn for anxiety -Meds as ordered D/W Dr. Beach
--- NOTE | 2018-09-22 10:09 | CP.PCM.PN ---
Subjective - Date & Time of Evaluation Date of Evaluation: 09/22/18 Time of Evaluation: 10:06 Objective - Vital Signs/Intake and Output Vital Signs (last 24 hours): Temp Pulse Resp BP Pulse Ox 97.0 F L 109 H 20 107/77 100 09/22/18 08:07 09/22/18 08:07 09/22/18 08:07 09/22/18 08:07 09/22/18 08:07 - Medications Medications: Current Medications Acetaminophen (Tylenol 325mg Tab) 650 mg PO Q4 PRN PRN Reason: Pain, Mild (1-3) Acetaminophen (Tylenol 325mg Tab) 650 mg PO Q4 PRN PRN Reason: TEMP >100 Calcium Acetate (Phoslo) 667 mg PO WM [facility] Last Admin: 09/21/18 17:41 Dose: Not Given Epoetin Real (Procrit) 20,000 unit SC MWF [facility] Last Admin: 09/20/18 09:17 Dose: 20,000 unit Escitalopram Oxalate (Lexapro) 10 mg PO HS [facility] Last Admin: 09/21/18 21:27 Dose: Not Given Furosemide (Lasix) 40 mg IVP BID [facility] Last Admin: 09/21/18 16:26 Dose: 40 mg Levothyroxine Sodium (Synthroid) 50 mcg PO DAILY@0630 [facility] Last Admin: 09/22/18 06:17 Dose: Not Given Lorazepam (Ativan) 0.25 mg PO Q12 PRN PRN Reason: Anxiety Megestrol Acetate (Megace) 400 mg PO DAILY [facility] Last Admin: 09/21/18 09:43 Dose: 400 mg Pantoprazole Sodium (Protonix Ec Tab) 40 mg PO DAILY [facility] Last Admin: 09/21/18 09:46 Dose: 40 mg Sodium Bicarbonate (Sodium Bicarbonate Tab) 650 mg PO Q8 [facility] Last Admin: 09/22/18 00:30 Dose: Not Given Spironolactone (Aldactone) 50 mg PO BID [facility] Last Admin: 09/21/18 16:26 Dose: 50 mg - Labs Labs: 09/20/18 04:25 09/20/18 04:25 PT 15.1 Seconds (9.8-13.1) H 09/17/18 18:20 INR 1.3 09/17/18 18:20 APTT 24.7 Seconds (25.6-37.1) L 09/17/18 18:20
[2018-09-22] MEDS: Pantoprazole 40 mg EC Tab PO SCH (10:44)
--- NOTE | 2018-09-22 11:58 | CP.PCM.PN ---
Subjective - Date & Time of Evaluation Date of Evaluation: 09/22/18 Time of Evaluation: 12:53 - Subjective Subjective: No new events reported patient complaining of weakness Patient is stable otherwise with her chronic debility Objective - Vital Signs/Intake and Output Vital Signs (last 24 hours): Temp Pulse Resp BP Pulse Ox 97.0 F L 109 H 20 107/77 100 09/22/18 08:07 09/22/18 08:07 09/22/18 08:07 09/22/18 08:07 09/22/18 08:07 - Medications Medications: Current Medications Acetaminophen (Tylenol 325mg Tab) 650 mg PO Q4 PRN PRN Reason: Pain, Mild (1-3) Acetaminophen (Tylenol 325mg Tab) 650 mg PO Q4 PRN PRN Reason: TEMP >100 Calcium Acetate (Phoslo) 667 mg PO WM [facility] Last Admin: 09/21/18 17:41 Dose: Not Given Epoetin Real (Procrit) 20,000 unit SC MWF [facility] Last Admin: 09/20/18 09:17 Dose: 20,000 unit Escitalopram Oxalate (Lexapro) 10 mg PO HS [facility] Last Admin: 09/21/18 21:27 Dose: Not Given Furosemide (Lasix) 40 mg IVP BID [facility] Last Admin: 09/21/18 16:26 Dose: 40 mg Levothyroxine Sodium (Synthroid) 50 mcg PO DAILY@0630 [facility] Last Admin: 09/22/18 06:17 Dose: Not Given Lorazepam (Ativan) 0.25 mg PO Q12 PRN PRN Reason: Anxiety Megestrol Acetate (Megace) 400 mg PO DAILY [facility] Last Admin: 09/21/18 09:43 Dose: 400 mg Pantoprazole Sodium (Protonix Ec Tab) 40 mg PO DAILY [facility] Last Admin: 09/21/18 09:46 Dose: 40 mg Sodium Bicarbonate (Sodium Bicarbonate Tab) 650 mg PO Q8 [facility] Last Admin: 09/22/18 00:30 Dose: Not Given Spironolactone (Aldactone) 50 mg PO BID [facility] Last Admin: 09/21/18 16:26 Dose: 50 mg - Labs Labs: 09/20/18 04:25 09/20/18 04:25 PT 15.1 Seconds (9.8-13.1) H 09/17/18 18:20 INR 1.3 09/17/18 18:20 APTT 24.7 Seconds (25.6-37.1) L 09/17/18 18:20 - Constitutional Appears: No Acute Distress - Eye Exam Eye Exam: Conjunctival injection - ENT Exam ENT Exam: Mucous Membranes Moist - Cardiovascular Exam Cardiovascular Exam: absent: Gallop, JVD, Rubs - GI/Abdominal Exam GI & Abdominal Exam: Soft, Normal Bowel Sounds - Extremities Exam Extremities Exam: absent: Calf Tenderness - Back Exam Back Exam: absent: CVA tenderness (L), CVA tenderness (R) - Neurological Exam Neurological Exam: Awake - Psychiatric Exam Psychiatric exam: Anxious - Skin Skin Exam: absent: Cyanosis Assessment and Plan (1) Abdominal malignant neoplasm Status: Acute (2) FREDY (acute kidney injury) Assessment & Plan: Assessment & Plan: ARF/multifactorial Met Endometiral ca/ ovarian cancer Large abdominal mass obstructie uropathy/with left hydronephrosis and hydroureter anemia / hyperkalemia/corrected acidosis / hyperphosphatemia anasarca bilateral leg edema Plan Kidney function slightly improving serum creatinine 2.2 Continue monitoring I did not see urology consult as of yet? Status: Acute
[2018-09-22] MEDS: Megestrol Acetate 40 mg/ml Cup PO SCH (12:44)
--- NOTE | 2018-09-22 15:30 | CP.PCM.PN ---
Subjective - Date & Time of Evaluation Date of Evaluation: 09/22/18 Time of Evaluation: 15:27 - Subjective Subjective: I have been seeing the pt daily since the admission. Bilat pleural effusions and sob. Awaiting delivery of pleurex draining system to drain the effusion. a/p: Bilat pleural effusion. Compressive lower lobe atelectasis. sob. Awaiting delivery of the pleurex drainging system. Objective - Vital Signs/Intake and Output Vital Signs (last 24 hours): Temp Pulse Resp BP Pulse Ox 97.9 F 106 H 20 112/78 93 L 09/22/18 12:22 09/22/18 12:22 09/22/18 12:22 09/22/18 12:43 09/22/18 12:22 - Medications Medications: Current Medications Acetaminophen (Tylenol 325mg Tab) 650 mg PO Q4 PRN PRN Reason: Pain, Mild (1-3) Acetaminophen (Tylenol 325mg Tab) 650 mg PO Q4 PRN PRN Reason: TEMP >100 Calcium Acetate (Phoslo) 667 mg PO WM [facility] Last Admin: 09/22/18 09:00 Dose: Not Given Epoetin Real (Procrit) 20,000 unit SC MWF [facility] Last Admin: 09/20/18 09:17 Dose: 20,000 unit Escitalopram Oxalate (Lexapro) 10 mg PO HS [facility] Last Admin: 09/21/18 21:27 Dose: Not Given Furosemide (Lasix) 40 mg IVP BID [facility] Last Admin: 09/22/18 12:43 Dose: 40 mg Levothyroxine Sodium (Synthroid) 50 mcg PO DAILY@0630 [facility] Last Admin: 09/22/18 06:17 Dose: Not Given Lorazepam (Ativan) 0.25 mg PO Q12 PRN PRN Reason: Anxiety Megestrol Acetate (Megace) 400 mg PO DAILY [facility] Last Admin: 09/22/18 12:44 Dose: 400 mg Pantoprazole Sodium (Protonix Ec Tab) 40 mg PO DAILY [facility] Last Admin: 09/22/18 10:44 Dose: Not Given Sodium Bicarbonate (Sodium Bicarbonate Tab) 650 mg PO Q8 [facility] Last Admin: 09/22/18 09:40 Dose: Not Given Spironolactone (Aldactone) 50 mg PO BID [facility] Last Admin: 09/22/18 10:46 Dose: 50 mg - Labs Labs: 12/10/18 04:25 09/20/18 04:25 PT 15.1 Seconds (9.8-13.1) H 09/17/18 18:20 INR 1.3 09/17/18 18:20 APTT 24.7 Seconds (25.6-37.1) L 09/17/18 18:20
[2018-09-22] MEDS: Epoetin Alfa 20000 UNIT/ML Inj SC SCH (17:14)
[2018-09-23] MEDS: Levothyroxine 50 MCG TAB PO SCH (07:00)
[2018-09-23] MEDS: Calcium Acetate 667 MG Capsule PO SCH ×3 (07:00→20:40)
[2018-09-23] MEDS: Pantoprazole 40 mg EC Tab PO SCH (09:00)
[2018-09-23] MEDS: Megestrol Acetate 40 mg/ml Cup PO SCH (09:00)
--- NOTE | 2018-09-23 10:47 | CP.PCM.PN ---
Subjective - Date & Time of Evaluation Date of Evaluation: 09/23/18 Time of Evaluation: 10:47 - Subjective Subjective: Patient awake and conscious She appears to be with her chronic debility Objective - Vital Signs/Intake and Output Vital Signs (last 24 hours): Temp Pulse Resp BP Pulse Ox 98.1 F 124 H 18 104/75 97 09/23/18 08:22 09/23/18 08:22 09/23/18 08:22 09/23/18 08:22 09/23/18 08:22 - Medications Medications: Current Medications Acetaminophen (Tylenol 325mg Tab) 650 mg PO Q4 PRN PRN Reason: Pain, Mild (1-3) Acetaminophen (Tylenol 325mg Tab) 650 mg PO Q4 PRN PRN Reason: TEMP >100 Calcium Acetate (Phoslo) 667 mg PO WM [facility] Last Admin: 09/22/18 21:20 Dose: Not Given Epoetin Real (Procrit) 20,000 unit SC MWF [facility] Last Admin: 09/22/18 17:14 Dose: 20,000 unit Escitalopram Oxalate (Lexapro) 10 mg PO HS [facility] Last Admin: 09/22/18 21:20 Dose: Not Given Furosemide (Lasix) 40 mg IVP BID [facility] Last Admin: 09/22/18 17:15 Dose: 40 mg Levothyroxine Sodium (Synthroid) 50 mcg PO DAILY@0630 [facility] Last Admin: 09/22/18 06:17 Dose: Not Given Lorazepam (Ativan) 0.25 mg PO Q12 PRN PRN Reason: Anxiety Megestrol Acetate (Megace) 400 mg PO DAILY [facility] Last Admin: 09/22/18 12:44 Dose: 400 mg Pantoprazole Sodium (Protonix Ec Tab) 40 mg PO DAILY [facility] Last Admin: 09/22/18 10:44 Dose: Not Given Sodium Bicarbonate (Sodium Bicarbonate Tab) 650 mg PO Q8 [facility] Last Admin: 09/23/18 01:50 Dose: Not Given Spironolactone (Aldactone) 50 mg PO BID [facility] Last Admin: 09/22/18 17:16 Dose: 50 mg - Labs Labs: 09/20/18 04:25 09/20/18 04:25 PT 15.1 Seconds (9.8-13.1) H 09/17/18 18:20 INR 1.3 09/17/18 18:20 APTT 24.7 Seconds (25.6-37.1) L 09/17/18 18:20 - Constitutional Appears: No Acute Distress - Eye Exam Eye Exam: Conjunctival injection - ENT Exam ENT Exam: Mucous Membranes Moist - Respiratory Exam Respiratory Exam: NORMAL BREATHING PATTERN - Cardiovascular Exam Cardiovascular Exam: absent: Gallop, JVD, Rubs - GI/Abdominal Exam GI & Abdominal Exam: Mass, Normal Bowel Sounds - Extremities Exam Extremities Exam: absent: Calf Tenderness - Back Exam Back Exam: absent: CVA tenderness (L), CVA tenderness (R) - Neurological Exam Neurological Exam: Alert - Skin Skin Exam: absent: Cyanosis Assessment and Plan (1) Abdominal malignant neoplasm Status: Acute (2) FREDY (acute kidney injury) Assessment & Plan: ARF/multifactorial, including obstructive uropathy Met Endometiral ca/ ovarian cancer Large abdominal mass obstructie uropathy/with left hydronephrosis and hydroureter anemia / hyperkalemia/corrected acidosis / hyperphosphatemia bilateral leg edema The plan Continue phosphorus binder Knee function stable with a creatinine in the range of 2.2 evaluation when possible Status: Acute
--- NOTE | 2018-09-23 13:17 | CP.PCM.PN ---
Subjective - Date & Time of Evaluation Date of Evaluation: 09/23/18 Time of Evaluation: 08:00 - Subjective Subjective: Pt seen and examined this am with Dr. Morales. Pt awake and appears comfortable but slightly confused. Asking to go home to [place]. Sister at bedside. Discussion held regarding pt's poor prognosis and family's goals of care moving forward. Sister states she is hoping for hospice arrangement to be made in [place]. Will likely sign consent for hospice today. Objective - Vital Signs/Intake and Output Vital Signs (last 24 hours): Temp Pulse Resp BP Pulse Ox 98.1 F 124 H 18 104/75 97 09/23/18 08:22 09/23/18 08:22 09/23/18 08:22 09/23/18 08:22 09/23/18 08:22 - Medications Medications: Current Medications Acetaminophen (Tylenol 325mg Tab) 650 mg PO Q4 PRN PRN Reason: Pain, Mild (1-3) Acetaminophen (Tylenol 325mg Tab) 650 mg PO Q4 PRN PRN Reason: TEMP >100 Calcium Acetate (Phoslo) 667 mg PO WM [facility] Last Admin: 09/22/18 21:20 Dose: Not Given Epoetin Real (Procrit) 20,000 unit SC MWF [facility] Last Admin: 09/22/18 17:14 Dose: 20,000 unit Escitalopram Oxalate (Lexapro) 10 mg PO HS [facility] Last Admin: 09/22/18 21:20 Dose: Not Given Furosemide (Lasix) 40 mg IVP BID [facility] Last Admin: 09/22/18 17:15 Dose: 40 mg Levothyroxine Sodium (Synthroid) 50 mcg PO DAILY@0630 [facility] Last Admin: 09/22/18 06:17 Dose: Not Given Lorazepam (Ativan) 0.25 mg PO Q12 PRN PRN Reason: Anxiety Megestrol Acetate (Megace) 400 mg PO DAILY [facility] Last Admin: 09/22/18 12:44 Dose: 400 mg Pantoprazole Sodium (Protonix Ec Tab) 40 mg PO DAILY [facility] Last Admin: 09/22/18 10:44 Dose: Not Given Sodium Bicarbonate (Sodium Bicarbonate Tab) 650 mg PO Q8 [facility] Last Admin: 09/23/18 01:50 Dose: Not Given Spironolactone (Aldactone) 50 mg PO BID [facility] Last Admin: 09/22/18 17:16 Dose: 50 mg - Labs Labs: 09/20/18 04:25 09/20/18 04:25 PT 15.1 Seconds (9.8-13.1) H 09/17/18 18:20 INR 1.3 09/17/18 18:20 APTT 24.7 Seconds (25.6-37.1) L 09/17/18 18:20 - Constitutional Appears: No Acute Distress, Chronically Ill - Head Exam Head Exam: NORMAL INSPECTION - Eye Exam Eye Exam: Normal appearance - ENT Exam ENT Exam: Mucous Membranes Moist - Neck Exam Neck Exam: Full ROM - Respiratory Exam Respiratory Exam: Decreased Breath Sounds. absent: Accessory Muscle Use, Rales, Rhonchi - Cardiovascular Exam Cardiovascular Exam: Tachycardia, +S1, +S2. absent: Irregular Rhythm, Murmur - GI/Abdominal Exam GI & Abdominal Exam: Distended, Soft, Organomegaly. 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 Pt is currently being evaluated for hospice. Pt has no capacity to make decision, family to signs hospice forms. -Hematology/oncology consulted-pt is refusing chemotherapy -Nephrology Consulted- ARF, Obstructive uropathy, recommended to consult urology for perc nephrostomy, IV lasix for edema (cannot increase due to low BP) -CT Surgery Consulted- C/W pleural cath drainage, pt refusing any surgical intervention -Hospice Eval pending -Psych consulted- increase lexapro to 10mgqHS, Atican 0.25mg BId prn for anxiety -Meds as ordered D/W Dr. Beach
[2018-09-23 15:45] VITALS: O2SAT 95
[2018-09-23 20:23] VITALS: BP 102/73; PULSE 120; RESP 18; TEMP 97.4
== END 2018-09-23 21:10 | disposition hospice, inpatient (51) | DRG 569 ==
LOC: H.ER 13:56 → MERGE 18:09 → H.ERHOLD 18:09 → H.TEL 20:32
PROVIDERS: ADMIT Family Medicine; ATTEND Family Medicine
DX: N13.1 Hydronephrosis with ureteral stricture, not elsewhere classified (principal); N17.9 Acute kidney failure, unspecified; J91.0 Malignant pleural effusion; C78.02 Secondary malignant neoplasm of left lung; J98.11 Atelectasis; E87.5 Hyperkalemia; E87.2 Acidosis; C78.6 Secondary malignant neoplasm of retroperitoneum and peritoneum; F06.31 Mood disorder due to known physiological condition with depressive features; F05 Delirium due to known physiological condition; C54.1 Malignant neoplasm of endometrium; C56.9 Malignant neoplasm of unspecified ovary; D64.89 Other specified anemias; E83.39 Other disorders of phosphorus metabolism; F41.1 Generalized anxiety disorder; Z92.21 Personal history of antineoplastic chemotherapy